=== PATIENT | male | born 1990 | race Caucasian/White ===

== ENCOUNTER 2017-11-29 18:35 | Inpatient (IN) | payer OTHER ==
[~2017-11-29] VITALS: Ht 172.7 cm; Wt 103.9 kg
--- NOTE | 2017-11-29 18:36 | NUR ---
PT BIBA BLS FOR 9992
[2017-11-29 18:41] VITALS: BP 165/102
--- NOTE | 2017-11-29 18:43 | NUR ---
PT TAKEN BY [facility] CREW TO BED 5
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
[2017-11-29 19:09] LABS: BASOPHILS % (AUTO) 0.4 % (0.0-2.0); EOSINOPHILS % (AUTO) 0.1 % (0.0-4.0); HEMATOCRIT 42.6 % (36-52); LYMPHOCYTES # (AUTO) 2.1 K/uL (2.0-11.5); LYMPHOCYTES % (AUTO) 18.6 % (20.5-51.1); MEAN CORPUSCULAR HEMOGLOBIN 29 pg (27-31); MEAN CORPUSCULAR HGB CONC 33 g/dL (33-37); MONOCYTES # (AUTO) 0.7 K/uL (0.8-1.0); MONOCYTES % (AUTO) 6.7 % (1.7-9.3); NEUTROPHILS # (AUTO) 8.2 K/uL (1.8-7.7); NEUTROPHILS % (AUTO) 74.2 % (42.2-75.2); PLATELET COUNT (AUTO) 164 K/uL (140-450); RED BLOOD CELL COUNT(AUTO) 4.89 MIL/uL (4.20-6.10); RED CELL DISTRIBUTION WIDTH 14.2 % (11.6-13.7); WHITE BLOOD COUNT (AUTO) 11.1 K/uL (4.8-10.8)
--- NOTE | 2017-11-29 19:16 | NUR ---
CALLED POISON CONTROL AND SPOKE TO KAI SHE SUGGESTED ROUTINE TOXIC WORKUP LABS.CBC, LFTS, CMP.
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
--- NOTE | 2017-11-29 19:25 | NUR ---
PT REMOVED ALL BELONGINGS, BAGGED AND HANDED OVER TO SECURITY
[2017-11-29 19:26] LABS: ALBUMIN 3.7 g/dL (3.4-5.0); ANION GAP 12.9 (8-16); ASPARTATE AMINOTRANSFERASE 36 U/L (15-37); CARBON DIOXIDE 25.7 mmol/L (21-32); CHLORIDE 105 mmol/L (98-107); GFR ARICAN-AMERICAN 114 mL/min (>90); GLUCOSE 118 mg/dL (74-106); POTASSIUM 3.6 mmol/L (3.5-5.1); SODIUM SERUM 140 mmol/L (136-145); TOTAL BILIRUBIN 0.2 mg/dL (0.0-1.0); UREA NITROGEN, BLOOD 14 mg/dL (7-18)
[2017-11-29 19:30] LABS: SALICYLATE < 2.8 mg/dL (2.8-20.0)
[2017-11-29 19:31] LABS: ACETAMINOPHEN < 0.5 ug/ml (10-30)
[2017-11-29 19:40] LABS: BARBITURATE, URINE NEG. ng/ml (NEG <=200); BENZODIAZEPINE, URINE POS. ng/mL (NEG <=200); CANNABINOID, URINE POS. ng/mL (NEG <=50); COCAINE, URINE NEG. ng/mL (NEG <=300); OPIATE, URINE NEG. ng/mL (NEG <=2000); PHENCYCLIDINE SCREEN,URINE NEG. ng/mL (NEG <=25)
[2017-11-29] MEDS ORDERED: NACL 0.9% 3,000 ML IV ONE (20:15)
--- NOTE | 2017-11-29 21:56 | NUR ---
Patient appears to be resting comfortably in bed. Vital Signs within normal limits. Respirations even and unlabored.
--- NOTE | 2017-11-29 22:06 | NUR ---
SPOKE WITH CHANDRAKANT FROM POSIPM CONTROL TO CLOSE OUT CASE. POISION CONTROL UPDATED ON PATIENT CONDITION AT THIS TIME.
[2017-11-29] MEDS ORDERED: KETOROLAC 30 MG/ML VIAL IVP ONE (22:15)
[2017-11-29] MEDS ORDERED: DICYCLOMINE HCL LIQUID 20 MG, ALUMINUM HYD/MAG/SIMETHICONE 30 ML, LIDOCAINE VISCOUS 2% ... PO ONE ×3 (22:15)
--- NOTE | 2017-11-29 23:55 | NUR ---
LAB AT BEDSIDE FOR 2ND BA.
--- NOTE | 2017-11-30 01:58 | NUR ---
Patient appears to be resting comfortably in bed. Vital Signs within normal limits. Respirations even and unlabored.
--- NOTE | 2017-11-30 02:21 | NUR ---
Patient appears to be resting comfortably in bed. Vital Signs within normal limits. Respirations even and unlabored.
--- NOTE | 2017-11-30 03:18 | NUR ---
INITIATED TELE PSYCH PER DR. BOTELLO
--- NOTE | 2017-11-30 03:29 | NUR ---
FOLLOWED UP ON TELE PSYCH. SPOKE WITH KYLE. TOLD STILL IN LINE TO BE SEEN BY TELE PSYCH DOCTOR
--- NOTE | 2017-11-30 03:33 | NUR ---
PT AMBULATED TO BATHROOM
--- NOTE | 2017-11-30 04:00 | NUR ---
CALLED TO FOLLOW UP WITH TELE PSYCH. SPOKE WITH RASHAD. TOLD STILL IN QUEUE BUT THAT A NEW DOCTOR JUST CAME ON SHIFT AND SHOULD BE AVAILABLE TO SPEAK WITH PATIENT WITHIN 30 MIN
[2017-11-30] MEDS ORDERED: LORazepam 2 MG/ML VIAL IVP ONE ×3 (04:30→06:20)
--- NOTE | 2017-11-30 04:30 | NUR ---
FOLLOW UP CALL TO TELE PSYCH. SPOKE WITH ANTONIA. TOLD STILL WAITING FOR AVAILABLE DOCTOR AND GIVEN AN ETA ON 30-40 MIN FOR DOCTOR TO CALL BACK
--- NOTE | 2017-11-30 04:35 | NUR ---
PATIENT TACHYCARDIC AT THIS TIME. PATIENT STATES HE DOES NOT FEEL WELL. PATIENT DIAPHORETIC AND SHAKING. ER MD MADE AWARE MEDICATED ORDERED
--- NOTE | 2017-11-30 05:03 | NUR ---
FOLLOW UP CALL TO TELE PSYCH. SPOKE WITH JENNIFER. TOLD DOCTOR WILL BE AVAILABLE SOON AND WILL BE TESTING THE CAMERA MOMENTARILY
--- NOTE | 2017-11-30 05:17 | NUR ---
TELE PSYCH CAMERA TESTED AND WORKING, AWAITING TELE PSYCH DOCTOR AT THIS TIME
--- NOTE | 2017-11-30 05:35 | NUR ---
FOLLOW UP CALL TO TELE PSYCH. SPOKE WITH JENNIFER. TOLD A DR. RESENDEZ WILL BE CALLING US SHORTLY
--- NOTE | 2017-11-30 05:43 | NUR ---
TELE PSYCH DOCTOR, DR. RESENDEZ, CALLED BACK AND SPOKE WITH MINGO BOWERS
--- NOTE | 2017-11-30 05:49 | NUR ---
Guillermo nassar in [facility] - 11/30/17 at 0559 by AUDREY TELE PSYCH IN USE AT BEDSIDE WITH MINGO BOWERS AND TELE PSYCH DOCTOR DR. RESENDEZ
--- NOTE | 2017-11-30 05:55 | NUR ---
REPORT GIVEN TO DR. RESENDEZ REGARDING PATIENTS CONDITION. WILL CALL ON TELEPSYCH TO SPEAK WITH PATIENT
--- NOTE | 2017-11-30 05:55 | NUR ---
PATIENT DIAPHORETIC AND SHAKING AT THIS TIME. PATIENT IS RESTLESS AT THIS TIME. ER MD MADE AWARE OF PATIENT STATUS. WILL MEDICATE ORDERED
--- NOTE | 2017-11-30 06:02 | NUR ---
TELE PSYCH IN USE AT BEDSIDE. DR. RESENDEZ SPEAKING WITH PATIENT
[2017-11-30] MEDS ORDERED: NACL 0.9% 1,000 ML IV ONE (06:20)
[2017-11-30] MEDS ORDERED: LORazepam 2 MG/ML VIAL ONE (06:22)
--- NOTE | 2017-11-30 06:30 | NUR ---
PATIENT TACHYCARDIC, DIAPHORETIC, AND RESTLESS AT THIS TIME. ER MD MADE AWARE OF PATIENT STATUS. WILL MEDICATE ORDERED.
--- NOTE | 2017-11-30 06:53 | NUR ---
TELE PSYCH CONSULTATION REPORT RECEIVED THROUGH FAX AND GIVEN TO DR. BOTELLO
[2017-11-30] MEDS ORDERED: ZOLPIDEM 5 MG TAB PO PRN (07:05)
[2017-11-30] MEDS ORDERED: HYDROcodone/APAP 5/325 MG 1 TAB TAB PO PRN (07:05)
[2017-11-30] MEDS ORDERED: ACETAMINOPHEN 325 MG TAB PO PRN (07:05)
[2017-11-30] MEDS ORDERED: LORazepam 2 MG/ML VIAL IM/IVP PRN (07:05)
[2017-11-30] MEDS ORDERED: DOCUSATE SODIUM 100 MG GELCAP PO PRN (07:05)
--- NOTE | 2017-11-30 07:15 | NUR ---
Dr. Leiva evaluating patient at bedside.
--- NOTE | 2017-11-30 07:26 | NUR ---
REVEIVED REPORT FROM SANDEEP AGUILA.
[2017-11-30] MEDS ORDERED: LORazepam 2 MG/ML VIAL IVP PRN (07:30)
[2017-11-30 07:43] LABS: CHOL/HDL RATIO 3.7 (1-4.5); MAGNESIUM 1.7 mg/dL (1.8-2.4); PHOSPHORUS 3.6 mg/dL (2.5-4.9); THYROID STIMULATING HORMONE 0.56 uIU/mL (0.34-3.74)
--- NOTE | 2017-11-30 07:59 | NUR ---
Patient will be admitted to care of DR SMITH. Admited to TELE. Will go to room 119. Belongings list completed. Report to VELIA AGUILA.
[2017-11-30 08:00] VITALS: BP 184/101
--- NOTE | 2017-11-30 08:00 | NUR ---
PT ARRIVED FROM ER IN [facility], REPORT RECEIVED FROM PAID INTERN, PT AMBULATES FROM HALLWAY TO BED WITH STEADY GAIT, PT AAOX4, RESP EVEN UNLABORED, SKIN WARM DRY COLOR WNL, VISIBLE TREMORS NOTED, PT C/O GENERALIZED BODY PAIN AND ABD PAIN, PLAN OF CARE REVIEWED, PT ORIENTED TO ROOM AND FLOOR, SZ PRECAUTION INITIATED, IVF INFUSING WELL, SITE WNL, WILL CONTINUE TO MONITOR.
[2017-11-30] MEDS: FOLIC ACID 1 MG TAB PO SCH (08:19)
[2017-11-30] MEDS: MULTIVITAMIN 1 TAB PO SCH (08:19)
[2017-11-30] MEDS: THIAMINE 100 MG TAB PO SCH (08:19)
[2017-11-30] MEDS: chlordiazePOXIDE 25 MG CAP PO SCH ×3 (08:20→17:22)
[2017-11-30] MEDS: NACL 0.9% 1,000 ML IV SCH ×3 (08:21→21:41)
[2017-11-30] MEDS: MORPHINE SULFATE 2 MG/ML SYR IVP PRN ×3 (08:36→20:19)
[2017-11-30] MEDS: ONDANSETRON 4 MG/2 ML VIAL IM/IVP PRN ×3 (08:36→21:29)
[2017-11-30] MEDS ORDERED: NACL 0.9% 500 ML IV SCH (08:50)
[2017-11-30] MEDS ORDERED: CALCIUM GLUCONATE 10% 1,000 MG in NACL 0.9% 50 ML IV ONE ×2 (08:50→21:50)
[2017-11-30 08:53] LABS: APPEARANCE,URINE CLEAR (CLEAR); BILIRUBIN,URINE NEGATIVE (NEGATIVE); BLOOD, URINE NEGATIVE (NEGATIVE); COLOR,URINE YELLOW (YELLOW); LEUKOCYTE ESTERASE ,URINE NEGATIVE (NEGATIVE); NITRITE, URINE NEGATIVE (NEGATIVE); PH,URINE 6.5 (5.0-9.0); UGLUCOSE NEGATIVE (NEGATIVE)
--- NOTE | 2017-11-30 08:55 | NUR ---
PT TO CT HEAD IN WHEELCHAIR
[2017-11-30] MEDS ORDERED: LORazepam 2 MG/ML VIAL IVP SCH (09:00)
--- NOTE | 2017-11-30 09:00 | NUR ---
PATIENT HAS BEEN SCREENED AND CATEGORIZED LOW NUTRITION RISK. PATIENT WILL BE SEEN WITHIN 7 DAYS OF ADMISSION. 12/06/[address]
[2017-11-30] MEDS: SERTRALINE 50 MG TAB PO SCH (09:28)
[2017-11-30] MEDS ORDERED: CALCIUM CARB 600 MG TAB PO SCH (09:30)
--- NOTE | 2017-11-30 09:33 | NUR ---
PT WITH VISIBLE TREMORS, ATIVAL GIVEN, ZOLOFT, TABITHA WELL, SZ PRECAUTIONS IN PLACE, IVF INFUSING WELL, SITE WNL, WILL CONTINUE TO MONITOR
--- NOTE | 2017-11-30 10:00 | NUR ---
PT SLEEPING QUIETLY, RESP EVEN UNLABORED, SKIN WARMD RYC OLOR WNL, WILL CONTINUE TO MONITOR
[2017-11-30 10:02] VITALS: BP 133/83
[2017-11-30 12:00] VITALS: BP 143/83
[2017-11-30] MEDS: LORazepam 1 MG TAB PO PRN (15:06)
--- NOTE | 2017-11-30 15:07 | NUR ---
PT C/O FEEDING JITTERY AND ANXIOUS WITH PAIN THROUGH OUT BODY, ARM TREMORES NOTED, ATIVAN PO GIVEN, WILL CONTINUE TO MONITOR.
[2017-11-30 16:00] VITALS: BP 150/90
--- NOTE | 2017-11-30 16:48 | NUR ---
DR STUART (PSYCH) AT BEDSIDE
--- NOTE | 2017-11-30 17:08 | NUR ---
ADOPTION COUNSELOR AT BEDSIDE FOR ABD US
--- NOTE | 2017-11-30 17:22 | NUR ---
PT C/O SEVER ABD PAIN, 01/14, ABD SOFT, ROUND, NON DISTENDED, NO VOMITING BUT NAUSEA, MORPHINE GIVEN PER PRN ORDER, WILL ALSO GIVE ZOFRAN FOR C/O NAUSEA
--- NOTE | 2017-11-30 18:20 | NUR ---
PT SLEEPING QUIELTY NOW, RESP EVEN UNLABORED, WILL CONTINUE TO MONITOR
--- NOTE | 2017-11-30 19:15 | NUR ---
REPORT GIVEN TO MACHINE PECAN GATHERER NURSE ZOHREH SIMON IN STABLE CONDITION.
--- NOTE | 2017-11-30 19:16 | NUR ---
RECEIVED REPORT FROM DAY SHIFT NURSE SANJAY-RN. PT RESTING IN BED. AOX4, ON ROOM AIR, IV RIGHT WRIST #22G-INFUSING NS @120ML/HR. PT IS AMBULATORY PER DAY SHIFT NURSE AND SKIN INTACT. DISCUSSED PLAN OF CARE AND PT VERBALIZED UNDERSTANDING. NO S/S OF RESPIRATORY DISTRESS OR DISCOMFORT NOTED AT THIS TIME. WHITE BOARD UPDATED. BED IN LOWEST POSITION, BED BREAKS ON, SIDE RAILS UP AND ON SEIZURE PRECAUTIONS. BED SIDE TABLE AND CALL LIGHT ARE WITHIN REACH. WILL CONTINUE TO MONITOR.
[2017-11-30 20:00] VITALS: BP 137/77
--- NOTE | 2017-11-30 20:00 | NUR ---
VITAL SIGNS TAKEN AND TOLERATED WELL. NO S/S OF RESPIRATORY DISTRESS NOTED AT THIS TIME. PT C/O PAIN 12/14- WILL MEDICATE. WILL CONTINUE TO MONITOR.
--- NOTE | 2017-11-30 20:20 | NUR ---
MEDICATED PT WITH MORPHINE FOR PAIN. PT TOLERATED WELL. NO S/S OF RESPIRATORY DISTRESS. WILL CONTINUE TO MONITOR.
--- NOTE | 2017-11-30 21:30 | NUR ---
PT C/O N/V- MEDICATED WITH ZOFRAN. PT CONTINUES TO C/O PAIN STATING "MORPHINE ONLY TOOK THE EDGE OFF." PT PAIN LEVEL CURRENTLY 6/10-WILL MEDICATE WITH NORCO.
--- NOTE | 2017-11-30 21:40 | NUR ---
MEDICATED PT WITH NORCO. PT TOLERATED WELL. NO S/S OF RESPIRATORY DISTRESS. WILL CONTINUE TO MONITOR.
--- NOTE | 2017-11-30 21:43 | NUR ---
NEW BAG OF IVF HUNG. PT TOLERATED WELL. NO S/S OF RESPIRATORY DISTRESS. WILL CONTINUE TO MONITOR.
[2017-12-01] VITALS (8 sets, daily range): BP systolic 120–163; BP diastolic 63–103
--- NOTE | 2017-12-01 | NUR ---
VITAL SIGNS TAKEN AND TOLERATED WELL. NO S/S OF RESPIRATORY DISTRESS. PT C/O PAIN 12/14-WILL MEDICATE.
[2017-12-01] MEDS: MORPHINE SULFATE 2 MG/ML SYR IVP PRN ×6 (00:27→20:48)
--- NOTE | 2017-12-01 00:30 | NUR ---
MEDICATED PT WITH MORPHINE. PT TOLERATED WELL. NO S/S OF RESPIRATORY DISTRESS. WILL CONTINUE TO MONITOR.
--- NOTE | 2017-12-01 02:00 | NUR ---
PT SLEEPING IN BED. NO S/S OF RESPIRATORY DISTRESS OR DISCOMFORT NOTED AT THIS TIME. WILL CONTINUE TO MONITOR.
--- NOTE | 2017-12-01 04:00 | NUR ---
VITAL SIGNS TAKEN AND TOLERATED WELL. NO S/S OF RESPIRATORY DISTRESS. PT C/O PAIN 12/14-WILL ADMINISTER MORPHINE. PT ALSO C/O NAUSEA-WILL ADMINISTER ZOFRAN.
[2017-12-01] MEDS: ONDANSETRON 4 MG/2 ML VIAL IM/IVP PRN ×4 (04:34→20:48)
--- NOTE | 2017-12-01 04:35 | NUR ---
MEDICATED PT WITH MORPHINE FOR PAIN AND ZOFRAN FOR NAUSEA. PT TOLERATED WELL. NO S/S OF RESPIRATORY DISTRESS. WILL CONTINUE TO MONITOR.
--- NOTE | 2017-12-01 06:00 | NUR ---
PT RESTING IN BED. NO S/S OF RESPIRATORY DISTRESS OR DISCOMFORT NOTED AT THIS TIME. WILL CONTINUE TO MONITOR.
--- NOTE | 2017-12-01 07:30 | NUR ---
RECEIVED PT ON BED, AAOX4. NO SOB NOTED. NO C/O PAIN AT THIS TIME. IV TO RT WRIST PATENT AND INTACT. CHEST CLEAR. ABDOMEN SOFT, BOWEL SOUNDS PRESENT. NO EDEMA NOTED. INSTRUCTED PT TO CALL FOR ASSISTANCE, CALL LIGHT WITHIN REACH, PT VERBALIZED UNDERSTANDING.
--- NOTE | 2017-12-01 07:35 | NUR ---
PT HAVE SOME SHAKING MOVEMENTS FROM ALCOHOL WITHDRAWAL. ON SCHEDULED LIBRIUM PO.
--- NOTE | 2017-12-01 07:40 | NUR ---
ENDORSED PT CARE TO DAY SHIFT NURSE ROMEL FOR CONTINUITY OF CARE.
[2017-12-01] MEDS ORDERED: MAG SULF 2000 MG/WATER PREMIX 50 ML IV SCH (08:20)
[2017-12-01 08:42] LABS: ANION GAP 10.2 (8-16); CARBON DIOXIDE 28.3 mmol/L (21-32); CREATININE 0.9 mg/dL (0.7-1.3); POTASSIUM 3.5 mmol/L (3.5-5.1)
[2017-12-01 08:45] LABS: EOSINOPHILS # (AUTO) 0.1 K/uL (0-0.4); EOSINOPHILS % (AUTO) 1.3 % (0.0-4.0); HEMATOCRIT 43.6 % (36-52); HEMOGLOBIN 14.8 g/dL (12.0-18.0); LYMPHOCYTES # (AUTO) 1.8 K/uL (2.0-11.5); LYMPHOCYTES % (AUTO) 29.5 % (20.5-51.1); MEAN CORPUSCULAR HEMOGLOBIN 30 pg (27-31); MEAN CORPUSCULAR HGB CONC 34 g/dL (33-37); MEAN CORPUSCULAR VOLUME 87.9 fL (80-94); MONOCYTES # (AUTO) 0.5 K/uL (0.8-1.0); MONOCYTES % (AUTO) 8.1 % (1.7-9.3); NEUTROPHILS # (AUTO) 3.8 K/uL (1.8-7.7); NEUTROPHILS % (AUTO) 61.1 % (42.2-75.2); PLATELET COUNT (AUTO) 153 K/uL (140-450); RED BLOOD CELL COUNT(AUTO) 4.95 MIL/uL (4.20-6.10); RED CELL DISTRIBUTION WIDTH 14.5 % (11.6-13.7); WHITE BLOOD COUNT (AUTO) 6.2 K/uL (4.8-10.8)
[2017-12-01] MEDS: NACL 0.9% 1,000 ML IV SCH ×2 (09:14→20:47)
[2017-12-01] MEDS: chlordiazePOXIDE 25 MG CAP PO SCH ×3 (09:22→16:58)
[2017-12-01] MEDS: CALCIUM CARB 600 MG TAB PO SCH (09:23)
[2017-12-01] MEDS: MULTIVITAMIN 1 TAB PO SCH (09:23)
[2017-12-01] MEDS: FAMOTIDINE 20 MG TAB PO SCH (09:23)
[2017-12-01] MEDS: THIAMINE 100 MG TAB PO SCH (09:23)
[2017-12-01] MEDS: SERTRALINE 50 MG TAB PO SCH (09:23)
[2017-12-01] MEDS: FOLIC ACID 1 MG TAB PO SCH (09:24)
--- NOTE | 2017-12-01 09:45 | NUR ---
FULL LIQUIDS FAIRLY TOLERATED. WILL CONTINUE TO MONITOR.
--- NOTE | 2017-12-01 12:03 | NUR ---
PT CONTINUES TO HAVE SOME SHAKING MOVEMENTS FROM ALCOHOL WITHDRAWAL. WILL CONTINUE TO MONITOR.
--- NOTE | 2017-12-01 15:55 | NUR ---
PT RESTING. NO SOB NOTED. NO COMPLAINTS MADE.
--- NOTE | 2017-12-01 16:55 | NUR ---
PT C/O NAUSEA, MEDICATED WITH ZOFRAN IVP PRN. WILL CONTINUE TO MONITOR.
--- NOTE | 2017-12-01 19:08 | NUR ---
PT RESTING. NO SOB NOTED. NO COMPLAINTS MADE. WILL ENDORSE TO NEXT SHIFT NURSE FOR CONTINUITY OF CARE.
--- NOTE | 2017-12-01 19:35 | NUR ---
RECEIVED PT. IN BED SLEEPING. WOKE UP EASILY WHEN CALLED BY NAME. DENIES PAIN AT THIS TIME. NO COMPLAINTS DONE. WENT BACK TO SLEEP AFTER REPORT DONE. DX. OF ETOH WITHDRAWAL. TELEMETRY MONITORING. NO SOB. ROOM AIR. AFEBRILE. CARE PLANS FOR THE NIGHT DISCUSSED WITH HIM. CALL LIGHT WITH IN REACH. ENCOURAGED TO USE CALL LIGHT IF IN PAIN OR NEEDS HELP. "OK"
--- NOTE | 2017-12-01 20:48 | NUR ---
PT. MEDICATED WITH MORPHINE 1 MG. IVP FOR COMPLAINT OF ABDOMINAL PAIN AND ZOFRAN REQUESTED FOR NAUSEA. MEDICATED WITH AMBIEN 5 MG. P.O. RT PER PT.S REQUEST. STATED THAT HE CAN NOT SLEEP EASILY. STATED HE HAS INSOMNIA. AWAKE AND ALERT. ORIENTED X 4. ROM X 4.
[2017-12-01] MEDS: LORazepam 1 MG TAB PO PRN (22:36)
--- NOTE | 2017-12-01 22:39 | NUR ---
PT. WOKE UP . USED URINAL. REQUESTED TO HAVE SOMETHING BECAUSE "I CAN NOT SLEEP BACK ANYMORE" NOTED PT. GRIMACING AND MUSCLES WITH TREMORS. MEDICATED WITH ATIVAN 2 MG. P.O. FOR ANXIETY ORDERED. WILL MONITOR .
[2017-12-02 00:05] VITALS: BP 129/77
--- NOTE | 2017-12-02 00:11 | NUR ---
SLEEPING WELL AT THIS TIME. WOKE UP EASILY WHEN NAME CALLED. VITAL SIGNS TAKEN. NO COMPLAINTS AT THIS TIME. WENT BACK TO SLEEP. TELEMETRY MONITORING. VS WITH IN NORMAL LIMITS. IVF SITE INTACT AND NO INFILTRATION. CALL LIGHT WITH IN REACH.
--- NOTE | 2017-12-02 03:30 | NUR ---
PT. SLEEPING AT THIS TIME. NO SOB. NO RESTLESSNESS.
[2017-12-02 04:00] VITALS: BP_SYST 109; BP_SYST 129; BP_DIAS 60; BP_DIAS 76
[2017-12-02] MEDS: MORPHINE SULFATE 2 MG/ML SYR IVP PRN ×2 (04:21→08:44)
[2017-12-02] MEDS: ONDANSETRON 4 MG/2 ML VIAL IM/IVP PRN ×2 (05:57→10:35)
[2017-12-02] MEDS: NACL 0.9% 1,000 ML IV SCH (06:01)
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
[2017-12-02 07:33] LABS: ANION GAP 11.7 (8-16); CARBON DIOXIDE 27.8 mmol/L (21-32); CREATININE 0.9 mg/dL (0.7-1.3); POTASSIUM 3.5 mmol/L (3.5-5.1)
[2017-12-02 07:34] LABS: BASOPHILS % (AUTO) 0.4 % (0.0-2.0); EOSINOPHILS # (AUTO) 0.1 K/uL (0-0.4); EOSINOPHILS % (AUTO) 0.9 % (0.0-4.0); HEMATOCRIT 43.6 % (36-52); HEMOGLOBIN 14.6 g/dL (12.0-18.0); LYMPHOCYTES # (AUTO) 1.6 K/uL (2.0-11.5); LYMPHOCYTES % (AUTO) 23.5 % (20.5-51.1); MEAN CORPUSCULAR HEMOGLOBIN 30 pg (27-31); MEAN CORPUSCULAR HGB CONC 34 g/dL (33-37); MEAN CORPUSCULAR VOLUME 88.2 fL (80-94); MONOCYTES # (AUTO) 0.6 K/uL (0.8-1.0); MONOCYTES % (AUTO) 8.7 % (1.7-9.3); NEUTROPHILS # (AUTO) 4.4 K/uL (1.8-7.7); NEUTROPHILS % (AUTO) 66.5 % (42.2-75.2); PLATELET COUNT (AUTO) 160 K/uL (140-450); RED BLOOD CELL COUNT(AUTO) 4.94 MIL/uL (4.20-6.10); RED CELL DISTRIBUTION WIDTH 14.3 % (11.6-13.7); WHITE BLOOD COUNT (AUTO) 6.7 K/uL (4.8-10.8)
[2017-12-02 07:51] LABS: PHOSPHORUS 4.4 mg/dL (2.5-4.9)
[2017-12-02 08:00] VITALS: BP 135/80
--- NOTE | 2017-12-02 08:40 | NUR ---
PT TOLERATED FULL LIQUIDS FOR LUNCH. NO N&V NOTED.
[2017-12-02] MEDS: FOLIC ACID 1 MG TAB PO SCH (08:48)
[2017-12-02] MEDS: MULTIVITAMIN 1 TAB PO SCH (08:49)
[2017-12-02] MEDS: chlordiazePOXIDE 25 MG CAP PO SCH ×3 (08:49→13:58)
[2017-12-02] MEDS: FAMOTIDINE 20 MG TAB PO SCH (08:49)
[2017-12-02] MEDS: SERTRALINE 50 MG TAB PO SCH (08:49)
[2017-12-02] MEDS: THIAMINE 100 MG TAB PO SCH (08:49)
[2017-12-02] MEDS: CALCIUM CARB 600 MG TAB PO SCH (08:49)
--- NOTE | 2017-12-02 10:35 | NUR ---
PT C/O NAUSEA, NO VOMITING NOTED. MEDICATED WITH ZOFRAN IVP ORDERED PRN.
[2017-12-02 12:00] VITALS: BP 127/75
[2017-12-02] MEDS ORDERED: LIB25 PO ×2 (12:14→12:46)
[2017-12-02] MEDS ORDERED: ONDA4TAB PO (12:15)
[2017-12-02] MEDS ORDERED: ACET-9525 PO (12:16)
[2017-12-02] MEDS ORDERED: MULT-405 PO (12:31)
[2017-12-02] MEDS ORDERED: THIA-34 PO (12:31)
--- NOTE | 2017-12-02 13:00 | NUR ---
PT TOLERATED REGULAR DIET FOR LUNCH. NO N&V NOTED.
[2017-12-02] MEDS ORDERED: chlordiazePOXIDE 25 MG CAP PO SCH (14:10)
--- NOTE | 2017-12-02 14:30 | NUR ---
DISCHARGE INSTRUCTIONS AND PRESCRIPTIONS GIVEN TO PT WHICH VERBALIZED FULL UNDERSTANDING OF THE INSTRUCTIONS GIVEN AND THE NEED TO FOLLOW UP WITH PCP WITHIN 7 DAYS. ARM BANDS AND IV REMOVED, CANNULA TIP INTACT.
--- NOTE | 2017-12-02 14:35 | NUR ---
ESCORTED PT OUT , AMBULATORY. NO SOB NOTED. NO COMPLAINTS MADE. PT IS D/C HOME IN STABLE CONDITION.
--- NOTE | 2017-12-04 08:03 | NUR ---
RETRO FAXED ER REPORT, H&P, CONSULT AND DISCHARGE SUMMARY TO [facility] [phone] PHONE [phone]
== END 2017-12-02 14:35 | disposition home or self-care (01) | DRG 816 ==
LOC: MED 18:35 → MTU 11-30 07:03
PROVIDERS: ADMIT General Practice; ATTEND General Practice
DX: T65.892A Toxic effect of other specified substances, intentional self-harm, initial encounter (principal); G92 Toxic encephalopathy; E66.01 Morbid (severe) obesity due to excess calories; E83.42 Hypomagnesemia; R45.851 Suicidal ideations; F10.129 Alcohol abuse with intoxication, unspecified; F13.20 Sedative, hypnotic or anxiolytic dependence, uncomplicated; E83.51 Hypocalcemia; F19.10 Other psychoactive substance abuse, uncomplicated; E78.5 Hyperlipidemia, unspecified; F12.90 Cannabis use, unspecified, uncomplicated; F41.1 Generalized anxiety disorder; D72.829 Elevated white blood cell count, unspecified; Z68.35 Body mass index [BMI] 35.0-35.9, adult; K27.9 Peptic ulcer, site unspecified, unspecified as acute or chronic, without hemorrhage or perforation
CPT/HCPCS: 36415; 70450; 71045; 76700; 80048; 80053; 80305; 81003; 83036; 83690; 83735; 84100; 84134; 84443; 85025; 85610; 87081; 93005; 96361; 96374; 96375; 99285; G0480; G0482; J1885; J2060; J2270; J2405; J3475; J7030; Q0092

== ENCOUNTER 2017-12-16 10:10 | Emergency (ER) | payer OTHER ==
[~2017-12-16] VITALS: Ht 172.7 cm; Wt 99.8 kg
[~2017-12-16 10:10] MED LIST: ACET-9525 PO; LIB25 PO; MULT-405 PO; ONDA4TAB PO; THIA-34 PO
--- NOTE | 2017-12-16 10:11 | NUR ---
PT BIBA BLS TO ER BED 04
[2017-12-16 10:13] VITALS: BP 151/105
--- NOTE | 2017-12-16 10:15 | NUR ---
PT . BIBA FROM HOME FOR ETOH AND "NOT FEELING GOOD," ASSOCIATED WITH CHEST PAIN WITH DEEP INSPIRATION. 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 PT IS AXO X4 , RESPONDING IN FULL SENTENCES WITH CLEAR SPEACH, CLENCHING JAW. DENIES SI/HI. PT HAS 4/10 SHARP NON RADIATING PAIN IN STERNAL CHEST UPON DEEP INSPIRATION. RR EVEN AND UNLABORED. ER MD NOTIFIED. WILL CONTINUE TO MONITOR. SAFETY PRECAUTIONS INITIATED.
[2017-12-16] MEDS ORDERED: MULTIVITAMIN-12 10 ML, THIAMINE 100 MG, MAGNESIUM SULFATE 50% 2,000 MG, FOLIC ACID 5 MG... IV ONE ×5 (10:20)
--- NOTE | 2017-12-16 10:20 | NUR ---
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 ER MD INFANTE NOTIFIED.
--- NOTE | 2017-12-16 10:31 | NUR ---
PT GIVEN SUBSTANCE ABUSE RESOURCE PACKET, REFUSED TO TAKE IT, STATES HE HAS ALL THE RESOURCES HE NEEDS.
[2017-12-16] MEDS ORDERED: MULTIVITAMIN-12 10 ML, THIAMINE 100 MG, FOLIC ACID 5 MG in NACL 0.9% 1,000 ML IV ONE (10:40)
[2017-12-16 10:45] LABS: BASOPHILS % (AUTO) 0.5 % (0.0-2.0); HEMATOCRIT 47.3 % (36-52); HEMOGLOBIN 15.9 g/dL (12.0-18.0); LYMPHOCYTES # (AUTO) 1.7 K/uL (2.0-11.5); LYMPHOCYTES % (AUTO) 22.2 % (20.5-51.1); MEAN CORPUSCULAR HEMOGLOBIN 29 pg (27-31); MEAN CORPUSCULAR HGB CONC 34 g/dL (33-37); MEAN CORPUSCULAR VOLUME 87.3 fL (80-94); MONOCYTES # (AUTO) 0.7 K/uL (0.8-1.0); MONOCYTES % (AUTO) 8.8 % (1.7-9.3); NEUTROPHILS # (AUTO) 5.3 K/uL (1.8-7.7); NEUTROPHILS % (AUTO) 68.5 % (42.2-75.2); PLATELET COUNT (AUTO) 276 K/uL (140-450); RED BLOOD CELL COUNT(AUTO) 5.42 MIL/uL (4.20-6.10); RED CELL DISTRIBUTION WIDTH 14.6 % (11.6-13.7); WHITE BLOOD COUNT (AUTO) 7.7 K/uL (4.8-10.8)
[2017-12-16] MEDS ORDERED: LORazepam 2 MG/ML VIAL IVP ONE ×2 (10:45→13:50)
[2017-12-16] MEDS ORDERED: NACL 0.9% 1,000 ML IV ONE (10:45)
--- NOTE | 2017-12-16 10:45 | NUR ---
PT. UNABLE TO PROVIDE URINE AT THIS TIME. ER MD INFANTE NOTIFIED. WILL CONTINUE TO MONITOR.
[2017-12-16 10:58] LABS: ANION GAP 15.7 (8-16); CHLORIDE 100 mmol/L (98-107); CREATININE 0.9 mg/dL (0.7-1.3); GFR ARICAN-AMERICAN 128 mL/min (>90); GLUCOSE 140 mg/dL (74-106); POTASSIUM 3.7 mmol/L (3.5-5.1); SODIUM SERUM 138 mmol/L (136-145); UREA NITROGEN, BLOOD 11 mg/dL (7-18)
[2017-12-16 11:05] LABS: ACETAMINOPHEN < 0.5 ug/ml (10-30); ALBUMIN 4.1 g/dL (3.4-5.0); ASPARTATE AMINOTRANSFERASE 29 U/L (15-37); SALICYLATE < 2.8 mg/dL (2.8-20.0); TOTAL BILIRUBIN 0.4 mg/dL (0.0-1.0)
--- NOTE | 2017-12-16 11:16 | NUR ---
PT. HAS 86% 02 AT ROOM AIR. ER NOTIFIED. 2L VIA NC STARTED, 02 SAT OF 98% NOW.
--- NOTE | 2017-12-16 11:33 | NUR ---
PT. STATES " I AM IN A LOT O PAIN". 10/14 PAIN "ALL OVER". TRE INFANTE NOTIFIED. Addendum: 12/16/17 at 1137 by MEDNC PT HAS B/P OF 155/101 . TRE INFANTE NOTIFIED.
[2017-12-16] MEDS ORDERED: KETOROLAC 15 MG/ML VIAL IVP ONE (11:40)
[2017-12-16] MEDS ORDERED: ONDANSETRON 4 MG/2 ML VIAL IVP ONE (11:40)
[2017-12-16 12:25] LABS: BARBITURATE, URINE NEG. ng/ml (NEG <=200); BENZODIAZEPINE, URINE POS. ng/mL (NEG <=200); CANNABINOID, URINE POS. ng/mL (NEG <=50); COCAINE, URINE NEG. ng/mL (NEG <=300); OPIATE, URINE NEG. ng/mL (NEG <=2000); PHENCYCLIDINE SCREEN,URINE NEG. ng/mL (NEG <=25)
--- NOTE | 2017-12-16 12:30 | NUR ---
PT. RSTING COMFORTABLY IN BED, SLEEPING . VSS. BED IN LOWEST POSITION. WILL CONTINUE TO MONITOR.
--- NOTE | 2017-12-16 13:18 | NUR ---
VIRGINIE [phone] (GIRLFRIEND).
--- NOTE | 2017-12-16 14:05 | NUR ---
PT. RESTING COMFORTABLY IN BED, RR EVEN AND UNLABORED. WILL CONTINUE TO MONITOR.
--- NOTE | 2017-12-16 14:42 | NUR ---
PT STATES " IM FEELING A OT BETTER, THANKS A LOT FOR THE RESOURCES ON SUBSTANCE ABUSE." PT IS ON HIS CELL PHONE SPEAKING WITH HIS DAD, STATES HE IS DOWN THE STREET.
[2017-12-16 14:48] VITALS: BP 149/78
== END 2017-12-16 14:48 | disposition home or self-care (01) ==
LOC: MED 10:10
DX: F10.129 Alcohol abuse with intoxication, unspecified (principal); F41.9 Anxiety disorder, unspecified; F12.90 Cannabis use, unspecified, uncomplicated; F19.90 Other psychoactive substance use, unspecified, uncomplicated; R07.89 Other chest pain; R06.02 Shortness of breath; R10.9 Unspecified abdominal pain; R19.7 Diarrhea, unspecified; R11.10 Vomiting, unspecified; I10 Essential (primary) hypertension; Z79.899 Other long term (current) drug therapy
CPT/HCPCS: 36415; 80053; 80305; 85025; 93005; 96361; 96365; 96366; 96375; 96376; 99285; A9153; G0480; G0482; J1885; J2060; J2405; J3411; J3490; J7030

== ENCOUNTER 2018-05-18 12:15 | Emergency (ER) | payer SELFPAY ==
[~2018-05-18] VITALS: Ht 172.7 cm; Wt 127.0 kg
[2018-05-18] MEDS ORDERED: NACL 0.9% 1,000 ML IV ONE ×2 (12:20→13:00)
[2018-05-18 12:25] VITALS: BP 143/73
--- NOTE | 2018-05-18 12:30 | NUR ---
I SPOKE TO FIDE AT POISON CONTROL AT 1220 PM REGARDING THIS PATIENT IGESTION OF RUBBING ALCOHOL AND NYQUIL COLD AND FLU. LABS WERE ORDERED AND TREATMENT OPTIONS GIVEN RE TYLENOL LEVEL AND GASTRITIS.
--- NOTE | 2018-05-18 12:35 | NUR ---
28 YO MALE BIB EMS FROM HOME FOR POSSIBLE OVERDOSE ON TYLENOL AND OR RUBBING ALCOHOL. DENIES N/V/D; SKIN IS PINK/WARM/DRY; AAOX4 WITH EVEN AND STEADY GAIT; LUNGS CLEAR BL; HR EVEN AND REGULAR; PT DENIES ANY FEVER, CP, SOB, OR COUGH AT THIS TIME; PATIENT STATES PAIN OF 10/10 AT THIS TIME; VSS; PATIENT POSITIONED FOR COMFORT; HOB ELEVATED; BEDRAILS UP X2; BED DOWN. ER MD MADE AWARE OF PT STATUS.
[2018-05-18 12:47] LABS: BASOPHILS # (AUTO) 0.1 K/uL (0.00-0.22); BASOPHILS % (AUTO) 0.4 % (0.0-2.0); HEMATOCRIT 47.5 % (36-52); HEMOGLOBIN 15.2 g/dL (12.0-18.0); LYMPHOCYTES # (AUTO) 1.3 K/uL (2.0-11.5); LYMPHOCYTES % (AUTO) 9.8 % (20.5-51.1); MEAN CORPUSCULAR HEMOGLOBIN 27 pg (27-31); MEAN CORPUSCULAR HGB CONC 32 g/dL (33-37); MEAN CORPUSCULAR VOLUME 84.6 fL (80-94); MONOCYTES # (AUTO) 0.5 K/uL (0.8-1.0); MONOCYTES % (AUTO) 3.5 % (1.7-9.3); NEUTROPHILS # (AUTO) 11.6 K/uL (1.8-7.7); NEUTROPHILS % (AUTO) 86.3 % (42.2-75.2); PLATELET COUNT (AUTO) 312 K/uL (140-450); RED BLOOD CELL COUNT(AUTO) 5.61 MIL/uL (4.20-6.10); RED CELL DISTRIBUTION WIDTH 15.5 % (11.6-13.7); WHITE BLOOD COUNT (AUTO) 13.4 K/uL (4.8-10.8)
[2018-05-18 12:50] LABS: ANION GAP 15.1 (8-16); CARBON DIOXIDE 28.8 mmol/L (21-32); CHLORIDE 101 mmol/L (98-107); CREATININE 2.9 mg/dL (0.7-1.3); GFR ARICAN-AMERICAN 33 mL/min (>90); GLUCOSE 168 mg/dL (74-106); POTASSIUM 3.9 mmol/L (3.5-5.1); SODIUM SERUM 141 mmol/L (136-145); UREA NITROGEN, BLOOD 7 mg/dL (7-18)
[2018-05-18 12:55] LABS: ACETAMINOPHEN < 0.5 ug/ml (10-30); ALBUMIN 3.8 g/dL (3.4-5.0); ASPARTATE AMINOTRANSFERASE 14 U/L (15-37); TOTAL BILIRUBIN 0.2 mg/dL (0.0-1.0)
[2018-05-18 12:56] LABS: SALICYLATE < 2.8 mg/dL (2.8-20.0)
[2018-05-18] MEDS ORDERED: PANTOPRAZOLE 40 MG INJ VIAL IVP ONE (13:00)
--- NOTE | 2018-05-18 14:40 | NUR ---
DR CROSS INFORMED THAT PATIENT IN COMPLAINING OF NAUSEA
[2018-05-18] MEDS ORDERED: ONDANSETRON 4 MG/2 ML VIAL IVP ONE (14:55)
[2018-05-18 15:11] LABS: APPEARANCE,URINE CLEAR (CLEAR); BILIRUBIN,URINE NEGATIVE (NEGATIVE); BLOOD, URINE NEGATIVE (NEGATIVE); COLOR,URINE YELLOW (YELLOW); LEUKOCYTE ESTERASE ,URINE NEGATIVE (NEGATIVE); NITRITE, URINE NEGATIVE (NEGATIVE); PH,URINE 7.5 (5.0-9.0); UGLUCOSE NEGATIVE (NEGATIVE)
[2018-05-18 15:14] LABS: BARBITURATE, URINE NEGATIVE ng/ml (NEG <=200); BENZODIAZEPINE, URINE POSITIVE ng/mL (NEG <=200); CANNABINOID, URINE POSITIVE ng/mL (NEG <=50); COCAINE, URINE NEGATIVE ng/mL (NEG <=300); OPIATE, URINE NEGATIVE ng/mL (NEG <=2000); PHENCYCLIDINE SCREEN,URINE NEGATIVE ng/mL (NEG <=25)
--- NOTE | 2018-05-18 15:39 | NUR ---
Note daryann in EDM - 05/18/18 at 1541 by JANETH SPOKE WITH POISON CONTROL REGARDING PATIENT STATUS. UPDATED THEM ABOUT PATEINT CONDITION. HE STATED THAT HE RECOMMENDED WE DRAW BMP 4 HOURS AFTER INITIAL DRAW TO INSURE KIDNEY FUNCTION IS NOT WORSENING. DR CROSS INFORMED.
--- NOTE | 2018-05-18 15:45 | NUR ---
DR CROSS INFORMED PATIENT IN 02/13 ABD PAIN.
[2018-05-18] MEDS ORDERED: LIDOCAINE VISCOUS 2% 20 ML UDC PO ONE (16:10)
[2018-05-18 17:36] LABS: ANION GAP 13.5 (8-16); CARBON DIOXIDE 28.1 mmol/L (21-32); POTASSIUM 3.6 mmol/L (3.5-5.1)
[2018-05-18 17:37] LABS: CREATININE 2.5 mg/dL (0.7-1.3)
--- NOTE | 2018-05-18 17:53 | NUR ---
patient complaining of 10/[address] Naranjo made aware.
--- NOTE | 2018-05-18 17:58 | NUR ---
SPOKE WITH POISON CONTROL, UPDATED THEM ON CURRENT PATIENT VITALS AND LABS. STATE THEY HAV TONA FURTHER RECOMMENDATIONS FOR CARE. DR CROSS INFORMED.
[2018-05-18 18:34] VITALS: BP 130/75
--- NOTE | 2018-05-18 18:35 | NUR ---
Patient discharged with v/s stable. Written and verbal after care instructions given and explained. Patient alert, oriented and verbalized understanding of instructions. Ambulatory with steady gait. All questions addressed prior to discharge. ID band removed. Patient advised to follow up with PMD. Rx of PEPCID given. Patient educated on indication of medication including possible reaction and side effects. Opportunity to ask questions provided and answered.
== END 2018-05-18 18:35 | disposition home or self-care (01) ==
LOC: MED 12:15
DX: T51.2X1A Toxic effect of 2-Propanol, accidental (unintentional), initial encounter (principal); F55.8 Abuse of other non-psychoactive substances; F41.9 Anxiety disorder, unspecified; R44.1 Visual hallucinations; I10 Essential (primary) hypertension; Z79.899 Other long term (current) drug therapy; Y92.89 Other specified places as the place of occurrence of the external cause
CPT/HCPCS: 36415; 80048; 80053; 80305; 81003; 85025; 93005; 96374; 96375; 99284; C9113; G0480; G0482; J2405; J7030

== ENCOUNTER 2018-06-07 12:08 | Emergency (ER) | payer SELFPAY ==
[~2018-06-07] VITALS: Ht 172.7 cm; Wt 104.3 kg
--- NOTE | 2018-06-07 12:26 | NUR ---
PT CALLED THE FIRST TIME, NO SHOW
--- NOTE | 2018-06-07 12:35 | NUR ---
PT CALLED, NO RESPONSE
[2018-06-07 12:45] VITALS: BP 149/104
--- NOTE | 2018-06-07 12:50 | NUR ---
PT AMBULUATED TO ER BED 09
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
--- NOTE | 2018-06-07 13:11 | NUR ---
POISON CONTROLLED CALLED, TALKED TO KATIE BUCHANAN TO MONITOR PATIENT AND HAVE LABS DONE ON PT AND CALL HER BACK
[2018-06-07] MEDS ORDERED: ONDANSETRON 4 MG/2 ML VIAL IVP ONE (13:25)
[2018-06-07] MEDS ORDERED: NACL 0.9% 1,000 ML IV ONE (13:25)
[2018-06-07] MEDS ORDERED: PANTOPRAZOLE 40 MG INJ VIAL IVP ONE (13:25)
--- NOTE | 2018-06-07 14:07 | NUR ---
PT. RESTING COMFORTABLY IN BED, RR EVEN AND UNLABORED. HOB ELEVATED. VSS. WILL CONTINUE TO MONITOR.
[2018-06-07 14:08] LABS: BASOPHILS # (AUTO) 0.1 K/uL (0.00-0.22); BASOPHILS % (AUTO) 0.8 % (0.0-2.0); EOSINOPHILS % (AUTO) 0.1 % (0.0-4.0); HEMATOCRIT 45.9 % (36-52); LYMPHOCYTES # (AUTO) 2.1 K/uL (2.0-11.5); LYMPHOCYTES % (AUTO) 23.8 % (20.5-51.1); MEAN CORPUSCULAR HEMOGLOBIN 28 pg (27-31); MEAN CORPUSCULAR HGB CONC 33 g/dL (33-37); MEAN CORPUSCULAR VOLUME 85.9 fL (80-94); MONOCYTES # (AUTO) 0.3 K/uL (0.8-1.0); MONOCYTES % (AUTO) 3.9 % (1.7-9.3); NEUTROPHILS # (AUTO) 6.2 K/uL (1.8-7.7); NEUTROPHILS % (AUTO) 71.4 % (42.2-75.2); PLATELET COUNT (AUTO) 319 K/uL (140-450); RED BLOOD CELL COUNT(AUTO) 5.35 MIL/uL (4.20-6.10); RED CELL DISTRIBUTION WIDTH 15.6 % (11.6-13.7); WHITE BLOOD COUNT (AUTO) 8.7 K/uL (4.8-10.8)
[2018-06-07 14:20] LABS: BARBITURATE, URINE NEG. ng/ml (NEG <=200); BENZODIAZEPINE, URINE POS. ng/mL (NEG <=200); CANNABINOID, URINE POS. ng/mL (NEG <=50); COCAINE, URINE NEG. ng/mL (NEG <=300); OPIATE, URINE NEG. ng/mL (NEG <=2000); PHENCYCLIDINE SCREEN,URINE NEG. ng/mL (NEG <=25)
[2018-06-07 14:49] LABS: ALBUMIN 3.8 g/dL (3.4-5.0); ANION GAP 6.4 (8-16); ASPARTATE AMINOTRANSFERASE 59 U/L (15-37); CARBON DIOXIDE 31.5 mmol/L (21-32); CHLORIDE 105 mmol/L (98-107); GFR ARICAN-AMERICAN 113 mL/min (>90); GLUCOSE 128 mg/dL (74-106); LIPASE 107 U/L (73-393); POTASSIUM 3.9 mmol/L (3.5-5.1); SODIUM SERUM 139 mmol/L (136-145); TOTAL BILIRUBIN 0.2 mg/dL (0.0-1.0); UREA NITROGEN, BLOOD 9 mg/dL (7-18)
[2018-06-07 15:03] LABS: SALICYLATE < 2.8 mg/dL (2.8-20.0)
[2018-06-07 15:04] LABS: ACETAMINOPHEN < 0.5 ug/ml (10-30)
--- NOTE | 2018-06-07 15:46 | NUR ---
PT. AMBULATED WITH STEADY GAIT TO RESTROOM, DENIES ANY DIZZYNESS. PT. STATES " I FEEL WAY BETTER NOW". ER MD FAIR MADE AWARE.
--- NOTE | 2018-06-07 16:00 | NUR ---
JOHN JOHNSON FROM POISON CONTROL STATED " OKAY I WILL CLOSE OUT THIS CASE NOW". ER MD FAIR MADE AWARE
[2018-06-07 16:12] VITALS: BP 122/86
--- NOTE | 2018-06-07 16:12 | NUR ---
Patient discharged with v/s stable. Written and verbal after care instructions given and explained. Patient verbalized understanding. Ambulatory with steady gait. All questions addressed prior to discharge. Advised to follow up with PMD. PACKET WITH RESOURCES PROVIDED FOR ALCOHOLISM
== END 2018-06-07 16:12 | disposition home or self-care (01) ==
LOC: MED 12:08
DX: T65.891A Toxic effect of other specified substances, accidental (unintentional), initial encounter (principal); F10.129 Alcohol abuse with intoxication, unspecified; I10 Essential (primary) hypertension; Z79.899 Other long term (current) drug therapy; Y92.89 Other specified places as the place of occurrence of the external cause
CPT/HCPCS: 36415; 80053; 80305; 81002; 83690; 85025; 93005; 96361; 96374; 96375; 99284; C9113; G0480; G0482; J2405; J7030

== ENCOUNTER 2018-06-09 13:40 | Emergency (ER) | payer SELFPAY ==
[~2018-06-09] VITALS: Ht 172.7 cm; Wt 104.3 kg
--- NOTE | 2018-06-09 13:59 | NUR ---
PATIENT AMBULATED TO ER BED 11
[2018-06-09] MEDS ORDERED: NACL 0.9% 2,000 ML IV SCH (14:13)
[2018-06-09] MEDS ORDERED: FAMOTIDINE 20 MG/2 ML VIAL IVP ONE (14:15)
[2018-06-09] MEDS ORDERED: diphenhydrAMINE 50 MG/ML VIAL IVP ONE (14:15)
[2018-06-09] MEDS ORDERED: METOCLOPRAMIDE 10 MG/2 ML INJ VIAL IVP ONE (14:20)
[2018-06-09 14:30] VITALS: BP 142/100
--- NOTE | 2018-06-09 14:38 | NUR ---
XRAY AT BEDSIDE
[2018-06-09 14:52] LABS: BASOPHILS % (AUTO) 0.7 % (0.0-2.0); EOSINOPHILS % (AUTO) 0.1 % (0.0-4.0); HEMATOCRIT 44.8 % (36-52); HEMOGLOBIN 14.7 g/dL (12.0-18.0); LYMPHOCYTES # (AUTO) 1.4 K/uL (2.0-11.5); LYMPHOCYTES % (AUTO) 22.4 % (20.5-51.1); MEAN CORPUSCULAR HEMOGLOBIN 28 pg (27-31); MEAN CORPUSCULAR HGB CONC 33 g/dL (33-37); MEAN CORPUSCULAR VOLUME 85.3 fL (80-94); MONOCYTES # (AUTO) 0.3 K/uL (0.8-1.0); MONOCYTES % (AUTO) 4.7 % (1.7-9.3); NEUTROPHILS # (AUTO) 4.6 K/uL (1.8-7.7); NEUTROPHILS % (AUTO) 72.1 % (42.2-75.2); PLATELET COUNT (AUTO) 292 K/uL (140-450); RED BLOOD CELL COUNT(AUTO) 5.26 MIL/uL (4.20-6.10); RED CELL DISTRIBUTION WIDTH 14.8 % (11.6-13.7); WHITE BLOOD COUNT (AUTO) 6.4 K/uL (4.8-10.8)
[2018-06-09 15:11] LABS: ANION GAP 10.5 (8-16); CARBON DIOXIDE 33.5 mmol/L (21-32)
[2018-06-09 15:16] LABS: ALBUMIN 3.7 g/dL (3.4-5.0); TOTAL BILIRUBIN 0.2 mg/dL (0.0-1.0)
--- NOTE | 2018-06-09 15:29 | NUR ---
PT NOTIFIED PER DR PATRICK HE CAN NOT GO HOME WITHOUT FAMILY OR FRIEND TO PICK HIM UP D/T ELEVATED ALCOHOL LEVEL. PER PT WILL CALL HIS GIRLFRIEND TO PICK HIM UP.
[2018-06-09 15:35] VITALS: BP 142/100
--- NOTE | 2018-06-09 15:35 | NUR ---
PT ELOPED WITHOUT DISCHARGE PAPERS DR PATRICK NOTIFIED
== END 2018-06-09 15:35 | disposition left against medical advice (07) ==
LOC: MED 13:40
DX: F10.129 Alcohol abuse with intoxication, unspecified (principal); I10 Essential (primary) hypertension; Z79.899 Other long term (current) drug therapy
CPT/HCPCS: 36415; 71045; 80053; 85025; 96374; 96375; 99284; G0482; J1200; J2765; J3490; J7030; Q0092

== ENCOUNTER 2018-06-16 05:06 | Emergency (ER) | payer MEDICAID ==
[~2018-06-16] VITALS: Ht 182.9 cm; Wt 108.9 kg
--- NOTE | 2018-06-16 05:06 | NUR ---
PT DEBBIE BLS. TAKEN TO BED 2
[2018-06-16 05:10] VITALS: BP 131/76
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
--- NOTE | 2018-06-16 05:24 | NUR ---
Pt requesting Ativan.
--- NOTE | 2018-06-16 06:12 | NUR ---
Pt provided with urinal
--- NOTE | 2018-06-16 06:20 | NUR ---
Pt voided 1000 clear yellow urine into urinal.
--- NOTE | 2018-06-16 07:02 | NUR ---
Dr. Coronado evaluating patient at bedside.
--- NOTE | 2018-06-16 07:04 | NUR ---
PT LAYING ON RIGHT SIDE---NO S/S RESP DISTRESS NOTED AT THIS TIME. NO TREMORS NOTED X2 SR UP
--- NOTE | 2018-06-16 07:04 | NUR ---
Pt report given to Amandeep AGUILA. Transfer of care at this time.
[2018-06-16] MEDS ORDERED: NACL 0.9% 1,000 ML IV ONE (07:19)
[2018-06-16] MEDS ORDERED: METOCLOPRAMIDE 10 MG/2 ML INJ VIAL IVP ONE (07:20)
[2018-06-16] MEDS ORDERED: hydrOXYzine HCL 25 MG TAB PO ONE (07:20)
[2018-06-16] MEDS ORDERED: diphenhydrAMINE 50 MG/ML VIAL IVP ONE (07:20)
[2018-06-16] MEDS ORDERED: FAMOTIDINE 20 MG TAB PO ONE (07:20)
[2018-06-16 08:07] LABS: BASOPHILS % (AUTO) 0.2 % (0.0-2.0); HEMATOCRIT 48.7 % (36-52); HEMOGLOBIN 15.8 g/dL (12.0-18.0); LYMPHOCYTES # (AUTO) 1.6 K/uL (2.0-11.5); LYMPHOCYTES % (AUTO) 12.5 % (20.5-51.1); MEAN CORPUSCULAR HEMOGLOBIN 28 pg (27-31); MEAN CORPUSCULAR HGB CONC 32 g/dL (33-37); MEAN CORPUSCULAR VOLUME 85.9 fL (80-94); MONOCYTES # (AUTO) 0.6 K/uL (0.8-1.0); MONOCYTES % (AUTO) 4.6 % (1.7-9.3); NEUTROPHILS # (AUTO) 10.8 K/uL (1.8-7.7); NEUTROPHILS % (AUTO) 82.7 % (42.2-75.2); PLATELET COUNT (AUTO) 220 K/uL (140-450); RED BLOOD CELL COUNT(AUTO) 5.67 MIL/uL (4.20-6.10); RED CELL DISTRIBUTION WIDTH 14.8 % (11.6-13.7); WHITE BLOOD COUNT (AUTO) 13.1 K/uL (4.8-10.8)
[2018-06-16 08:14] VITALS: BP 148/66
--- NOTE | 2018-06-16 08:15 | NUR ---
MILD TREMORS NOTED--SEMI-MADERA'S; IVF INFUSING AWAKE ALERT ORIENTED TO NAME PLACE TIME AND EVENT; STATES HE WANTS TO STOP ABUSING ALCOHOL---ADMITS LAST ETOH USE WAS LAST NIGHT; UNSURE OF SPECIFIC TIME. LABS COLLECTED AT IV START---WILL ENCOURAGE FOR URINE SAMPLE
[2018-06-16 08:23] LABS: ANION GAP 13.7 (8-16); CARBON DIOXIDE 26.7 mmol/L (21-32); CREATININE 0.9 mg/dL (0.7-1.3); POTASSIUM 3.4 mmol/L (3.5-5.1)
[2018-06-16 08:30] LABS: ALBUMIN 3.5 g/dL (3.4-5.0); TOTAL BILIRUBIN 0.4 mg/dL (0.0-1.0)
--- NOTE | 2018-06-16 08:54 | NUR ---
PT DEMANDED MORPHINE IV ; STATED IF HE DOES NOT GET IT NOW HE WILL LEAVE. ASKED PT WHERE IS HE HAVING PAIN? PT STATED, "ALL OVER".--- ADVICED PT TO ALLOW IVF AND IV MEDICATIONS GIVEN TO REACH PEAK EFFECT. NOTIFIED PT GOT UP FROM [facility] , ALLOWED ME TO DC IV PRIOR TO WALKING OUT HAS HAD STEADY GAIT TO AND FROM RESTROOM AND AGAIN AMBULATING OUT OF THE ER REMAINED ALERT ORIENTED---ENCOURAGED TO SEEK REHAB FACILITY HELP WOULD NOT TAKE REFERRENCE SHEET FROM ME
--- NOTE | 2018-06-16 09:00 | NUR ---
PATIENT ELOPED FROM FACILITY. DISCHARGE INSTRUCTIONS NOT GIVEN TO PATIENT. DR. PATRICK NOTIFIED.
== END 2018-06-16 09:00 | disposition left against medical advice (07) ==
LOC: MED 05:06
DX: F10.229 Alcohol dependence with intoxication, unspecified (principal); I10 Essential (primary) hypertension; Z79.891 Long term (current) use of opiate analgesic; Z79.899 Other long term (current) drug therapy; Y90.8 Blood alcohol level of 240 mg/100 ml or more
CPT/HCPCS: 36415; 80053; 85025; 96374; 96375; 99283; G0482; J1200; J2765; J7030

== ENCOUNTER 2018-07-22 13:47 | Emergency (ER) | payer MEDICAID ==
[~2018-07-22] VITALS: Ht 172.7 cm; Wt 99.8 kg
[2018-07-22 13:47] VITALS: BP 114/68
--- NOTE | 2018-07-22 13:47 | NUR ---
PATIENT BIB ALS TO ER BED 8.
--- NOTE | 2018-07-22 13:47 | NUR ---
ZOHREH LEWIS ALS TO ER BED 08
[2018-07-22] MEDS ORDERED: NACL 0.9% 1,000 ML IV ONE ×3 (14:05→18:40)
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
[2018-07-22 15:06] LABS: BASOPHILS % (AUTO) 0.7 % (0.0-2.0); EOSINOPHILS % (AUTO) 0.3 % (0.0-4.0); HEMATOCRIT 39.7 % (36-52); LYMPHOCYTES # (AUTO) 1.7 K/uL (2.0-11.5); LYMPHOCYTES % (AUTO) 43.2 % (20.5-51.1); MEAN CORPUSCULAR HEMOGLOBIN 29 pg (27-31); MEAN CORPUSCULAR HGB CONC 33 g/dL (33-37); MEAN CORPUSCULAR VOLUME 87.5 fL (80-94); MONOCYTES # (AUTO) 0.3 K/uL (0.8-1.0); MONOCYTES % (AUTO) 8.3 % (1.7-9.3); NEUTROPHILS # (AUTO) 1.9 K/uL (1.8-7.7); NEUTROPHILS % (AUTO) 47.5 % (42.2-75.2); PLATELET COUNT (AUTO) 355 K/uL (140-450); RED BLOOD CELL COUNT(AUTO) 4.53 MIL/uL (4.20-6.10); RED CELL DISTRIBUTION WIDTH 15.5 % (11.6-13.7)
[2018-07-22 15:16] LABS: ANION GAP 16.8 (8-16); CARBON DIOXIDE 24.6 mmol/L (21-32); CREATININE 1.2 mg/dL (0.7-1.3); POTASSIUM 3.4 mmol/L (3.5-5.1)
[2018-07-22 15:22] LABS: ALBUMIN 3.4 g/dL (3.4-5.0); TOTAL BILIRUBIN 0.1 mg/dL (0.0-1.0)
[2018-07-22 15:42] LABS: BARBITURATE, URINE NEG. ng/ml (NEG <=200); BENZODIAZEPINE, URINE POS. ng/mL (NEG <=200); CANNABINOID, URINE POS. ng/mL (NEG <=50); COCAINE, URINE NEG. ng/mL (NEG <=300); OPIATE, URINE NEG. ng/mL (NEG <=2000); PHENCYCLIDINE SCREEN,URINE NEG. ng/mL (NEG <=25)
[2018-07-22 15:44] LABS: APPEARANCE,URINE CLEAR (CLEAR); BILIRUBIN,URINE NEGATIVE (NEGATIVE); BLOOD, URINE NEGATIVE (NEGATIVE); COLOR,URINE YELLOW (YELLOW); LEUKOCYTE ESTERASE ,URINE NEGATIVE (NEGATIVE); NITRITE, URINE NEGATIVE (NEGATIVE); PH,URINE 5.5 (5.0-9.0); UGLUCOSE NEGATIVE (NEGATIVE)
--- NOTE | 2018-07-22 16:00 | NUR ---
NO SOB OR ACUTE RESPIRATORY DISTRESS NOTED. NO ALCOHOL WITHDRAWL NOTED.
--- NOTE | 2018-07-22 17:30 | NUR ---
NO SYMPTOMS OF WITHDRAWAL NOTED.
[2018-07-22 18:32] VITALS: BP 110/57
[2018-07-22] MEDS ORDERED: KETOROLAC 60 MG/2 ML VIAL IM ONE (18:55)
--- NOTE | 2018-07-22 19:18 | NUR ---
REPROT GIVEN TO [employer] LIEUTENANT RN FOR CONTINUITY OF CARE.
--- NOTE | 2018-07-22 19:19 | NUR ---
RECEIVED REPORT FROM AM SHIFT. WILL CONTINUE CONTINUITY OF CARE.
--- NOTE | 2018-07-22 19:57 | NUR ---
Patient discharged with v/s stable. No discharge instructions given. Ambulatory with steady gait. All questions addressed prior to discharge. Advised to follow up with PMD.
--- NOTE | 2018-07-25 09:32 | NUR ---
Late entry . Confirmed with RN that 0.9 NS at 100cc/hr infused until discharge at 1950.
== END 2018-07-22 19:57 | disposition home or self-care (01) ==
LOC: MED 13:47
DX: F10.129 Alcohol abuse with intoxication, unspecified (principal)
CPT/HCPCS: 36415; 80053; 80305; 81003; 85025; 96374; 99283; G0482; J1885; J7030

== ENCOUNTER 2018-08-23 14:08 | Emergency (ER) | payer SELFPAY ==
[~2018-08-23] VITALS: Ht 172.7 cm; Wt 99.8 kg
[2018-08-23 14:08] VITALS: BP 148/97
--- NOTE | 2018-08-23 14:08 | NUR ---
PATIENT BIB EMS TO ER BED 10.
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
--- NOTE | 2018-08-23 14:08 | NUR ---
Patient BIBA ACLS, transferred to bed 10. Dr. Naranjo and RN evaluating patient at bedside.
[2018-08-23] MEDS ORDERED: NACL 0.9% 1,000 ML IV ONE (14:15)
--- NOTE | 2018-08-23 14:26 | NUR ---
LAB AT BEDSIDE
[2018-08-23 14:46] LABS: BASOPHILS # (AUTO) 0.1 K/uL (0.00-0.22); BASOPHILS % (AUTO) 1.2 % (0.0-2.0); EOSINOPHILS % (AUTO) 0.1 % (0.0-4.0); HEMATOCRIT 40.5 % (36-52); HEMOGLOBIN 13.3 g/dL (12.0-18.0); LYMPHOCYTES # (AUTO) 2.4 K/uL (2.0-11.5); LYMPHOCYTES % (AUTO) 40.8 % (20.5-51.1); MEAN CORPUSCULAR HEMOGLOBIN 28 pg (27-31); MEAN CORPUSCULAR HGB CONC 33 g/dL (33-37); MEAN CORPUSCULAR VOLUME 85.8 fL (80-94); MONOCYTES # (AUTO) 0.5 K/uL (0.8-1.0); MONOCYTES % (AUTO) 7.7 % (1.7-9.3); NEUTROPHILS % (AUTO) 50.2 % (42.2-75.2); PLATELET COUNT (AUTO) 331 K/uL (140-450); RED BLOOD CELL COUNT(AUTO) 4.72 MIL/uL (4.20-6.10); RED CELL DISTRIBUTION WIDTH 14.2 % (11.6-13.7)
--- NOTE | 2018-08-23 14:56 | NUR ---
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 PER NAEL, MONITOR PT FILL MANAGER STATUS, RESPIRATORY, IF NEEDED, INTUBATE PT, KEEP PT HYDRATION, CHECK KETONE IN BOTH URINE AND BLOOD. ALSO CHECK URINE TOXIC. WILL CARRY OUT . MD AND CHARGE NURSE MADE AWARE.
[2018-08-23 15:13] LABS: ALBUMIN 3.7 g/dL (3.4-5.0); ANION GAP 14.7 (8-16); ASPARTATE AMINOTRANSFERASE 37 U/L (15-37); CARBON DIOXIDE 27.8 mmol/L (21-32); CHLORIDE 103 mmol/L (98-107); CREATININE 0.9 mg/dL (0.7-1.3); GFR ARICAN-AMERICAN 127 mL/min (>90); GLUCOSE 135 mg/dL (74-106); POTASSIUM 3.5 mmol/L (3.5-5.1); SODIUM SERUM 142 mmol/L (136-145); TOTAL BILIRUBIN 0.2 mg/dL (0.0-1.0); UREA NITROGEN, BLOOD 9 mg/dL (7-18)
[2018-08-23 15:21] LABS: ACETAMINOPHEN < 0.5 ug/ml (10-30); SALICYLATE < 2.8 mg/dL (2.8-20.0)
--- NOTE | 2018-08-23 16:30 | NUR ---
PT STILL UNRESPONSIVE TO NAME STIMULI OR PAIN STIMULI. NO S/S OF RESPIRATORY DISTRESS NOTED. SUCTIONED PT , WILL CONTINUE TO MONITOR PT.
[2018-08-23 16:35] LABS: APPEARANCE,URINE CLEAR (CLEAR); BILIRUBIN,URINE NEGATIVE (NEGATIVE); BLOOD, URINE NEGATIVE (NEGATIVE); COLOR,URINE YELLOW (YELLOW); LEUKOCYTE ESTERASE ,URINE NEGATIVE (NEGATIVE); NITRITE, URINE NEGATIVE (NEGATIVE); UGLUCOSE NEGATIVE (NEGATIVE)
[2018-08-23 16:39] LABS: BARBITURATE, URINE NEG. ng/ml (NEG <=200); BENZODIAZEPINE, URINE POS. ng/mL (NEG <=200); CANNABINOID, URINE POS. ng/mL (NEG <=50); COCAINE, URINE NEG. ng/mL (NEG <=300); OPIATE, URINE NEG. ng/mL (NEG <=2000); PHENCYCLIDINE SCREEN,URINE NEG. ng/mL (NEG <=25)
--- NOTE | 2018-08-23 18:14 | NUR ---
PT HAS RANDOM MOVEMENT OF HIS RIGHT ARM AT THIS MOMENT. DR. GARRETT AT BEDSIDE TO CHECK PT.
--- NOTE | 2018-08-23 19:10 | NUR ---
Note daryone in EDM - 08/23/18 at 1919 by GIFTY TRANSFFERED PT TO [facility], PT AWAKE, ALERT. NO SOB, PT STATED HEADACHE RELIEVED. PARENT WITH PT, REPORT GIVEN TO JACQUIE AGUILA. PT VITALS STABLE AT THIS MOMENT.
--- NOTE | 2018-08-23 19:36 | NUR ---
ASSUMED CARE OF PT AT THIS TIME, PT IS LAYING IN BED, SLIGHT MOVEMENT OF HEAD AND EYES WITH PAINFUL STIMULI. RR EVEN AND UNLABORED, VSS AT THIS TIME, WILL CONTINUE TO MONITOR.
--- NOTE | 2018-08-23 20:43 | NUR ---
PT FOUND TO BE MOANING IN ROOM, DOES NOT ANSWER QUESTIONS , VSS, DOES OPEN EYES AND TRACKS.
--- NOTE | 2018-08-23 20:55 | NUR ---
SPOKE WITH POISON CONTROL UPDATED THEM ON PATIENT LAB RESULTS AND CURRENTL STATUS. STATED NO NEW RECOMMENDATIONS.
--- NOTE | 2018-08-23 21:19 | NUR ---
SPOKE W/ PT JADON, UPDATED ON PT STATUS, SHE WILL BE GIVNG PT RIDE HOME WHEN CLEARED.
--- NOTE | 2018-08-23 21:45 | NUR ---
PT AWAKE, ASKED FOR WATER AND URINAL, ABLE TO STATE NAME AND ORIENTED TO SITUATION. PT ALSO STOOD AT SIDE OF BED TO USE URINAL AND UNDRESSED, PLACED BACK IN BED.
--- NOTE | 2018-08-23 22:39 | NUR ---
PT LAYING IN BED ASLEEP, WILL CONTINUE TO MONITOR.
--- NOTE | 2018-08-23 23:10 | NUR ---
PT AWAKENED, PT DRESSED HIMSELF AND ASKED TO "SLEEP FOR 1 MORE HOUR", PT WILL BE DISCHARGED, PT IS AWAKE ALERT AND ORIENTED, ABLE TO STAND ON HIS OWN.
--- NOTE | 2018-08-23 23:25 | NUR ---
CALLED PT GIRLFRIEND TO GIVE PT RIDE HOME.
[2018-08-24] VITALS: BP 114/66
--- NOTE | 2018-08-24 | NUR ---
Patient discharged with v/s stable. Written and verbal after care instructions given and explained. Patient verbalized understanding. Ambulatory with steady gait. All questions addressed prior to discharge. Advised to follow up with PMD.
== END 2018-08-24 | disposition home or self-care (01) ==
LOC: MED 14:08
DX: F10.129 Alcohol abuse with intoxication, unspecified (principal); F12.10 Cannabis abuse, uncomplicated; Z79.899 Other long term (current) drug therapy
CPT/HCPCS: 36415; 71045; 80053; 80305; 81003; 82550; 84484; 85025; 93005; 99284; C1758; G0480; G0482; Q0092; J7030

== ENCOUNTER 2018-09-08 09:07 | Inpatient (IN) | payer MEDICAID ==
[~2018-09-08] VITALS: Ht 170.2 cm; Wt 102.1 kg
--- NOTE | 2018-09-08 09:07 | NUR ---
PATIENT TO BED 9 BY EMS.
--- NOTE | 2018-09-08 09:07 | NUR ---
DR. BOTELLO EVALUATING PATIENT AT THIS TIME.
[2018-09-08 09:13] VITALS: BP 104/61
--- NOTE | 2018-09-08 09:14 | NUR ---
PT BIBA FOR ETOH. PT NOT RESPONDING TO QUESTIONS, SLURRED SPEACH, SMELL OF ALCOHOL ON BREATH. VSS. ER TO SEE PT. MEDHX:UNKOWN RX:UNKOWN
[2018-09-08] MEDS ORDERED: NACL 0.9% 2,000 ML IV ONE (09:20)
[2018-09-08 09:41] LABS: BASOPHILS # (AUTO) 0.1 K/uL (0.00-0.22); BASOPHILS % (AUTO) 0.8 % (0.0-2.0); EOSINOPHILS % (AUTO) 0.1 % (0.0-4.0); HEMATOCRIT 38.6 % (36-52); HEMOGLOBIN 12.5 g/dL (12.0-18.0); LYMPHOCYTES # (AUTO) 1.7 K/uL (2.0-11.5); LYMPHOCYTES % (AUTO) 25.6 % (20.5-51.1); MEAN CORPUSCULAR HEMOGLOBIN 27 pg (27-31); MEAN CORPUSCULAR HGB CONC 32 g/dL (33-37); MEAN CORPUSCULAR VOLUME 84.7 fL (80-94); MONOCYTES # (AUTO) 0.7 K/uL (0.8-1.0); MONOCYTES % (AUTO) 10.1 % (1.7-9.3); NEUTROPHILS # (AUTO) 4.2 K/uL (1.8-7.7); NEUTROPHILS % (AUTO) 63.4 % (42.2-75.2); PLATELET COUNT (AUTO) 264 K/uL (140-450); RED BLOOD CELL COUNT(AUTO) 4.56 MIL/uL (4.20-6.10); WHITE BLOOD COUNT (AUTO) 6.6 K/uL (4.8-10.8)
[2018-09-08 10:00] LABS: ALBUMIN 3.8 g/dL (3.4-5.0); ANION GAP 16.9 (8-16); ASPARTATE AMINOTRANSFERASE 18 U/L (15-37); CARBON DIOXIDE 26.1 mmol/L (21-32); CHLORIDE 105 mmol/L (98-107); CREATININE 1.9 mg/dL (0.7-1.3); GFR ARICAN-AMERICAN 54 mL/min (>90); GLUCOSE 89 mg/dL (74-106); SODIUM SERUM 145 mmol/L (136-145); TOTAL BILIRUBIN 0.2 mg/dL (0.0-1.0); UREA NITROGEN, BLOOD 3 mg/dL (7-18)
[2018-09-08 10:02] LABS: ACETAMINOPHEN < 0.5 ug/ml (10-30); SALICYLATE < 2.8 mg/dL (2.8-20.0)
[2018-09-08] MEDS ORDERED: NACL 0.9% 1,000 ML IV SCH (10:39)
[2018-09-08] MEDS ORDERED: HYDROcodone/APAP 5/325 MG 1 TAB TAB PO PRN (10:40)
[2018-09-08] MEDS ORDERED: ZOLPIDEM 5 MG TAB PO PRN (10:40)
[2018-09-08] MEDS ORDERED: LORazepam 2 MG/ML VIAL IVP PRN (10:40)
[2018-09-08] MEDS ORDERED: DOCUSATE SODIUM 100 MG GELCAP PO PRN (10:40)
[2018-09-08] MEDS ORDERED: LORazepam 2 MG/ML VIAL IM/IVP PRN (10:40)
[2018-09-08] MEDS ORDERED: ACETAMINOPHEN 325 MG TAB PO PRN (10:40)
[2018-09-08] MEDS ORDERED: ONDANSETRON 4 MG/2 ML VIAL IM/IVP PRN (10:40)
[2018-09-08] MEDS ORDERED: MORPHINE SULFATE 2 MG/ML SYR IVP PRN (10:40)
--- NOTE | 2018-09-08 10:58 | NUR ---
PT PULLED OUT IV, FLUIDS STOPPED
[2018-09-08 10:59] LABS: BARBITURATE, URINE NEG. ng/ml (NEG <=200); BENZODIAZEPINE, URINE NEG. ng/mL (NEG <=200); CANNABINOID, URINE NEG. ng/mL (NEG <=50); COCAINE, URINE NEG. ng/mL (NEG <=300); OPIATE, URINE NEG. ng/mL (NEG <=2000); PHENCYCLIDINE SCREEN,URINE NEG. ng/mL (NEG <=25)
--- NOTE | 2018-09-08 11:20 | NUR ---
Patient will be admitted to care of [facility]. Admited to TELE VIA GURNEY W/ VSS. Will go to room 107A. Belongings list completed. Report to IESHA RN. PT PULLED OUT IV BEFORE TRANSFER, RESIDENT INFORMED AND AIM RN INFORMED.
--- NOTE | 2018-09-08 11:20 | NUR ---
RECEIVED BEDSIDE REPORT FROM ER NURSE. PATIENT IS SLEEPING. EASILY AROUSABLE. PATIENT REFUSES TO COMMUNICATE AT THIS TIME, ONLY STATED HIS NAME. A&OX1. NO SIGNS OF DISTRESS ON RA. SKIN IS INTACT. PATIENT FALL RISK D/T ALCOHOL INTOXICATION. FALL RISK PROTOCOL IN PLACE. NO IV, PATIENT IS A HARD STICK AND REMOVED IV LINE. I ATTEMPTED TO PLACE 2 IVS AND UNSUCCESSFUL. DR VALLEJO IS AWARE. TELE MONITOR IN PLACE. MRSA DONE. UNABLE TO ASSESS HISTORY D/T PATIENT BEING INTOXICATED AND UNABLE TO ANSWER QUESTIONS AT THIS TIME. BED IN LOW POSITION. WILL CONTINUE TO MONITOR THE PATIENT.
[2018-09-08 11:27] LABS: PROTHROMBIN TIME 10.4 secs (10.8-13.4)
[2018-09-08 11:30] VITALS: BP 125/76
[2018-09-08] MEDS ORDERED: MULTIVITAMIN-12 10 ML, THIAMINE 100 MG, MAGNESIUM SULFATE 50% 2,000 MG, FOLIC ACID 1 MG... IV SCH ×10 (11:30→15:00)
[2018-09-08] MEDS ORDERED: DEXT 5% / NACL 0.45% 1,000 ML IV SCH (11:30)
--- NOTE | 2018-09-08 12:09 | NUR ---
CONTACTED PICC LINE SERVICE TEL# [phone], NO ANSWER. VOICEMAIL MESSAGE LEFT, AWAITING FOR CALL BACK. JAMES-RN NURSE ASSIGNED MADE AWARE. DR. ALVARADO NOTIFIED.
[2018-09-08 12:27] LABS: APPEARANCE,URINE CLEAR (CLEAR); BILIRUBIN,URINE NEGATIVE (NEGATIVE); BLOOD, URINE NEGATIVE (NEGATIVE); COLOR,URINE YELLOW (YELLOW); LEUKOCYTE ESTERASE ,URINE NEGATIVE (NEGATIVE); NITRITE, URINE NEGATIVE (NEGATIVE); PH,URINE 6.5 (5.0-9.0); UGLUCOSE NEGATIVE (NEGATIVE)
[2018-09-08] MEDS: chlordiazePOXIDE 25 MG CAP PO SCH ×2 (13:00→16:52)
--- NOTE | 2018-09-08 13:00 | NUR ---
PATIENT TO DROWSY TO TAKE LIBRIUM AT THIS TIME. ASPIRATION RISK. PATIENT IS SLEEPING, NO SIGNS OF DISTRESS AND NO SIGNS OF WITHDRAWAL. DR ALVARADO IS AWARE. WILL TRY AGAIN AT 1500.
[2018-09-08 13:05] LABS: CHOL/HDL RATIO 2.4 (1-4.5); MAGNESIUM 2.7 mg/dL (1.8-2.4); PHOSPHORUS 4.3 mg/dL (2.5-4.9); THYROID STIMULATING HORMONE 0.98 uIU/mL (0.34-3.74)
--- NOTE | 2018-09-08 13:05 | NUR ---
PATIENT UNABLE TO SIGN CONSENT. TWO DOCTOR SIGNATURE REQUIRED, SIGNED BY DR ALVARADO AND REZA. PATIENT IS ALTERED D/T ALCOHOL INTOXICATION. NEEDS A LINE FOR BANANA BAG AND POTASSIUM. NO FAMILY RECORDED, ASKED PATIENT IF HE HAS FAMILY AND PATIENT NOT ANSWERING AT THIS TIME. CALLED PICC LINE NURSE AT [phone], THEY SAID DELMIS IS THE PICC LINE NURSE RIGHT NOW AND HE WILL CALL ME RIGHT BACK TO GET SOME INFORMATION.
[2018-09-08] MEDS ORDERED: KCL 20 MEQ/WATER INJ PREMIX 200 ML IV SCH (14:00)
--- NOTE | 2018-09-08 14:06 | NUR ---
DELMIS PICC LINE NURSE CALLED, STATED HIS ETA WILL BE IN AN HOUR. JAMES-RN MADE AWARE.
--- NOTE | 2018-09-08 14:53 | NUR ---
PATIENT IS SLEEPING. NO SIGNS OF DISTRESS. WILL CONTINUE TO MONITOR THE PATIENT.
--- NOTE | 2018-09-08 15:30 | NUR ---
DELMIS PICC LINE NURSE CALLED BACK, STATED HE WILL BE HERE IN ANOTHER HOUR, BECAUSE HE HAS AN EMERGENCY CALL AT [facility]. JAMES-MINGO MADE AWARE.
--- NOTE | 2018-09-08 15:40 | NUR ---
PATIENT IS SLEEPING. NO SIGNS OF DISTRESS. WILL CONTINUE TO MONITOR
[2018-09-08 16:00] VITALS: BP 114/78
--- NOTE | 2018-09-08 16:22 | NUR ---
FAXED CONSENT TO USE OF [facility] INFORMATION FROM [facility] TO [phone]. TRANSACTION REPORT THAT IT WAS RECEIVED IS IN THE CHART
--- NOTE | 2018-09-08 16:53 | NUR ---
ADMINISTERED MEDS. PATIENT TOLERATED WELL. EDUCATED ON SIDE EFFECTS. PATIENTS MOM CALLED LOOKING IF PATIENT IS ADMITTED HERE. SHE SAID THAT HES BEEN IN AND OUT OF DIFFERENT HOSPITALS SINCE HES HOMELESS. HES USUALLY IN FOR ALCOHOL INTOXICATION. SHE STATES HE HAS NO HISTORY BESIDES DRINKING ALCOHOL, HAND FRAME BENDER AND RUBBING ALCOHOL. GOT TELEPHONE CONSENT FROM HER FOR PICC LINE PLACEMENT. HER NUMBER IS [phone]. SHE SAID HER GIRLFRIENDS NAME IS VIRGINIE AND WE CAN CONTACT HER AT [phone]
--- NOTE | 2018-09-08 17:54 | NUR ---
DELMIS, PICC LINE NURSE IS HERE WAITING FOR BOOTMAKER HAND. BOOTMAKER HAND DOING STAT US IN ER, THEY SAID THEY WILL CONTACT ME AFTER. DELMIS IS AWARE
--- NOTE | 2018-09-08 19:20 | NUR ---
ADMINISTERED BANANA BAG AND POTASSIUM. GOT CO SIGNERS. ENDORSED MINERAL MIXER TO GIVE SECOND BAG. GAVE BEDSIDE REPORT TO MINERAL MIXER NURSE. PATIENT ENDORSED IN STABLE CONDITION
--- NOTE | 2018-09-08 19:25 | NUR ---
RECEIVED PT AT BED SIDE FROM DEACON RN, PT IS AAOX3 FOLLOW COMMANDS ,ON BED REST , PICC LINE ON RT UPPER ARM INFUSING WELL POTASSIUM, AND ALSO BANANA BAG, ON TELEMETRY ST PT GETTING SLEEP INITIAL ASSESSMENT DONE.
[2018-09-08 20:10] VITALS: BP 134/87
--- NOTE | 2018-09-08 22:00 | NUR ---
PT SLEEPING NOT DISTRESS NOTED REPOSITIONED ON TELE SR
[2018-09-09] VITALS: BP 143/84
--- NOTE | 2018-09-09 | NUR ---
PT SLEEPING ON TELE SR REPOSITIONED BANANA BAG INFUSIG ON RT UA PICC LINE PT USING URINAL
--- NOTE | 2018-09-09 03:00 | NUR ---
DARLENE CHANGED PT COOPERTIVE NOT DISTRESS NOTED ON TELE SR
[2018-09-09 04:00] VITALS: BP 143/74
--- NOTE | 2018-09-09 04:00 | NUR ---
PT SCREAMING THAT HE WANTS TO EAT FOOD AND DR ORDER CLEAR LIQUID DIET WATER WELL TOLERATED BUT PT STARTED TO BE ANGRY BECAUSE NOT FOOD GIVEN AT THIS TIME.
--- NOTE | 2018-09-09 05:20 | NUR ---
PT ANGRY GET OUT OF BED AND WENT TO THE RESTROOM VOIDING WELL AND HE SAID HE WANT TO GO HOME CHARGE NURSE AWARE AND DR GORMAN WAS NOTIFY AND TALK TO THE PT AND PT INSIST TO GO; HOME AND HE WANT TO SIGN AMA,
--- NOTE | 2018-09-09 05:21 | NUR ---
PT ANGRY WANT TO LEAVE THE HOSPITAL WITHOOT DR PÉREZ AND WE EXPLAILN THE IMPORTANT TO BE IN; THE HOSPITAL AND HE REFUSED TO STAY HERE CHARGE NURSE, DR BOYLE AWARE AND METAL DOOR ASSEMBLER
--- NOTE | 2018-09-09 05:21 | NUR ---
PT WAS EXPLAIN THE IMPORTANT TO BE I THE HOSPITAL AND HE INSISIT TO LEAVE THE HOSPITAL WITHOUT DR ELISA
--- NOTE | 2018-09-09 05:25 | NUR ---
SQL SERVER DBA IS HERE AND SEE PT TO WANT TO REMOVE PICC LINE HE SAID WANT TO GO HOME NOW AND SQL SERVER DBA UNDER DR BOYLE AWARE REMOVE PICC LINE AND WRIST BAND REMOVED
--- NOTE | 2018-09-09 05:30 | NUR ---
PT SIGNED AMA AND HE IS LEAVING THE HOSPITAL
--- NOTE | 2018-09-09 08:44 | NUR ---
PATIENT HAS BEEN SCREENED AND CATEGORIZED MODERATE NUTRITION RISK. PATIENT WILL BE SEEN WITHIN 3-5 DAYS OF ADMISSION. 09/10/18OPAL [address]
[2018-09-09] MEDS ORDERED: MULTIVITAMIN 1 TAB PO SCH (09:00)
[2018-09-09] MEDS ORDERED: FOLIC ACID 1 MG TAB PO SCH (09:00)
[2018-09-09] MEDS ORDERED: THIAMINE 100 MG TAB PO SCH (09:00)
== END 2018-09-09 05:30 | disposition left against medical advice (07) | DRG 91 ==
LOC: MED 09:07 → MTU 10:39
PROVIDERS: ADMIT General Practice; ATTEND General Practice
PROC: 05HY33Z Insertion of Infusion Device into Upper Vein, Percutaneous Approach (ICD-10-PCS; principal; 2018-09-08)
PROC: B54MZZA Ultrasonography of Right Upper Extremity Veins, Guidance (ICD-10-PCS; 2018-09-08)
DX: G92 Toxic encephalopathy (principal); N17.0 Acute kidney failure with tubular necrosis; F10.229 Alcohol dependence with intoxication, unspecified; Y90.8 Blood alcohol level of 240 mg/100 ml or more; E66.9 Obesity, unspecified; I10 Essential (primary) hypertension; E87.6 Hypokalemia; Z53.21 Procedure and treatment not carried out due to patient leaving prior to being seen by health care provider; E83.41 Hypermagnesemia; E78.2 Mixed hyperlipidemia; Z68.35 Body mass index [BMI] 35.0-35.9, adult; Z71.3 Dietary counseling and surveillance; Z79.899 Other long term (current) drug therapy; Z91.14 Patient's other noncompliance with medication regimen
CPT/HCPCS: 36415; 36556; 70450; 71045; 80053; 80305; 81003; 82140; 83036; 83690; 83735; 84100; 84134; 84443; 85025; 85610; 85730; 87081; 96372; 96374; 96375; 99285; A9153; C1751; C1758; G0480; G0482; J3411; J3475; J3480; J3490; J7030; Q0092

== ENCOUNTER 2018-09-09 09:38 | Inpatient (IN) | payer MEDICAID, OTHER ==
[~2018-09-09] VITALS: Ht 172.7 cm; Wt 100.7 kg
[2018-09-09 09:40] VITALS: BP 99/53
--- NOTE | 2018-09-09 09:45 | NUR ---
[place] [employer]. PT IS A PREBOOK. PER [place] [employer], PT WAS BEING TAKEN TO [facility], BUT UPON TAKING OUT OF THE PD CAR. PT WAS LETHARGIC FROM ETOH AND HAD THROWN UP. PT IS AROUSABLE TO NAME. NO SIGNS AND SYMPTOMS OF DISTRES NOTED. CLEAR SHARLENE LUNG SOUNDS UPON AUSCULTATION. PT PLACED ON FULL DIRECTOR DIGITAL SALES. PD AT BEDSIDE. HOB UP. BED SIDE RAILS UP X2. ON LOW BED POSITION, LOCKED. ER MADE AWARE OF PT STATUS.
[2018-09-09] MEDS ORDERED: NACL 0.9% 1,000 ML IV ONE (10:08)
[2018-09-09] MEDS ORDERED: diphenhydrAMINE 50 MG/ML VIAL IVP ONE (10:10)
[2018-09-09] MEDS ORDERED: THIAMINE 200 MG/2 ML VIAL IM ONE (10:10)
--- NOTE | 2018-09-09 10:15 | NUR ---
UNABLE TO OBTAIN IV ACCESS. NOTIFIED CHARGE NURSE. CHARGE NURSE TO TRY TO INITIATE IV ACCESS.
[2018-09-09 11:00] LABS: ANION GAP 18.1 (8-16); CARBON DIOXIDE 24.2 mmol/L (21-32); CREATININE 1.6 mg/dL (0.7-1.3); POTASSIUM 3.3 mmol/L (3.5-5.1)
[2018-09-09 11:09] LABS: TOTAL BILIRUBIN 0.2 mg/dL (0.0-1.0)
[2018-09-09 11:10] LABS: MAGNESIUM 2.4 mg/dL (1.8-2.4)
--- NOTE | 2018-09-09 11:13 | NUR ---
CRITICAL LAB REPORT: LACTIC ACID 3.[address] in[address]vo[address] PATRICK NOTIFIED AND AWARE.
--- NOTE | 2018-09-09 11:15 | NUR ---
Guillermo nassar in [facility] - 09/09/18 at 1157 by [facility] UNABLE TO OBTAIN IV ACCESS. NOTIFIED CHARGE NURSE. CHARGE NURSE TO TRY TO INITIATE IV ACCESS.
[2018-09-09 11:21] LABS: BASOPHILS % (AUTO) 0.5 % (0.0-2.0); HEMATOCRIT 39.7 % (36-52); LYMPHOCYTES # (AUTO) 1.7 K/uL (2.0-11.5); LYMPHOCYTES % (AUTO) 24.9 % (20.5-51.1); MEAN CORPUSCULAR HEMOGLOBIN 28 pg (27-31); MEAN CORPUSCULAR HGB CONC 33 g/dL (33-37); MEAN CORPUSCULAR VOLUME 84.2 fL (80-94); MONOCYTES # (AUTO) 0.4 K/uL (0.8-1.0); NEUTROPHILS # (AUTO) 4.7 K/uL (1.8-7.7); NEUTROPHILS % (AUTO) 68.6 % (42.2-75.2); PLATELET COUNT (AUTO) 294 K/uL (140-450); RED BLOOD CELL COUNT(AUTO) 4.72 MIL/uL (4.20-6.10); WHITE BLOOD COUNT (AUTO) 6.9 K/uL (4.8-10.8)
[2018-09-09 11:45] LABS: ACETONE, SERUM NEGATIVE (NEGATIVE)
[2018-09-09] MEDS ORDERED: LORazepam 2 MG/ML VIAL IM/IVP PRN (12:20)
[2018-09-09] MEDS ORDERED: LORazepam 2 MG/ML VIAL ONE (12:22)
[2018-09-09] MEDS ORDERED: LORazepam 2 MG/ML VIAL IM/IVP SCH (12:30)
--- NOTE | 2018-09-09 12:30 | NUR ---
RESIDENT DOCTOR AT BEDSIDE FOR CENTRAL LINE INSERTION TO R INTERNAL JUGULAR PLACEMENT PROCEDURE. VSS.
--- NOTE | 2018-09-09 13:14 | NUR ---
PT TAKEN TO CT VIA BED WITH SUPERINTENDENT STORAGE AREA. ON TELE MONITOR WITH RN TO GO WITH PT.
--- NOTE | 2018-09-09 13:31 | NUR ---
PT BACK TO ROOM FROM CT BY AGRICULTURAL COMMODITIES INSPECTOR AND RN
--- NOTE | 2018-09-09 13:45 | NUR ---
RESIDENT DOCTOR VERBALIZED CENTRAL LINE OK TO USE.
--- NOTE | 2018-09-09 14:00 | NUR ---
PT ASLEEP. PT AROUSABLE BY PAIN. NO SIGNS AND SYMPTOMS OF DISTRESS NOTED. WILL CONTINUE TO MONITOR.
[2018-09-09] MEDS ORDERED: DOCUSATE SODIUM 100 MG GELCAP PO PRN (14:25)
[2018-09-09] MEDS ORDERED: AMMONIA AROMATIC 1 INHL INH ONE (14:47)
[2018-09-09 14:50] LABS: APPEARANCE,URINE CLEAR (CLEAR); BILIRUBIN,URINE NEGATIVE (NEGATIVE); BLOOD, URINE 1+ (NEGATIVE); COLOR,URINE YELLOW (YELLOW); LEUKOCYTE ESTERASE ,URINE NEGATIVE (NEGATIVE); NITRITE, URINE NEGATIVE (NEGATIVE); UGLUCOSE NEGATIVE (NEGATIVE)
[2018-09-09 14:57] LABS: BARBITURATE, URINE NEG. ng/ml (NEG <=200); BENZODIAZEPINE, URINE POS. ng/mL (NEG <=200); CANNABINOID, URINE NEG. ng/mL (NEG <=50); COCAINE, URINE NEG. ng/mL (NEG <=300); OPIATE, URINE NEG. ng/mL (NEG <=2000); PHENCYCLIDINE SCREEN,URINE NEG. ng/mL (NEG <=25)
[2018-09-09 15:10] LABS: WBC,URINE 0-5 /HPF (0-5)
[2018-09-09 15:11] LABS: HYALINE CASTS, URINE 0-10 /LPF (None Seen)
--- NOTE | 2018-09-09 15:25 | NUR ---
Patient will be admitted to care of Dr Borajs. Admited to Med Surg. Will go to room 117 A. Belongings list completed. Report to MINGO Solis.
[2018-09-09 15:30] VITALS: BP 117/59
--- NOTE | 2018-09-09 15:30 | NUR ---
RECEIVED REPORT FROM NURSE PAYNE. PT IS AAOX2, INTOXICATED MALE PT CAME IN FOR ETOH PREBOOKING. PT IS BEING ESCORTED BY INSTRUCTOR PILOT. PT HAS TRIPLE LUMEN CENTRAL LINE IN RIGHT IJ. PT SKIN IS INTACT. PT IS HEAVILY SLEEPING AND DIFFICULT TO AROUSE AT THIS TIME. ATIVAN WAS GIVEN IN ED. PT VITAL SIGNS ARE STABLE AT THIS TIME. NO SIGNS OF PAIN. EXPLAINED PLAN OF CARE TO PT. CALL LIGHT WITHIN REACH. PT HANDCUFFED TO BED WITH INSTRUCTOR PILOT SITTING AT BEDSIDE. WILL MONITOR PT CLOSELY.
[2018-09-09 15:44] LABS: MAGNESIUM 2.3 mg/dL (1.8-2.4); PHOSPHORUS 3.7 mg/dL (2.5-4.9)
[2018-09-09] MEDS ORDERED: MULTIVITAMIN-12 10 ML, THIAMINE 100 MG, MAGNESIUM SULFATE 50% 2,000 MG, FOLIC ACID 1 MG... IV SCH ×5 (16:00)
[2018-09-09] MEDS: NACL 0.9% 1,000 ML IV SCH ×2 (16:31→22:28)
[2018-09-09 16:58] LABS: PROTHROMBIN TIME 10.7 secs (10.8-13.4)
[2018-09-09] MEDS ORDERED: KCL 20 MEQ/WATER INJ PREMIX 100 ML IV SCH (17:00)
--- NOTE | 2018-09-09 17:02 | NUR ---
PER MD REQUEST. K-GERMÁN IS TO BE INFUSED BEFORE BANANA BAG. WILL ENDORSE ORDERS TO DENTAL TECHNOLOGY ADVISOR.
--- NOTE | 2018-09-09 17:42 | NUR ---
PT ASLEEP IN BED. CONTROL EQUIPMENT ELECTRICIAN SITTING AT BEDSIDE. PT HANDCUFFED TO BED. PT VITAL SIGNS IN STABLE CONDITION. NO NEEDS AT THIS TIME. WILL CONTINUE TO MONITOR PT CLOSELY. PT ON TELE AT THIS TIME.
[2018-09-09] MEDS: chlordiazePOXIDE 25 MG CAP PO SCH ×2 (18:15→23:37)
--- NOTE | 2018-09-09 19:29 | NUR ---
ENDORSED PT TO LABORER CHEESEMAKING RN. PT IN STABLE CONDITION AT THIS TIME.
--- NOTE | 2018-09-09 19:35 | NUR ---
Received endorsement from AM shift RN; patient is A/Ox1, patient is sleeping, intoxicated. special technical operations officer present, introduced self, updated board. No SOB or distress noted, on O2 2LPM via N/C. IV site on right IJ, triple lumen, with IVF running at 130mL/hr. Skin intact. Bed in the lowest position, call light within reach. Initial assessment done. Will continue to monitor.
[2018-09-09 20:00] VITALS: BP 110/57
--- NOTE | 2018-09-09 21:30 | NUR ---
Checks made, no SOB noted.
[2018-09-10] VITALS: BP 128/69
--- NOTE | 2018-09-10 00:05 | NUR ---
Vitals taken, due meds given. No distress noted.
--- NOTE | 2018-09-10 01:30 | NUR ---
Rounds done; patient asleep, eyes closed, visible chest rise and fall noted. Sleeping on right lateral side.
[2018-09-10] MEDS: LORazepam 2 MG/ML VIAL IVP PRN (02:07)
[2018-09-10 04:00] VITALS: BP 121/64
--- NOTE | 2018-09-10 04:00 | NUR ---
Vitals taken; patient asleep, visible chest rise and fall noted, sleeping on left lateral side.
[2018-09-10] MEDS: NACL 0.9% 1,000 ML IV SCH ×3 (04:19→22:39)
[2018-09-10 05:01] LABS: BASOPHILS % (AUTO) 0.3 % (0.0-2.0); EOSINOPHILS % (AUTO) 0.1 % (0.0-4.0); HEMATOCRIT 32.5 % (36-52); HEMOGLOBIN 10.7 g/dL (12.0-18.0); LYMPHOCYTES % (AUTO) 29.5 % (20.5-51.1); MEAN CORPUSCULAR HEMOGLOBIN 28 pg (27-31); MEAN CORPUSCULAR HGB CONC 33 g/dL (33-37); MEAN CORPUSCULAR VOLUME 83.8 fL (80-94); MONOCYTES # (AUTO) 0.5 K/uL (0.8-1.0); MONOCYTES % (AUTO) 6.9 % (1.7-9.3); NEUTROPHILS # (AUTO) 4.4 K/uL (1.8-7.7); NEUTROPHILS % (AUTO) 63.2 % (42.2-75.2); PLATELET COUNT (AUTO) 226 K/uL (140-450); RED BLOOD CELL COUNT(AUTO) 3.88 MIL/uL (4.20-6.10); RED CELL DISTRIBUTION WIDTH 14.7 % (11.6-13.7); WHITE BLOOD COUNT (AUTO) 6.9 K/uL (4.8-10.8)
[2018-09-10] MEDS: chlordiazePOXIDE 25 MG CAP PO SCH ×4 (05:11→23:37)
[2018-09-10 06:34] LABS: ANION GAP 12.4 (8-16); POTASSIUM 3.4 mmol/L (3.5-5.1)
[2018-09-10 06:35] LABS: CREATININE 2.2 mg/dL (0.7-1.3)
[2018-09-10 06:41] LABS: MAGNESIUM 2.3 mg/dL (1.8-2.4)
--- NOTE | 2018-09-10 07:20 | NUR ---
Endorsed patient to AM shift RN for continuity of care; patient in stable condition.
--- NOTE | 2018-09-10 07:21 | NUR ---
RECEIVED REPORT FROM TRAVEL TICKETING REVIEWER NURSE. PATIENT LYING DOWN IN BED SLEEPING, AROUSABLE BY VOICE. NO DISTRESS NOTED. PAIN WITHIN TOLERABLE AT THIS TIME. AAOX3, CALM, COOPERATIVE, SKIN COLOR APPROPRIATE TO ETHNICITY, WARM TO TOUCH. RESPIRATIONS EVEN, UNLABORED, ON ROOM AIR. RIGHT IJ NOTED. REVIEWED PLAN OF CARE WITH PATIENT. PATIENT VERBALIZED UNDERSTANDING. SAFETY MEASURES IN PLACE, CALL LIGHT WITHIN REACH. WILL CONTINUE TO MONITOR.
[2018-09-10 08:00] VITALS: BP 144/79
--- NOTE | 2018-09-10 08:32 | NUR ---
PATIENT HAS BEEN SCREENED AND CATEGORIZED MODERATE NUTRITION RISK. PATIENT WILL BE SEEN WITHIN 3-5 DAYS OF ADMISSION. 09/12/18OPAL [address]
[2018-09-10] MEDS: THIAMINE 100 MG TAB PO SCH (08:53)
[2018-09-10] MEDS: MULTIVITAMIN 1 TAB PO SCH (08:53)
[2018-09-10] MEDS: FOLIC ACID 1 MG TAB PO SCH (08:53)
[2018-09-10] MEDS: ACETAMINOPHEN 325 MG TAB PO PRN ×2 (08:56→22:43)
[2018-09-10] MEDS: ONDANSETRON 4 MG/2 ML VIAL IM/IVP PRN ×2 (09:01→14:14)
--- NOTE | 2018-09-10 09:04 | NUR ---
PATIENT LYING DOWN IN BED. NO DISTRESS NOTED. COMPLAINS OF MILD PAIN AND NAUSEA. TYLENOL AND ZOFRAN GIVEN. OTHER SCHEDULED MEDICATIONS DUE GIVEN. WILL CONTINUE TO MONITOR.
[2018-09-10 11:46] LABS: CHOL/HDL RATIO 2.4 (1-4.5)
[2018-09-10 12:00] VITALS: BP 154/93
--- NOTE | 2018-09-10 12:45 | NUR ---
PATIENT SITTING DOWN IN BED WITH LUNCH TRAY IN FRONT. NO DISTRESS NOTED. DENIES ANY PAIN. SCHEDULED MEDICATIONS DUE GIVEN. WILL CONTINUE TO MONITOR.
[2018-09-10] MEDS ORDERED: POTASSIUM CHLORIDE 10 MEQ TABER PO SCH (13:45)
--- NOTE | 2018-09-10 14:24 | NUR ---
PATIENT LYING DOWN IN BED SLEEPING, AROUSABLE BY VOICE. COMPLAINS OF NAUSEA, ZOFRAN GIVEN PER MD ORDERS. OTHER SCHEDULED MEDICATIONS DUE GIVEN. WILL CONTINUE TO MONITOR.
[2018-09-10 16:00] VITALS: BP 130/73
--- NOTE | 2018-09-10 16:14 | NUR ---
Zoo Director Note: Per Land Measurer Tony Burdick ext [phone] from [place] [employer], they will slate picker patient upon discharge.
--- NOTE | 2018-09-10 17:19 | NUR ---
PATIENT LYING DOWN IN BED SLEEPING, AROUSABLE BY VOICE. NO DISTRESS NOTED. DENIES ANY PAIN. SCHEDULED MEDICATIONS DUE GIVEN. WILL CONTINUE TO MONITOR.
[2018-09-10 17:30] LABS: ANION GAP 9.8 (8-16); CARBON DIOXIDE 30.2 mmol/L (21-32); CREATININE 2.1 mg/dL (0.7-1.3)
--- NOTE | 2018-09-10 19:16 | NUR ---
GAVE REPORT TO SENIOR SVP NURSE FOR CONTINUITY OF CARE. PATIENT IN STABLE CONDITION.
--- NOTE | 2018-09-10 19:20 | NUR ---
Received endorsement from AM shift RN; patient is A/Ox3, patient is sleeping. juvenile correctional officer present, introduced self, updated board. No SOB or distress noted, on room air. IV site on right IJ, triple lumen, with IVF running at 130mL/hr. Skin intact. Bed in the lowest position, call light within reach. Initial assessment done. Will continue to monitor.
--- NOTE | 2018-09-10 21:15 | NUR ---
Checks made; no distress noted.
--- NOTE | 2018-09-10 23:35 | NUR ---
Vitals taken; patient asleep, visible chest rise and fall noted. Patient on right lateral side.
[2018-09-11] VITALS: BP 124/61
[2018-09-11] MEDS: ONDANSETRON 4 MG/2 ML VIAL IM/IVP PRN (01:36)
--- NOTE | 2018-09-11 02:00 | NUR ---
Patient repositioned to left lateral side. Will continue to monitor.
[2018-09-11] MEDS: LORazepam 2 MG/ML VIAL IVP PRN (02:51)
--- NOTE | 2018-09-11 04:20 | NUR ---
Due meds given; tolerated well.
[2018-09-11] MEDS: NACL 0.9% 1,000 ML IV SCH (05:18)
[2018-09-11] MEDS: chlordiazePOXIDE 25 MG CAP PO SCH ×2 (05:18→11:27)
--- NOTE | 2018-09-11 07:15 | NUR ---
Endorsed patient to AM shift RN for continuity of care; patient in stable condition.
--- NOTE | 2018-09-11 07:16 | NUR ---
RECEIVED RE[PORT FROM PM NURSE AT BEDSIDE. PT HAS HANDCUFF , IN POLICE CUSTODY. HAS RT IJ TRIPLE LUMEN CENTRAL LINE, NS INFUSING AT 130ML/HR. SKIN INTACT. PT AOX4, ABLE TO AMBULATE. POLICE OBSERVING PT. NO DISTRESS NOTED. WILL CONTINUE TO MONITOR PT.
[2018-09-11 07:54] LABS: BASOPHILS % (AUTO) 0.7 % (0.0-2.0); EOSINOPHILS % (AUTO) 0.2 % (0.0-4.0); HEMATOCRIT 33.4 % (36-52); HEMOGLOBIN 10.9 g/dL (12.0-18.0); LYMPHOCYTES # (AUTO) 1.1 K/uL (2.0-11.5); LYMPHOCYTES % (AUTO) 34.1 % (20.5-51.1); MEAN CORPUSCULAR HEMOGLOBIN 27 pg (27-31); MEAN CORPUSCULAR HGB CONC 33 g/dL (33-37); MEAN CORPUSCULAR VOLUME 83.7 fL (80-94); MONOCYTES # (AUTO) 0.3 K/uL (0.8-1.0); MONOCYTES % (AUTO) 10.8 % (1.7-9.3); NEUTROPHILS # (AUTO) 1.7 K/uL (1.8-7.7); NEUTROPHILS % (AUTO) 54.2 % (42.2-75.2); PLATELET COUNT (AUTO) 204 K/uL (140-450); RED BLOOD CELL COUNT(AUTO) 3.98 MIL/uL (4.20-6.10); RED CELL DISTRIBUTION WIDTH 14.3 % (11.6-13.7); WHITE BLOOD COUNT (AUTO) 3.2 K/uL (4.8-10.8)
[2018-09-11 08:00] VITALS: BP 117/79
[2018-09-11] MEDS ORDERED: KCL 20 MEQ/WATER INJ PREMIX 200 ML IV SCH (08:00)
[2018-09-11 08:34] LABS: ANION GAP 12.7 (8-16); CARBON DIOXIDE 27.5 mmol/L (21-32); CREATININE 1.7 mg/dL (0.7-1.3); POTASSIUM 3.2 mmol/L (3.5-5.1)
[2018-09-11 08:44] LABS: PHOSPHORUS 2.6 mg/dL (2.5-4.9)
[2018-09-11] MEDS: ACETAMINOPHEN 325 MG TAB PO PRN (08:52)
[2018-09-11] MEDS: THIAMINE 100 MG TAB PO SCH (08:53)
[2018-09-11] MEDS: FOLIC ACID 1 MG TAB PO SCH (08:53)
[2018-09-11] MEDS: MULTIVITAMIN 1 TAB PO SCH (08:53)
--- NOTE | 2018-09-11 09:04 | NUR ---
ADMINISTERED MEDS TO PT ORDERED. PT TOLERATED WELL. GAVE TYLENOL FOR PAIN. NO SIGN OF DISTRESS NOTED. WILL CONTINUE TO MONITOR PT.
[2018-09-11] MEDS ORDERED: POTASSIUM CHLORIDE 10 MEQ TABER PO SCH (10:15)
--- NOTE | 2018-09-11 12:20 | NUR ---
PT DISCHARGED. PD AT THE BEDSIDE, PT WENT WITH PD. PT WAS GIVEN ALL HIS DISCHARGE INSTRUCTION AND THE DISCHARGE PACKET. CENTRAL LINE WAS REMOVED AND TEGADERM PLACED. WILL CONTINUE TO MONITOR PT.
[2018-09-13 06:11] LABS: LD1 FRACTION 17 % (17-32); LD2 FRACTION 31 % (25-40); LD3 FRACTION 23 % (17-27); LD4 FRACTION 12 % (5-13); LD5 FRACTION 17 % (4-20)
[2018-09-13 08:22] LABS: LACTATE DEHYDROGENASE 271 IU/L (0-214)
== END 2018-09-11 12:20 | DRG 682 ==
LOC: MED 09:38 → MTU 14:24
PROVIDERS: ADMIT General Practice; ATTEND General Practice
PROC: 02HV33Z Insertion of Infusion Device into Superior Vena Cava, Percutaneous Approach (ICD-10-PCS; principal; 2018-09-09)
PROC: B548ZZA Ultrasonography of Superior Vena Cava, Guidance (ICD-10-PCS; 2018-09-09)
DX: N17.0 Acute kidney failure with tubular necrosis (principal); G93.41 Metabolic encephalopathy; E87.2 Acidosis; F10.129 Alcohol abuse with intoxication, unspecified; E87.6 Hypokalemia; E66.9 Obesity, unspecified; N18.9 Chronic kidney disease, unspecified; I12.9 Hypertensive chronic kidney disease with stage 1 through stage 4 chronic kidney disease, or unspecified chronic kidney disease; R31.9 Hematuria, unspecified; E86.0 Dehydration; E86.1 Hypovolemia; Y90.4 Blood alcohol level of 80-99 mg/100 ml; Z59.0 Homelessness; Z68.33 Body mass index [BMI] 33.0-33.9, adult
CPT/HCPCS: 36415; 36556; 70450; 71045; 80048; 80053; 80305; 81001; 82009; 82140; 82150; 82550; 82553; 82948; 83605; 83625; 83690; 83735; 84100; 84134; 84484; 85025; 85610; 85730; 87081; 93005; 96372; 99285; A9153; G0482; J1200; J2060; J2405; J3411; J3475; J3480; J3490; J7030; Q0092

== ENCOUNTER 2018-10-20 16:32 | Emergency (ER) | payer MEDICAID ==
[~2018-10-20] VITALS: Ht 177.8 cm; Wt 104.3 kg
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
--- NOTE | 2018-10-20 16:36 | NUR ---
ACCU CHECK 154
--- NOTE | 2018-10-20 16:37 | NUR ---
PT STARTED ON NC 5 L
[2018-10-20 16:39] VITALS: BP 144/81
--- NOTE | 2018-10-20 16:44 | NUR ---
CALLED POISON CONTROL, SPOKE WITH TANIA. RECOMMENDS STARTING LARGE BORE IV AND HANGING BANANA BAG. TESTING FOR SERUM OSMOLARITY AND BLOOD ALCOHOL LEVEL. CONTINUE TO MONITOR PT BACK TO BASELINE AND MONITOR PTS AIRWAY- AT RISK FOR ASPIRATION.
[2018-10-20] MEDS ORDERED: MULTIVITAMIN-12 10 ML, THIAMINE 100 MG, MAGNESIUM SULFATE 50% 2,000 MG, FOLIC ACID 5 MG... IV ONE ×5 (17:02)
[2018-10-20] MEDS ORDERED: NACL 0.9% 1,000 ML IV ONE (17:02)
[2018-10-20] MEDS ORDERED: THIAMINE 200 MG/2 ML VIAL ONE ×2 (17:22→19:44)
[2018-10-20] MEDS ORDERED: FOLIC ACID 5 MG/ML SYR ONE ×2 (17:22→19:44)
[2018-10-20] MEDS ORDERED: MULTIVITAMIN-12 10 ML VIAL IV ONE ×2 (17:22→19:44)
--- NOTE | 2018-10-20 17:25 | NUR ---
PER DR PATRICK, MULTIVITAMINS CAN BE ADDED TO NORMAL SALINE BAG AND RAN AT 250 MLS/HR. MAGNESIUM RAN SEPERATELY AT 25MLS/HR. FOLIC ACID ADMINISTERED L DELTOID AND THIAMINE ADMINISTERED R DELTOID.
[2018-10-20] MEDS ORDERED: MAG SULF 2000 MG/WATER PREMIX 50 ML IV ONE (17:27)
--- NOTE | 2018-10-20 17:30 | NUR ---
PT TAKEN TO CT VIA [facility]
[2018-10-20 17:39] LABS: BASOPHILS % (AUTO) 0.4 % (0.0-2.0); EOSINOPHILS % (AUTO) 0.3 % (0.0-4.0); HEMATOCRIT 36.8 % (36-52); HEMOGLOBIN 11.9 g/dL (12.0-18.0); LYMPHOCYTES # (AUTO) 2.1 K/uL (2.0-11.5); LYMPHOCYTES % (AUTO) 23.8 % (20.5-51.1); MEAN CORPUSCULAR HEMOGLOBIN 26 pg (27-31); MEAN CORPUSCULAR HGB CONC 32 g/dL (33-37); MEAN CORPUSCULAR VOLUME 81.3 fL (80-94); MONOCYTES # (AUTO) 0.4 K/uL (0.8-1.0); MONOCYTES % (AUTO) 4.7 % (1.7-9.3); NEUTROPHILS # (AUTO) 6.2 K/uL (1.8-7.7); NEUTROPHILS % (AUTO) 70.8 % (42.2-75.2); PLATELET COUNT (AUTO) 313 K/uL (140-450); RED BLOOD CELL COUNT(AUTO) 4.53 MIL/uL (4.20-6.10); RED CELL DISTRIBUTION WIDTH 14.3 % (11.6-13.7); WHITE BLOOD COUNT (AUTO) 8.8 K/uL (4.8-10.8)
--- NOTE | 2018-10-20 17:49 | NUR ---
PT RETURNED FROM CT
[2018-10-20 17:51] LABS: ANION GAP 15.7 (8-16); CARBON DIOXIDE 27.3 mmol/L (21-32); CHLORIDE 100 mmol/L (98-107); CREATININE 2.2 mg/dL (0.7-1.3); GFR ARICAN-AMERICAN 45 mL/min (>90); GLUCOSE 152 mg/dL (74-106); MAGNESIUM 2.2 mg/dL (1.8-2.4); SODIUM SERUM 140 mmol/L (136-145); UREA NITROGEN, BLOOD 4 mg/dL (7-18)
[2018-10-20 17:56] LABS: ACETAMINOPHEN < 0.5 ug/ml (10-30); ALBUMIN 3.8 g/dL (3.4-5.0); ASPARTATE AMINOTRANSFERASE 26 U/L (15-37); SALICYLATE < 2.8 mg/dL (2.8-20.0); TOTAL BILIRUBIN 0.3 mg/dL (0.0-1.0)
--- NOTE | 2018-10-20 18:06 | NUR ---
PT ON 2 L NC. OXYGEN AT 99%
--- NOTE | 2018-10-20 18:14 | NUR ---
# 14 FR Urinary catheter inserted utilizing sterile technique. Immediate return of 100 ml YELLOW urine noted. Urine sample collected and sent to lab. Pt tolerated procedure WELL.
--- NOTE | 2018-10-20 18:15 | NUR ---
PT RESPONSIVE TO CATH INSERTION. PT AA0X4 AT THIS TIME.
[2018-10-20 18:18] LABS: ACETONE, SERUM NEGATIVE (NEGATIVE)
[2018-10-20] MEDS ORDERED: KCL 20 MEQ/WATER INJ PREMIX 100 ML IV ONE (18:55)
[2018-10-20 18:56] LABS: BARBITURATE, URINE NEG. ng/ml (NEG <=200); BENZODIAZEPINE, URINE POS. ng/mL (NEG <=200); CANNABINOID, URINE POS. ng/mL (NEG <=50); COCAINE, URINE NEG. ng/mL (NEG <=300); OPIATE, URINE NEG. ng/mL (NEG <=2000); PHENCYCLIDINE SCREEN,URINE NEG. ng/mL (NEG <=25)
[2018-10-20] MEDS ORDERED: NACL 0.9% 2,000 ML IV SCH (18:56)
[2018-10-20] MEDS ORDERED: PIPERACILLIN/TAZOBACTAM 3.375 GM in DEXT 5% MINI-BAG PLUS 50 ML IV ONE (19:00)
[2018-10-20 19:12] LABS: APPEARANCE,URINE HAZY (CLEAR); BILIRUBIN,URINE 2+ (NEGATIVE); BLOOD, URINE 1+ (NEGATIVE); COLOR,URINE YELLOW (YELLOW); LEUKOCYTE ESTERASE ,URINE NEGATIVE (NEGATIVE); NITRITE, URINE NEGATIVE (NEGATIVE); PH,URINE 6.5 (5.0-9.0); UGLUCOSE NEGATIVE (NEGATIVE)
--- NOTE | 2018-10-20 19:12 | NUR ---
report given to jerald keller
--- NOTE | 2018-10-20 19:30 | NUR ---
RECEIVED REPORT FROM AM NURSE. PT LAYING IN BED, SPO2 98% ON 2L NC, RR 25 EVEN AND UNLABORED. PT AROUSABLE TO TOUCH, AOX4, PERRLA 3MM, REPORTS ETOH USE, DENIES SUBSTANCE ABUSE. ALL NEEDS MET AT THIS TIME.
[2018-10-20] MEDS ORDERED: PIPERACILLIN/TAZOBACTAM 3.375 GM VIAL IV ONE (19:37)
[2018-10-20 19:46] LABS: RBC,URINE 0-5 /HPF (0-5); WBC,URINE 0 /HPF (0-5)
[2018-10-20] MEDS ORDERED: FLUMAZENIL 0.5 MG/5 ML VIAL IVP ONE (20:10)
--- NOTE | 2018-10-20 20:32 | NUR ---
Dr. Brush examing patient.
--- NOTE | 2018-10-20 20:39 | NUR ---
DR ANDINO AT BEDSIDE. PT LAYING IN BED, PLACED IN R SIDE LYING POSITION, SPO2 94% ON RA, RR 26 EVEN AND UNLABORED. ADMINISTERED ROMAZICON IVP ORDERED WITH EDUCATION. ALL NEEDS MET AT THIS TIME.
[2018-10-20 21:30] VITALS: BP 107/54
--- NOTE | 2018-10-20 21:30 | NUR ---
PT AOX4, AMBULATORY WITH STANDBY ASSIST. VS NOTED, HR 109, RR 22; DR ANDINO MADE AWARE. PER ER , PT OK FOR DISCHARGE.
--- NOTE | 2018-10-20 21:30 | NUR ---
PT REFUSED TO SIGN WRITTEN DISCHARGE PAPERWORK, VERBAL DISCHARGE INSTRUCTIONS GIVEN.
--- NOTE | 2018-10-20 21:35 | NUR ---
PT IS HOMELESS. PT STATED THAT HE WILL GO BACK TO THE STREETS. PT WITH APPROPRIATE CLOTHING FOR WEATHER, ALSO GIVEN SCRUB TOP AND BOTTOM. HOMELESS RESOURCE PACKET AND ETOH/SUBSTANCE ABUSE PACKET GIVEN. PT OFFERED BUS PASS AND SANDWICH, PT AGREED TO WAIT IN ER LOBBY. PT LEFT ER LOBBY BEFORE BUS PASS AND SANDWICH WERE GIVEN.
== END 2018-10-20 21:35 | disposition home or self-care (01) ==
LOC: MED 16:32
DX: F10.129 Alcohol abuse with intoxication, unspecified (principal); F15.10 Other stimulant abuse, uncomplicated; F12.10 Cannabis abuse, uncomplicated; R51 Headache; E87.6 Hypokalemia; N18.3 Chronic kidney disease, stage 3 (moderate); E87.2 Acidosis; Y90.9 Presence of alcohol in blood, level not specified
CPT/HCPCS: 36415; 70450; 71045; 80053; 80305; 81001; 82009; 82550; 82553; 83605; 83735; 83874; 84484; 85025; 87040; 87086; 93005; 96365; 96366; 96367; 96368; 96375; 99284; A9153; G0480; G0482; J2543; J3411; J3475; J3480; J3490; J7030; Q0092; J7060

== ENCOUNTER 2018-10-21 00:15 | Inpatient (IN) | payer MEDICAID ==
[~2018-10-21] VITALS: Ht 177.8 cm; Wt 108.4 kg
--- NOTE | 2018-10-21 00:18 | NUR ---
28/M BIBA ACLS FROM 11/14. PER EMS, PT WENT TO 11/14 AND STATED THAT HE WAS FEELING WEAK AND NAUSEOUS. PT WAS DISCHARGED EARLIER TONIGHT, DX POLYSUBSTANCE ABUSE, WAS +UDS FOR AMPHETAMINE AND CANNABINOID, WAS ALERT AND ORIENTED AND AMBULATORY WITH STEADY GAIT. PT REPORTS "CHEST CRAMPING." PT ARRIVES TO ED, AOX4, GCS 15 ([id number]), PERRLA 3MM, SKIN NORMAL WARM AND DRY, LUNG SOUNDS CLEAR BL. HR EVEN AND REGULAR, ST ON MONITOR. BS ACTIVE X4, ABD SOFT ROUND NONTENDER. HX ETOH/POLYSUBSTANCE ABUSE
--- NOTE | 2018-10-21 00:18 | NUR ---
PT BIBA BLS. TAKEN TO BED 9
[2018-10-21 00:20] VITALS: BP 146/84
[2018-10-21] MEDS ORDERED: NACL 0.9% 1,000 ML IV ONE (00:20)
[2018-10-21] MEDS ORDERED: LORazepam 2 MG/ML VIAL IVP ONE (00:30)
[2018-10-21 00:31] LABS: BASOPHILS % (AUTO) 0.2 % (0.0-2.0); HEMATOCRIT 36.7 % (36-52); HEMOGLOBIN 11.8 g/dL (12.0-18.0); LYMPHOCYTES # (AUTO) 0.9 K/uL (2.0-11.5); MEAN CORPUSCULAR HEMOGLOBIN 26 pg (27-31); MEAN CORPUSCULAR HGB CONC 32 g/dL (33-37); MEAN CORPUSCULAR VOLUME 81.2 fL (80-94); MONOCYTES # (AUTO) 0.4 K/uL (0.8-1.0); MONOCYTES % (AUTO) 3.2 % (1.7-9.3); NEUTROPHILS # (AUTO) 11.7 K/uL (1.8-7.7); NEUTROPHILS % (AUTO) 89.4 % (42.2-75.2); PLATELET COUNT (AUTO) 298 K/uL (140-450); RED BLOOD CELL COUNT(AUTO) 4.52 MIL/uL (4.20-6.10); RED CELL DISTRIBUTION WIDTH 14.6 % (11.6-13.7); WHITE BLOOD COUNT (AUTO) 13.1 K/uL (4.8-10.8)
[2018-10-21 00:40] LABS: LYMPHOCYTES % (AUTO) 7.2 % (20.5-51.1)
[2018-10-21 00:41] LABS: ANION GAP 15.3 (8-16); CARBON DIOXIDE 26.8 mmol/L (21-32); CHLORIDE 101 mmol/L (98-107); CREATININE 2.5 mg/dL (0.7-1.3); GFR ARICAN-AMERICAN 39 mL/min (>90); GLUCOSE 156 mg/dL (74-106); POTASSIUM 3.1 mmol/L (3.5-5.1); SODIUM SERUM 140 mmol/L (136-145); UREA NITROGEN, BLOOD 5 mg/dL (7-18)
[2018-10-21 00:47] LABS: ALBUMIN 3.5 g/dL (3.4-5.0); ASPARTATE AMINOTRANSFERASE 22 U/L (15-37); TOTAL BILIRUBIN 0.2 mg/dL (0.0-1.0)
[2018-10-21 00:49] LABS: ACETAMINOPHEN < 0.5 ug/ml (10-30); SALICYLATE < 2.8 mg/dL (2.8-20.0)
[2018-10-21] MEDS ORDERED: POTASSIUM CHLORIDE 20% 40 MEQ/15 ML UDC PO ONE (00:55)
--- NOTE | 2018-10-21 01:00 | NUR ---
ATTEMPTED TO INSERT IV, UNSUCCESSFUL AFTER 4 ATTEMPTS. BOND WRITER MADE AWARE.
--- NOTE | 2018-10-21 01:30 | NUR ---
UNSUCCESSFUL R EJ INSERTION BY FASHION PHOTOGRAPHER, DR ANDINO AT BEDSIDE. VSS THROUGHOUT PROCEDURE, NO SOB OR S/S OF DISTRESS. SUCCESSFUL PERIPHERAL 20G IV ON RAC BY DIRECTOR OF FEDERAL SALES, PT TOLERATED WELL.
--- NOTE | 2018-10-21 02:00 | NUR ---
#16 FR straight catheter inserted utilizing sterile technique. Immediate return of 50ml clear yellow urine noted. Urine sample collected and sent to lab. Pt tolerated procedure well.
[2018-10-21] MEDS ORDERED: ZOLPIDEM 5 MG TAB PO PRN (02:05)
[2018-10-21] MEDS ORDERED: DOCUSATE SODIUM 100 MG GELCAP PO PRN (02:05)
[2018-10-21] MEDS ORDERED: HYDROcodone/APAP 5/325 MG 1 TAB TAB PO PRN (02:05)
[2018-10-21] MEDS ORDERED: ACETAMINOPHEN 325 MG TAB PO PRN (02:05)
[2018-10-21] MEDS ORDERED: LORazepam 2 MG/ML VIAL IM/IVP PRN ×2 (02:05→11:25)
[2018-10-21] MEDS ORDERED: MORPHINE SULFATE 2 MG/ML SYR IVP PRN (02:05)
[2018-10-21] MEDS ORDERED: ONDANSETRON 4 MG/2 ML VIAL IM/IVP PRN (02:05)
[2018-10-21 02:15] LABS: BARBITURATE, URINE NEG. ng/ml (NEG <=200); BENZODIAZEPINE, URINE POS. ng/mL (NEG <=200); CANNABINOID, URINE NEG. ng/mL (NEG <=50); COCAINE, URINE NEG. ng/mL (NEG <=300); OPIATE, URINE NEG. ng/mL (NEG <=2000); PHENCYCLIDINE SCREEN,URINE NEG. ng/mL (NEG <=25)
[2018-10-21] MEDS ORDERED: LORazepam 2 MG/ML VIAL IVP PRN ×2 (02:15→11:25)
--- NOTE | 2018-10-21 02:20 | NUR ---
DR ALVARADO AT BEDSIDE
[2018-10-21 02:27] LABS: APPEARANCE,URINE CLEAR (CLEAR); BILIRUBIN,URINE NEGATIVE (NEGATIVE); BLOOD, URINE TRACE-L (NEGATIVE); COLOR,URINE YELLOW (YELLOW); LEUKOCYTE ESTERASE ,URINE TRACE (NEGATIVE); NITRITE, URINE NEGATIVE (NEGATIVE); UGLUCOSE NEGATIVE (NEGATIVE)
[2018-10-21 02:31] LABS: PROTHROMBIN TIME 10.4 secs (10.8-13.4)
--- NOTE | 2018-10-21 02:37 | NUR ---
Patient will be admitted to care of DR RING. Admited to TELE. Will go to room 112B. Belongings list completed. Report to AURORA AGUILA AT BEDSIDE.
[2018-10-21 02:40] VITALS: BP 134/45
--- NOTE | 2018-10-21 02:40 | NUR ---
PT ARRIVED TO UNIT VIA GURNEY AND WAS ABLE TO SCOOT FROM ONE BED TO THE NEXT WITH LITTLE ASSISTANCE. RECEIVED REPORT FROM ER NURSE NISH-MINGO AT BEDSIDE. PT AOX4, ON ROOM AIR WITH RIGHT AC #20G. AMBULATORY WITH ASSISTANCE. VITAL SIGNS TAKEN AND TOLERATED WELL. MRSA SWAB COLLECTED AND TOLERATED WELL. DISCUSSED PLAN OF CARE AND PT VERBALIZED UNDERSTANDING. NO S/S OF RESPIRATORY DISTRESS OR DISCOMFORT NOTED AT THIS TIME. BED IN LOWEST POSITION, BED BREAKS ON, BOTH SIDE RAILS UP AND FALL PRECAUTIONS ARE IN PLACE. BEDSIDE TABLE AND CALL LIGHT ARE WITHIN REACH. EDUCATED PT LAMINATE FLOOR INSTALLER LIGHT USE, BED AND URINAL. PT VERBALIZED UNDERSTANDING. WILL CONTINUE TO MONITOR.
[2018-10-21 02:43] LABS: CHOL/HDL RATIO 2.9 (1-4.5); MAGNESIUM 2.2 mg/dL (1.8-2.4); PHOSPHORUS 3.4 mg/dL (2.5-4.9); THYROID STIMULATING HORMONE 0.68 uIU/mL (0.34-3.74)
[2018-10-21] MEDS: NACL 0.9% 1,000 ML IV SCH ×2 (02:50→14:51)
--- NOTE | 2018-10-21 02:50 | NUR ---
NEW BAG OF IVF HUNG AND TOLERATED WELL. NO S/S OF RESPIRATORY DISTRESS OR DISCOMFORT NOTED AT THIS TIME. WILL CONTINUE TO MONITOR.
[2018-10-21] MEDS ORDERED: NITROGLYCERIN 0.4 MG TAB SL PRN (02:55)
--- NOTE | 2018-10-21 02:57 | NUR ---
CRITICAL LAB VALUE LACTIC ACID 5.5 DR. ALVARADO AWARE AND AWAITING ORDERS.
[2018-10-21] MEDS ORDERED: DEXTROSE 50% 50 ML SYR IVP PRN (03:05)
[2018-10-21] MEDS ORDERED: INSULIN LISPRO SLIDING SCALE 100 UNITS/ML VIAL SUBQ PRN (03:05)
[2018-10-21 03:13] LABS: WBC,URINE 0-5 /HPF (0-5)
[2018-10-21] MEDS ORDERED: cefTRIAXone 1,000 MG VIAL ONE (03:13)
--- NOTE | 2018-10-21 03:41 | NUR ---
SCHEDULED MEDICATION ZOSYN GIVEN AND TOLERATED WELL. NO S/S OF RESPIRATORY DISTRESS OR DISCOMFORT NOTED AT THIS TIME. WILL CONTINUE TO MONITOR.
[2018-10-21] MEDS ORDERED: PIPERACILLIN/TAZOBACTAM 3.375 GM VIAL IV ONE (03:45)
[2018-10-21] MEDS ORDERED: PIPERACILLIN/TAZOBACTAM 3.375 GM in DEXTROSE 5% 50 ML IV SCH ×2 (04:00→12:00)
--- NOTE | 2018-10-21 04:00 | NUR ---
VITAL SIGNS TAKEN AND TOLERATED WELL. NO S/S OF RESPIRATORY DISTRESS OR DISCOMFORT NOTED AT THIS TIME. WILL CONTINUE TO MONITOR.
--- NOTE | 2018-10-21 04:07 | NUR ---
CRITICAL LAB VALUE LACTIC ACID 2.1 DR. ALVARADO AWARE- NO NEW ORDERS.
--- NOTE | 2018-10-21 05:40 | NUR ---
SCHEDULED MEDICATION PEPCID GIVEN AND TOLERATED WELL. NO S/S OF RESPIRATORY DISTRESS OR DISCOMFORT NOTED AT THIS TIME. WILL CONTINUE TO MONITOR.
[2018-10-21] MEDS: BLOOD GLUCOSE MONITORING 1 DEV DEV FS SCH ×2 (06:16→11:46)
--- NOTE | 2018-10-21 06:16 | NUR ---
BLOOD GLUCOSE 146- NO INSULIN COVERAGE NEEDED.
[2018-10-21] MEDS ORDERED: FAMOTIDINE 20 MG TAB PO SCH (06:30)
[2018-10-21 06:59] LABS: BASOPHILS % (AUTO) 0.3 % (0.0-2.0); HEMATOCRIT 34.4 % (36-52); HEMOGLOBIN 11.2 g/dL (12.0-18.0); LYMPHOCYTES # (AUTO) 1.9 K/uL (2.0-11.5); LYMPHOCYTES % (AUTO) 15.3 % (20.5-51.1); MEAN CORPUSCULAR HEMOGLOBIN 26 pg (27-31); MEAN CORPUSCULAR HGB CONC 33 g/dL (33-37); MEAN CORPUSCULAR VOLUME 80.3 fL (80-94); MONOCYTES # (AUTO) 0.5 K/uL (0.8-1.0); MONOCYTES % (AUTO) 3.8 % (1.7-9.3); NEUTROPHILS # (AUTO) 9.9 K/uL (1.8-7.7); NEUTROPHILS % (AUTO) 80.6 % (42.2-75.2); PLATELET COUNT (AUTO) 302 K/uL (140-450); RED BLOOD CELL COUNT(AUTO) 4.28 MIL/uL (4.20-6.10); RED CELL DISTRIBUTION WIDTH 14.3 % (11.6-13.7); WHITE BLOOD COUNT (AUTO) 12.3 K/uL (4.8-10.8)
[2018-10-21 07:09] LABS: ANION GAP 13.7 (8-16); CARBON DIOXIDE 27.6 mmol/L (21-32); CREATININE 2.4 mg/dL (0.7-1.3); POTASSIUM 3.3 mmol/L (3.5-5.1)
[2018-10-21 07:18] LABS: MAGNESIUM 2.4 mg/dL (1.8-2.4); PHOSPHORUS 4.1 mg/dL (2.5-4.9)
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
[2018-10-21 08:00] VITALS: BP 132/72
--- NOTE | 2018-10-21 08:04 | NUR ---
PT'S IVF RATE WAS INCREASED TO 100ML/HR PER ORDER FROM DR. ALVARADO.
[2018-10-21] MEDS: chlordiazePOXIDE 25 MG CAP PO SCH ×2 (08:21→12:06)
--- NOTE | 2018-10-21 08:25 | NUR ---
PT IS AWAKE AND LYING ON THE BED,,VITAL SIGNS CHECKED, BP IS 18/77, PULSE IS 123, O2 SATURATION IS 97%, RESPIRATION IS 22/MIN,AND IS EVEN, ORAL MEDICATIONS WERE GIVEN TO PT WITH ASPIRATION PRECAUTION, PT POSITIONED, UPRIGHT, PT TOLERATED THE MEDICATIONS AND NO SIGN OF DISTRESS NOTED. WILL MONITOR PT.
--- NOTE | 2018-10-21 08:46 | NUR ---
PATIENT HAS BEEN SCREENED AND CATEGORIZED HIGH NUTRITION RISK. PATIENT WILL BE SEEN WITHIN 1-2 DAYS OF ADMISSION. 10/21/18-10/22/[address]
[2018-10-21] MEDS ORDERED: MULTIVITAMIN 1 TAB PO SCH (09:00)
[2018-10-21] MEDS ORDERED: FOLIC ACID 1 MG TAB PO SCH (09:00)
[2018-10-21] MEDS ORDERED: METOPROLOL 25 MG TAB PO SCH (09:00)
[2018-10-21] MEDS ORDERED: ASPIRIN 81 MG TAB.CHEW PO SCH (09:00)
[2018-10-21] MEDS ORDERED: THIAMINE 100 MG TAB PO SCH (09:00)
[2018-10-21] MEDS ORDERED: LISINOPRIL 5 MG TAB PO SCH (09:00)
--- NOTE | 2018-10-21 10:18 | NUR ---
REPORTED TO DR. GILL THE POTASSIUM LEVEL OF 3.3, MD ACKNOWLEDGED AND WILL PLACE AN ORDER.
--- NOTE | 2018-10-21 10:26 | NUR ---
PT CALLED AND COMPLAINED OF A NUMBNESS ON THE LEGS, SENSATIONS AND CIRCULATION WERE CHECKED AND IS WITHIN NORMAL. VITAL WAS CHECKED AND BP IS 123/77, PULSE IS 96, O2 SATURATION IS 96%, TEMPERATURE IS 97.9, RESPIRATION IS 20/MIN, WILL MONITOR PT.
[2018-10-21] MEDS ORDERED: FUROSEMIDE 20 MG TAB PO SCH (10:30)
--- NOTE | 2018-10-21 10:39 | NUR ---
PT WAS GIVEN K-DUR FOR THE K LEVEL OF 3.3 AND LASIX TABLETS, PARAMETER CHECKED AND IS WITHIN NORMAL LIMIT. WILL MONITOR PT.
[2018-10-21] MEDS ORDERED: POTASSIUM CHLORIDE 10 MEQ TABER PO SCH (10:45)
--- NOTE | 2018-10-21 10:45 | NUR ---
PT WAS ASSISTED TO THE RESTROOM AND GAIT IS STEADY.
--- NOTE | 2018-10-21 11:10 | NUR ---
ZOSYN WAS GIVEN VIA IVPB TO PT NOW.
[2018-10-21 11:50] VITALS: BP 123/74
--- NOTE | 2018-10-21 11:59 | NUR ---
SEIZURE PRECAUTION WAS INITIATED TO PT NOW, SIDE RAILS WERE PADDED AND SIGN POSTED. WILL MONITOR PT.
[2018-10-21] MEDS ORDERED: PIPER/TAZO 3.375GM/D5W PREMIX 50 ML IV SCH (12:00)
--- NOTE | 2018-10-21 12:07 | NUR ---
PT IS AWAKE AND LYING ON THE BED, BP IS 128/72, PULSE IS 98, O2 SATURATION IS 95%, TEMP. IS 98.5, ORAL MEDICATION WAS GIVEN AND PT TOLERATED IT. NO SIGN OF DISTRESS NOTED AND WILL MONITOR PT.
--- NOTE | 2018-10-21 13:34 | NUR ---
ATIVAN 1 MG WAS GIVEN TO PT NOW VIA IV PUSH, BP IS 126/70, PULSE IS 108, O2 SATURATION IS 96% AND RESPIRATION IS 18/MIN, 850ML OF URINE DRAINED FROM URINAL. NO SIGN OF DISTRESS NOTED AND WILL MONITOR PT.
--- NOTE | 2018-10-21 15:50 | NUR ---
PT LEFT AMA, PT VERBALIZED THAT HE FEELS BETTER AND HAS SOME BUSINESS TO TAKE CARE OF. DR. GILL WAS INFORMED AND SPOKE TO PT AND INFORMED PT OF THE CONSEQUENCES OF PT LEAVING AMA AND PT VERBALIZED UNDERSTANDING. IV LINE, HEART MONITOR AND ARM BAND WERE REMOVED. PT IS STABLE AT THIS TIME.
[2018-10-21] MEDS ORDERED: ATORVASTATIN 20 MG TAB PO SCH (21:00)
== END 2018-10-21 15:50 | disposition left against medical advice (07) | DRG 812 ==
LOC: MED 00:15 → MTU 02:04
PROVIDERS: ADMIT General Practice; ATTEND General Practice
DX: T43.621A Poisoning by amphetamines, accidental (unintentional), initial encounter (principal); N17.0 Acute kidney failure with tubular necrosis; R65.11 Systemic inflammatory response syndrome (SIRS) of non-infectious origin with acute organ dysfunction; G92 Toxic encephalopathy; J18.9 Pneumonia, unspecified organism; E86.0 Dehydration; F10.129 Alcohol abuse with intoxication, unspecified; Y90.0 Blood alcohol level of less than 20 mg/100 ml; K21.9 Gastro-esophageal reflux disease without esophagitis; E11.65 Type 2 diabetes mellitus with hyperglycemia; E66.9 Obesity, unspecified; E87.6 Hypokalemia; E83.51 Hypocalcemia; F15.10 Other stimulant abuse, uncomplicated; D64.9 Anemia, unspecified; J98.11 Atelectasis; E78.5 Hyperlipidemia, unspecified; Z53.21 Procedure and treatment not carried out due to patient leaving prior to being seen by health care provider; M94.0 Chondrocostal junction syndrome [Tietze]; Z68.34 Body mass index [BMI] 34.0-34.9, adult; Z71.3 Dietary counseling and surveillance; Z91.19 Patient's noncompliance with other medical treatment and regimen; Y92.89 Other specified places as the place of occurrence of the external cause
CPT/HCPCS: 36415; 71045; 80048; 80053; 80305; 81001; 82948; 83036; 83605; 83690; 83735; 84100; 84134; 84443; 84484; 85025; 85610; 85730; 87040; 87081; 87086; 93005; 93970; 96361; 96374; 99285; C1758; G0480; G0482; J0696; J1644; J1815; J2060; J2543; J7030; J7060; Q0092

== ENCOUNTER 2018-10-23 17:50 | Emergency (ER) | payer MEDICAID ==
[~2018-10-23] VITALS: Ht 172.7 cm; Wt 108.9 kg
--- NOTE | 2018-10-23 17:50 | NUR ---
PT BIBA BLS TO ER BED 02
[2018-10-23 17:53] VITALS: BP 152/96
--- NOTE | 2018-10-23 17:58 | NUR ---
PT BIB AMBULANCE C/O OF FOUND IN THE FRONT OF THE STORE AND HAVING BEEN DRINKING FOR 3 DAYS. BLOOD GLUCOSE WAS 184 MG/DL AT 17:35. VSS. PT HAS NAUSEA AND VOMITING. DENIES DIARRHEA. SKIN IS PINK/WARM/DRY; AAOX1. PT IS NOT ABLE TO COMMUNICATE AT THIS TIME; PATIENT POSITIONED FOR COMFORT; HOB ELEVATED; BEDRAILS UP X2; BED DOWN. ER MD MADE AWARE OF PT STATUS.
--- NOTE | 2018-10-23 17:59 | NUR ---
PT IS ON THE MONITOR AND HAVING 4 L OXYGEN THROUGH NASAL CANNULA.
[2018-10-23] MEDS ORDERED: NACL 0.9% 1,000 ML IV ONE (18:10)
--- NOTE | 2018-10-23 18:31 | NUR ---
PT IS SLEEPING WITH EYES CLOSED. VSS.
[2018-10-23 18:56] LABS: BASOPHILS % (AUTO) 0.6 % (0.0-2.0); EOSINOPHILS % (AUTO) 0.5 % (0.0-4.0); HEMOGLOBIN 11.7 g/dL (12.0-18.0); LYMPHOCYTES # (AUTO) 1.3 K/uL (2.0-11.5); LYMPHOCYTES % (AUTO) 37.1 % (20.5-51.1); MEAN CORPUSCULAR HEMOGLOBIN 26 pg (27-31); MEAN CORPUSCULAR HGB CONC 32 g/dL (33-37); MEAN CORPUSCULAR VOLUME 81.6 fL (80-94); MONOCYTES # (AUTO) 0.4 K/uL (0.8-1.0); NEUTROPHILS # (AUTO) 1.7 K/uL (1.8-7.7); NEUTROPHILS % (AUTO) 50.8 % (42.2-75.2); PLATELET COUNT (AUTO) 284 K/uL (140-450); RED BLOOD CELL COUNT(AUTO) 4.41 MIL/uL (4.20-6.10); RED CELL DISTRIBUTION WIDTH 14.5 % (11.6-13.7); WHITE BLOOD COUNT (AUTO) 3.4 K/uL (4.8-10.8)
[2018-10-23 19:17] LABS: ALBUMIN 3.4 g/dL (3.4-5.0); ANION GAP 11.9 (8-16); CARBON DIOXIDE 27.9 mmol/L (21-32); POTASSIUM 3.8 mmol/L (3.5-5.1); TOTAL BILIRUBIN 0.1 mg/dL (0.0-1.0)
--- NOTE | 2018-10-23 19:24 | NUR ---
PT'S OXYGEN ADJUSTED TO 2L. OXYGEN SATS 99%. PT IS SLEEPING WITH EYES CLOSED. VSS.
--- NOTE | 2018-10-23 21:14 | NUR ---
ATTEMPTED TO ASSIT PT WITH AMBULATION. PER PT "I CANT WALK BECUASE I HAVEN'T EATEN" PT GIVEN SANDWICH.
--- NOTE | 2018-10-23 21:50 | NUR ---
PT AMBULATED SELF TO RESTROOM. VSS. IV REMOVED UPON RETURN TO BED.
[2018-10-23 22:05] VITALS: BP 128/79
== END 2018-10-23 22:05 | disposition home or self-care (01) ==
LOC: MED 17:50
DX: F10.129 Alcohol abuse with intoxication, unspecified (principal); E11.9 Type 2 diabetes mellitus without complications
CPT/HCPCS: 36415; 80053; 85025; 99283

== ENCOUNTER 2018-10-23 23:00 | Emergency (ER) | payer MEDICAID ==
[~2018-10-23] VITALS: Ht 170.2 cm; Wt 99.8 kg
--- NOTE | 2018-10-23 23:01 | NUR ---
PT DEBBIE CARRILLO. TAKEN TO CHAIR E
--- NOTE | 2018-10-23 23:02 | NUR ---
Dr. Mak examining patient.
[2018-10-23 23:05] VITALS: BP 136/87
--- NOTE | 2018-10-23 23:05 | NUR ---
PT BIBA FOUND IN FRONT OF 11/14. PT WAS JUST RECENTLY DISCHARGED FROM HERE [facility]. PT DENIES INGESTING ANY ADDITONAL ALCOHOL SINCE BEING DISCHARGED. PT C/O DIZZINESS AND STATES HE CANNOT WALK. PT UPON DISCHARGED AMBULATED OUT OF FACILITY WITH STEADY GAIT. PT DENIES PAIN AT THIS TIME.
--- NOTE | 2018-10-23 23:08 | NUR ---
MADE ATTEMPT TO CALL PT'S GIRLFRIEND WITH NUMBER PT PROVIDED WITH, NO ANSWER. I ALSO MADE ATTEMPT TO CALL PATIENT'S NEXT OF KIN MOTHER GALE WITH NO ANSWER AT THIS TIME.
--- NOTE | 2018-10-23 23:24 | NUR ---
Patient is up, ambulating with steady gait, asking for a jacket or sweater. Security called to request a jacket or long sleeve clothing apparel. Pt offered bus pass and sandwich at this time and patient willing to take both. Pt ambulated to use restroom at this time.
[2018-10-23 23:33] VITALS: BP 136/87
--- NOTE | 2018-10-23 23:33 | NUR ---
Pt offered homeless resources, pt refused list. Pt refused discharge instruction and states "I'm going to go to my girlfriend's house and see what happens." Pt provided with a sweater, bus pass and sandwich bag. Pt ambulated with steady gait. Patient refused written and verbal discharge instructions. Patient is awake, alert and oriented. Ambulatory with steady gait. Refuses offer of alf placement. Patient refused list of available shelters in surrounding areas.
== END 2018-10-23 23:33 | disposition home or self-care (01) ==
LOC: MED 23:00
DX: F10.10 Alcohol abuse, uncomplicated (principal)
CPT/HCPCS: 99281

== ENCOUNTER 2018-10-25 12:57 | Inpatient (IN) | payer MEDICAID ==
[~2018-10-25] VITALS: Ht 172.7 cm; Wt 90.3 kg
--- NOTE | 2018-10-25 12:57 | NUR ---
Patient BIBA BLS, transferred to bed 2. RN evaluating patient at bedside.
[2018-10-25 13:06] VITALS: BP 165/88
--- NOTE | 2018-10-25 13:06 | NUR ---
PT CAME TO ED WITH EMS BY AMBULANCE, PER EMS, PT WAS SLEEPING OUT SIDE OF HIS MOM'S HOUSE.PT'S MOM CALLED 911, PT DRANK ALCOHOL AND PERMIT TECHNICIAN.PT LETHARGIC, OPENS EYES WITH VERBAL STIMULI THEN FALL ASLEEP AGAIN.SKIN IS PINK/WARM/DRY; LUNGS CLEAR BL; HR EVEN AND REGULAR; BEDSIDE MONITOR SHOWS ST 110S, NO SOB. PATIENT POSITIONED FOR COMFORT; HOB ELEVATED; BEDRAILS UP X2; BED DOWN. ER MADE AWARE OF PT STATUS. Addendum: 10/25/18 at 1831 by GIFTY rubbing alcohol
--- NOTE | 2018-10-25 14:00 | NUR ---
PT SLEEPING, RESPONSE TO VERBAL STIMULI THEN FALL ASLEEP AGAIN.
--- NOTE | 2018-10-25 14:40 | NUR ---
PT DRESSED HIMSELF AND AMBULATED TO BATHROOM NO ASSISTANCE.
[2018-10-25] MEDS ORDERED: NACL 0.9% 1,000 ML IV ONE ×2 (14:50→16:10)
--- NOTE | 2018-10-25 16:10 | NUR ---
PT C/O NUMBNESS TO HIS WHOLEBODY, BEDSIDE MONITOR SHOWS ST [address] . NOTIFIED DR. MORENO. ORDERED ANOTHER 1 L OF IVF. CARRIED OUT.
--- NOTE | 2018-10-25 16:29 | NUR ---
CALLED [facility] [phone], SPOKE TO [facility], NOTIFIED [facility] PT DRANK ALCOHOL AND BAGGAGE PORTER, VITAL SIGNS. [facility] RECOMMENDED ALCOHOL LEVEL AND CHEMISTRY. NOTIFIED DR. MORENO AND CHARGE NURSE.
[2018-10-25 16:50] LABS: BASOPHILS % (AUTO) 0.5 % (0.0-2.0); HEMATOCRIT 33.6 % (36-52); HEMOGLOBIN 10.8 g/dL (12.0-18.0); LYMPHOCYTES # (AUTO) 1.2 K/uL (2.0-11.5); LYMPHOCYTES % (AUTO) 21.6 % (20.5-51.1); MEAN CORPUSCULAR HEMOGLOBIN 26 pg (27-31); MEAN CORPUSCULAR HGB CONC 32 g/dL (33-37); MEAN CORPUSCULAR VOLUME 80.4 fL (80-94); MONOCYTES # (AUTO) 0.4 K/uL (0.8-1.0); MONOCYTES % (AUTO) 7.8 % (1.7-9.3); NEUTROPHILS # (AUTO) 3.8 K/uL (1.8-7.7); NEUTROPHILS % (AUTO) 70.1 % (42.2-75.2); PLATELET COUNT (AUTO) 279 K/uL (140-450); RED BLOOD CELL COUNT(AUTO) 4.18 MIL/uL (4.20-6.10); RED CELL DISTRIBUTION WIDTH 14.4 % (11.6-13.7); WHITE BLOOD COUNT (AUTO) 5.4 K/uL (4.8-10.8)
--- NOTE | 2018-10-25 16:59 | NUR ---
pt sleeping at this moment. hr 100, bp 144/81, o2 sats 98%. no sob.
[2018-10-25 17:01] LABS: ANION GAP 15.8 (8-16); CARBON DIOXIDE 26.7 mmol/L (21-32); CHLORIDE 102 mmol/L (98-107); CREATININE 2.5 mg/dL (0.7-1.3); GFR ARICAN-AMERICAN 39 mL/min (>90); GLUCOSE 133 mg/dL (74-106); POTASSIUM 3.5 mmol/L (3.5-5.1); SODIUM SERUM 141 mmol/L (136-145); UREA NITROGEN, BLOOD 7 mg/dL (7-18)
[2018-10-25 17:07] LABS: ALBUMIN 3.3 g/dL (3.4-5.0); ASPARTATE AMINOTRANSFERASE 14 U/L (15-37); TOTAL BILIRUBIN 0.2 mg/dL (0.0-1.0)
--- NOTE | 2018-10-25 17:30 | NUR ---
bedside monitor shows 130 again, bp in normal range. notified .
[2018-10-25] MEDS ORDERED: ONDANSETRON 4 MG/2 ML VIAL IVP ONE (18:00)
--- NOTE | 2018-10-25 18:00 | NUR ---
DR. MORENO MADE AWARE THAT PT VOMITTED ONE TIME.
[2018-10-25] MEDS ORDERED: ONDANSETRON 4 MG/2 ML VIAL IVP PRN (18:25)
[2018-10-25] MEDS ORDERED: FOLIC ACID 5 MG/ML SYR IM SCH (18:35)
[2018-10-25 18:44] LABS: APPEARANCE,URINE CLEAR (CLEAR); BILIRUBIN,URINE NEGATIVE (NEGATIVE); BLOOD, URINE NEGATIVE (NEGATIVE); COLOR,URINE YELLOW (YELLOW); LEUKOCYTE ESTERASE ,URINE NEGATIVE (NEGATIVE); NITRITE, URINE NEGATIVE (NEGATIVE); PH,URINE 7.5 (5.0-9.0); UGLUCOSE NEGATIVE (NEGATIVE)
[2018-10-25] MEDS ORDERED: THIAMINE 200 MG/2 ML VIAL IM SCH (18:45)
[2018-10-25 18:49] LABS: BARBITURATE, URINE NEG. ng/ml (NEG <=200); BENZODIAZEPINE, URINE POS. ng/mL (NEG <=200); CANNABINOID, URINE NEG. ng/mL (NEG <=50); COCAINE, URINE NEG. ng/mL (NEG <=300); OPIATE, URINE NEG. ng/mL (NEG <=2000); PHENCYCLIDINE SCREEN,URINE NEG. ng/mL (NEG <=25)
[2018-10-25 18:50] LABS: PROTHROMBIN TIME 10.6 secs (10.8-13.4)
[2018-10-25 18:55] LABS: FREE T4 (FREE THYROXINE) 1.04 ng/dL (0.76-1.46); MAGNESIUM 2.1 mg/dL (1.8-2.4); PHOSPHORUS 3.3 mg/dL (2.5-4.9); THYROID STIMULATING HORMONE 0.72 uIU/mL (0.34-3.74)
[2018-10-25] MEDS ORDERED: MULTIVITAMIN-12 10 ML in NACL 0.9% 1,000 ML IV SCH (19:00)
[2018-10-25] MEDS ORDERED: MAG SULF 2000 MG/WATER PREMIX 50 ML IV SCH (19:00)
--- NOTE | 2018-10-25 19:04 | NUR ---
endorsed pt to pm nurse.
[2018-10-25] MEDS: NACL 0.9% 1,000 ML IV SCH (19:20)
[2018-10-25] MEDS ORDERED: LORazepam 2 MG/ML VIAL IVP SCH (19:30)
--- NOTE | 2018-10-25 19:35 | NUR ---
Patient will be admitted to care of Dr. Borjas. Admited to Tele. Patient went to room 121-B via rney by MINGO Kennedy and MINGO Contreras; pt acting appropriatly, speaking in clear and complete sentences. Belongings list completed. Report to MINGO Mobley.
--- NOTE | 2018-10-25 19:35 | NUR ---
PT BOROUGH UP TO FLOOR VIA GURNEY AND AMBULATED TO ROOM 121 BED A. RECEIVED REPORT AT BEDSIDE FORM ЕЛЕНА TOLEDO NURSE, AT BEDSIDE. HE IS AOX2 AND AMBULATED STEADILY TO THE TOILET. V/S FOLLOWS T 97.9 P 114 R 18 B/P 146/79 02 97% ON ROOM AIR.
[2018-10-25 19:40] VITALS: BP 146/79
[2018-10-25 19:40] LABS: ACETAMINOPHEN < 0.5 ug/ml (10-30); SALICYLATE < 2.8 mg/dL (2.8-20.0)
--- NOTE | 2018-10-25 20:00 | NUR ---
HOUSEKEEPING NOTIFIED TO TAKE THE HAND PROJECT ASSISTANT OUT OF DISPENSER DUE TO PT HAVING HX OF DRINKING HAND PROJECT ASSISTANT, PROJECT ASSISTANT WIPES ALSO REMOVED.
--- NOTE | 2018-10-25 20:15 | NUR ---
ABG COMPLETED RESULTS READ READ BACK TO DR. VALERO. PATIENT STABLE AT THIS TIME SPO2 100 HR 117 ON ROOM AIR. RESULTS WERE MIXED VENOUS AND NO ADDITIONAL ABG REQ AT THIS TIME. PATIENT STABLE AND ALERT NO CHANGE.
[2018-10-25] MEDS: DOCUSATE SODIUM 100 MG GELCAP PO SCH (21:12)
[2018-10-25] MEDS: HYDROcodone/APAP 7.5/325 MG 1 TAB PO PRN (21:13)
[2018-10-25] MEDS ORDERED: MULTIVITAMIN-12 10 ML VIAL IV ONE (21:18)
--- NOTE | 2018-10-25 21:30 | NUR ---
PT GIVEN ORDERED MEDS AND IV FLUIDS. PT ALSO GIVEN NORCO PO/PRN FOR MODERATE GENERALIZED PAIN.
--- NOTE | 2018-10-25 22:00 | NUR ---
PT IN BED SLEEPING BUT AROUSABLE TO NAME. KERRY FROM [facility] CALLED AND ASKED IF MD WOULD REORDER BMP TEST 6 HRS FORM [address]ST TEST[address] DR. OROURKE AT BEDSIDE AND WAS NOTIFIED. MD SAID THAT SHE WILL ORDER REQUESTED REPEAT TEST.
--- NOTE | 2018-10-26 00:40 | NUR ---
PT IN BED ALERT TO NAME AND LIGHT TOUCH. NO S/S OF PAIN OR DISTRESS NOTED. PT IS AOX2-3. V/S FOLLOWS T 97.4 P 93 R 18 B/P 139/77 02 96% ON ROOM AIR.
[2018-10-26 00:43] LABS: ANION GAP 14.3 (8-16); CARBON DIOXIDE 27.6 mmol/L (21-32); CREATININE 2.3 mg/dL (0.7-1.3); POTASSIUM 3.9 mmol/L (3.5-5.1)
[2018-10-26] MEDS: NACL 0.9% 1,000 ML IV SCH ×4 (02:00→17:30)
[2018-10-26 04:00] VITALS: BP 126/77
--- NOTE | 2018-10-26 04:00 | NUR ---
R P T IN BED AOX2-3, PT IS RESTING WITH EYES CLOSED, BUT AROUSABLE TO NAME AND LIGHT TOUCH. PT ON SEIZURE PRECAUTIONS , AND HE HAS NO S/S OF PAIN OR DISTRESS NOTED. V/S FOLLOWS T 97.9 P 74 R 18 B/P 126/77 02 96% ON ROOM AIR.
[2018-10-26 07:06] LABS: BASOPHILS % (AUTO) 0.5 % (0.0-2.0); EOSINOPHILS % (AUTO) 0.1 % (0.0-4.0); HEMATOCRIT 32.1 % (36-52); HEMOGLOBIN 10.4 g/dL (12.0-18.0); LYMPHOCYTES # (AUTO) 1.7 K/uL (2.0-11.5); LYMPHOCYTES % (AUTO) 39.2 % (20.5-51.1); MEAN CORPUSCULAR HEMOGLOBIN 26 pg (27-31); MEAN CORPUSCULAR HGB CONC 33 g/dL (33-37); MEAN CORPUSCULAR VOLUME 81.1 fL (80-94); MONOCYTES # (AUTO) 0.4 K/uL (0.8-1.0); MONOCYTES % (AUTO) 9.5 % (1.7-9.3); NEUTROPHILS # (AUTO) 2.2 K/uL (1.8-7.7); NEUTROPHILS % (AUTO) 50.7 % (42.2-75.2); PLATELET COUNT (AUTO) 245 K/uL (140-450); RED BLOOD CELL COUNT(AUTO) 3.96 MIL/uL (4.20-6.10); RED CELL DISTRIBUTION WIDTH 14.5 % (11.6-13.7); WHITE BLOOD COUNT (AUTO) 4.4 K/uL (4.8-10.8)
--- NOTE | 2018-10-26 07:37 | NUR ---
PLAN OF CARE ENDORSED TO DAYSHIFT RN AT BEDSIDE FOR CONTINUITY OF CARE, PT IN STABLE CONDITION.
--- NOTE | 2018-10-26 07:38 | NUR ---
RECEIVED ENDORSEMENT FROM 3D TECHNOLOGIST NURSE. PATIENT IS SLEEPING, EASILY AROUSABLE, JAPANESE SPEAKING. RESPIRATIONS ARE EVEN AND UNLABORED ON ROOM AIR. PATIENT DENIES ANY PAIN AT THIS TIME. LEFT AC 20G IV INTACT, PATENT, AND INFUSING IVF. PLAN OF CARE WAS REVIEWED WITH PATIENT. PATIENT VERBALIZED UNDERSTANDING. SAFETY MEASURES IN PLACE, CALL LIGHT WITHIN REACH. SEIZURE PRECAUTIONS IN PLACE.
[2018-10-26 07:45] LABS: ANION GAP 14.6 (8-16); CARBON DIOXIDE 26.2 mmol/L (21-32); CREATININE 2.2 mg/dL (0.7-1.3); POTASSIUM 3.8 mmol/L (3.5-5.1)
[2018-10-26 07:52] LABS: CHOL/HDL RATIO 2.7 (1-4.5); MAGNESIUM 2.3 mg/dL (1.8-2.4)
[2018-10-26 08:00] VITALS: BP 136/81
[2018-10-26] MEDS ORDERED: SODIUM FERRIC GLUCONATE 125 MG in NACL 0.9% 100 ML IV SCH (09:00)
--- NOTE | 2018-10-26 09:28 | NUR ---
PATIENT HAS BEEN SCREENED AND CATEGORIZED MODERATE NUTRITION RISK. PATIENT WILL BE SEEN WITHIN 3-5 DAYS OF ADMISSION. 10/28/18-10/30/[address]
[2018-10-26] MEDS: chlordiazePOXIDE 25 MG CAP PO SCH ×3 (09:34→17:05)
[2018-10-26] MEDS: DOCUSATE SODIUM 100 MG GELCAP PO SCH ×2 (09:34→20:38)
[2018-10-26] MEDS: THIAMINE 100 MG TAB PO SCH (09:34)
[2018-10-26] MEDS: MULTIVITAMIN 1 TAB PO SCH (09:34)
[2018-10-26] MEDS: FOLIC ACID 1 MG TAB PO SCH (09:35)
--- NOTE | 2018-10-26 09:40 | NUR ---
PATIENT SLEEPING, BUT EASILY AROUSABLE. ADMINISTERED SCHEDULED MEDICATIONS. NO OTHER NEEDS AT THIS TIME
[2018-10-26] MEDS: MORPHINE SULFATE 2 MG/ML SYR IVP PRN ×3 (10:07→22:06)
--- NOTE | 2018-10-26 10:10 | NUR ---
PER MD, PATIENT C/O OF SEVERE PAIN. NEW ORDERS RECEIVED AND CARRIED OUT. NO OTHER NEEDS AT THIS TIME.
[2018-10-26] MEDS ORDERED: PANTOPRAZOLE 40 MG TABEC PO SCH (10:30)
[2018-10-26 12:00] VITALS: BP 127/67
[2018-10-26] MEDS ORDERED: DICYCLOMINE HCL LIQUID 20 MG, ALUMINUM HYD/MAG/SIMETHICONE 30 ML, LIDOCAINE VISCOUS 2% ... PO SCH ×3 (12:00)
--- NOTE | 2018-10-26 12:46 | NUR ---
PATIENT SLEEPING, EASILY AROUSABLE. NO OTHER NEEDS AT THIS TIME. WILL CONTINUE TO MONITOR.
--- NOTE | 2018-10-26 14:59 | NUR ---
PATIENT SLEEPING, EASILY AROUSABLE. PATIENT STATES THAT HE IS IN PAIN. WILL ADMINISTER PAIN MEDICATION. NO OTHER NEEDS AT THIS TIME. WILL CONTINUE TO MONITOR.
[2018-10-26] MEDS: HYDROcodone/APAP 7.5/325 MG 1 TAB PO PRN (15:16)
[2018-10-26 16:00] VITALS: BP 138/81
[2018-10-26 16:02] LABS: ANION GAP 13.4 (8-16); CARBON DIOXIDE 26.4 mmol/L (21-32); CREATININE 1.9 mg/dL (0.7-1.3); POTASSIUM 3.8 mmol/L (3.5-5.1)
--- NOTE | 2018-10-26 16:45 | NUR ---
ADMINISTERED SCHEDULED MEDICATIONS. PATIENT RESTING IN BED. NO OTHER NEEDS AT THIS TIME.
--- NOTE | 2018-10-26 18:14 | NUR ---
REINFORCED EDUCATION ON CURRENT LIQUID DIET. PATIENT STATES HE IS "STARVING". EDUCATED ON BENEFITS OF CLEAR LIQUID DIET. DENIES ANY PAIN. NO OTHER NEEDS AT THIS TIME.
--- NOTE | 2018-10-26 19:17 | NUR ---
ENDORSED TO DIRECTOR MEDICAL SURGICAL FOR CONTINUITY OF CARE. PATIENT IS STABLE AT THIS TIME.
--- NOTE | 2018-10-26 19:18 | NUR ---
REPORT RECEIVED FROM AM NURSE AT BEDSIDE. PT IN STABLE CONDITION. AAOX4. INTRODUCED SELF TO PT. BOARD UPDATED. NO COMPLAINTS OF PAIN. NO SOB. AFEBRILE. IV SITE L AC 20G RUNNING NS@150ML/HR PATENT AND INTACT. SKIN WARM, DRY, AND INTACT WITH NO OPEN WOUNDS. BED LOCKED IN LOW POSITION. CALL PINEDA WITHIN REACH. SAFETY PRECAUTION IN PLACE. ALL NEEDS MET AT THIS TIME.
[2018-10-26 20:00] VITALS: BP 138/93
--- NOTE | 2018-10-26 20:20 | NUR ---
PT HAS COMPLAINTS OF CHEST PAIN. MD NOTIFIED. MD TO SEE PT.
[2018-10-26] MEDS ORDERED: LIDOCAINE VISCOUS 2% 20 ML UDC PO ONE (20:25)
[2018-10-26] MEDS ORDERED: ALUMINUM HYD/MAG/SIMETHICONE 30 ML UDC PO ONE (20:25)
[2018-10-26] MEDS ORDERED: DICYCLOMINE HCL LIQUID 10 MG/5 ML UDC PO ONE (20:25)
--- NOTE | 2018-10-26 20:25 | NUR ---
MD IN TO SEE PATIENT. NEW ORDERS IN.
[2018-10-26] MEDS: PANTOPRAZOLE 40 MG TABEC PO SCH (20:38)
[2018-10-26] MEDS: busPIRone 5 MG TAB PO SCH (20:38)
--- NOTE | 2018-10-26 20:38 | NUR ---
BUSPAR, COLACE, AND PROTONIX GIVEN PO. PT TOLERATED WELL.
--- NOTE | 2018-10-26 20:46 | NUR ---
GI COCKTAIL GIVEN PO. PT TOLERATED WELL.
--- NOTE | 2018-10-26 21:05 | NUR ---
GAVE OK FOR PT TO SHOWER. PT WILL BE OFF TELE WHILE SHOWERING.
--- NOTE | 2018-10-26 22:06 | NUR ---
MORPHINE GIVEN FOR 7/10 CHEST PAIN. PT TOLERATED WELL.
[2018-10-26] MEDS: LORazepam 2 MG/ML VIAL IVP PRN (23:50)
--- NOTE | 2018-10-26 23:50 | NUR ---
ATIVAN GIVEN FOR ANXIETY. PT TOLERATED WELL.
[2018-10-27] VITALS: BP 124/65
--- NOTE | 2018-10-27 01:25 | NUR ---
PT SLEEPING COMFORTABLY IN BED. NO S/S OF DISTRESS NOTED. NO COMPLAINTS OF PAIN. NO SOB. AFEBRILE. WILL CONTINUE TO MONITOR.
[2018-10-27] MEDS: NACL 0.9% 1,000 ML IV SCH ×3 (01:30→16:50)
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
[2018-10-27] MEDS: LORazepam 2 MG/ML VIAL IVP PRN ×2 (03:51→13:51)
--- NOTE | 2018-10-27 03:51 | NUR ---
ATIVAN GIVEN FOR ANXIETY. PT TOLERATED WELL.
[2018-10-27 04:00] VITALS: BP 143/81
--- NOTE | 2018-10-27 05:10 | NUR ---
PT SLEEPING BUT AROUSABLE. NO S/S OF DISTRESS NOTED. RESPIRATIONS EVEN, UNLABORED, AND WNL. WILL CONTINUE TO MONITOR.
--- NOTE | 2018-10-27 07:07 | NUR ---
REPORT GIVEN TO AM NURSE AT BEDSIDE. PT IN STABLE CONDITION.
[2018-10-27 07:09] LABS: ANION GAP 13.3 (8-16); CARBON DIOXIDE 26.2 mmol/L (21-32); CREATININE 1.4 mg/dL (0.7-1.3); POTASSIUM 3.5 mmol/L (3.5-5.1)
[2018-10-27 07:13] LABS: BASOPHILS % (AUTO) 0.2 % (0.0-2.0); EOSINOPHILS % (AUTO) 0.2 % (0.0-4.0); HEMATOCRIT 31.7 % (36-52); HEMOGLOBIN 10.2 g/dL (12.0-18.0); LYMPHOCYTES # (AUTO) 1.2 K/uL (2.0-11.5); LYMPHOCYTES % (AUTO) 35.8 % (20.5-51.1); MEAN CORPUSCULAR HEMOGLOBIN 26 pg (27-31); MEAN CORPUSCULAR HGB CONC 32 g/dL (33-37); MONOCYTES # (AUTO) 0.4 K/uL (0.8-1.0); MONOCYTES % (AUTO) 11.2 % (1.7-9.3); NEUTROPHILS # (AUTO) 1.7 K/uL (1.8-7.7); NEUTROPHILS % (AUTO) 52.6 % (42.2-75.2); PLATELET COUNT (AUTO) 214 K/uL (140-450); RED BLOOD CELL COUNT(AUTO) 3.91 MIL/uL (4.20-6.10); RED CELL DISTRIBUTION WIDTH 14.2 % (11.6-13.7); WHITE BLOOD COUNT (AUTO) 3.2 K/uL (4.8-10.8)
--- NOTE | 2018-10-27 07:16 | NUR ---
RECEIVED ENDORSEMENT FROM INSOLE DEPARTMENT WORKER NURSE. PATIENT IS SLEEPING,EASILY AROUSABLE. RESPIRATIONS ARE EVEN AND UNLABORED ON ROOM AIR. LEFT FA 20G INTACT, PATENT, AND INFUSING IVF. PLAN OF CARE WAS REVIEWED WITH PATIENT. PATIENT VERBALIZED UNDERSTANDING. SAFETY MEASURES IN PLACE, CALL LIGHT WITHIN REACH.
[2018-10-27 08:00] VITALS: BP 129/86
[2018-10-27] MEDS: PANTOPRAZOLE 40 MG TABEC PO SCH ×2 (09:07→20:46)
[2018-10-27] MEDS: THIAMINE 100 MG TAB PO SCH (09:08)
[2018-10-27] MEDS: busPIRone 5 MG TAB PO SCH ×2 (09:08→20:47)
[2018-10-27] MEDS: chlordiazePOXIDE 25 MG CAP PO SCH ×3 (09:08→16:50)
[2018-10-27] MEDS: DOCUSATE SODIUM 100 MG GELCAP PO SCH ×2 (09:08→20:47)
[2018-10-27] MEDS: MULTIVITAMIN 1 TAB PO SCH (09:09)
[2018-10-27] MEDS: FOLIC ACID 1 MG TAB PO SCH (09:09)
--- NOTE | 2018-10-27 09:15 | NUR ---
ADMINISTERED SCHEDULED MEDICATIONS. PATIENT DENIES ANY PAIN. TOLERATED FOOD WELL. NO OTHER NEEDS AT THIS TIME. WILL CONTINUE TO MONITOR.
--- NOTE | 2018-10-27 11:42 | NUR ---
PATIENT IS SLEEPING EASILY AROUSABLE. PATIENT DENIES ANY PAIN AT THIS TIME. NO OTHER NEEDS AT THIS TIME. WILL CONTINUE TO MONITOR.
[2018-10-27 12:00] VITALS: BP 133/73
[2018-10-27] MEDS ORDERED: FAMOTIDINE 20 MG TAB PO SCH (12:00)
--- NOTE | 2018-10-27 13:25 | NUR ---
ADMINISTERED SCHEDULED MEDICATIONS. PATIENT DENIES ANY PAIN. NO OTHER NEEDS AT THIS TIME. WILL CONTINUE TO MONITOR. Addendum: 10/27/18 at 1712 by Earlene Jhaveri RN REMINDED PATIENT THAT STOOL CULTURE IS NEEDED. HE STATED HE FORGOT AND ALREADY HAD A BM.
--- NOTE | 2018-10-27 15:50 | NUR ---
PATIENT RESTING IN BED, DENIES ANY PAIN AT THIS TIME. NO OTHER NEEDS AT THIS TIME, WILL CONTINUE TO MONITOR.
[2018-10-27 16:00] VITALS: BP 130/78
--- NOTE | 2018-10-27 17:05 | NUR ---
PATIENT SLEEPING, EASILY AROUSABLE. DENIES ANY PAIN AT THIS TIME. NO OTHER NEEDS AT THIS TIME, WILL CONTINUE TO MONITOR.
--- NOTE | 2018-10-27 19:24 | NUR ---
ENDORSED TO REVERSE LOGISTICS ANALYST NURSE FOR CONTINUITY OF CARE. PATIENT IS STABLE AT THIS TIME.
--- NOTE | 2018-10-27 19:25 | NUR ---
RECEIVED BEDSIDE REPORT FROM DAY SHIFT RN TAMIKA. PT A/OX 4. DISCUSSED PLAN OF CARE. VERBALIZED UNDERSTANDING. ABLE TO MAKE NEEDS KNOWN. STD PRECAUTIONS. CONTINENT. AMBULATORY. STEADY GAIT. REGULAR DIET. ROOM AIR. NO SIGNS OF DISTRESS. SKIN IS INTACT. L AC 20G INFUSING NS @100. PATENT AND INTACT. BED IN LOW POSITION. CALL LIGHT WITHIN REACH. WILL CONTINUE TO MONITOR.
--- NOTE | 2018-10-27 20:51 | NUR ---
PT REQUESTED ATIVAN PRN. EDUCATED ON SIDE EFFECTS. VERBALIZED UNDERSTANDING. TOLERATED WELL. WILL CONTINUE TO MONITOR.
--- NOTE | 2018-10-27 22:51 | NUR ---
PT REQUESTED TUNA SANDWICH AND APPLE JUICE. GAVE SANDWICH AND JUICE. REMINDED PT THAT STOOL WAS NOT COLLECTED LAST SHIFT AND IS STILL PENDING. REMINDED PT TO COLLECT NEXT STOOL. PT VERBALIZED UNDERSTANDING. WILL CONTINUE TO MONITOR.
--- NOTE | 2018-10-28 00:03 | NUR ---
PT REQUESTED TO WALK AROUND UNIT, STATES HE IS FEELING ANXIOUS. REQUESTS ATIVAN WHEN BACK IN BED. AMBULATORY, STEADY GAIT. NO SIGNS OF DISTRESS. WILL CONTINUE TO MONITOR.
[2018-10-28] MEDS: LORazepam 2 MG/ML VIAL IVP PRN ×3 (00:39→08:55)
--- NOTE | 2018-10-28 00:45 | NUR ---
PT BACK IN BED. ADMINISTERED ATIVAN. EDUCATED ON SIDE EFFECTS. VERBALIZED UNDERSTANDING. TOLERATED WELL. WILL CONTINUE TO MONITOR.
--- NOTE | 2018-10-28 01:52 | NUR ---
PT REQUESTED ATIVAN PRN TO HELP HIM SLEEP. ADMINISTERED MEDICATION. EDUCATED ON SIDE EFFECTS. VERBALIZED UNDERSTANDING. WILL CONTINUE TO MONITOR.
[2018-10-28] MEDS: MORPHINE SULFATE 2 MG/ML SYR IVP PRN (03:10)
--- NOTE | 2018-10-28 03:13 | NUR ---
PT SATES PAIN 7/10 ON ADULT PAIN SCALE. MEDICATED WITH MORPHINE PRN. EDUCATED ON SIDE EFFECTS. VERBALIZED UNDERSTANDING. TOLERATED WELL. WILL CONTINUE TO MONITOR.
[2018-10-28] MEDS: NACL 0.9% 1,000 ML IV SCH (03:15)
--- NOTE | 2018-10-28 05:03 | NUR ---
PT IS SLEEPING IN BED EASILY AROUSABLE. EVEN CHEST RISE. NO SOB. NO SIGNS OF DISTRESS. NO PAIN AT THIS TIME. WILL CONTINUE TO MONITOR.
[2018-10-28 05:42] LABS: ANION GAP 12.2 (8-16); CARBON DIOXIDE 26.6 mmol/L (21-32); CREATININE 1.2 mg/dL (0.7-1.3); POTASSIUM 3.8 mmol/L (3.5-5.1)
[2018-10-28 05:43] LABS: MAGNESIUM 2.1 mg/dL (1.8-2.4); PHOSPHORUS 4.1 mg/dL (2.5-4.9)
--- NOTE | 2018-10-28 06:37 | NUR ---
WILL ENDORSE PT TO DAY SHIFT RN FOR CONTINUITY OF CARE. PT IN STABLE CONDITION. WILL CONTINUE TO MONITOR.
[2018-10-28 06:52] LABS: BASOPHILS % (AUTO) 0.4 % (0.0-2.0); EOSINOPHILS % (AUTO) 0.6 % (0.0-4.0); HEMOGLOBIN 10.4 g/dL (12.0-18.0); LYMPHOCYTES # (AUTO) 1.3 K/uL (2.0-11.5); LYMPHOCYTES % (AUTO) 31.1 % (20.5-51.1); MEAN CORPUSCULAR HEMOGLOBIN 26 pg (27-31); MEAN CORPUSCULAR HGB CONC 32 g/dL (33-37); MEAN CORPUSCULAR VOLUME 81.1 fL (80-94); MONOCYTES # (AUTO) 0.4 K/uL (0.8-1.0); MONOCYTES % (AUTO) 9.4 % (1.7-9.3); NEUTROPHILS # (AUTO) 2.4 K/uL (1.8-7.7); NEUTROPHILS % (AUTO) 58.5 % (42.2-75.2); PLATELET COUNT (AUTO) 195 K/uL (140-450); RED BLOOD CELL COUNT(AUTO) 3.95 MIL/uL (4.20-6.10); RED CELL DISTRIBUTION WIDTH 14.1 % (11.6-13.7); WHITE BLOOD COUNT (AUTO) 4.1 K/uL (4.8-10.8)
--- NOTE | 2018-10-28 07:38 | NUR ---
RECEIVED ENDORSEMENT FROM ANIMAL ATTENDANTS AND TRAINERS NURSE. PATIENT IS AAOX4, MACEDONIAN SPEAKING. RESPIRATIONS ARE EVEN AND UNLABORED ON ROOM AIR. PATIENT DENIES ANY PAIN AT THIS TIME. LEFT AC 20G IV INTACT, PATENT, AND INFUSING IVF. PLAN OF CARE WAS REVIEWED WITH PATIENT, PATIENT VERBALIZED UNDERSTANDING. SAFETY MEASURES IN PLACE, CALL LIGHT WITHIN REACH.
[2018-10-28 08:00] VITALS: BP 103/66
[2018-10-28] MEDS: chlordiazePOXIDE 25 MG CAP PO SCH ×2 (08:53→12:25)
[2018-10-28] MEDS: DOCUSATE SODIUM 100 MG GELCAP PO SCH (08:54)
[2018-10-28] MEDS: THIAMINE 100 MG TAB PO SCH (08:55)
[2018-10-28] MEDS: PANTOPRAZOLE 40 MG TABEC PO SCH (08:55)
[2018-10-28] MEDS: MULTIVITAMIN 1 TAB PO SCH (08:55)
[2018-10-28] MEDS: FOLIC ACID 1 MG TAB PO SCH (08:55)
[2018-10-28] MEDS: busPIRone 5 MG TAB PO SCH (08:55)
[2018-10-28] MEDS ORDERED: FAMOTIDINE 20 MG TAB PO SCH (09:00)
--- NOTE | 2018-10-28 09:00 | NUR ---
PATIENT STATED THAT HIS ANXIETY CAUSES HIM CHEST PAIN. ADMINISTERED ATIVAN PRN IVP. ALSO ADMINISTERED SCHEDULED MEDICATIONS. PATIENT TOLERATED WELL.
--- NOTE | 2018-10-28 10:05 | NUR ---
PATIENTS MOTHER WISHED TO SPEAK WITH HIM. GAVE PATIENT THE CORDLESS PHONE. NO OTHER NEEDS AT THIS TIME.
[2018-10-28] MEDS ORDERED: RANI-745 PO (11:44)
[2018-10-28] MEDS ORDERED: PANT40EC PO (11:44)
[2018-10-28] MEDS ORDERED: BUS5 PO (11:52)
[2018-10-28] MEDS ORDERED: FERR325E14 PO (12:08)
--- NOTE | 2018-10-28 12:40 | NUR ---
SCHEDULED MEDICATIONS ADMINISTERED. PATIENT TOLERATED WELL. NO OTHER NEEDS AT THIS TIME. WILL CONTINUE TO MONITOR.
--- NOTE | 2018-10-28 13:20 | NUR ---
CLOSED CIRCUIT SCREEN WATCHER SAW PATIENT. DISCHARGE INSTRUCTIONS GIVEN TO PATIENT. EDUCATION ON MEDICATIONS WAS GIVEN. EDUCATION ON ALCOHOL ABUSE WAS GIVEN. PATIENT WAS GIVEN INSTRUCTIONS ON FOLLOW UP APPT. RESOURCES FOR ALCOHOL ABUSE, HOUSING, HEALTH CARE WERE GIVEN. BUS PASS WAS ALSO GIVEN WELL MEAL. PATIENT SIGNED ALL DISCHARGE FORMS AND HOMELESS WAIVER. ALL QUESTIONS AND CONCERNS WERE ANSWERED. IV WAS REMOVED, CANNULA INTACT WITH MINIMAL BLEEDING. ID BAND WAS REMOVED. ACCOMPANIED PATIENT TO [facility]. PATIENT AMBULATED WITH STEADY GAIT. STATED THAT HE WOULD GO TO MOMS HOUSE OR GIRLFRIENDS HOUSE. PATIENT IS STABLE AT THIS TIME.
== END 2018-10-28 13:20 | disposition home or self-care (01) | DRG 816 ==
LOC: MED 12:57 → MTU 18:29
PROVIDERS: ADMIT General Practice; ATTEND General Practice
DX: T51.2X1A Toxic effect of 2-Propanol, accidental (unintentional), initial encounter (principal); N17.0 Acute kidney failure with tubular necrosis; G92 Toxic encephalopathy; E44.0 Moderate protein-calorie malnutrition; F10.229 Alcohol dependence with intoxication, unspecified; R45.850 Homicidal ideations; I10 Essential (primary) hypertension; E66.9 Obesity, unspecified; F41.9 Anxiety disorder, unspecified; D64.9 Anemia, unspecified; Z68.30 Body mass index [BMI] 30.0-30.9, adult; Z59.0 Homelessness; Y92.89 Other specified places as the place of occurrence of the external cause
CPT/HCPCS: 36415; 36600; 71045; 80048; 80053; 80305; 81003; 82009; 82150; 82272; 82607; 82728; 82746; 82803; 83036; 83540; 83690; 83735; 83880; 83930; 84100; 84439; 84443; 85025; 85045; 85610; 85730; 87081; 96361; 96374; 99285; A9153; G0480; G0482; J2060; J2270; J2405; J2916; J3411; J3475; J3490; J7030; Q0092

== ENCOUNTER 2018-10-29 12:31 | Inpatient (IN) | payer MEDICAID ==
[~2018-10-29] VITALS: Ht 172.7 cm; Wt 101.2 kg
[~2018-10-29 12:31] MED LIST changes: -ACET-9525 PO; +BUS5 PO; +FERR325E14 PO; -LIB25 PO; -MULT-405 PO; -ONDA4TAB PO; +PANT40EC PO; +RANI-745 PO; -THIA-34 PO
[2018-10-29 12:40] VITALS: BP 123/70
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
--- NOTE | 2018-10-29 12:48 | NUR ---
DR PATRICK AT BEDSIDE
[2018-10-29] MEDS ORDERED: NACL 0.9% 1,000 ML IV ONE (12:54)
[2018-10-29] MEDS ORDERED: THIAMINE 200 MG/2 ML VIAL IM ONE (12:55)
[2018-10-29] MEDS ORDERED: diphenhydrAMINE 50 MG/ML VIAL IM ONE (12:55)
--- NOTE | 2018-10-29 13:00 | NUR ---
XRAY AT BEDSIDE
--- NOTE | 2018-10-29 13:12 | NUR ---
20 G IV INSERTED INTO PTS R HAND. LABS DRAWN BEDSIDE AND HANDED TO DESIGN TECHNOLOGY TEACHER
--- NOTE | 2018-10-29 13:17 | NUR ---
PT BEING TAKEN TO CT VIA AMY
[2018-10-29 13:26] LABS: BASOPHILS % (AUTO) 0.4 % (0.0-2.0); EOSINOPHILS % (AUTO) 0.9 % (0.0-4.0); HEMATOCRIT 32.6 % (36-52); HEMOGLOBIN 10.5 g/dL (12.0-18.0); LYMPHOCYTES % (AUTO) 40.3 % (20.5-51.1); MEAN CORPUSCULAR HEMOGLOBIN 26 pg (27-31); MEAN CORPUSCULAR HGB CONC 32 g/dL (33-37); MEAN CORPUSCULAR VOLUME 81.4 fL (80-94); MONOCYTES # (AUTO) 0.5 K/uL (0.8-1.0); NEUTROPHILS # (AUTO) 2.3 K/uL (1.8-7.7); NEUTROPHILS % (AUTO) 48.4 % (42.2-75.2); PLATELET COUNT (AUTO) 193 K/uL (140-450); RED CELL DISTRIBUTION WIDTH 14.5 % (11.6-13.7); WHITE BLOOD COUNT (AUTO) 4.9 K/uL (4.8-10.8)
--- NOTE | 2018-10-29 13:28 | NUR ---
PT RETURNED FROM CT
[2018-10-29 13:29] LABS: ANION GAP 12.6 (8-16); CARBON DIOXIDE 24.5 mmol/L (21-32); CHLORIDE 110 mmol/L (98-107); GFR ARICAN-AMERICAN 113 mL/min (>90); GLUCOSE 114 mg/dL (74-106); MAGNESIUM 2.5 mg/dL (1.8-2.4); POTASSIUM 4.1 mmol/L (3.5-5.1); SODIUM SERUM 143 mmol/L (136-145); UREA NITROGEN, BLOOD 14 mg/dL (7-18)
[2018-10-29 13:36] LABS: ALBUMIN 3.5 g/dL (3.4-5.0); ASPARTATE AMINOTRANSFERASE 33 U/L (15-37); TOTAL BILIRUBIN 0.2 mg/dL (0.0-1.0)
[2018-10-29 13:40] VITALS: BP 112/71
[2018-10-29 13:42] LABS: ACETAMINOPHEN < 0.5 ug/ml (10-30)
--- NOTE | 2018-10-29 14:00 | NUR ---
# 14 FR Urinary catheter inserted utilizing sterile technique. Immediate return of urine noted. Urine sample collected and sent to lab. Pt tolerated procedure. procedure completed by montez keller.
[2018-10-29 14:10] LABS: ACETONE, SERUM NEGATIVE (NEGATIVE)
--- NOTE | 2018-10-29 15:00 | NUR ---
PT PUPILS SLUGGISH TO RESPONSE. SLURRED SPEECH. NOT COMMUNICATING AT THIS TIME. PT SLEEPING
[2018-10-29] MEDS ORDERED: ONDANSETRON 4 MG/2 ML VIAL IM/IVP PRN (15:05)
[2018-10-29] MEDS ORDERED: ACETAMINOPHEN 325 MG TAB PO PRN (15:05)
[2018-10-29] MEDS ORDERED: LORazepam 2 MG/ML VIAL IM/IVP PRN (15:05)
[2018-10-29 15:30] LABS: PROTHROMBIN TIME 9.7 secs (10.8-13.4)
--- NOTE | 2018-10-29 15:35 | NUR ---
Pt transferred to Med/Surg via BED WITH MINGO MUNIZ .
[2018-10-29 15:39] LABS: MAGNESIUM 2.4 mg/dL (1.8-2.4); PHOSPHORUS 4.2 mg/dL (2.5-4.9); THYROID STIMULATING HORMONE 1.12 uIU/mL (0.34-3.74)
--- NOTE | 2018-10-29 15:40 | NUR ---
PATIENT ARRIVED ON UNIT VIA [facility] ACCOMPANIED BY ER NURSE CRISTY. PATIENT IS SLEEPING AND SNORING LOUDLY. ABLE TO AROUSABLE BY NAME. PATIENT IS AAOX1 TO NAME. FLACC 0. RESPIRATION EVEN AND UNLABORED ON 2LPM VIA NC. NO SIGNS OF DISTRESS NOTED. IV ON R HAND 20G, CLEAN AND DRY, NOT INFUSING AT THIS TIME. PATIENT IS VERY TIPSY DUE TO ALCOHOL LEVEL 409 AND UNABLE TO FOLLOW COMMAND AND ANSWER QUESTION. TRANSFERRED PATIENT FROM [facility] TO BED SAFELY. APPLIED YELLOW WRIST BAND, SOCKS AND CHANGED INTO YELLOW GOWN. BED ALARM ACTIVATED. FALL RISK PROTOCOL INITIALED. VITAL SIGNS TAKEN AND MRSA NARES COLLECTED. PADDED BOTH SIDE RAILS WITH BLANKETS. BED IN LOW POSITION AND CALL LIGHT WITHIN REACH.
--- NOTE | 2018-10-29 15:43 | NUR ---
Patient will be admitted to care of DR RING. Admited to MED SURG. Will go to [id number]. Belongings list completed. Report to MINGO OWENS.
[2018-10-29] MEDS ORDERED: MULTIVITAMIN-12 10 ML, THIAMINE 100 MG, MAGNESIUM SULFATE 50% 2,000 MG, FOLIC ACID 1 MG... IV SCH ×5 (16:00)
[2018-10-29 16:04] LABS: APPEARANCE,URINE CLEAR (CLEAR); BILIRUBIN,URINE NEGATIVE (NEGATIVE); BLOOD, URINE NEGATIVE (NEGATIVE); COLOR,URINE YELLOW (YELLOW); LEUKOCYTE ESTERASE ,URINE NEGATIVE (NEGATIVE); NITRITE, URINE NEGATIVE (NEGATIVE); PH,URINE 5.5 (5.0-9.0); UGLUCOSE NEGATIVE (NEGATIVE)
--- NOTE | 2018-10-29 16:20 | NUR ---
ADMINISTERED IVF PER MD ORDER, PATIENT IS SLEEPING AND SNORING ON BED. RESPIRATION EVEN AND UNLABORED ON 2LPM VIA NC. SAFETY MEASURES IN PLACE. BED IN LOW POSITION AND CALL LIGHT WITHIN REACH. BED ALARM ACTIVATED. APPLIED SEQUENTIAL COMPRESSION SOCKS.
[2018-10-29 16:22] LABS: BARBITURATE, URINE NEG. ng/ml (NEG <=200); BENZODIAZEPINE, URINE POS. ng/mL (NEG <=200); CANNABINOID, URINE NEG. ng/mL (NEG <=50); COCAINE, URINE NEG. ng/mL (NEG <=300); OPIATE, URINE NEG. ng/mL (NEG <=2000); PHENCYCLIDINE SCREEN,URINE NEG. ng/mL (NEG <=25)
[2018-10-29] MEDS: chlordiazePOXIDE 25 MG CAP PO SCH (17:00)
--- NOTE | 2018-10-29 17:43 | NUR ---
UNABLE TO ADMINISTER 1700 MED LIBRIUM DUE TO PATIENT IS VERY LETHARGIC AND HE DOES NOT WANT TO WAKE UP FOR MED. EVEN AND UNLABORED CHEST RISES NOTED. NO SIGNS OF DISTRESS NOTED. SAFETY MEASURES IN PLACE. BED IN LOW POSITION AND CALL LIGHT WITHIN REACH. BED ALARM ACTIVATED. SEQUENTIAL COMPRESSION SOCKS IN PLACE.
--- NOTE | 2018-10-29 19:16 | NUR ---
ENDORSED PATIENT AT BEDSIDE TO MEDICAL CLERK NURSE FOR CONTINUITY OF CARE. PATIENT IS SLEEPING ON BED. EVEN CHEST RISES NOTED. NO SIGNS OF DISTRESS NOTED. PATIENT IS IN STABLE CONDITION. UNABLE TO COLLECT OCCULT STOOL DUE TO PATIENT'S CONDITION AND NO BM DURING SHIFT. SAFETY MEASURES IN PLACE. BED IN LOW POSITION AND CALL LIGHT WITHIN REACH.
--- NOTE | 2018-10-29 19:17 | NUR ---
REPORT RECEIVED FROM AM NURSE AT BEDSIDE. PT IN STABLE CONDITION. AAOX4. INTRODUCED SELF TO PT. BOARD UPDATED. NO COMPLAINTS OF PAIN. NO SOB ON 2L O2 VIA NC. AFEBRILE. IV SITE R HAND 20G RUNNING BANANA BAG@125ML/HR PATENT AND INTACT. SKIN WARM, DRY, AND INTACT WITH NO OPEN WOUNDS. BED LOCKED IN LOW POSITION. CALL PINEDA WITHIN REACH. SAFETY PRECAUTION IN PLACE. ALL NEEDS MET AT THIS TIME. WILL CONTINUE TO MONITOR.
[2018-10-29] MEDS: MORPHINE SULFATE 2 MG/ML SYR IVP PRN (20:39)
--- NOTE | 2018-10-29 20:39 | NUR ---
MORPHINE GIVEN FOR 9/10 GENERAL PAIN. PT TOLERATED WELL.
--- NOTE | 2018-10-29 22:10 | NUR ---
PT SLEEPING COMFORTABLY IN BED. NO S/S OF DISTRESS NOTED. NO COMPLAINTS OF PAIN. NO SOB. AFEBRILE. WILL CONTINUE TO MONITOR.
[2018-10-30] VITALS: BP 114/69
--- NOTE | 2018-10-30 | NUR ---
PT COMPLAINS OF BEING HUNGRY. SAID IF HE DOES NOT GET A TUNA SANDWICH HE WILL LEAVE AMA. NOTIFIED. DIET CHANGED TO REGULAR DIET.
[2018-10-30] MEDS: MORPHINE SULFATE 2 MG/ML SYR IVP PRN ×2 (00:36→20:12)
--- NOTE | 2018-10-30 00:36 | NUR ---
MORPHINE GIVEN FOR 8/10 CHEST PAIN. PT TOLERATED WELL.
[2018-10-30] MEDS: NACL 0.9% 1,000 ML IV SCH (01:00)
--- NOTE | 2018-10-30 02:00 | NUR ---
PT SLEEPING COMFORTABLY IN BED. NO S/S OF DISTRESS NOTED. WILL CONTINUE TO MONITOR.
[2018-10-30] MEDS: HYDROcodone/APAP 5/325 MG 1 TAB TAB PO PRN ×2 (03:30→11:44)
--- NOTE | 2018-10-30 03:30 | NUR ---
NORCO GIVEN FOR 6/10 GENERALIZED PAIN. PT TOLERATED WELL.
--- NOTE | 2018-10-30 05:30 | NUR ---
PT SLEEPING COMFORTABLY IN BED. NO S/S OF DISTRESS NOTED. RESPIRATIONS EVEN, UNLABORED, AND WNL. WILL CONTINUE TO MONITOR.
[2018-10-30 05:54] LABS: ANION GAP 14.4 (8-16); CREATININE 0.8 mg/dL (0.7-1.3); POTASSIUM 3.4 mmol/L (3.5-5.1)
[2018-10-30 06:04] LABS: BASOPHILS % (AUTO) 0.4 % (0.0-2.0); EOSINOPHILS # (AUTO) 0.1 K/uL (0-0.4); EOSINOPHILS % (AUTO) 1.5 % (0.0-4.0); HEMATOCRIT 32.4 % (36-52); HEMOGLOBIN 10.4 g/dL (12.0-18.0); LYMPHOCYTES # (AUTO) 1.5 K/uL (2.0-11.5); LYMPHOCYTES % (AUTO) 35.8 % (20.5-51.1); MEAN CORPUSCULAR HEMOGLOBIN 26 pg (27-31); MEAN CORPUSCULAR HGB CONC 32 g/dL (33-37); MEAN CORPUSCULAR VOLUME 81.7 fL (80-94); MONOCYTES # (AUTO) 0.5 K/uL (0.8-1.0); MONOCYTES % (AUTO) 11.1 % (1.7-9.3); NEUTROPHILS # (AUTO) 2.1 K/uL (1.8-7.7); NEUTROPHILS % (AUTO) 51.2 % (42.2-75.2); PLATELET COUNT (AUTO) 176 K/uL (140-450); RED BLOOD CELL COUNT(AUTO) 3.97 MIL/uL (4.20-6.10); RED CELL DISTRIBUTION WIDTH 14.4 % (11.6-13.7); WHITE BLOOD COUNT (AUTO) 4.1 K/uL (4.8-10.8)
[2018-10-30 06:05] LABS: CHOL/HDL RATIO 2.9 (1-4.5); MAGNESIUM 2.2 mg/dL (1.8-2.4); PHOSPHORUS 4.2 mg/dL (2.5-4.9)
[2018-10-30 06:14] LABS: T4 (THYROXINE) 7.6 ug/dL (4.5-12.0)
--- NOTE | 2018-10-30 06:29 | NUR ---
KDUR GIVEN PO. PT TOLERATED WELL.
[2018-10-30] MEDS ORDERED: POTASSIUM CHLORIDE 10 MEQ TABER PO SCH (06:30)
[2018-10-30] MEDS: LORazepam 2 MG/ML VIAL IM/IVP PRN ×2 (06:54→18:44)
--- NOTE | 2018-10-30 06:54 | NUR ---
ATIVAN GIVEN FOR ANXIETY. PT TOLERATED WELL.
--- NOTE | 2018-10-30 07:10 | NUR ---
REPORT GIVEN TO AM NURSE AT BEDSIDE. PT IN STABLE CONDITION.
--- NOTE | 2018-10-30 07:12 | NUR ---
RECEIVED BEDSIDE REPORT FROM PAPER CAP MACHINE OPERATOR NURSE FOR CONTINUITY OF CARE. PATIENT IS RESTING ON BED AT THIS TIME. ABLE TO AROUSABLE BY NAME. PATIENT IS AAOX4. DENIES PAIN AND SOB. RESPIRATION EVEN AND UNLABORED ON 2LPM VIA NC. NO SIGNS OF DISTRESS NOTED. IV ON R HAND 20G, CLEAN AND DRY, INFUSING PER MD ORDER AT THIS TIME. SKIN CLEAN AND DRY. PATIENT IS ABLE TO AMBULATE WITH STANDBY ASSIST. SAFETY MEASURES IN PLACE. BED ALARM ACTIVATED. FALL RISK PROTOCOL INITIALED. BED IN LOW POSITION AND CALL LIGHT WITHIN REACH. INSTRUCTED PATIENT TO USE THE CALL LIGHT FOR ANY ASSISTANCE AND PATIENT WAS AWARE.
[2018-10-30] MEDS ORDERED: PANTOPRAZOLE 40 MG TABEC PO SCH ×2 (07:34→09:00)
[2018-10-30 08:00] VITALS: BP 132/80
[2018-10-30] MEDS: FERROUS SULFATE 325 MG TABEC PO SCH (08:17)
[2018-10-30] MEDS: FOLIC ACID 1 MG TAB PO SCH (08:17)
[2018-10-30] MEDS: chlordiazePOXIDE 25 MG CAP PO SCH ×3 (08:17→17:32)
[2018-10-30] MEDS: MULTIVITAMIN 1 TAB PO SCH (08:18)
--- NOTE | 2018-10-30 08:20 | NUR ---
ADMINISTERED MEDS PER MD ORDER, PATIENT TOLERATED WELL. PATIENT DENIES OF PAIN, NAUSEA, AND DIZZINESS AT THIS TIME. PATIENT SAID, " CAN YOU PUT MY BED DOWN A LITTLE MORE? I JUST WANT TO REST NOW." LOWER HOB. SEQUENTIAL COMPRESSION SOCKS IN PLACE. SAFETY MEASURES IN PLACE. BED ALARM ACTIVATED. BED IN LOW POSITION AND CALL LIGHT WITHIN REACH. INSTRUCTED PATIENT TO USE THE CALL LIGHT FOR ANY ASSISTANCE AND PATIENT SAID "OK."
--- NOTE | 2018-10-30 08:26 | NUR ---
TRANSFERRED PATIENT TO TELEMETRY PER MD ORDER, APPLIED TELE MONITOR. PATIENT IS RESTING ON BED. NO SIGNS OF DISTRESS NOTED. SAFETY MEASURES IN PLACE. BED ALARM ACTIVATED. BED IN LOW POSITION AND CALL LIGHT WITHIN REACH.
[2018-10-30] MEDS: busPIRone 5 MG TAB PO SCH ×2 (08:31→20:12)
--- NOTE | 2018-10-30 09:14 | NUR ---
PATIENT HAS BEEN SCREENED AND CATEGORIZED LOW NUTRITION RISK. PATIENT WILL BE SEEN WITHIN 7 DAYS OF ADMISSION. 11/05/[address]
[2018-10-30] MEDS ORDERED: LACTULOSE 20 GM/30 ML UDC PO SCH (09:15)
--- NOTE | 2018-10-30 09:40 | NUR ---
PATIENT IS RESTING ON BED AT THIS TIME. INSTRUCTED PATIENT TO USE THE HAT ON THE TOILET FOR SPECIMEN COLLECTION WHEN HE HAS A BM. PATIENT VERBALIZED OK. SAFETY MEASURES IN PLACE. BED IN LOW POSITION AND CALL LIGHT WITHIN REACH. INSTRUCTED PATIENT TO USE THE CALL LIGHT FOR ANY ASSISTANCE AND PATIENT WAS AWARE.
--- NOTE | 2018-10-30 10:50 | NUR ---
RECEIVED A CALL FROM PATIENT'S MOTHER GALE, PER GALE, SHE WILL NOT COME TO VISIT PATIENT IN THE HOSPITAL AND PATIENT IS NO LONGER LIVING WITH HER. HE IS HOMELESS NOW. GALE REQUESTED FOR REHAB AND HELP PATIENT TO QUIT HIS ALCOHOL ADDICTION. INFORMED GALE THAT CM WILL PROVIDE THE RESOURCES TO PATIENT AND GALE WAS AWARE. NOTIFIED DR PATEL ON REGARD OF PATIENT'S MOTHER GALE'S REQUEST. PER DR PATEL, SHE WILL INPUT THE SERVICE FOR CM TO PROVIDE PATIENT WITH ALCOHOL CESSATION RESOURCES.
--- NOTE | 2018-10-30 11:44 | NUR ---
PATIENT COMPLAINED 6/10 PAIN AROUND HIS BODY, HE FEELS RESTLESS AND IRRITATED. ADMINISTERED PRN PAIN MED [place], PATIENT TOLERATED WELL. SAFETY MEASURES IN PLACE. BED IN LOW POSITION AND CALL LIGHT WITH REACH. BED ALARM ACTIVATED. INSTRUCTED PATIENT TO USE THE CALL LIGHT FOR ANY ASSISTANCE AND PATIENT WAS AWARE.
[2018-10-30 12:00] VITALS: BP 129/75
--- NOTE | 2018-10-30 13:08 | NUR ---
ADMINISTERED MED PER MD ORDER, PATIENT TOLERATED WELL. PATIENT DENIED PAIN AND SOB AT THIS TIME. PATIENT IS RESTING ON BED. NO SIGNS OF DISTRESS NOTED. SAFETY MEASURES IN PLACE. BED IN LOW POSITION AND CALL LIGHT WITHIN REACH. BED ALARM ACTIVATED. INSTRUCTED PATIENT TO USE THE CALL LIGHT FOR ANY ASSISTANCE AND PATIENT WAS AWARE. STOOL OCCULT SPECIMEN COLLECTED AND DELIVERED TO LAB.
--- NOTE | 2018-10-30 13:37 | NUR ---
DR FITZGERALD IS ASSESSING AND TALKING TO PATIENT AT BEDSIDE. NO SIGNS OF DISTRESS NOTED. SAFETY MEASURES IN PLACE. BED IN LOW POSITION AND CALL LIGHT WITHIN REACH.
[2018-10-30] MEDS ORDERED: KETOROLAC 15 MG/ML VIAL IM SCH (15:30)
--- NOTE | 2018-10-30 15:40 | NUR ---
ADMINISTERED TORADOL VIA IM PER MD ORDER, PATIENT TOLERATED WELL. ASSISTED PATIENT TO USE THE BATHROOM AND GET BACK ON BED. NO SIGNS OF DISTRESS NOTED. SAFETY MEASURES IN PLACE. BED IN LOW POSITION AND CALL LIGHT WITHIN REACH. INSTRUCTED PATIENT TO USE THE CALL LIGHT FOR ANY ASSISTANCE AND PATIENT WAS AWARE.
[2018-10-30 16:00] VITALS: BP 140/69
--- NOTE | 2018-10-30 17:33 | NUR ---
PATIENT IS RESTING AND WATCHING TV ON BED AT THIS TIME. DENIED PAIN AND SOB. RESPIRATION EVEN AND UNLABORED ON 2LPM VIA NC. NO SIGNS OF DISTRESS NOTED. SAFETY MEASURES IN PLACE. TELE MONITOR ATTACHED. BED IN LOW POSITION AND CALL LIGHT WITHIN REACH. INSTRUCTED PATIENT TO USE THE CALL LIGHT FOR ANY ASSISTANCE AND PATIENT WAS AWARE.
--- NOTE | 2018-10-30 18:45 | NUR ---
PATIENT IS FEELING ANXIOUS AND RESTLESS. ADMINISTERED PRN ATIVAN PER MD ORDER, PATIENT TOLERATED WELL. PATIENT SAID, " I WILL TRY TO GET SOME REST." SAFETY MEASURES IN PLACE. TELE MONITOR ATTACHED. BED IN LOW POSITION AND CALL LIGHT WITHIN REACH.
--- NOTE | 2018-10-30 19:17 | NUR ---
ENDORSED PATIENT AT BEDSIDE TO RELAY TESTER HELPER NURSE FOR CONTINUITY OF CARE. PATIENT IS IN STABLE CONDITION. SAFETY MEASURES IN PLACE.
--- NOTE | 2018-10-30 19:18 | NUR ---
REPORT RECEIVED FROM AM NURSE AT BEDSIDE. PT IN STABLE CONDITION. AAOX4. INTRODUCED SELF TO PT. BOARD UPDATED. NO COMPLAINTS OF PAIN. NO SOB. AFEBRILE. IV SITE R HAND 20G RUNNING NS@10ML/HR PATENT AND INTACT. SKIN WARM, DRY, AND INTACT WITH NO OPEN WOUNDS. BED LOCKED IN LOW POSITION. CALL PINEDA WITHIN REACH. SAFETY PRECAUTION IN PLACE. ALL NEEDS MET AT THIS TIME.
[2018-10-30 20:00] VITALS: BP 114/87
--- NOTE | 2018-10-30 20:12 | NUR ---
BUSPAR GIVEN PO. MORPHINE GIVEN FOR 9/10 CHEST PAIN. PT TOLERATED WELL.
--- NOTE | 2018-10-30 21:45 | NUR ---
PT SLEEPING COMFORTABLY IN BED BUT AROUSABLE. NO S/S OF DISTRESS NOTED. NO COMPLAINTS OF PAIN. NO SOB. AFEBRILE. WILL CONTINUE TO MONITOR.
--- NOTE | 2018-10-30 23:15 | NUR ---
PT LAYING IN BED TRYING TO SLEEP. NO S/S OF DISTRESS NOTED. RESPIRATIONS EVEN, UNLABORED, AND WNL. WILL CONTINUE TO MONITOR.
[2018-10-31] VITALS: BP 129/88
[2018-10-31] MEDS: MORPHINE SULFATE 2 MG/ML SYR IVP PRN ×3 (00:27→23:10)
--- NOTE | 2018-10-31 00:27 | NUR ---
MORPHINE GIVEN FOR 9/10 CHEST PAIN. PT TOLERATED WELL.
[2018-10-31] MEDS: NACL 0.9% 1,000 ML IV SCH (01:00)
--- NOTE | 2018-10-31 01:00 | NUR ---
IV STARTED R WRIST 22G. PT TOLERATED WELL. 3 ATTEMPTS TAKEN. R HAND 20G D/C. CANNULA INTACT.
--- NOTE | 2018-10-31 02:20 | NUR ---
PT SLEEPING COMFORTABLY BUT AROUSABLE. NO S/S OF DISTRESS NOTED. WILL CONTINUE TO MONITOR.
[2018-10-31 04:00] VITALS: BP 122/71
--- NOTE | 2018-10-31 04:10 | NUR ---
PT SLEEPING COMFORTABLY IN BED BUT AROUSABLE. NO S/S OF DISTRESS NOTED. RESPIRATIONS EVEN, UNLABORED, AND WNL. WILL CONTINUE TO MONITOR.
[2018-10-31] MEDS: PANTOPRAZOLE 40 MG TABEC PO SCH (05:32)
--- NOTE | 2018-10-31 05:32 | NUR ---
PROTONIX GIVEN PO. PT TOLERATED WELL.
--- NOTE | 2018-10-31 06:36 | NUR ---
MORPHINE GIVEN FOR 8/10 GENERALIZED PAIN. PT TOLERATED WELL.
[2018-10-31 06:44] LABS: ANION GAP 11.4 (8-16); CARBON DIOXIDE 28.4 mmol/L (21-32); CREATININE 0.8 mg/dL (0.7-1.3); POTASSIUM 3.8 mmol/L (3.5-5.1)
[2018-10-31] MEDS ORDERED: DICYCLOMINE HCL LIQUID 10 MG/5 ML UDC PO ONE (06:50)
[2018-10-31] MEDS ORDERED: LIDOCAINE VISCOUS 2% 20 ML UDC PO ONE (06:50)
[2018-10-31] MEDS ORDERED: ALUMINUM HYD/MAG/SIMETHICONE 30 ML UDC PO ONE (06:50)
--- NOTE | 2018-10-31 06:57 | NUR ---
GI COCKTAIL GIVEN PO. PT TOLERATED WELL.
[2018-10-31 06:58] LABS: PHOSPHORUS 3.9 mg/dL (2.5-4.9)
--- NOTE | 2018-10-31 07:25 | NUR ---
REPORT GIVEN TO AM NURSE AT BEDSIDE. PT IN STABLE CONDITION.
--- NOTE | 2018-10-31 07:30 | NUR ---
RECEIVED PT FROM PRECISION LENS POLISHER NURSE, PT IS AWAKE AND LYING ON THE BED WITH SIDE RAILS UP AND CALL LIGHT WITHIN REACH, SAFETY AND FALL PRECAUTION ENFORCED. PT HAS AN IV LINE ON THE RT WRIST G.22 WITH NS INFUSING AT A RATE OF 10ML/HR. NO SIGN OF DISTRESS NOTED AND WILL MONITOR PT.
[2018-10-31 08:00] VITALS: BP 131/74
[2018-10-31 08:09] LABS: BASOPHILS % (AUTO) 0.4 % (0.0-2.0); HEMATOCRIT 34.4 % (36-52); HEMOGLOBIN 10.9 g/dL (12.0-18.0); LYMPHOCYTES # (AUTO) 1.4 K/uL (2.0-11.5); LYMPHOCYTES % (AUTO) 33.9 % (20.5-51.1); MEAN CORPUSCULAR HEMOGLOBIN 26 pg (27-31); MEAN CORPUSCULAR HGB CONC 32 g/dL (33-37); MEAN CORPUSCULAR VOLUME 81.8 fL (80-94); MONOCYTES # (AUTO) 0.4 K/uL (0.8-1.0); MONOCYTES % (AUTO) 8.7 % (1.7-9.3); NEUTROPHILS # (AUTO) 2.3 K/uL (1.8-7.7); PLATELET COUNT (AUTO) 181 K/uL (140-450); RED CELL DISTRIBUTION WIDTH 14.6 % (11.6-13.7); WHITE BLOOD COUNT (AUTO) 4.1 K/uL (4.8-10.8)
[2018-10-31] MEDS: MULTIVITAMIN 1 TAB PO SCH (10:12)
[2018-10-31] MEDS: chlordiazePOXIDE 25 MG CAP PO SCH ×3 (10:13→17:53)
[2018-10-31] MEDS: FOLIC ACID 1 MG TAB PO SCH (10:13)
[2018-10-31] MEDS: HYDROcodone/APAP 5/325 MG 1 TAB TAB PO PRN (10:13)
[2018-10-31] MEDS: busPIRone 5 MG TAB PO SCH ×2 (10:13→20:31)
[2018-10-31] MEDS: FERROUS SULFATE 325 MG TABEC PO SCH (10:14)
--- NOTE | 2018-10-31 10:14 | NUR ---
PT IS AWAKE AND LYING ON THE BED, ORAL MEDICATIONS WERE GIVEN AND PT TOLERATED IT, BP IS 136/70, PULSE IS 72, O2 SATURATION IS 97%, NO SIGN OF DISTRESS NOTED AND WILL MONITOR PT.
[2018-10-31 12:00] VITALS: BP 107/63
--- NOTE | 2018-10-31 15:24 | NUR ---
PT WAS GIVEN ORAL MEDICATION AND VITAL SIGNS TAKEN AND IS WITHIN LIMIT. WILL MONITOR PT.
[2018-10-31 16:00] VITALS: BP 131/87
--- NOTE | 2018-10-31 17:00 | NUR ---
PT WAS ASSISTED TO AMBULATE IN THE HALLWAY, GAIT IS STEADY AND NO SOB AND DIZZINESS NOTED, DR. GILL WAS INFORMED.
--- NOTE | 2018-10-31 17:45 | NUR ---
PT TOOK A SHOWER NOW.
--- NOTE | 2018-10-31 17:54 | NUR ---
PT WAS GIVEN THE ORAL MEDICATION NOW. WILL MONITOR PT.
--- NOTE | 2018-10-31 19:15 | NUR ---
ENDORSED PT TO CLEARING HOUSE CLERK NURSE FOR CONTINUITY OF CARE.
--- NOTE | 2018-10-31 19:16 | NUR ---
RECEIVE REPORT FROM AM NURSE. PT IN BED, AWAKE, ALERT AND ORIENTED. ABLE TO VERBALIZE NEEDS. PT RIGHT WRIST 22G INTACT AND INFUSING WELL. PT ON ROOM AIR. URINAL AT BEDSIDE. SAFETY MEASURES IN PLACE. CALL LIGHT IN PLACE. WILL CONTINUE TO MONITOR.
[2018-10-31 20:05] VITALS: BP 145/86
--- NOTE | 2018-10-31 21:05 | NUR ---
PT WAS BROUGHT SANDWICH PER REQUEST. URINAL EMPTIED. ALL NEEDS MET. CALL LIGHT WITHIN REACH.
--- NOTE | 2018-10-31 21:20 | NUR ---
PT BROUGHT ELECTRIC RAZOR TO SHAVE FACE.
--- NOTE | 2018-10-31 23:10 | NUR ---
PT GIVEN MORPHINE FOR 8/10 CHEST PAIN. PT STATES HE ONLY GET THE PAIN WHEN HE CROSSES HIS LEFT ARM OVER HIS BODY. RESIDENT MD MADE AWARE.
[2018-11-01] VITALS: BP 145/86
--- NOTE | 2018-11-01 00:49 | NUR ---
PT GIVEN TYLENOL FOR 2/10 HEADACHE. PT ALSO BROUGHT SANDWICH PER REQUEST. URINAL EMPTIED. CALL LIGHT WITHIN REACH.
[2018-11-01] MEDS: NACL 0.9% 1,000 ML IV SCH (01:00)
--- NOTE | 2018-11-01 01:49 | NUR ---
ROUNDED ON PT. PT SLEEPING IN LEFT LATERAL POSITION. NO VISIBLE SIGNS OF DISTRESS. URINAL AT BEDSIDE. CALL LIGHT WITHIN REACH.
--- NOTE | 2018-11-01 03:24 | NUR ---
ROUNDED ON PT. PT SLEEPING. NO VISIBLE SIGNS OF DISTRESS. CALL LIGHT WITHIN REACH.
[2018-11-01 04:18] VITALS: BP 105/56
[2018-11-01] MEDS: PANTOPRAZOLE 40 MG TABEC PO SCH (05:30)
[2018-11-01 06:02] LABS: ANION GAP 10.4 (8-16); CARBON DIOXIDE 28.4 mmol/L (21-32); CREATININE 0.8 mg/dL (0.7-1.3); POTASSIUM 3.8 mmol/L (3.5-5.1)
[2018-11-01 06:09] LABS: PHOSPHORUS 4.3 mg/dL (2.5-4.9)
--- NOTE | 2018-11-01 06:15 | NUR ---
PT DECIDED TO ELOPE AT THIS TIME. PT DID NOT WAIT TO SPEAK WITH DOCTORS. NAME BAND REMOVED. IV D/C CANNULA INTACT. DR. LUQUE MADE AWARE.
--- NOTE | 2018-11-01 06:20 | NUR ---
ESTHER AGUILA CALLED ELECTRIC SHIPYARD OPERATOR TO INFORM OF PT ELOPEMENT.
[2018-11-01 07:46] LABS: BASOPHILS % (AUTO) 0.5 % (0.0-2.0); EOSINOPHILS % (AUTO) 1.2 % (0.0-4.0); HEMATOCRIT 34.3 % (36-52); LYMPHOCYTES # (AUTO) 1.4 K/uL (2.0-11.5); LYMPHOCYTES % (AUTO) 38.1 % (20.5-51.1); MEAN CORPUSCULAR HEMOGLOBIN 26 pg (27-31); MEAN CORPUSCULAR HGB CONC 32 g/dL (33-37); MEAN CORPUSCULAR VOLUME 81.9 fL (80-94); MONOCYTES # (AUTO) 0.4 K/uL (0.8-1.0); MONOCYTES % (AUTO) 11.4 % (1.7-9.3); NEUTROPHILS # (AUTO) 1.9 K/uL (1.8-7.7); NEUTROPHILS % (AUTO) 48.8 % (42.2-75.2); PLATELET COUNT (AUTO) 190 K/uL (140-450); RED BLOOD CELL COUNT(AUTO) 4.18 MIL/uL (4.20-6.10); RED CELL DISTRIBUTION WIDTH 14.9 % (11.6-13.7); WHITE BLOOD COUNT (AUTO) 3.8 K/uL (4.8-10.8)
== END 2018-11-01 06:15 | disposition left against medical advice (07) | DRG 52 ==
LOC: MED 12:31 → MMU 15:03
PROVIDERS: ADMIT General Practice; ATTEND General Practice
DX: G92 Toxic encephalopathy (principal); F10.29 Alcohol dependence with unspecified alcohol-induced disorder; D64.9 Anemia, unspecified; Y90.8 Blood alcohol level of 240 mg/100 ml or more; F41.9 Anxiety disorder, unspecified; E66.9 Obesity, unspecified; Z68.34 Body mass index [BMI] 34.0-34.9, adult; Z71.3 Dietary counseling and surveillance; Z59.0 Homelessness; F15.10 Other stimulant abuse, uncomplicated; Z91.19 Patient's noncompliance with other medical treatment and regimen; K21.9 Gastro-esophageal reflux disease without esophagitis
CPT/HCPCS: 36415; 36600; 70450; 71045; 80048; 80053; 80305; 81003; 82009; 82140; 82150; 82272; 82803; 83036; 83540; 83690; 83735; 83880; 84100; 84436; 84443; 84484; 85025; 85610; 85730; 87081; 96360; 96361; 96372; 99285; A9153; C1758; G0480; G0482; J1200; J1885; J2060; J2270; J3411; J3475; J3490; J7030; J7060; Q0092

== ENCOUNTER 2018-11-05 20:11 | Inpatient (IN) | payer MEDICAID ==
[~2018-11-05] VITALS: Ht 172.7 cm; Wt 106.6 kg
[2018-11-05 20:19] VITALS: BP 161/90
--- NOTE | 2018-11-05 20:19 | NUR ---
28/M BIBA FROM IN FRONT OF PT'S FAMILY'S FRONT LAWN. PT WAS FOUND UNCONSCIOUS. 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 MILD WEAKNESS NOTED. PT ARRIVES TO ED, AOX4, PERRLA 3MM, SPEECH CLEAR, SKIN NORMAL WARM AND DRY, RR EVEN AND UNLABORED. LUNG SOUNDS CLEAR BL. BS ACTIVE X4, ABD SOFT ROUND TENDER DIFFUSELY. HX ALCOHOLISM; DENIES RX.
[2018-11-05] MEDS ORDERED: NACL 0.9% 2,000 ML IV ONE (20:20)
[2018-11-05] MEDS ORDERED: ONDANSETRON 4 MG/2 ML VIAL IVP ONE (20:20)
--- NOTE | 2018-11-05 20:34 | NUR ---
SPOKE WITH POISON CONTROL , TI, ADVISED TO DRAW LABS AND MONITOR FOR MEMBER SERVICES REPRESENTATIVE DEPRESSION.
[2018-11-05 20:37] LABS: BASOPHILS % (AUTO) 0.4 % (0.0-2.0); HEMATOCRIT 37.1 % (36-52); HEMOGLOBIN 11.9 g/dL (12.0-18.0); LYMPHOCYTES # (AUTO) 2.7 K/uL (2.0-11.5); LYMPHOCYTES % (AUTO) 30.4 % (20.5-51.1); MEAN CORPUSCULAR HEMOGLOBIN 26 pg (27-31); MEAN CORPUSCULAR HGB CONC 32 g/dL (33-37); MEAN CORPUSCULAR VOLUME 81.4 fL (80-94); MONOCYTES # (AUTO) 0.6 K/uL (0.8-1.0); MONOCYTES % (AUTO) 6.7 % (1.7-9.3); NEUTROPHILS # (AUTO) 5.5 K/uL (1.8-7.7); NEUTROPHILS % (AUTO) 62.5 % (42.2-75.2); PLATELET COUNT (AUTO) 309 K/uL (140-450); RED BLOOD CELL COUNT(AUTO) 4.55 MIL/uL (4.20-6.10); RED CELL DISTRIBUTION WIDTH 15.3 % (11.6-13.7); WHITE BLOOD COUNT (AUTO) 8.8 K/uL (4.8-10.8)
[2018-11-05 20:46] LABS: ANION GAP 18.2 (8-16); CARBON DIOXIDE 27.9 mmol/L (21-32); CHLORIDE 102 mmol/L (98-107); CREATININE 2.4 mg/dL (0.7-1.3); GFR ARICAN-AMERICAN 41 mL/min (>90); GLUCOSE 118 mg/dL (74-106); POTASSIUM 4.1 mmol/L (3.5-5.1); SODIUM SERUM 144 mmol/L (136-145); UREA NITROGEN, BLOOD 12 mg/dL (7-18)
[2018-11-05 20:52] LABS: ALBUMIN 3.9 g/dL (3.4-5.0); ASPARTATE AMINOTRANSFERASE 25 U/L (15-37); LIPASE 153 U/L (73-393); TOTAL BILIRUBIN 0.3 mg/dL (0.0-1.0)
[2018-11-05] MEDS ORDERED: PANTOPRAZOLE 40 MG INJ VIAL IVP ONE (21:25)
--- NOTE | 2018-11-05 21:28 | NUR ---
PT LAYING R SIDE LYING POSITION IN BED SLEEPING, AROUSABLE TO NAME, SPO2 88-90% ON RA, PLACED ON O2 2L NC, SPO2 98%, RR 25 EVEN AND UNLABORED. REPORTS TOLERABLE DIFFUSE ABD. ALL NEEDS MET AT THIS TIME.
[2018-11-05 21:43] LABS: SALICYLATE < 2.8 mg/dL (2.8-20.0)
[2018-11-05 21:44] LABS: APPEARANCE,URINE CLEAR (CLEAR); BILIRUBIN,URINE NEGATIVE (NEGATIVE); BLOOD, URINE NEGATIVE (NEGATIVE); COLOR,URINE YELLOW (YELLOW); LEUKOCYTE ESTERASE ,URINE NEGATIVE (NEGATIVE); NITRITE, URINE NEGATIVE (NEGATIVE); PH,URINE 6.5 (5.0-9.0); UGLUCOSE NEGATIVE (NEGATIVE)
[2018-11-05 21:44] LABS: ACETAMINOPHEN < 0.5 ug/ml (10-30)
[2018-11-05 21:46] LABS: BARBITURATE, URINE NEG. ng/ml (NEG <=200); BENZODIAZEPINE, URINE POS. ng/mL (NEG <=200); CANNABINOID, URINE NEG. ng/mL (NEG <=50); COCAINE, URINE NEG. ng/mL (NEG <=300); OPIATE, URINE NEG. ng/mL (NEG <=2000); PHENCYCLIDINE SCREEN,URINE NEG. ng/mL (NEG <=25)
[2018-11-05 21:49] LABS: ACETONE, SERUM NEGATIVE (NEGATIVE)
--- NOTE | 2018-11-05 23:00 | NUR ---
PT LAYING R SIDE LYING POSITION IN BED, SPO2 98% ON O2 2L NC, RR 24 EVEN AND UNLABORED. HR 125. REPORTS DIFFUSE ABD. DR CHAVEZ MADE AWARE.
[2018-11-05] MEDS ORDERED: LORazepam 2 MG/ML VIAL IVP ONE (23:10)
[2018-11-05] MEDS ORDERED: MORPHINE SULFATE 2 MG/ML SYR IVP ONE (23:10)
--- NOTE | 2018-11-05 23:20 | NUR ---
PT VOMITED APPROX 300ML CLEAR/WHITE EMESIS
[2018-11-06] MEDS ORDERED: ONDANSETRON 4 MG/2 ML VIAL IVP ONE (00:15)
[2018-11-06] MEDS ORDERED: ONDANSETRON 4 MG/2 ML VIAL IM/IVP PRN (00:25)
[2018-11-06] MEDS ORDERED: LORazepam 2 MG/ML VIAL IM/IVP PRN (00:25)
[2018-11-06] MEDS ORDERED: DOCUSATE SODIUM 100 MG GELCAP PO PRN (00:25)
--- NOTE | 2018-11-06 00:30 | NUR ---
PT LAYING IN BED, RR EVEN AND UNLABORED. VSS. ALL NEEDS MET AT THIS TIME.
[2018-11-06] MEDS ORDERED: LORazepam 1 MG TAB PO PRN (00:35)
[2018-11-06] MEDS ORDERED: MULTIVITAMIN-12 10 ML, THIAMINE 100 MG, MAGNESIUM SULFATE 50% 2,000 MG, FOLIC ACID 1 MG... IV ONE ×5 (00:40)
--- NOTE | 2018-11-06 00:41 | NUR ---
RECEIVED CALL ARNOLDO FROM POISON CONTROL. UPDATED ABOUT PT STATUS. WAS GIVEN RECOMMENDATION TO REPEAT CHEM PANEL AT THIS TIME TO SEE IF CREATININE IS TRENDING UP. CALLED RESIDENT DR OLSON WHO WILL ORDER CHEM PANEL AT THIS TIME.
--- NOTE | 2018-11-06 00:50 | NUR ---
Patient will be admitted to care of DR RING. Admited to TELE. Will go to room 112A. Belongings list completed. Report to LENY AGUILA.
[2018-11-06] MEDS ORDERED: chlordiazePOXIDE 25 MG CAP PO SCH (01:00)
[2018-11-06] MEDS ORDERED: NACL 0.9% 1,000 ML IV SCH (01:00)
[2018-11-06 01:01] LABS: FREE T4 (FREE THYROXINE) 1.03 ng/dL (0.76-1.46); MAGNESIUM 2.1 mg/dL (1.8-2.4); PHOSPHORUS 4.9 mg/dL (2.5-4.9); THYROID STIMULATING HORMONE 0.68 uIU/mL (0.34-3.74)
[2018-11-06 01:23] LABS: ALBUMIN 3.5 g/dL (3.4-5.0); CARBON DIOXIDE 29.2 mmol/L (21-32); CREATININE 2.5 mg/dL (0.7-1.3); POTASSIUM 4.2 mmol/L (3.5-5.1); TOTAL BILIRUBIN 0.3 mg/dL (0.0-1.0)
[2018-11-06] MEDS: ACETAMINOPHEN 325 MG TAB PO PRN ×2 (01:54→08:37)
--- NOTE | 2018-11-06 01:55 | NUR ---
Patient arrived in unit via gurney, accompanied by two CYLINDER FILLER's. Patient is able to ambulate from gurney to bed with minimal assistance. Patient A/Ox4, able to make needs known, Beninese speaking. Introduced self, updated board, oriented patient to room and hospital environment. DX is alcohol intoxication. No SOB or distress noted, on room air. IV site on right forearm, 20 gauge, saline locked. Bed in the lowest position, call light within reach. Initial assessment done. Vitals upon admission are as follows: BP 138/78, RR 18, HR 120, Temp 98.2, O2Sat 95% on room air. Will continue to monitor.
[2018-11-06] MEDS ORDERED: MAG SULF 2000 MG/WATER PREMIX 50 ML IV SCH (02:00)
[2018-11-06] MEDS ORDERED: THIAMINE 200 MG/2 ML VIAL IM SCH (02:00)
[2018-11-06] MEDS ORDERED: MORPHINE SULFATE 2 MG/ML SYR IVP SCH (02:00)
[2018-11-06] MEDS ORDERED: FOLIC ACID 5 MG/ML SYR SUBQ SCH (02:00)
--- NOTE | 2018-11-06 03:20 | NUR ---
Checks made; no distress noted.
[2018-11-06] MEDS ORDERED: BUS5 PO ×2 (03:39→04:21)
[2018-11-06] MEDS ORDERED: FERR-13 PO (03:43)
[2018-11-06] MEDS ORDERED: PANT40EC PO (03:44)
[2018-11-06 04:00] VITALS: BP 118/59
[2018-11-06] MEDS ORDERED: MULTIVITAMIN 1 TAB PO SCH ×2 (04:00→09:00)
[2018-11-06] MEDS ORDERED: FOLIC ACID 1 MG TAB PO SCH ×2 (04:00→09:00)
[2018-11-06] MEDS ORDERED: THIAMINE 100 MG TAB PO SCH ×2 (04:00→09:00)
--- NOTE | 2018-11-06 04:36 | NUR ---
Vitals taken; patient asleep, visible chest rise and fall noted.
[2018-11-06] MEDS ORDERED: SODIUM FERRIC GLUCONATE 12.5 MG/ML AMP IV ONE (04:53)
[2018-11-06] MEDS ORDERED: SODIUM FERRIC GLUCONATE 125 MG in NACL 0.9% 100 ML IV SCH (05:00)
--- NOTE | 2018-11-06 05:50 | NUR ---
Rounds done; patient sleeping on right lateral side. No distress noted.
[2018-11-06] MEDS: HYDROcodone/APAP 5/325 MG 1 TAB TAB PO PRN ×4 (06:52→19:45)
[2018-11-06 06:56] LABS: BASOPHILS % (AUTO) 0.4 % (0.0-2.0); EOSINOPHILS % (AUTO) 0.1 % (0.0-4.0); HEMATOCRIT 30.3 % (36-52); HEMOGLOBIN 9.7 g/dL (12.0-18.0); LYMPHOCYTES # (AUTO) 2.1 K/uL (2.0-11.5); LYMPHOCYTES % (AUTO) 38.2 % (20.5-51.1); MEAN CORPUSCULAR HEMOGLOBIN 26 pg (27-31); MEAN CORPUSCULAR HGB CONC 32 g/dL (33-37); MEAN CORPUSCULAR VOLUME 81.2 fL (80-94); MONOCYTES # (AUTO) 0.6 K/uL (0.8-1.0); MONOCYTES % (AUTO) 9.9 % (1.7-9.3); NEUTROPHILS # (AUTO) 2.9 K/uL (1.8-7.7); NEUTROPHILS % (AUTO) 51.4 % (42.2-75.2); PLATELET COUNT (AUTO) 226 K/uL (140-450); RED BLOOD CELL COUNT(AUTO) 3.73 MIL/uL (4.20-6.10); WHITE BLOOD COUNT (AUTO) 5.6 K/uL (4.8-10.8)
[2018-11-06] MEDS ORDERED: DICYCLOMINE HCL LIQUID 10 MG/5 ML UDC PO SCH (07:00)
[2018-11-06] MEDS ORDERED: LIDOCAINE VISCOUS 2% 20 ML UDC PO SCH (07:00)
[2018-11-06] MEDS ORDERED: ALUMINUM HYD/MAG/SIMETHICONE 30 ML UDC PO SCH (07:00)
--- NOTE | 2018-11-06 07:33 | NUR ---
Endorsed patient to AM shift RN for continuity of care; patient in stable condition.
--- NOTE | 2018-11-06 07:35 | NUR ---
RECEIVED REPORT FROM OPERATIONS SPECIALIST RN. PT IN STABLE CONDITION. NO C/O PAIN OR DISCOMFORT AT THIS TIME. STATES THAT HE WANTS FOOD. INFORMED HIM THAT ORDER IS FOR NPO X MEDS DUE TO GI ISSUES. WILL ALSO BE IN ROOM SOON TO TALK TO PATIENT. LUNGS CTAB, REGULAR RATE AND EFFORT. S1 AND S2 PRESENT, NO MURMURS. IV SITE PATENT AND ASYMPTOMATIC, INFUSING IVF PER MD ORDERS. HAND BUSINESS ANALYTICS ANALYST REMOVED FROM ROOM. ALL SAFETY PRECAUTIONS IN PLACE, WILL CONTINUE TO MONITOR.
[2018-11-06 08:00] VITALS: BP 130/79
[2018-11-06] MEDS ORDERED: DEXT 5% /NACL 0.9% 1,000 ML IV SCH (08:15)
[2018-11-06] MEDS: busPIRone 5 MG TAB PO SCH ×3 (08:29→16:43)
[2018-11-06] MEDS: chlordiazePOXIDE 25 MG CAP PO SCH ×3 (08:29→16:42)
[2018-11-06] MEDS: FERROUS SULFATE 325 MG TABEC PO SCH ×2 (08:29→20:16)
[2018-11-06] MEDS: ASCORBIC ACID 500 MG TAB PO SCH (08:29)
[2018-11-06] MEDS: PANTOPRAZOLE 40 MG INJ VIAL IVP SCH ×2 (08:30→20:16)
--- NOTE | 2018-11-06 08:31 | NUR ---
SCHEDULED MEDS ADMINISTERED. NOTIFIED THAT PT STATES 9/10 PAIN. PER , ADMINISTER TYLENOL. PATIENT ALSO STATES HE IS SHAKEY- INFORMED HIM THAT LIBRIUM WILL HELP.
[2018-11-06] MEDS: DEXT 5% /NACL 0.9% 1,000 ML IV SCH ×2 (08:37→18:42)
[2018-11-06] MEDS ORDERED: MULTIVITAMIN-12 10 ML, THIAMINE 100 MG, MAGNESIUM SULFATE 50% 2,000 MG, FOLIC ACID 1 MG... IV SCH ×10 (09:00→10:00)
--- NOTE | 2018-11-06 09:00 | NUR ---
PATIENT SLEEPING IN BED, NO S/S DISTRESS.
--- NOTE | 2018-11-06 09:40 | NUR ---
PT REMAINS SLEEPING IN BED, WITHOUT S/S DISTRESS. WILL CONTINUE TO MONITOR.
--- NOTE | 2018-11-06 09:51 | NUR ---
PATIENT HAS BEEN SCREENED AND CATEGORIZED MODERATE NUTRITION RISK. PATIENT WILL BE SEEN WITHIN 3-5 DAYS OF ADMISSION. 11/05/18GABI [address]
--- NOTE | 2018-11-06 10:40 | NUR ---
STARTED BANANA BAG AND STOPPED ALL OTHER IVF WHILE BANANA BAG INFUSING- PER DR. HAWKINS
--- NOTE | 2018-11-06 10:41 | NUR ---
PATIENT REFUSED EGD. EXPLAINED INDICATIONS. PT CONTINUES TO REFUSE AND DOES NOT WANT A DOCTOR TO DISCUSS WITH HIM.
--- NOTE | 2018-11-06 11:12 | NUR ---
SW attempted to complete screening. Patient refused and requested to complete screening at a later time. GUS will follow up as needed.
--- NOTE | 2018-11-06 11:17 | NUR ---
MOTHER CALLED. INFORMED MOTHER THAT PATIENT REFUSED EGD. MOTHER WANTS THE PATIENT'S AUNT TO BE CALLED WHEN PATIENT IS AWAKE AND HAVE PATIENT SPEAK WITH AUNT REGARDING EGD.
--- NOTE | 2018-11-06 11:36 | NUR ---
CALLED PATIENT'S AUNT AND GAVE PHONE TO PATIENT- PER MOTHER'S REQUEST.
[2018-11-06 12:00] VITALS: BP 135/87
--- NOTE | 2018-11-06 12:10 | NUR ---
OR NURSES HERE TO TAKE PATIENT TO EGD. UNABLE TO DO PREOP CHECKLIST-PT IS NOT ON BIG BOARD. OR NURSES ARE AWARE.
[2018-11-06] MEDS ORDERED: fentaNYL 0.05 MG/ML VIAL ONE (12:32)
[2018-11-06] MEDS ORDERED: diphenhydrAMINE 50 MG/ML VIAL ONE (12:32)
[2018-11-06] MEDS ORDERED: MIDAZOLAM 2 MG/2 ML VIAL ONE (12:32)
[2018-11-06 13:00] VITALS: BP 131/92
--- NOTE | 2018-11-06 13:00 | NUR ---
PATIENT BACK FROM EGD IN STABLE CONDITION. VSS. CONNECTED PATIENT BACK TO B[employer]Job[employer] BAG.
[2018-11-06 13:02] LABS: ANION GAP 9.8 (8-16); CREATININE 2.4 mg/dL (0.7-1.3); POTASSIUM 3.8 mmol/L (3.5-5.1)
[2018-11-06] MEDS ORDERED: diphenhydrAMINE 50 MG/ML VIAL IVP ONE (13:20)
[2018-11-06] MEDS ORDERED: MIDAZOLAM 2 MG/2 ML VIAL IVP ONE (13:20)
[2018-11-06] MEDS ORDERED: fentaNYL 0.05 MG/ML VIAL IVP ONE (13:20)
[2018-11-06] MEDS ORDERED: diphenhydrAMINE 50 MG/ML VIAL IVP SCH (13:30)
[2018-11-06] MEDS ORDERED: fentaNYL 0.05 MG/ML VIAL IVP SCH (13:30)
[2018-11-06] MEDS ORDERED: MIDAZOLAM 2 MG/2 ML VIAL IVP SCH (13:30)
--- NOTE | 2018-11-06 13:41 | NUR ---
ASKED IF PATIENT CAN HAVE DIET ORDER NOW. PT REQUESTING. NOTIFIED OF EGD FINDINGS.
--- NOTE | 2018-11-06 13:50 | NUR ---
CLARIFIED WITH PHARMACIST DYLAN REGARDING 1330 ORDERS THAT DUPLICATE MEDS ORDERED DURING EGD. PHARMACIST TO D/C
[2018-11-06 14:59] LABS: ANION GAP 12.4 (8-16); CARBON DIOXIDE 31.2 mmol/L (21-32); CREATININE 2.2 mg/dL (0.7-1.3); POTASSIUM 3.6 mmol/L (3.5-5.1)
[2018-11-06 16:00] VITALS: BP 123/65
--- NOTE | 2018-11-06 16:46 | NUR ---
SCHEDULED MEDICATIONS ADMINISTERED. NO C/O PAIN OR DISCOMFORT. ASKING WHEN DINNER IS. INFORMED PT DINNER SHOULD BE HERE WITHIN THE HOUR.
--- NOTE | 2018-11-06 19:18 | NUR ---
ENDORSED POC TO UTILITY DRIVER MINGO NIXON. PT IN STABLE CONDITION.
--- NOTE | 2018-11-06 19:20 | NUR ---
RECEIVED PT ON BED, AAOX4, COMPLAINING OF ABDOMINAL PAIN AND CHEST PAIN, VITAL SIGNS STABLE, NO SOB NOTED, WILL MEDICATE PRN WITH NORCO, BANANA BAG INFUSING WELL, PLAN OF CARE DISCUSSED, SAFETY MEASURES IN PLACE, CALL LIGHT WITHIN REACH.
[2018-11-06 20:00] VITALS: BP 126/83
[2018-11-06] MEDS: CLARITHROMYCIN 500 MG TAB PO SCH (20:15)
[2018-11-06] MEDS: AMOXICILLIN 500 MG CAP PO SCH (20:16)
[2018-11-06] MEDS: SENNA 8.6 MG TAB PO SCH (20:16)
[2018-11-06] MEDS: LACTULOSE 20 GM/30 ML UDC PO SCH (20:21)
[2018-11-06] MEDS: LORazepam 2 MG/ML VIAL IM/IVP PRN (20:54)
[2018-11-06] MEDS: NACL 0.9% 1,000 ML IV SCH (20:59)
--- NOTE | 2018-11-06 21:00 | NUR ---
PT COMPLAINING OF ANXIETY, MEDICATED PRN WITH ATIVAN IVP ORDERED, ALL NEEDS ATTENDED.
--- NOTE | 2018-11-06 22:00 | NUR ---
PT AMBULATED TO BR WITH STEADY GAIT AND VOIDED FREELY, SANDWICH AND JUICES PROVIDED, TOLERATED WELL, MONITORED CLOSELY.
[2018-11-06] MEDS: MORPHINE SULFATE 2 MG/ML SYR IVP PRN (22:57)
--- NOTE | 2018-11-06 23:40 | NUR ---
PT SEEN WITH EYES CLOSED, AROUSABLE TO VERBAL STIMULI, VITAL SIGNS STABLE, IVF INFUSING WELL, PT STATED THAT HE IS DEPRESSED, REQUESTING FOR ANTIDEPRESSANT, DR OLSON MADE AWARE, CONTINUE TO MONITOR CLOSELY.
[2018-11-07] VITALS: BP 112/58
[2018-11-07] MEDS: traZODone 50 MG TAB PO SCH ×2 (00:32→21:00)
[2018-11-07] MEDS: MORPHINE SULFATE 2 MG/ML SYR IVP PRN ×2 (02:23→06:27)
--- NOTE | 2018-11-07 03:30 | NUR ---
PT SLEEPING, EASILY AROUSABLE, VITAL SIGNS STABLE, DENIES ANY PAIN AT THIS TIME, PT WENT BACK TO SLEEP, MONITORED CLOSELY.
[2018-11-07 04:00] VITALS: BP 125/65
--- NOTE | 2018-11-07 05:40 | NUR ---
ROUNDS MADE, SEEN PT SLEEPING, NO DISTRESS NOTED, MONITORED CLOSELY.
[2018-11-07] MEDS: NACL 0.9% 1,000 ML IV SCH ×2 (06:00→09:44)
[2018-11-07] MEDS ORDERED: MORPHINE SULFATE 2 MG/ML SYR IVP PRN (06:30)
--- NOTE | 2018-11-07 07:24 | NUR ---
RECEIVED BEDSIDE REPORT FROM MINGO NIXON. PT STABLE, SLEEPING, BUT EASILY AROUSABLE. NO SIGNS OF DISTRESS NOTED. NO REDNESS, SWELLING, OR INFLAMMATION NOTED ON IV SITE. CALL PINEDA WITHIN REACH. BED IN LOWEST POSITION. SAFETY MEASURES IN PLACE. PLAN OF CARE REVIEWED.
--- NOTE | 2018-11-07 07:25 | NUR ---
PT SLEEPING, NO SIGNS OF DISTRESS, REPORT GIVEN TO MINGO OLEARY FOR CONTINUITY OF CARE.
[2018-11-07 07:30] LABS: ANION GAP 13.6 (8-16); CARBON DIOXIDE 29.3 mmol/L (21-32); CREATININE 1.7 mg/dL (0.7-1.3); POTASSIUM 3.9 mmol/L (3.5-5.1)
[2018-11-07 07:33] LABS: BASOPHILS % (AUTO) 0.6 % (0.0-2.0); EOSINOPHILS % (AUTO) 0.2 % (0.0-4.0); HEMATOCRIT 31.3 % (36-52); LYMPHOCYTES # (AUTO) 1.5 K/uL (2.0-11.5); LYMPHOCYTES % (AUTO) 42.8 % (20.5-51.1); MEAN CORPUSCULAR HEMOGLOBIN 26 pg (27-31); MEAN CORPUSCULAR HGB CONC 32 g/dL (33-37); MEAN CORPUSCULAR VOLUME 81.7 fL (80-94); MONOCYTES # (AUTO) 0.4 K/uL (0.8-1.0); MONOCYTES % (AUTO) 10.3 % (1.7-9.3); NEUTROPHILS # (AUTO) 1.6 K/uL (1.8-7.7); NEUTROPHILS % (AUTO) 46.1 % (42.2-75.2); PLATELET COUNT (AUTO) 206 K/uL (140-450); RED BLOOD CELL COUNT(AUTO) 3.83 MIL/uL (4.20-6.10); RED CELL DISTRIBUTION WIDTH 15.2 % (11.6-13.7); WHITE BLOOD COUNT (AUTO) 3.5 K/uL (4.8-10.8)
[2018-11-07 07:34] LABS: MAGNESIUM 2.2 mg/dL (1.8-2.4); PHOSPHORUS 3.8 mg/dL (2.5-4.9)
[2018-11-07 08:00] VITALS: BP 136/88
[2018-11-07] MEDS: LACTULOSE 20 GM/30 ML UDC PO SCH ×2 (09:00→21:00)
[2018-11-07] MEDS: SENNA 8.6 MG TAB PO SCH ×2 (09:00→21:42)
[2018-11-07] MEDS: ASCORBIC ACID 500 MG TAB PO SCH (09:18)
[2018-11-07] MEDS: THIAMINE 100 MG TAB PO SCH (09:18)
[2018-11-07] MEDS: FERROUS SULFATE 325 MG TABEC PO SCH ×2 (09:18→21:41)
[2018-11-07] MEDS: chlordiazePOXIDE 25 MG CAP PO SCH ×4 (09:19→17:37)
[2018-11-07] MEDS: PANTOPRAZOLE 40 MG TABEC PO SCH (09:19)
[2018-11-07] MEDS: busPIRone 5 MG TAB PO SCH ×4 (09:19→17:37)
[2018-11-07] MEDS: metroNIDAZOLE 500 MG TAB PO SCH ×4 (09:20→17:36)
[2018-11-07] MEDS: FOLIC ACID 1 MG TAB PO SCH (09:21)
[2018-11-07] MEDS: MULTIVITAMIN 1 TAB PO SCH (09:21)
[2018-11-07] MEDS: ALBUTEROL SULFATE/IPRATROPIU 3 ML SOL IH PRN (09:31)
[2018-11-07] MEDS: AMOXICILLIN 500 MG CAP PO SCH ×2 (09:43→21:41)
[2018-11-07] MEDS: CLARITHROMYCIN 500 MG TAB PO SCH ×2 (09:43→21:41)
--- NOTE | 2018-11-07 09:47 | NUR ---
ADMINISTERED ALL SCHEDULED MEDICATIONS AND PRN MORPHINE FOR 8/10 GENERALIZED PAIN AND PRN ZOFRAN FOR C/O OF NAUSEA. PT TOLERATED WELL. WILL CONTINUE TO MONITOR.
--- NOTE | 2018-11-07 11:30 | NUR ---
PT AMBULATING IN THE HALLWAY WITH STEADY GAIT.
[2018-11-07 12:00] VITALS: BP 148/95
--- NOTE | 2018-11-07 12:10 | NUR ---
RECEIVED CONSENT FROM PT TO GIVE UPDATES TO PT'S AUNT ESTHER.
--- NOTE | 2018-11-07 13:22 | NUR ---
ADMINISTERED SCHEDULED MEDICATIONS, PT TOLERATED WELL. NO OTHER NEEDS AT THIS TIME.
[2018-11-07 13:34] LABS: ANION GAP 16.2 (8-16); CARBON DIOXIDE 26.4 mmol/L (21-32); CREATININE 1.5 mg/dL (0.7-1.3); POTASSIUM 3.6 mmol/L (3.5-5.1)
--- NOTE | 2018-11-07 15:20 | NUR ---
PT STABLE, SLEEPING, NO SIGNS OF DISTRESS NOTED. CHEST RISE AND FALL VISIBLY NOTED.
[2018-11-07 16:00] VITALS: BP 125/75
--- NOTE | 2018-11-07 17:00 | NUR ---
VITAL SIGNS TAKEN, PT'S O2 SAT AT 87% ON ROOM AIR. PT PUT ON 2L O2 VIA NC, O2 SAT NOW AT 95%. MADE DR GAMBLE AWARE. INFORMED DR GAMBLE THAT PT IS LETHARGIC. DR GAMBLE ASSESSED PT AT THE BEDSIDE. PER DR GAMBLE, HOLD ALL SCHEDULED PO MEDICATIONS AT THIS TIME AND MONITOR PT.
--- NOTE | 2018-11-07 17:38 | NUR ---
PT IS MORE AWAKE NOW, SITTING ON THE SIDE OF THE BED EATING DINNER. INFORMED DR GAMBLE. PER DR GAMBLE, OKAY TO GIVE MEDICATIONS. ADMINISTERED SCHEDULED MEDICATIONS, PT TOLERATED WELL. NO OTHER NEEDS AT THIS TIME.
--- NOTE | 2018-11-07 19:20 | NUR ---
ENDORSED PT TO MINGO KNAPP FOR CONTINUITY OF CARE. PT STABLE.
--- NOTE | 2018-11-07 19:21 | NUR ---
RECEIVED BEDSIDE REPORT FROM DAY SHIFT NURSE MAMTA RN, PT STABLE, NO DISTRESS NOTED, IV TO R FA 20G PATENT INTACT, INFUSING NS @100ML/HR, INFUSING WELL, PT ON 2LPM O2 VIA NC, NO SOB NOTED, PT SLEEPING, INITIAL ASSESSMENT DONE, ALL SAFETY PRECAUTION MET, CALL LIGHT WITHIN REACH, WILL CONTINUE TO MONITOR.
[2018-11-07 20:00] VITALS: BP 92/47
--- NOTE | 2018-11-07 20:36 | NUR ---
RECEIVED PATIENT ON 2L NASAL CANNULA, PULSE OX SAT 96%. NO SOB NOTED. HHN NOT INDICATED AT THIS TIME. NO RESPIRATORY DISTRESS NOTED. WILL CONTINUE TO MONITOR.
--- NOTE | 2018-11-07 21:42 | NUR ---
DUE MEDICATION ADMINISTERED, TRAZODONE NOT ADMINISTERED, PT DROWSY, CALL LIGHT WITHIN REACH, WILL CONTINUE TO MONITOR. Addendum: 11/07/18 at 2203 by Debbie Ann RN NOTIFIED DR YAMILETH EPPRESON UNDERSTANDING.
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
--- NOTE | 2018-11-07 23:10 | NUR ---
PT AMBULATED AROUND UNIT, TOLERATED WELL, NO DISTRESS NOTED, CALL LIGHT WITHIN REACH, WILL CONTINUE TO MONITOR.
[2018-11-08] VITALS: BP 122/65
--- NOTE | 2018-11-08 00:10 | NUR ---
CHECKED ON PT, PT SLEEPING, V/S TAKEN, WNL, CALL LIGHT WITHIN REACH, WILL CONTINUE TO MONITOR.
[2018-11-08] MEDS: NACL 0.9% 1,000 ML IV SCH ×3 (02:10→22:00)
--- NOTE | 2018-11-08 03:55 | NUR ---
CHECKED ON PT, PT SLEEPING, V/S TAKEN WNL, CALL LIGHT WITHIN REACH, WILL CONTINUE TO MONITOR.
[2018-11-08 04:00] VITALS: BP 119/69
[2018-11-08] MEDS ORDERED: DEXT 5% /NACL 0.9% 1,000 ML IV SCH (06:35)
--- NOTE | 2018-11-08 07:20 | NUR ---
RECEIVED BEDSIDE REPORT FROM HISTORY TEACHER NURSE. PT IS AWAKE BUT APPEARS DROWSY. HE IS ASKING FOR SOMETHING TO EAT, ALTHOUGH HE IS NPO PER MD ORDER. ACCORDING TO HISTORY TEACHER NURSE, PT DRANK HAND PESTICIDE CHEMIST FROM THE WALL DISPENSER. PT IS ON 2L O2 NC, SKIN INTACT. IV SITE ON THE R FA 20 G, INFUSING D5NS 50 ML/HR. CALL LIGHT IS WITHIN REACH. WILL CONTINUE TO MONITOR.
--- NOTE | 2018-11-08 07:27 | NUR ---
ENDORSED PT TO DAY SHIFT NURSE KRZYSZTOF RN, PT STABLE, NO DISTRESS NOTED. CALL LIGHT WITHIN REACH.
[2018-11-08 08:00] VITALS: BP 118/77
[2018-11-08] MEDS: MULTIVITAMIN-12 10 ML, THIAMINE 100 MG, FOLIC ACID 1 MG, MAGNESIUM SULFATE 50% 2,000 MG... IV SCH ×5 (08:00)
--- NOTE | 2018-11-08 08:25 | NUR ---
ABG ORDER PLACED. PATIENT REFUSED ABG DUE TO NPO. NON COOPERATIVE FOR RT ASSESMENT.
--- NOTE | 2018-11-08 08:30 | NUR ---
PT REFUSED TO HAVE ABG DRAWN DUE TO BEING NPO.
[2018-11-08] MEDS: LACTULOSE 20 GM/30 ML UDC PO SCH ×3 (09:00→21:00)
--- NOTE | 2018-11-08 09:30 | NUR ---
PT IS ASLEEP AT THIS TIME. NO S/S OF ANY ACUTE DISTRESS. CONTINUING TO MONITOR.
[2018-11-08 10:33] LABS: ANION GAP 13.1 (8-16); BASOPHILS % (AUTO) 0.4 % (0.0-2.0); CARBON DIOXIDE 30.6 mmol/L (21-32); CREATININE 0.9 mg/dL (0.7-1.3); HEMATOCRIT 33.1 % (36-52); HEMOGLOBIN 10.5 g/dL (12.0-18.0); LYMPHOCYTES # (AUTO) 1.3 K/uL (2.0-11.5); LYMPHOCYTES % (AUTO) 28.4 % (20.5-51.1); MEAN CORPUSCULAR HEMOGLOBIN 26 pg (27-31); MEAN CORPUSCULAR HGB CONC 32 g/dL (33-37); MEAN CORPUSCULAR VOLUME 82.1 fL (80-94); MONOCYTES # (AUTO) 0.3 K/uL (0.8-1.0); MONOCYTES % (AUTO) 5.5 % (1.7-9.3); NEUTROPHILS # (AUTO) 3.1 K/uL (1.8-7.7); NEUTROPHILS % (AUTO) 65.7 % (42.2-75.2); PLATELET COUNT (AUTO) 246 K/uL (140-450); POTASSIUM 3.7 mmol/L (3.5-5.1); RED BLOOD CELL COUNT(AUTO) 4.03 MIL/uL (4.20-6.10); RED CELL DISTRIBUTION WIDTH 15.4 % (11.6-13.7); WHITE BLOOD COUNT (AUTO) 4.7 K/uL (4.8-10.8)
[2018-11-08 10:37] LABS: MAGNESIUM 2.2 mg/dL (1.8-2.4); PHOSPHORUS 4.3 mg/dL (2.5-4.9)
--- NOTE | 2018-11-08 10:40 | NUR ---
PT IS SLEEPING AND IS NOT WAKING UP TO TAKE ORAL MEDS AT THIS TIME. WILL TRY AGAIN LATER WHEN HE IS AWAKE.
[2018-11-08 11:25] LABS: ALBUMIN 3.6 g/dL (3.4-5.0); BILIRUBIN,DIRECT 0.1 mg/dL (0.0-0.3); TOTAL BILIRUBIN 0.1 mg/dL (0.0-1.0)
[2018-11-08 12:00] VITALS: BP 120/77
[2018-11-08] MEDS: metroNIDAZOLE 500 MG TAB PO SCH ×3 (13:00→18:49)
[2018-11-08] MEDS: busPIRone 5 MG TAB PO SCH ×3 (13:00→18:49)
[2018-11-08] MEDS: chlordiazePOXIDE 25 MG CAP PO SCH ×3 (13:00→18:49)
--- NOTE | 2018-11-08 13:05 | NUR ---
PT STILL SLEEPING, STILL UNABLE TO ADMINISTER SCHEDULED AM MEDS. WILL WAIT UNTIL PT IS FULLY AWAKE TO GIVE HIM MEDICATIONS.
[2018-11-08] MEDS: FOLIC ACID 1 MG TAB PO SCH (14:02)
[2018-11-08] MEDS: THIAMINE 100 MG TAB PO SCH (14:02)
[2018-11-08] MEDS: ASCORBIC ACID 500 MG TAB PO SCH (14:02)
[2018-11-08] MEDS: PANTOPRAZOLE 40 MG TABEC PO SCH (14:03)
[2018-11-08] MEDS: MULTIVITAMIN 1 TAB PO SCH (14:03)
[2018-11-08] MEDS: FERROUS SULFATE 325 MG TABEC PO SCH ×2 (14:03→21:00)
[2018-11-08] MEDS: CLARITHROMYCIN 500 MG TAB PO SCH ×2 (14:04→21:00)
[2018-11-08] MEDS: SENNA 8.6 MG TAB PO SCH ×2 (14:04→21:00)
[2018-11-08] MEDS: AMOXICILLIN 500 MG CAP PO SCH ×2 (14:04→21:00)
--- NOTE | 2018-11-08 14:21 | NUR ---
PT AWAKE, SCHEDULED AM MEDS ADMINISTERED. PT C/O BACK PAIN, WILL MEDICATE FOR PAIN.
[2018-11-08] MEDS: HYDROcodone/APAP 5/325 MG 1 TAB TAB PO PRN (14:23)
[2018-11-08] MEDS: LORazepam 2 MG/ML VIAL IM/IVP PRN (15:58)
[2018-11-08 16:00] VITALS: BP 126/82
--- NOTE | 2018-11-08 18:52 | NUR ---
PT KEEPS ASKING FOR EXTRA MEALS AND SNACKS, EVEN THOUGH HE ATE 100% OF HIS LUNCH AND DINNER, AND HAD SEVERAL SNACKS IN BETWEEN. HE IS SAYING THAT HE "SKIPPED DINNER", EVEN THOUGH HE ATE 100% OF IT. NIGHT NURSE IS AWARE OF PT'S FREQUENT REQUESTS FOR FOOD.
--- NOTE | 2018-11-08 19:15 | NUR ---
PT ENDORSED TO FIG WASHER NURSE IN STABLE CONDITION.
--- NOTE | 2018-11-08 19:20 | NUR ---
RECEIVED REPORT FROM AM SHIFT NURSE FOR CONTINUITY OF CARE. PATIENT IS LYING DOWN, ASLEEP IN BED, WITH NO SIGNS OF DISTRESS. PATIENT IS ON ROOM AIR, HAS IV ON RIGHT FOREARM 20 GA, WITH MULTIVITAMIN IVF RUNNING AT 80 ML/HR. BED IS IN LOW POSITION, SIDE RAILS ARE UP, AND CALL LIGHT WITHIN REACH. WILL MONITOR PATIENT THROUGHOUT SHIFT.
[2018-11-08 20:00] VITALS: BP 109/58
--- NOTE | 2018-11-08 20:00 | NUR ---
PATIENT IS LYING DOWN ON THE FLOOR, DID NOT FALL, WITNESSED BY JUNIOR UNDERWRITER. PATIENT IS RESPONSIVE. IV WAS PULLED OUT WE WERE TRYING TO PUT HIM BACK TO BED. PATIENT IS DIAPHORETIC, AND LINENS WERE SOILED. CHANGED GOWN AND LINENS BY JUNIOR UNDERWRITER. PATIENT WENT BACK TO SLEEP.
--- NOTE | 2018-11-08 21:45 | NUR ---
PATIENT WAS LYING DOWN IN BED, APPEARS TO BE ASLEEP, OPENS EYES ONLY ON STERNAL RUB FOR MEDICATION ADMINISTRATION. ATTEMPTED TO WAKE UP PATIENT X 3 BEFORE 2144, TO NO AVAIL. PATIENT HAS A LOT OF SALIVA/DROOL AT THIS TIME. INFORMED MD NGA CAME IN TO ASSESS PATIENT. MD PUT FOR ASPIRATION RISK PRECAUTION, ORDERED BLOOD GLUCOSE CHECK AND VS CHECK. PATIENT O2 SATURATION AT 90%, STILL DIFFICULT TO AROUSE. BLOOD SUGAR WAS 64. WILL WAIT FOR FURTHER ORDERS FROM MD.
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
--- NOTE | 2018-11-08 22:30 | NUR ---
PATIENT WAS LYING DOWN ON THE FLOOR, DID NOT FALL, WITNESSED BY GENERAL CLERK. IV WAS PULLED OUT. STARTED NEW IV WITH 24G ON THE RIGHT THUMB AREA.
[2018-11-08] MEDS ORDERED: PANTOPRAZOLE 40 MG INJ VIAL IVP SCH (23:00)
[2018-11-08] MEDS: ALBUTEROL SULFATE/IPRATROPIU 3 ML SOL IH PRN (23:06)
--- NOTE | 2018-11-08 23:39 | NUR ---
2300 PLACED PATIENT ON BIPAP IPAP 14 EPAP6 RR 14 FIO2 100%. PT NONRESPONSIVE. HHN TX GIVEN. ABG PENDING
--- NOTE | 2018-11-08 23:41 | NUR ---
POST ABG LOWERED FIO2 TO 30%
[2018-11-08 23:49] LABS: ALBUMIN 3.6 g/dL (3.4-5.0); CARBON DIOXIDE 29.8 mmol/L (21-32); POTASSIUM 3.8 mmol/L (3.5-5.1); TOTAL BILIRUBIN 0.1 mg/dL (0.0-1.0)
--- NOTE | 2018-11-08 23:53 | NUR ---
LABORATORY CALLED, PATIENT'S GLUCOSE IS 45. NOTIFIED DR. SPEARS. WILL INITIATE PROTOCOL.
[2018-11-09] VITALS: BP 126/69
[2018-11-09] MEDS ORDERED: THIAMINE 200 MG/2 ML VIAL IM SCH
[2018-11-09] MEDS ORDERED: MULTIVITAMIN-12 10 ML in NACL 0.9% 1,000 ML IV ONE ×2
[2018-11-09] MEDS ORDERED: FOLIC ACID 5 MG/ML SYR IM SCH
[2018-11-09] MEDS ORDERED: MAG SULF 2000 MG/WATER PREMIX 50 ML IV SCH
--- NOTE | 2018-11-09 | NUR ---
ADMINISTERED THIAMINE IM ON RIGHT DELTOID, AND ADMINISTERED DEXTROSE IV PUSH FOR BLOOD SUGAR LEVEL, ORDERED BY MD. PATIENT TOLERATED THEM WELL. IV PUSH PROTONIX WAS NOT ADMINISTERED, MD AWARE.
[2018-11-09] MEDS ORDERED: DEXTROSE 50% 50 ML SYR IVP ONE (00:07)
--- NOTE | 2018-11-09 00:07 | NUR ---
DEXTROSE 50% 50ML IV PUSH ADMINISTERED ORDERED. WILL CONTINUE TO MONITOR PATIENT.
--- NOTE | 2018-11-09 00:25 | NUR ---
BLOOD SUGAR CHECKED USING ACCUCHECK RESULT IS 155. MADE AWARE. NO NEW ORDERS AT THIS TIME. WILL CONTINUE TO MONITOR PATIENT.
[2018-11-09] MEDS ORDERED: DEXTROSE 50% 50 ML SYR IVP PRN ×2 (00:30)
--- NOTE | 2018-11-09 00:32 | NUR ---
ADMINISTERED HEPARIN SUBQ ON THE ABD, ORDERED. MD STILL WANTS TO ADMINISTER MEDS FROM 2100. PATIENT TOLERATED IT WELL.
--- NOTE | 2018-11-09 01:15 | NUR ---
STARTED TO INSERT NG TUBE ORDERED, PATIENT BECAME ALERT, AND RESPONSIVE. DISCONTINUED NGT INSERTION. MD AWARE, AND ADVISED TO GIVE MEDS BY PO.
[2018-11-09] MEDS: BLOOD GLUCOSE MONITORING 1 DEV DEV FS SCH ×4 (01:16→11:40)
[2018-11-09 01:36] LABS: ANION GAP 12.1 (8-16); CARBON DIOXIDE 30.2 mmol/L (21-32); POTASSIUM 4.3 mmol/L (3.5-5.1)
[2018-11-09] MEDS: SENNA 8.6 MG TAB PO SCH ×2 (01:41→08:14)
[2018-11-09] MEDS: FERROUS SULFATE 325 MG TABEC PO SCH ×2 (01:41→08:08)
[2018-11-09] MEDS: LACTULOSE 20 GM/30 ML UDC PO SCH ×2 (01:42→08:15)
--- NOTE | 2018-11-09 01:42 | NUR ---
ADMINISTERED YESTERDAY'S PO PM MEDICATIONS, ADVISED BY MD. PATIENT TOLERATED THEM WELL. PATIENT HAD 2 CHOCOLATE PUDDING AND 2 APPLE JUICE FOR SNACKS. WILL CONTINUE TO MONITOR PATIENT.
--- NOTE | 2018-11-09 02:21 | NUR ---
PATIENT OFF BIPAP AT THIS TIME TO EAT
[2018-11-09] MEDS ORDERED: MULTIVITAMIN-12 10 ML VIAL IV ONE (02:51)
--- NOTE | 2018-11-09 03:30 | NUR ---
IV PUSH ATIVAN ADMINISTERED. AWARE.
[2018-11-09] MEDS: LORazepam 2 MG/ML VIAL IM/IVP PRN (03:32)
--- NOTE | 2018-11-09 03:32 | NUR ---
PATIENT APPEARS TO BE MORE AGITATED AND STATING WILL LEAVE HOSPITAL IF NOT GIVEN MEDS FOR ANXIETY, OR FOOD. ADMINISTERED ATIVAN IV PUSH ORDERED. PATIENT TOLERATED IT WELL. WILL CONTINUE TO MONITOR PATIENT.
[2018-11-09 04:00] VITALS: BP 132/88
[2018-11-09] MEDS: ACETAMINOPHEN 325 MG TAB PO PRN (04:47)
--- NOTE | 2018-11-09 04:47 | NUR ---
PATIENT COMPLAINS OF HEADACHE. ADMINISTERED TYLENOL PO ORDERED.
[2018-11-09] MEDS: DEXT 5% / NACL 0.45% 1,000 ML IV SCH ×2 (05:00→10:25)
--- NOTE | 2018-11-09 05:00 | NUR ---
HUNG IV DEXTROSE 5% 1/2 NORMAL SALINE AT 100 ML/HR. REQUESTED FOR SNACKS, GAVE PUDDINGS AND 2 APPLE JUICE. RECHECKED BLOOD SUGAR, 118, NO COVERAGE NEEDED. PATIENT CONSTANTLY COMPLAINS OF CHEST PAIN, MD ADVISED HIM THAT IT MIGHT BE HIS GASTRIC REFLUX, NO NEW ORDERS. WILL CONTINUE TO MONITOR PT.
--- NOTE | 2018-11-09 06:51 | NUR ---
ADMINISTERED PO MEDICATION ORDERED. PATIENT TOLERATED IT WELL.
[2018-11-09] MEDS ORDERED: THIAMINE 200 MG/2 ML VIAL IV SCH (07:00)
[2018-11-09] MEDS ORDERED: PANTOPRAZOLE 40 MG TABEC PO SCH (07:30)
--- NOTE | 2018-11-09 07:30 | NUR ---
ENDORSED PATIENT TO AM SHIFT NURSE FOR CONTINUITY OF CARE. PATIENT AMBULATING AROUND THE HALLWAY, WITH STEADY GAIT, WITH NO OXYGEN, AND TOLERATING THE ACTIVITY WELL. PATIENT IS IN STABLE CONDITION AT THIS TIME.
--- NOTE | 2018-11-09 07:45 | NUR ---
RECEIVED BEDSIDE REPORT BY NIGHT NURSE. PT AMBULATING HALLS WITH STEADY GAIT AND SITTER WITH PT. PT BREATHING UNLABORED AND AOX4. PT HAS A RIGHT HAND IV THAT IS ASYMPTOMATIC AND PATENT. PT ROOM HAS SAFETY MEASURES IN PLACE WITH SITTER MONITORING AND CALL LIGHT WITHIN REACH.
[2018-11-09 08:00] VITALS: BP 147/89
[2018-11-09] MEDS: ASCORBIC ACID 500 MG TAB PO SCH (08:07)
[2018-11-09] MEDS: MULTIVITAMIN 1 TAB PO SCH (08:08)
[2018-11-09] MEDS: CLARITHROMYCIN 500 MG TAB PO SCH (08:08)
[2018-11-09] MEDS: AMOXICILLIN 500 MG CAP PO SCH (08:09)
[2018-11-09] MEDS: busPIRone 5 MG TAB PO SCH ×2 (08:09→12:29)
[2018-11-09] MEDS: chlordiazePOXIDE 25 MG CAP PO SCH ×2 (08:09→12:28)
[2018-11-09] MEDS: metroNIDAZOLE 500 MG TAB PO SCH ×2 (08:09→12:28)
[2018-11-09] MEDS: FOLIC ACID 1 MG TAB PO SCH (08:10)
--- NOTE | 2018-11-09 08:20 | NUR ---
ADMINISTERED MEDICATIONS REVIEWED INDICATIONS WITH PT INFORMING HIM THAT HE IS GETTING BUSPAR HE WAS ASKING IF HE WAS. PT HAS NO DISTRESS OR OTHER REQUESTS AT THIS TIME.
[2018-11-09 08:32] LABS: BASOPHILS # (AUTO) 0.1 K/uL (0.00-0.22); EOSINOPHILS % (AUTO) 0.3 % (0.0-4.0); HEMATOCRIT 33.5 % (36-52); HEMOGLOBIN 10.6 g/dL (12.0-18.0); LYMPHOCYTES % (AUTO) 36.4 % (20.5-51.1); MEAN CORPUSCULAR HEMOGLOBIN 26 pg (27-31); MEAN CORPUSCULAR HGB CONC 32 g/dL (33-37); MONOCYTES # (AUTO) 0.4 K/uL (0.8-1.0); MONOCYTES % (AUTO) 7.4 % (1.7-9.3); NEUTROPHILS % (AUTO) 54.9 % (42.2-75.2); PLATELET COUNT (AUTO) 262 K/uL (140-450); RED BLOOD CELL COUNT(AUTO) 4.14 MIL/uL (4.20-6.10); RED CELL DISTRIBUTION WIDTH 15.4 % (11.6-13.7); WHITE BLOOD COUNT (AUTO) 5.4 K/uL (4.8-10.8)
[2018-11-09 08:44] LABS: ANION GAP 12.2 (8-16); CARBON DIOXIDE 29.4 mmol/L (21-32); POTASSIUM 3.6 mmol/L (3.5-5.1)
[2018-11-09 08:49] LABS: MAGNESIUM 2.2 mg/dL (1.8-2.4); PHOSPHORUS 3.5 mg/dL (2.5-4.9)
[2018-11-09] MEDS: MULTIVITAMIN-12 10 ML, THIAMINE 100 MG, FOLIC ACID 1 MG, MAGNESIUM SULFATE 50% 2,000 MG... IV SCH ×5 (09:09)
--- NOTE | 2018-11-09 10:09 | NUR ---
PT SITTING UP ON SIDE OF BED SITTER AT BEDSIDE.
--- NOTE | 2018-11-09 10:24 | NUR ---
WAS INFORMED PT HAS HAD 3 EPISODES OF DIARRHEA FROM SITTER. INFORMED PT TO NOT FLUSH BUT HE SAID HE HAS ALREADY AND WONT NEXT TIME. PUT COLLECTION HAT IN TOILET AT THIS TIME.
--- NOTE | 2018-11-09 10:48 | NUR ---
PT COMPLAINING OF CHEST PAIN, NOTIFIED DR. UNGER. INFORMED HE WILL SEE PATIENT.
[2018-11-09] MEDS ORDERED: THIAMINE 100 MG TAB PO SCH (10:58)
--- NOTE | 2018-11-09 11:17 | NUR ---
PT MOTHER CALLED ASKED ABOUT PT CONDITION GAVE HER UP TO DATE REPORT AND SHE REQUESTED TO SPEAK TO WELL GAVE PHONE TO AND DR COBB SPOKE TO HER WELL.
[2018-11-09] MEDS ORDERED: KETOROLAC 15 MG/ML VIAL IVP PRN (11:20)
[2018-11-09] MEDS: HYDROcodone/APAP 5/325 MG 1 TAB TAB PO PRN (11:36)
--- NOTE | 2018-11-09 11:37 | NUR ---
ADMINISTERED NORCO PER ADVISEMENT OF DR COBB TO ADMINISTER IT NOW FOR PATIENT PAIN.
[2018-11-09 12:00] VITALS: BP 151/97
--- NOTE | 2018-11-09 12:13 | NUR ---
NOTIFIED DR UNGER OF PT REQUEST TO LEAVE AMA AND ALSO OF BLOOD GLUCOSE OF 195. STATED HELL TALK TO PATIENT. Addendum: 11/09/18 at 1616 by Emilio Durán RN *CLARIFICATION NOT DR UNGER, DR GIRALDO
--- NOTE | 2018-11-09 12:29 | NUR ---
ADMINISTERED MEDICATIONS. PT AMBULATING TO BATHROOM STEADY GAIT. PT STATING HE IS FINE WAITING AND DOES NOT WANT TO LEAVE HOSPITAL AT THIS TIME NOW.
[2018-11-09] MEDS ORDERED: CLAR500T PO (13:43)
[2018-11-09] MEDS ORDERED: AMOX500C25 PO (13:43)
[2018-11-09] MEDS ORDERED: FOLI1TAB90 PO (13:43)
[2018-11-09] MEDS ORDERED: LIB25 PO (13:43)
[2018-11-09] MEDS ORDERED: METR500T1 PO (13:43)
[2018-11-09] MEDS ORDERED: THIA-34 PO (13:43)
--- NOTE | 2018-11-09 14:00 | NUR ---
PATIENT LEFT AMA, PHYSICIAN AND PT SIGNED AMA SHEET AND DR COBB DISCUSSED RISKS WITH PT AND HE STATED HE ACKNOWLEDGES THEM. PT DISCHARGE PRESCRIPTION ALSO GIVEN AND WITH PATIENT AT TIME OF DISCHARGE. PT ALSO HAD BLACK LIQUID BOWEL MOVEMENT WHICH I NOTIFIED MD OF WELL AND WE DISCUSSED WITH PT BUT HE STILL WANTED TO LEAVE AMA. IV REMOVED AND CATHETER TIP INTACT. ID BANDS REMOVED AND TELE MONITOR REMOVED.
[2018-11-10] MEDS ORDERED: FOLIC ACID 1 MG TAB PO SCH (09:00)
[2018-11-10] MEDS ORDERED: THIAMINE 100 MG TAB PO SCH (09:00)
[2018-11-10] MEDS ORDERED: MULTIVITAMIN/MINERALS 1 TAB PO SCH (09:00)
== END 2018-11-09 14:00 | disposition left against medical advice (07) | DRG 816 ==
LOC: MED 20:11 → MTU 11-06 00:24
PROVIDERS: ADMIT General Practice; ATTEND General Practice
PROC: 0DB68ZX Excision of Stomach, Via Natural or Artificial Opening Endoscopic, Diagnostic (ICD-10-PCS; principal; 2018-11-06 12:30)
PROC: 5A09357 Assistance with Respiratory Ventilation, Less than 24 Consecutive Hours, Continuous Positive Airway Pressure (ICD-10-PCS; 2018-11-09)
DX: T51.2X1A Toxic effect of 2-Propanol, accidental (unintentional), initial encounter (principal); N17.0 Acute kidney failure with tubular necrosis; J96.01 Acute respiratory failure with hypoxia; G92 Toxic encephalopathy; K22.10 Ulcer of esophagus without bleeding; F10.239 Alcohol dependence with withdrawal, unspecified; D50.9 Iron deficiency anemia, unspecified; E66.9 Obesity, unspecified; F12.90 Cannabis use, unspecified, uncomplicated; F15.90 Other stimulant use, unspecified, uncomplicated; F17.210 Nicotine dependence, cigarettes, uncomplicated; F32.9 Major depressive disorder, single episode, unspecified; F41.9 Anxiety disorder, unspecified; K29.70 Gastritis, unspecified, without bleeding; K29.20 Alcoholic gastritis without bleeding; F19.10 Other psychoactive substance abuse, uncomplicated; I10 Essential (primary) hypertension; Z53.21 Procedure and treatment not carried out due to patient leaving prior to being seen by health care provider; Z68.35 Body mass index [BMI] 35.0-35.9, adult; Z71.3 Dietary counseling and surveillance; Z59.0 Homelessness; Z91.19 Patient's noncompliance with other medical treatment and regimen; Z56.0 Unemployment, unspecified; Y92.89 Other specified places as the place of occurrence of the external cause
CPT/HCPCS: 36415; 36600; 50432; 71045; 76770; 80048; 80053; 80076; 80305; 81003; 82009; 82150; 82550; 82803; 82948; 83540; 83605; 83690; 83735; 83930; 84100; 84134; 84439; 84443; 85025; 85610; 85730; 86677; 87081; 93005; 94640; 94660; 96361; 96374; 96375; 96376; 99285; A9153; C9113; G0480; G0482; J1200; J1644; J2060; J2250; J2270; J2405; J2916; J3010; J3411; J3475; J3490; J7030; J7620

== ENCOUNTER 2018-11-10 08:35 | Emergency (ER) | payer MEDICAID ==
[~2018-11-10] VITALS: Ht 177.8 cm; Wt 99.8 kg
[~2018-11-10 08:35] MED LIST changes: +AMOX500C25 PO; +CLAR500T PO; +FERR-13 PO; +FOLI1TAB90 PO; +LIB25 PO; +METR500T1 PO; +THIA-34 PO
--- NOTE | 2018-11-10 08:36 | NUR ---
PT BIBA BLS TO ER BED 9
--- NOTE | 2018-11-10 08:37 | NUR ---
DR. WEST BEDSIDE EVALUATING PT
[2018-11-10 08:41] VITALS: BP 126/77
[2018-11-10] MEDS ORDERED: LORazepam 2 MG/ML VIAL IVP ONE (08:45)
[2018-11-10] MEDS ORDERED: NACL 0.9% 1,000 ML IV ONE ×2 (08:45)
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
[2018-11-10 09:30] LABS: EOSINOPHILS % (AUTO) 0.3 % (0.0-4.0); HEMATOCRIT 37.9 % (36-52); LYMPHOCYTES % (AUTO) 41.4 % (20.5-51.1); MEAN CORPUSCULAR HEMOGLOBIN 26 pg (27-31); MEAN CORPUSCULAR HGB CONC 32 g/dL (33-37); MEAN CORPUSCULAR VOLUME 82.1 fL (80-94); MONOCYTES # (AUTO) 0.3 K/uL (0.8-1.0); MONOCYTES % (AUTO) 6.9 % (1.7-9.3); NEUTROPHILS # (AUTO) 2.5 K/uL (1.8-7.7); NEUTROPHILS % (AUTO) 50.4 % (42.2-75.2); PLATELET COUNT (AUTO) 323 K/uL (140-450); RED BLOOD CELL COUNT(AUTO) 4.62 MIL/uL (4.20-6.10); RED CELL DISTRIBUTION WIDTH 15.4 % (11.6-13.7); WHITE BLOOD COUNT (AUTO) 4.9 K/uL (4.8-10.8)
--- NOTE | 2018-11-10 09:35 | NUR ---
PT TAKEN TO CT VIA [facility]
[2018-11-10 09:44] LABS: ANION GAP 16.5 (8-16); CARBON DIOXIDE 28.4 mmol/L (21-32); CHLORIDE 104 mmol/L (98-107); CREATININE 1.9 mg/dL (0.7-1.3); GFR ARICAN-AMERICAN 54 mL/min (>90); GLUCOSE 134 mg/dL (74-106); POTASSIUM 3.9 mmol/L (3.5-5.1); SODIUM SERUM 145 mmol/L (136-145); UREA NITROGEN, BLOOD 9 mg/dL (7-18)
[2018-11-10 09:52] LABS: ALBUMIN 3.9 g/dL (3.4-5.0); ASPARTATE AMINOTRANSFERASE 28 U/L (15-37); LIPASE 184 U/L (73-393); MAGNESIUM 2.1 mg/dL (1.8-2.4); TOTAL BILIRUBIN 0.2 mg/dL (0.0-1.0)
[2018-11-10 09:53] LABS: ACETAMINOPHEN < 0.5 ug/ml (10-30); SALICYLATE < 2.8 mg/dL (2.8-20.0)
--- NOTE | 2018-11-10 10:25 | NUR ---
IN & OUT Hanson catheter PLACED utilizing sterile technique. Immediate return of 100 ml YELLOW urine noted. Bedside drainage bag placed below level of bladder. Urine sample collected and sent to lab. Pt tolerated procedure WELL.
--- NOTE | 2018-11-10 10:30 | NUR ---
PT ASLEEP IN BED AT THIS TIME, PROVIDED A SECOND BLANKET PER PT REQUEST
[2018-11-10 10:48] LABS: APPEARANCE,URINE CLEAR (CLEAR); BILIRUBIN,URINE NEGATIVE (NEGATIVE); BLOOD, URINE NEGATIVE (NEGATIVE); COLOR,URINE YELLOW (YELLOW); LEUKOCYTE ESTERASE ,URINE NEGATIVE (NEGATIVE); NITRITE, URINE NEGATIVE (NEGATIVE); UGLUCOSE NEGATIVE (NEGATIVE)
[2018-11-10 10:54] LABS: BARBITURATE, URINE NEG. ng/ml (NEG <=200); BENZODIAZEPINE, URINE POS. ng/mL (NEG <=200); CANNABINOID, URINE NEG. ng/mL (NEG <=50); COCAINE, URINE NEG. ng/mL (NEG <=300); OPIATE, URINE NEG. ng/mL (NEG <=2000); PHENCYCLIDINE SCREEN,URINE NEG. ng/mL (NEG <=25)
[2018-11-10 10:59] LABS: RBC,URINE NONE SEEN /HPF (0-5)
[2018-11-10 11:00] LABS: HYALINE CASTS, URINE 0-10 /LPF (None Seen); WBC,URINE 0-5 /HPF (0-5)
--- NOTE | 2018-11-10 11:06 | NUR ---
PT REMAINS ASLEEP, VSS
--- NOTE | 2018-11-10 13:20 | NUR ---
AMBULATED TO AND FROM RESTROOM WITH STEADY GAIT
[2018-11-10 13:30] VITALS: BP 108/51
== END 2018-11-10 13:20 | disposition home or self-care (01) ==
LOC: MED 08:35
DX: S00.81XA Abrasion of other part of head, initial encounter (principal); F10.239 Alcohol dependence with withdrawal, unspecified; F10.129 Alcohol abuse with intoxication, unspecified; N17.9 Acute kidney failure, unspecified; E11.9 Type 2 diabetes mellitus without complications; F17.200 Nicotine dependence, unspecified, uncomplicated; Z59.0 Homelessness; Z79.899 Other long term (current) drug therapy; Y04.2XXA Assault by strike against or bumped into by another person, initial encounter; Y90.0 Blood alcohol level of less than 20 mg/100 ml; Y93.89 Activity, other specified; Y92.89 Other specified places as the place of occurrence of the external cause; Y99.8 Other external cause status
CPT/HCPCS: 36415; 70450; 71045; 72125; 80053; 80305; 81001; 82009; 82550; 83690; 83735; 83930; 84484; 85025; 93005; 96361; 96374; 99284; C1758; G0480; G0482; J2060; Q0092

== ENCOUNTER 2018-11-10 16:24 | Emergency (ER) | payer MEDICAID ==
[~2018-11-10] VITALS: Ht 175.3 cm; Wt 108.9 kg
[~2018-11-10 16:24] MED LIST changes: -FERR325E14 PO; -METR500T1 PO; -RANI-745 PO
[2018-11-10 16:27] VITALS: BP 124/51
--- NOTE | 2018-11-10 16:27 | NUR ---
PT TAKEN TO ER BED 7 VIA WHEELCHAIR
--- NOTE | 2018-11-10 16:30 | NUR ---
BIB SELF. WHEEL CHAIRED IN FROM THE LOBBY. PT PRESENTS HERE FOR ETOH, DISCHARGED THIS MORNING. PT WAS ABLE TO TRANSFER HIMSELF FROM WHEEL CHAIR TO BED WITH SOME ASSISTANCE. EVEN AND UNLABORED BREATHING. NO SIGNS AND SYMPTOMS OF DISTRESS NOTED. PT PLACED ON FULL LICENSED FUNERAL DIRECTOR AND EMBALMER. ER TO EVALUATE PT.
--- NOTE | 2018-11-10 17:28 | NUR ---
DR WEST AT BEDSIDE FOR PT EVALUATION
[2018-11-10] MEDS ORDERED: NACL 0.9% 1,000 ML IV ONE (17:35)
--- NOTE | 2018-11-10 18:10 | NUR ---
Pt report given to arianna martin. Transfer of care at this time.
--- NOTE | 2018-11-10 18:16 | NUR ---
lab at bedside for draw, pt eating food, vss.
--- NOTE | 2018-11-10 18:16 | NUR ---
LABS DRAWN BY MANAGER OF FINANCIAL PLANNING AT BEDSIDE
[2018-11-10 18:25] LABS: BASOPHILS % (AUTO) 0.9 % (0.0-2.0); EOSINOPHILS % (AUTO) 0.1 % (0.0-4.0); HEMATOCRIT 35.5 % (36-52); LYMPHOCYTES # (AUTO) 1.6 K/uL (2.0-11.5); LYMPHOCYTES % (AUTO) 31.2 % (20.5-51.1); MEAN CORPUSCULAR HEMOGLOBIN 26 pg (27-31); MEAN CORPUSCULAR HGB CONC 31 g/dL (33-37); MEAN CORPUSCULAR VOLUME 82.6 fL (80-94); MONOCYTES # (AUTO) 0.3 K/uL (0.8-1.0); MONOCYTES % (AUTO) 6.1 % (1.7-9.3); NEUTROPHILS # (AUTO) 3.1 K/uL (1.8-7.7); NEUTROPHILS % (AUTO) 61.7 % (42.2-75.2); PLATELET COUNT (AUTO) 290 K/uL (140-450); RED CELL DISTRIBUTION WIDTH 15.9 % (11.6-13.7)
[2018-11-10 18:34] LABS: ANION GAP 16.2 (8-16); CARBON DIOXIDE 25.4 mmol/L (21-32); POTASSIUM 3.6 mmol/L (3.5-5.1)
[2018-11-10 18:40] LABS: ALBUMIN 3.6 g/dL (3.4-5.0); TOTAL BILIRUBIN 0.2 mg/dL (0.0-1.0)
--- NOTE | 2018-11-10 18:53 | NUR ---
mother at bedside.
--- NOTE | 2018-11-10 19:20 | NUR ---
ASSUMED PT CARE. REPORT RECEIVED FROM MINGO MUNIZ.
--- NOTE | 2018-11-10 20:30 | NUR ---
PT RESTING IN BED, EASILY ARROUSABLE. VSS. WILL CONTINUE TO MONITOR.
--- NOTE | 2018-11-10 22:40 | NUR ---
PT DID NOT COMPLETE ROAD TEST WITHOUT ASSISTANCE. PT C/O OF 10/10 ESOPHAGUS PAIN. PT STATED THIS IS A CHRONIC PROBLEM HE HAS. ERMD MADE AWARE.
--- NOTE | 2018-11-10 23:04 | NUR ---
PT SUCCESSFULLY PASSED ROAD TEST OF APPROXIMATELY 40 FEET
[2018-11-10 23:20] VITALS: BP 121/73
== END 2018-11-10 23:20 | disposition home or self-care (01) ==
LOC: MED 16:24
DX: F10.129 Alcohol abuse with intoxication, unspecified (principal); E11.9 Type 2 diabetes mellitus without complications; Z59.0 Homelessness; Z79.899 Other long term (current) drug therapy; Y90.6 Blood alcohol level of 120-199 mg/100 ml
CPT/HCPCS: 36415; 80053; 82948; 85025; 99283; G0482; J7030

== ENCOUNTER 2018-11-22 17:05 | Inpatient (IN) | payer MEDICAID ==
[~2018-11-22] VITALS: Ht 182.9 cm; Wt 107.5 kg
--- NOTE | 2018-11-22 17:05 | NUR ---
DEBBIE Thornton C/O ETOH INTOXICATION. PER EMS HE WAS FOUND IN A [place] SLOUCHING OVER A COUNTER AND BEGAN FOAMING AT THE MOUTH. PT WAS RESPONSIVE ONLY TO PAINFUL STIMULI. PT ON 15L NRB. PT AROUSABLE AND ANSWERING QUESTIONS APPROPRIATELY, GCS 13/15 (3-5-5). HX: ALCOHOLISM. PATIENT STATES PAIN OF 0/10 AT THIS TIME; PATIENT POSITIONED FOR COMFORT; HOB ELEVATED; BEDRAILS UP X2; BED DOWN. ER MADE AWARE OF PT STATUS. Addendum: 11/22/18 at 1842 by [email or web address] SEEN AT [facility] & DISCHARGE THIS AM TODAY S/P CHEST PAIN.
--- NOTE | 2018-11-22 17:05 | NUR ---
Patient BIBA ACLS accompanied by Irma RIVERA, transferred to bed 10. RN evaluating patient at bedside.
--- NOTE | 2018-11-22 17:06 | NUR ---
Dr. Abreu evaluating patient at bedside.
[2018-11-22 17:11] VITALS: BP 114/70
--- NOTE | 2018-11-22 17:16 | NUR ---
RT. AT BEDSIDE.
--- NOTE | 2018-11-22 17:17 | NUR ---
X-RAY AT BEDSIDE.
[2018-11-22] MEDS ORDERED: NACL 0.9% 1,000 ML IV ONE (17:20)
[2018-11-22 17:52] LABS: BASOPHILS % (AUTO) 0.5 % (0.0-2.0); EOSINOPHILS % (AUTO) 0.1 % (0.0-4.0); HEMATOCRIT 31.2 % (36-52); HEMOGLOBIN 9.9 g/dL (12.0-18.0); LYMPHOCYTES # (AUTO) 1.7 K/uL (2.0-11.5); LYMPHOCYTES % (AUTO) 28.1 % (20.5-51.1); MEAN CORPUSCULAR HEMOGLOBIN 26 pg (27-31); MEAN CORPUSCULAR HGB CONC 32 g/dL (33-37); MEAN CORPUSCULAR VOLUME 81.4 fL (80-94); MONOCYTES # (AUTO) 0.6 K/uL (0.8-1.0); MONOCYTES % (AUTO) 9.9 % (1.7-9.3); NEUTROPHILS # (AUTO) 3.7 K/uL (1.8-7.7); NEUTROPHILS % (AUTO) 61.4 % (42.2-75.2); PLATELET COUNT (AUTO) 282 K/uL (140-450); RED BLOOD CELL COUNT(AUTO) 3.83 MIL/uL (4.20-6.10); RED CELL DISTRIBUTION WIDTH 16.6 % (11.6-13.7)
--- NOTE | 2018-11-22 17:59 | NUR ---
PT TAKEN TO CT VIA GURENÉ, ACCOMPANIED BY AVIATION SAFETY TECHNICIAN.
[2018-11-22 18:04] LABS: ALBUMIN 3.5 g/dL (3.4-5.0); ANION GAP 14.8 (8-16); ASPARTATE AMINOTRANSFERASE 22 U/L (15-37); CHLORIDE 104 mmol/L (98-107); GFR ARICAN-AMERICAN 51 mL/min (>90); GLUCOSE 139 mg/dL (74-106); LIPASE 190 U/L (73-393); SODIUM SERUM 143 mmol/L (136-145); TOTAL BILIRUBIN 0.1 mg/dL (0.0-1.0); UREA NITROGEN, BLOOD 5 mg/dL (7-18)
[2018-11-22 18:06] LABS: POTASSIUM 2.8 mmol/L (3.5-5.1); SALICYLATE < 2.8 mg/dL (2.8-20.0)
[2018-11-22 18:07] LABS: ACETAMINOPHEN < 0.5 ug/ml (10-30)
--- NOTE | 2018-11-22 18:44 | NUR ---
Patient appears to be resting comfortably in bed. Vital Signs within normal limits. Respirations even and unlabored.WILL CONTINUE TO MONITOR.
[2018-11-22] MEDS ORDERED: POTASSIUM CHL 20 MEQ/NACL 0.9% 1,000 ML IV ONE ×2 (18:55→22:00)
[2018-11-22] MEDS ORDERED: VANCOMYCIN 1,000 MG in DEXTROSE 5% 250 ML IV ONE (19:00)
[2018-11-22] MEDS ORDERED: PIPERACILLIN/TAZOBACTAM 3.375 GM in DEXTROSE 5% 50 ML IV ONE (19:00)
[2018-11-22 19:01] LABS: APPEARANCE,URINE CLEAR (CLEAR); BILIRUBIN,URINE NEGATIVE (NEGATIVE); BLOOD, URINE NEGATIVE (NEGATIVE); COLOR,URINE YELLOW (YELLOW); LEUKOCYTE ESTERASE ,URINE NEGATIVE (NEGATIVE); NITRITE, URINE NEGATIVE (NEGATIVE); UGLUCOSE NEGATIVE (NEGATIVE)
[2018-11-22] MEDS ORDERED: NACL 0.9% 1,000 ML IV SCH (19:08)
--- NOTE | 2018-11-22 19:18 | NUR ---
Pt report given to DELROY AGUILA. Transfer of care at this ti
[2018-11-22 19:35] LABS: BARBITURATE, URINE NEG. ng/ml (NEG <=200); BENZODIAZEPINE, URINE POS. ng/mL (NEG <=200); CANNABINOID, URINE NEG. ng/mL (NEG <=50); COCAINE, URINE NEG. ng/mL (NEG <=300); OPIATE, URINE NEG. ng/mL (NEG <=2000); PHENCYCLIDINE SCREEN,URINE NEG. ng/mL (NEG <=25)
[2018-11-22] MEDS ORDERED: PIPERACILLIN/TAZOBACTAM 3.375 GM VIAL IV ONE (19:37)
[2018-11-22 19:39] LABS: MAGNESIUM 1.8 mg/dL (1.8-2.4); PHOSPHORUS 2.9 mg/dL (2.5-4.9)
[2018-11-22] MEDS: ONDANSETRON 4 MG/2 ML VIAL IM/IVP PRN (19:51)
[2018-11-22] MEDS ORDERED: LORazepam 1 MG TAB PO PRN (19:55)
[2018-11-22] MEDS ORDERED: MULTIVITAMIN-12 10 ML, THIAMINE 100 MG, MAGNESIUM SULFATE 50% 2,000 MG, FOLIC ACID 1 MG... IV SCH ×5 (19:55)
[2018-11-22 20:00] VITALS: BP 106/44
--- NOTE | 2018-11-22 20:20 | NUR ---
PT TRANSFERRED TO 122B. NO SIGNS OF ACUTE DISTRESS AT THIS TIME.
--- NOTE | 2018-11-22 20:30 | NUR ---
RECEIVED REPORT FROM ED RN FOR PATIENT'S CONTINUITY OF CARE. PATIENT CAME IN WITH ALOC, DIAGNOSED WITH ALOC, JOHN, HYPOKALEMIA. PATIENT ARRIVED VIA GURNEY, AROUSABLE WITH NAME, BUT OVERALL DROWSY. VITAL SIGNS ARE FF: BP 106/44; T 97.9; P 100; RR 16; O2 94%. PATIENT IS ON ROOM AIR, SKIN IS INTACT WITH LEFT AC 20G IV RUNNING WITH ZOSYN AT 100ML/HR. PATIENT BELONGINGS WERE INSPECTED AND CHARTED. PATIENT STATES "I'M HERE FOR ALCOHOL DETOX". PATIENT COULD AMBULATE WITH ASSIST TO THE BATHROOM. SOME WEAKNESS IN GAIT. BED IS IN LOW POSITION, SIDE RAILS ARE UP, AND CALL LIGHT WITHIN REACH. WILL MONITOR PATIENT THROUGHOUT SHIFT.
[2018-11-22] MEDS ORDERED: SODIUM FERRIC GLUCONATE 125 MG in NACL 0.9% 100 ML IV SCH (21:15)
[2018-11-22] MEDS ORDERED: DEXT 5% /NACL 0.9% 1,000 ML IV SCH (21:15)
[2018-11-22] MEDS ORDERED: FOLIC ACID 1 MG TAB PO SCH (21:30)
[2018-11-22] MEDS ORDERED: MAG SULF 2000 MG/WATER PREMIX 50 ML IV SCH (21:30)
[2018-11-22] MEDS ORDERED: MULTIVITAMIN 1 TAB PO SCH (21:30)
[2018-11-22] MEDS ORDERED: THIAMINE 100 MG TAB PO SCH (21:30)
[2018-11-22] MEDS: busPIRone 5 MG TAB PO SCH (22:32)
[2018-11-22] MEDS: FERROUS SULFATE 325 MG TABEC PO SCH (22:32)
--- NOTE | 2018-11-22 22:32 | NUR ---
ADMINISTERED PO MEDICATIONS ORDERED. PATIENT TOLERATED THEM WELL. WILL CONTINUE TO MONITOR PATIENT.
[2018-11-22] MEDS ORDERED: POTASSIUM CHLORIDE 40 MEQ, LIDOCAINE MPF 1% - 5 mL VIAL 25 MG in NACL 0.9% 250 ML IV SCH (22:50)
[2018-11-22] MEDS ORDERED: LIDOCAINE MPF 1% - 5 mL VIAL 5 ML ONE (23:06)
[2018-11-22] MEDS ORDERED: KCL 20 MEQ/WATER INJ PREMIX 200 ML IV ONE ×2 (23:14→23:30)
--- NOTE | 2018-11-22 23:20 | NUR ---
MIXED POTASSIUM WITH 250 ML NS AND 25 MG OF XYLOCAINE ORDERED. DID NOT SIGN XYLOCAINE AND POTASSIUM IN EMAR. TOOK OUT CONCENTRATED POTASSIUM INSTEAD.
[2018-11-23] VITALS: BP 113/65
--- NOTE | 2018-11-23 | NUR ---
VITAL SIGNS CHECKED AND CHARTED. PATIENT ASLEEP WITH NO SIGNS OF DISTRESS. WILL CONTINUE TO MONITOR PATIENT.
[2018-11-23] MEDS ORDERED: PIPERACILLIN/TAZOBACTAM 2.25 GM VIAL IV ONE ×2 (01:05→06:35)
--- NOTE | 2018-11-23 01:05 | NUR ---
HUNG IV ANTIBIOTIC ORDERED. PATIENT ASLEEP, WITH NO SIGNS OF DISTRESS. WILL CONTINUE TO MONITOR PATIENT.
[2018-11-23 04:00] VITALS: BP 109/58
--- NOTE | 2018-11-23 04:00 | NUR ---
VITAL SIGNS CHECKED AND CHARTED. PATIENT IV STILL RUNNING WITH POTASSIUM IV BAG. PATIENT IS ASLEEP, WITH NO SIGNS OF DISTRESS. WILL CONTINUE TO MONITOR PATIENT.
[2018-11-23 06:25] LABS: BASOPHILS % (AUTO) 0.5 % (0.0-2.0); EOSINOPHILS % (AUTO) 0.2 % (0.0-4.0); HEMATOCRIT 31.4 % (36-52); LYMPHOCYTES # (AUTO) 1.6 K/uL (2.0-11.5); LYMPHOCYTES % (AUTO) 48.3 % (20.5-51.1); MEAN CORPUSCULAR HEMOGLOBIN 26 pg (27-31); MEAN CORPUSCULAR HGB CONC 32 g/dL (33-37); MEAN CORPUSCULAR VOLUME 81.6 fL (80-94); MONOCYTES # (AUTO) 0.3 K/uL (0.8-1.0); MONOCYTES % (AUTO) 10.4 % (1.7-9.3); NEUTROPHILS # (AUTO) 1.4 K/uL (1.8-7.7); NEUTROPHILS % (AUTO) 40.6 % (42.2-75.2); PLATELET COUNT (AUTO) 307 K/uL (140-450); RED BLOOD CELL COUNT(AUTO) 3.85 MIL/uL (4.20-6.10); RED CELL DISTRIBUTION WIDTH 16.8 % (11.6-13.7); WHITE BLOOD COUNT (AUTO) 3.3 K/uL (4.8-10.8)
[2018-11-23] MEDS: PIPERACILLIN/TAZOBACTAM 2.25 GM in DEXTROSE 5% 50 ML IV SCH ×3 (06:34)
--- NOTE | 2018-11-23 06:35 | NUR ---
ADMINISTERED IV ANTIBIOTICS ORDERED. PATIENT ASLEEP, WITH NO SIGNS OF DISTRESS.
[2018-11-23 06:48] LABS: ANION GAP 13.3 (8-16); CARBON DIOXIDE 27.7 mmol/L (21-32); CREATININE 1.6 mg/dL (0.7-1.3)
[2018-11-23 06:59] LABS: MAGNESIUM 1.9 mg/dL (1.8-2.4); PHOSPHORUS 3.8 mg/dL (2.5-4.9)
--- NOTE | 2018-11-23 07:25 | NUR ---
ENDORSED PATIENT TO AM SHIFT RN, TAMIKA, FOR CONTINUITY OF CARE. PATIENT AWAKE, ALERT, STANDING UP. INSTRUCTED PATIENT TO GO BACK TO BED FOR RISK OF FALL. PATIENT IS IN STABLE CONDITION AT THIS TIME.
--- NOTE | 2018-11-23 07:26 | NUR ---
RECEIVED ENDORSEMENT FROM SUPERVISOR GROWER NURSE. PATIENT IS AAOX1, PORTUGUESE SPEAKING. RESPIRATIONS ARE EVEN AND UNLABORED ON ROOM AIR. FLACC 0. LEFT AC 20G IV INTACT AND SL. PLAN OF CARE WAS REVIEWED WITH PATIENT, PATIENT UNABLE TO VERBALIZE UNDERSTANDING AT THIS TIME. SAFETY MEASURES IN PLACE, CALL LIGHT WITHIN REACH. ALL HAND TRIMMING DEPARTMENT BLOCKER HAS BEEN REMOVED FROM ROOM AND OUTSIDE OF ROOM.
[2018-11-23 08:00] VITALS: BP 117/73
[2018-11-23] MEDS ORDERED: SODIUM FERRIC GLUCONATE 125 MG in NACL 0.9% 100 ML IV SCH (08:00)
--- NOTE | 2018-11-23 08:48 | NUR ---
PATIENT HAS BEEN SCREENED AND CATEGORIZED HIGH NUTRITION RISK. PATIENT WILL BE SEEN WITHIN 3-5 DAYS OF ADMISSION. 11/25/18-11/27/18 Addendum: 11/23/18 at [address] PATIENT HAS BEEN SCREENED AND CATEGORIZED MODERATE NUTRITION RISK. PATIENT WILL BE SEEN WITHIN 3-5 DAYS OF ADMISSION. 11/25/18-11/27/18
[2018-11-23] MEDS ORDERED: FOLIC ACID 1 MG TAB PO SCH (09:00)
[2018-11-23] MEDS ORDERED: THIAMINE 100 MG TAB PO SCH (09:00)
[2018-11-23] MEDS ORDERED: MULTIVITAMIN 1 TAB PO SCH (09:00)
[2018-11-23] MEDS ORDERED: PANTOPRAZOLE 40 MG INJ VIAL IVP SCH (09:00)
[2018-11-23] MEDS: FERROUS SULFATE 325 MG TABEC PO SCH ×2 (09:01→21:15)
[2018-11-23] MEDS: busPIRone 5 MG TAB PO SCH ×2 (09:01→21:15)
[2018-11-23] MEDS: chlordiazePOXIDE 25 MG CAP PO SCH ×3 (09:02→18:26)
--- NOTE | 2018-11-23 09:05 | NUR ---
ADMINISTERED SCHEDULED MEDICATIONS, PATIENT TOLERATED WELL. PATIENT IS STILL AAOX1. FLACC 0. NO OTHER NEEDS AT THIS TIME, WILL CONTINUE TO MONITOR.
--- NOTE | 2018-11-23 09:55 | NUR ---
PATIENT WAS CHANGED AND HAND J2EE DEVELOPER BAG FOUND INSIDE PATIENTS PANTS. IT WAS REMOVED AND THROWN IN THE TRASH CAN. NO OTHER NEEDS AT THIS TIME. SEIZURE PRECAUTIONS IN PLACE, BED ALARM IS ON.
[2018-11-23] MEDS ORDERED: AMOXICILLIN 500 MG CAP PO SCH (10:19)
[2018-11-23] MEDS ORDERED: CLARITHROMYCIN 500 MG TAB PO SCH (10:19)
[2018-11-23] MEDS ORDERED: LANSOPRAZOLE 30 MG CAPDR PO SCH (10:20)
--- NOTE | 2018-11-23 10:52 | NUR ---
ADMINISTERED SCHEDULED MEDICATIONS, PATIENT TOLERATED WELL. FLACC 0. NO OTHER NEEDS AT THIS TIME, WILL CONTINUE TO MONITOR.
--- NOTE | 2018-11-23 11:40 | NUR ---
PATIENT SLEEPING, AROUSABLE TO NAME. PATIENT IS STILL ALTERED. FLACC 0. NO OTHER NEEDS AT THIS TIME, WILL CONTINUE TO MONITOR.
[2018-11-23] MEDS ORDERED: PIPER/TAZO 2.25GM/D5W PREMIX 50 ML IV SCH (12:00)
--- NOTE | 2018-11-23 13:50 | NUR ---
PER MANAGER TREASURY, PATIENT TOOK HAND DIRECTOR HEMATOLOGY FROM OTHER ROOM. IT HAS BEEN REMOVED FROM PATIENTS POSSESSION. PATIENT HAS BEEN INSTRUCTED NOT TO AMBULATE WITHOUT ASSISTANCE. PATIENT UNABLE TO VERBALIZE UNDERSTANDING, SPEECH IS STILL SLURRED. Addendum: 11/23/18 at 1437 by Earlene Jhaveri RN PATIENT AROUSABLE TO NAME. ADMINISTERED SCHEDULED MEDICATIONS. PATIENT TOLERATED WELL. PATIENT WENT BACK TO SLEEP.
--- NOTE | 2018-11-23 14:37 | NUR ---
PATIENT SLEEPING, EASILY AROUSABLE. NO OTHER NEEDS AT THIS TIME, WILL CONTINUE TO MONITOR.
--- NOTE | 2018-11-23 15:50 | NUR ---
PATIENT ATTEMPTING TO GET UP. ALMOST FELL ON FACE. DR. BOYLE WAS NOTIFIED. 1:1 SITTER PROVIDED. PATIENT IS HAS ALOC AND UNSTEADY GAIT.
--- NOTE | 2018-11-23 17:40 | NUR ---
PATIENT RESTING IN BED. FLACC 0. NO OTHER NEEDS AT THIS TIME. 1:1 SITTER AT BEDSIDE.
--- NOTE | 2018-11-23 19:20 | NUR ---
ENDORSED TO CNC CUTTING OPERATOR NURSE FOR CONTINUITY OF CARE. PATIENT IS STABLE AT THIS TIME.
--- NOTE | 2018-11-23 19:21 | NUR ---
REPORT RECEIVED FROM AM NURSE AT BEDSIDE. PT IN STABLE CONDITION. AAOX4. INTRODUCED SELF TO PT. BOARD UPDATED. PT HAS COMPLAINTS OF PAIN. NO PAIN MEDICATION ON BOARD. NO SOB. AFEBRILE. PT IS AMBULATORY. IV SITE L AC 20G SL PATENT AND INTACT. SKIN WARM, DRY, AND INTACT WITH NO OPEN WOUNDS. BED LOCKED IN LOW POSITION. CALL PINEDA WITHIN REACH. SAFETY PRECAUTION IN PLACE. ALL NEEDS MET AT THIS TIME.
--- NOTE | 2018-11-23 19:30 | NUR ---
PT IS COMPLAINING OF PAIN. NO PAIN MEDICATION ON BOARD. PT IS AGITATED. PT LEFT ROOM. OSVALDO DENNIS CALLED AND PATIENT WENT BACK INTO HIS ROOM. NOTIFIED.
--- NOTE | 2018-11-23 19:50 | NUR ---
MD IN TO SEE PATIENT. TALKED TO HIM ABOUT THE PLAN OF CARE THE REASON FOR 1:1 SITTER. PT AGREED. AWAITING NEW ORDERS.
--- NOTE | 2018-11-23 20:30 | NUR ---
SAID OK TO SHOWER.
[2018-11-23] MEDS: AMOXICILLIN 500 MG CAP PO SCH (21:15)
[2018-11-23] MEDS: CLARITHROMYCIN 500 MG TAB PO SCH (21:15)
[2018-11-23] MEDS: HYDROcodone/APAP 5/325 MG 1 TAB TAB PO PRN (21:15)
--- NOTE | 2018-11-23 21:15 | NUR ---
AMOXIL, BIAXIN, BUSPAR, FERROUS SULFATE, AND NORCO GIVEN PO. PT TOLERATED WELL.
--- NOTE | 2018-11-23 22:45 | NUR ---
PT IN BED WATCHING TV. NO S/S OF DISTRESS NOTED. WILL CONTINUE TO MONITOR.
[2018-11-24] VITALS: BP 131/85
--- NOTE | 2018-11-24 00:25 | NUR ---
PT SLEEPING COMFORTABLY IN BED. NO S/S OF DISTRESS NOTED. WILL CONTINUE TO MONITOR.
--- NOTE | 2018-11-24 02:10 | NUR ---
PT SLEEPING COMFORTABLY IN BED. NO S/S OF DISTRESS NOTED. RESPIRATIONS EVEN, UNLABORED, AND WNL. WILL CONTINUE TO MONITOR.
--- NOTE | 2018-11-24 03:45 | NUR ---
PT SLEEPING COMFORTABLY IN BED BUT AROUSABLE. NO S/S OF DISTRESS NOTED. NO COMPLAINTS OF PAIN. NO SOB. AFEBRILE. WILL CONTINUE TO MONITOR.
--- NOTE | 2018-11-24 05:34 | NUR ---
PREVACID GIVEN PO. PT TOLERATED WELL.
[2018-11-24] MEDS ORDERED: LANSOPRAZOLE 30 MG CAPDR PO SCH (06:30)
--- NOTE | 2018-11-24 07:06 | NUR ---
REPORT GIVEN TO AM NURSE AT BEDSIDE. PT IN STABLE CONDITION.
--- NOTE | 2018-11-24 07:08 | NUR ---
RECEIVED BEDSIDE REPORT FROM SPECIAL WEAPONS UNIT OFFICER NURSE FOR CONTINUITY OF CARE. PATIENT IS AWAKE AND RESTING ON BED AT THIS TIME. EVEN AND UNLABORED CHEST RISES ON RA. NO SIGNS OF DISTRESS NOTED. IV ON LAC 20G, CLEAN AND INTACT, SL. SKIN CLEAN AND DRY. PATIENT IS ABLE TO AMBULATE WITH STANDBY ASSIST AND CONTINENT. DISCUSSED PLAN OF CARE WITH PATIENT AND PATIENT NODDED HIS HEAD. SAFETY MEASURES IN PLACE. SEIZURE PRECAUTION IN PLACE. BED IN LOW POSITION AND CALL LIGHT WITHIN REACH. 1:1 SITTER BY BEDSIDE.
--- NOTE | 2018-11-24 07:30 | NUR ---
ASSISTED SALVAGE CUTTER TO CHANGE PATIENT'S SOILED LINENS AND GROW. FOUND A HAND BOX WORKER BAG HALF FULL UNDER PATIENT'S BACK AND COVERED WITH BLANKET. ASKED PATIENT WHERE HE GOT IT FROM, PATIENT STATED " I TOOK IT OUT FROM MY BACKPACK." DID ROOM ASSESSMENT, PATIENT DID NOT HAVE ANY BELONGINGS WITH HIM. HE IS WEARING HIS OWN BOXER. TOOK AWAY THE HAND BOX WORKER BAG FROM PATIENT. NOTIFIED SOFTWARE VALIDATION TECHNICIAN RN AND SOFTWARE VALIDATION TECHNICIAN RN CAME TO PATIENT'S ROOM AND TALK TO PATIENT AND EDUCATED PATIENT TO NOT GET OUT OF HIS ROOM AND NOT TO DRINK ANY HAND BOX WORKER. NOTIFIED THIS INCIDENT TO DR TEAGUE AND DR TEAGUE WAS AWARE.
[2018-11-24 07:44] LABS: BASOPHILS % (AUTO) 0.6 % (0.0-2.0); HEMATOCRIT 33.9 % (36-52); HEMOGLOBIN 10.7 g/dL (12.0-18.0); LYMPHOCYTES # (AUTO) 1.2 K/uL (2.0-11.5); LYMPHOCYTES % (AUTO) 27.5 % (20.5-51.1); MEAN CORPUSCULAR HEMOGLOBIN 26 pg (27-31); MEAN CORPUSCULAR HGB CONC 32 g/dL (33-37); MEAN CORPUSCULAR VOLUME 82.1 fL (80-94); MONOCYTES # (AUTO) 0.3 K/uL (0.8-1.0); MONOCYTES % (AUTO) 6.4 % (1.7-9.3); NEUTROPHILS # (AUTO) 2.9 K/uL (1.8-7.7); NEUTROPHILS % (AUTO) 65.5 % (42.2-75.2); PLATELET COUNT (AUTO) 362 K/uL (140-450); RED BLOOD CELL COUNT(AUTO) 4.13 MIL/uL (4.20-6.10); RED CELL DISTRIBUTION WIDTH 16.7 % (11.6-13.7); WHITE BLOOD COUNT (AUTO) 4.4 K/uL (4.8-10.8)
--- NOTE | 2018-11-24 07:45 | NUR ---
PATIENT IS SITTING UP AND EATING BREAKFAST ON BED. ASSESSED NEURO, PATIENT IS AAOX3 TO NAME, PLACE, AND TIME. SPEECH IS COMPREHENSIBLE AND APPROPRIATED. PATIENT DENIED PAIN AND DIZZY. NO SIGNS OF DISTRESS NOTED. SAFETY MEASURES IN PLACE. BED IN LOW POSITION AND CALL LIGHT WITHIN REACH. 1:1 SITTER BY BEDSIDE.
[2018-11-24] MEDS ORDERED: NACL 0.9% 1,000 ML IV SCH (07:55)
[2018-11-24 08:00] VITALS: BP 116/76
[2018-11-24 08:13] LABS: MAGNESIUM 2.1 mg/dL (1.8-2.4); PHOSPHORUS 3.9 mg/dL (2.5-4.9)
[2018-11-24 08:18] LABS: CREATININE 1.3 mg/dL (0.7-1.3); POTASSIUM 3.7 mmol/L (3.5-5.1)
[2018-11-24 08:22] LABS: ANION GAP 15.1 (8-16); CARBON DIOXIDE 29.6 mmol/L (21-32)
--- NOTE | 2018-11-24 08:37 | NUR ---
ASSISTED PATIENT TO TAKE A SHOWER IN THE SHOWER ROOM. PATIENT THREW UP IN THE SHOWER AND HE HAD A BM WHILE TAKING SHOWER. PATIENT ALMOST SLIP ON THE FLOOR WHEN GOT OUT FROM SHOWER. PATIENT CAME BACK TO HIS ROOM. NOTIFIED DR TEAGUE THAT PATIENT ALMOST SLIP, PER DR TEAGUE, HE WILL CANCEL THE SHOWER ORDER AND PATIENT WILL BE ON NPO.
[2018-11-24] MEDS: chlordiazePOXIDE 25 MG CAP PO SCH ×2 (08:39→13:06)
[2018-11-24] MEDS: FERROUS SULFATE 325 MG TABEC PO SCH (08:40)
[2018-11-24] MEDS: CLARITHROMYCIN 500 MG TAB PO SCH (08:40)
[2018-11-24] MEDS: AMOXICILLIN 500 MG CAP PO SCH (08:40)
[2018-11-24] MEDS: busPIRone 5 MG TAB PO SCH (08:41)
--- NOTE | 2018-11-24 08:42 | NUR ---
ADMINISTERED MEDS PER MD ORDER, PATIENT TOLERATED WELL. PATIENT AWAKE AND SITTING UP ON BED. DENIED PAIN. NO SIGNS OF DISTRESS NOTED. SAFETY MEASURES IN PLACE. BED IN LOW POSITION AND CALL LIGHT WITHIN REACH. BED ALARM ACTIVATED. 1:1 SITTER BY BEDSIDE.
[2018-11-24] MEDS ORDERED: MULTIVITAMIN-12 10 ML, THIAMINE 100 MG, MAGNESIUM SULFATE 50% 2,000 MG, FOLIC ACID 1 MG... IV SCH ×5 (09:00)
--- NOTE | 2018-11-24 09:07 | NUR ---
DR FITZGERALD IS ASSESSING AND TALKING TO PATIENT AT BEDSIDE. NO SIGNS OF DISTRESS NOTED. SAFETY MEASURES IN PLACE. BED IN LOW POSITION AND CALL LIGHT WITHIN REACH. BED ALARM ACTIVATED. 1:1 SITTER AT BEDSIDE.
--- NOTE | 2018-11-24 09:30 | NUR ---
PATIENT GOT OUT FROM BED AND ATTEMPTED TO GET OUT OF ROOM AND SAID " I FORGOT MY SHOWER SUPPLIES IN THE SHOWER ROOM. I WANNA GO GET THEM." INFORMED PATIENT THAT ENGINEERING TECHNICAL WRITER HAS CLEANED UP THE SHOWER ROOM AND NO NEED TO GET THE SUPPLIES. ASSISTED PATIENT TO GET BACK ON BED AND POSITIONED COMFORTABLY. SAFETY MEASURES IN PLACE. BED IN LOW POSITION AND CALL LIGHT WITHIN REACH. BED ALARM ACTIVATED. 1:1 SITTER BY BEDSIDE.
[2018-11-24] MEDS: HYDROcodone/APAP 5/325 MG 1 TAB TAB PO PRN ×2 (09:35→15:41)
--- NOTE | 2018-11-24 09:35 | NUR ---
PATIENT COMPLAINED HE HAS 5/10 PAIN ON HIS BACK. HE FEELS RESTLESS AND IRRITABLE. ADMINISTERED PRN PAIN MED NORCO, PATIENT TOLERATED WELL. PATIENT AWAKE AND WATCHING TV ON BED AT THIS TIME. SAFETY MEASURES IN PLACE. BED IN LOW POSITION AND CALL LIGHT WITHIN REACH. BED ALARM ACTIVATED. 1:1 SITTER BY BEDSIDE.
--- NOTE | 2018-11-24 10:41 | NUR ---
ASSISTED PATIENT TO GO TO THE BATHROOM AND BACK ON BED COMFORTABLY. PATIENT DENIED PAIN. NO SIGNS OF DISTRESS NOTED. SAFETY MEASURES IN PLACE. BED IN LOW POSITION AND CALL LIGHT WITHIN REACH. BED ALARM ACTIVATED. 1:1 SITTER AT BEDSIDE.
--- NOTE | 2018-11-24 11:29 | NUR ---
PATIENT AWAKE ON BED AND TALKING ON THE PHONE AT THIS TIME. NO SIGNS OF DISTRESS NOTED. SAFETY MEASURES IN PLACE. BED IN LOW POSITION AND CALL LIGHT WITHIN REACH. BED ALARM ACTIVATED. 1:1 SITTER AT BEDSIDE.
--- NOTE | 2018-11-24 11:42 | NUR ---
PATIENT COMPLAINED THAT HE IS HUNGRY AND HE WANTS FOOD FOR LUNCH. NOTIFIED DR TEAGUE AND PER DR TEAGUE, PATIENT IS ALLOWED TO GET A SANDWICH FOR LUNCH AND MONITOR HOW HE TOLERATES IT. CALLED [facility] FOR A TUNE SANDWICH.
--- NOTE | 2018-11-24 12:10 | NUR ---
PATIENT IS MRSA SCREEN RESULT STAPHYLOCOCCUS AUREUS-MRSA ISOLATED. NOTIFIED DR TEAGUE AND DR TEAGUE WAS AWARE. CONTACT ISOLATION INITIALED AND SIGNS POSTED.
--- NOTE | 2018-11-24 12:10 | NUR ---
PATIENT IS SITTING ON THE EDGE OF BED AND EATING SANDWICH. PATIENT IS ABLE TO TOLERATE THE SANDWICH WITH ANY DISTRESS. DENIED NAUSEA, VOMITING AND PAIN. NO SIGNS OF DISTRESS NOTED. SAFETY MEASURES IN PLACE. BED IN LOW POSITION AND CALL LIGHT WITHIN REACH. BED ALARM ACTIVATED. 1:1 SITTER.
--- NOTE | 2018-11-24 12:20 | NUR ---
PATIENT REQUESTED TO GET HIS WALLET BACK FROM SECURITY THAT HE NEEDS THE BUSINESS CARD IN HIS WALLET TO CALL HIS WORK. RETURNED WALLET PER PATIENT REQUESTS.
--- NOTE | 2018-11-24 12:33 | NUR ---
RECEIVED A CALL FROM LAB THAT PATIENT WAS MRSA NARES POSITIVE. INFORMED DR TEAGUE AND DR TEAGUE WAS AWARE AND ORDERED CONTACT PRECAUTION AND TREATMENT.
--- NOTE | 2018-11-24 12:45 | NUR ---
PATIENT WANTED TO WALK AROUND THE HALLWAY. NOTIFIED DR TEAGUE THAT PATIENT REQUESTS TO WALK AROUND THE HALLWAY. PER DR TEAGUE, DUE TO PATIENT ON CONTACT ISOLATION, PATIENT MAY WALK AROUND WITH MASK ON. STAVE AND BOLT EQUALIZER NOTIFIED. PATIENT PUT ON MASK AND WALKING AROUND THE HALLWAY. PATIENT IS COOPERATIVE AND ABLE TO AMBULATE WITH STEADY GAIT.
[2018-11-24] MEDS ORDERED: CHLORHEXADINE GLUC 2% CLOTH TP SCH (13:00)
[2018-11-24] MEDS ORDERED: MUPIROCIN CA NASAL 2% 1GM TUBE NS SCH (13:00)
--- NOTE | 2018-11-24 13:08 | NUR ---
ADMINISTERED MEDS PER MD ORDER, PATIENT TOLERATED WELL. WIPED PATIENT WITH CHLORHEXIDINE GLUCONATE. EDUCATION PROVIDED TO PATIENT. AWAITING FOR PHARMACY TO DELIVER BACTROBAN NASAL. PATIENT IS AWAKE AND SITTING UP ON BED. NO SIGNS OF DISTRESS NOTED. SAFETY MEASURES IN PLACE. BED IN LOW POSITION AND CALL LIGHT WITHIN REACH. 1:1 SITTER BY BEDSIDE.
--- NOTE | 2018-11-24 14:15 | NUR ---
PATIENT WANTED TO WALK AROUND THE HALLWAY. INSTRUCTED PATIENT TO PUT ON MASK PRIOR TO EXIT HIS ROOM. PATIENT IS COOPERATIVE AND ABLE TO AMBULATE WITH STEADY GAIT. NO SIGNS OF DISTRESS NOTED.
--- NOTE | 2018-11-24 14:27 | NUR ---
PATIENT WENT BACK TO HIS ROOM FROM WALKING AND REQUESTED FOR A PUDDING. PROVIDED REQUEST. PATIENT IS SITTING UP ON BED AND WATCHING TV. NO SIGNS OF DISTRESS NOTED. SAFETY MEASURES IN PLACE. BED IN LOW POSITION AND CALL LIGHT WITHIN REACH. 1:1 SITTER BY BEDSIDE.
--- NOTE | 2018-11-24 15:18 | NUR ---
PATIENT AWAKE AND TALKING ON PHONE. BANANA BAG IS INFUSING PER MD ORDER. NO SIGNS OF DISTRESS NOTED. SAFETY MEASURES IN PLACE. BED IN LOW POSITION AND CALL LIGHT WITHIN REACH. 1:1 SITTER BY BEDSIDE.
[2018-11-24] MEDS: ONDANSETRON 4 MG/2 ML VIAL IM/IVP PRN (15:40)
--- NOTE | 2018-11-24 15:41 | NUR ---
PATIENT COMPLAINED 6/10 GENERALIZED PAIN AROUND HIS BODY AND NAUSEA, ADMINISTERED PRN PAIN MED NORCO AND ZOFRAN PER MD ORDER, PATIENT TOLERATED WELL. PATIENT AWAKE AND SITTING UP ON BED. SAFETY MEASURES IN PLACE. BED IN LOW POSITION AND CALL LIGHT WITHIN REACH. 1:1 SITTER AT BEDSIDE.
--- NOTE | 2018-11-24 15:52 | NUR ---
PATIENT SAID HE WANTS TO GO AMA. PATIENT STATED " I DON'T WANT TO HAVE A SITTER. 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
[2018-11-24 16:00] VITALS: BP 140/90
--- NOTE | 2018-11-24 16:57 | NUR ---
NOTIFIED DR TEAGUE THAT PATIENT WANTS TO GO AMA AND DR TEAGUE IS TALKING TO PATIENT AT BEDSIDE. DR TEAGUE HAS EXPLAINED THE RISKS OF PATIENT LEAVING AGAINST MEDICAL ADVICE. PATIENT WAS AAOX4 TO NAME, DATE, TIME AND DATE. PATIENT WAS ABLE TO COMMUNICATE APPROPRIATELY AND SPEAK CLEARLY. PATIENT INSISTS THAT HE WANTS TO LEAVE THE HOSPITAL. AMA CONSENT SIGNED BY DR TEAGUE AND PATIENT AT BEDSIDE.
--- NOTE | 2018-11-24 17:00 | NUR ---
CALLED SECURITY AND RETURNED ALL PATIENT'S BELONGING. PATIENT VERIFIED AND CONFIRMED HE RECEIVED ALL HIS BELONGINGS. PATIENT CHANGING INTO HIS OWN CLOTHES AT THIS TIME.
--- NOTE | 2018-11-24 17:09 | NUR ---
DC IV AND CANNULA INTACT, MINIMAL BLEEDING AT IV SITE. REMOVED ALL ARM BAND. PATIENT TOOK ALL HIS BELONGINGS AND WALKED OUT FROM HIS ROOM. PATIENT LEFT AT THIS TIME AGAINST AMA.
[2018-11-25] MEDS ORDERED: THIAMINE 100 MG TAB PO SCH (09:00)
[2018-11-25] MEDS ORDERED: MULTIVITAMIN 1 TAB PO SCH (09:00)
[2018-11-25] MEDS ORDERED: ESCITALOPRAM 20 MG TAB PO SCH (09:00)
[2018-11-25] MEDS ORDERED: FOLIC ACID 1 MG TAB PO SCH (09:00)
== END 2018-11-24 17:14 | disposition left against medical advice (07) | DRG 52 ==
LOC: MED 17:05 → MTU 19:14
PROVIDERS: ADMIT General Practice; ATTEND General Practice
DX: G92 Toxic encephalopathy (principal); N17.0 Acute kidney failure with tubular necrosis; J69.0 Pneumonitis due to inhalation of food and vomit; F10.29 Alcohol dependence with unspecified alcohol-induced disorder; R45.850 Homicidal ideations; E11.9 Type 2 diabetes mellitus without complications; B96.81 Helicobacter pylori [H. pylori] as the cause of diseases classified elsewhere; D50.9 Iron deficiency anemia, unspecified; Y90.9 Presence of alcohol in blood, level not specified; E87.6 Hypokalemia; E66.9 Obesity, unspecified; Z68.32 Body mass index [BMI] 32.0-32.9, adult; F32.9 Major depressive disorder, single episode, unspecified; F41.9 Anxiety disorder, unspecified; Z59.0 Homelessness; F10.229 Alcohol dependence with intoxication, unspecified; Z56.0 Unemployment, unspecified
CPT/HCPCS: 36415; 36600; 70450; 71045; 80048; 80053; 80305; 81003; 82140; 82150; 82550; 82803; 83540; 83690; 83735; 84100; 84484; 85025; 87081; 96365; 96366; 99285; A9153; C1758; C9113; G0480; G0482; J2001; J2405; J2543; J2916; J3411; J3475; J3480; J3490; J7030; J7042; J7060

== ENCOUNTER 2018-11-26 08:59 | Inpatient (IN) | payer MEDICAID ==
[~2018-11-26] VITALS: Ht 172.7 cm; Wt 99.8 kg
--- NOTE | 2018-11-26 08:59 | NUR ---
PATIENT TO [facility] TO BED [facility] AT THIS TIME.
[2018-11-26 09:06] VITALS: BP 138/67
--- NOTE | 2018-11-26 09:10 | NUR ---
DEBBIE FOUND ON THE GROUND IN FRONT OF APARTMENT COMPLEX, ARRIVED IN C-COLLAR, PER EMS PT HAD NO COMPLAINT, UPON TRIAGE PT REPORTS HE FELL YESTERDAY AND C/O HEAD PAIN "ALL OVER". PT AAO X4, FULL CLEAR SPEECH. PT STATES THAT HE DRANK 1 BOTTLE OF HAND DIRECTOR WORKFORCE MANAGEMENT LAST NIGHT AND FELL FACE DOWN AND WAS FOUND ON THE GROUND THIS MORNING. PT STATES HE LOST CONSCIOUSNESS. PERRLA SLUGGISH 2 MM. EQUAL SHARLENE STRENGTH TO UPPER AND LOWER EXTREMITIES WITH MILD WEAKNESS. PT PLACED ON FULL MICROSOFT DYNAMICS CONSULTANT. PT PLACED ON SEIZURE PRECAUTION. ER TO EVALUATE PT.
[2018-11-26] MEDS ORDERED: MULTIVITAMIN-12 10 ML, THIAMINE 100 MG, MAGNESIUM SULFATE 50% 2,000 MG, FOLIC ACID 5 MG... IV ONE ×5 (09:41)
[2018-11-26] MEDS ORDERED: NACL 0.9% 1,000 ML IV ONE ×2 (09:41→11:35)
[2018-11-26] MEDS ORDERED: MULTIVITAMIN-12 10 ML, THIAMINE 100 MG, MAGNESIUM SULFATE 50% 2,000 MG, FOLIC ACID 5 MG... IV SCH ×5 (09:47)
--- NOTE | 2018-11-26 10:02 | NUR ---
PT TAKEN TO CT VIA GURNAE BY SUPERVISOR TELLERS
[2018-11-26 10:06] LABS: BASOPHILS % (AUTO) 0.7 % (0.0-2.0); HEMATOCRIT 32.4 % (36-52); HEMOGLOBIN 10.3 g/dL (12.0-18.0); LYMPHOCYTES # (AUTO) 1.1 K/uL (2.0-11.5); LYMPHOCYTES % (AUTO) 17.6 % (20.5-51.1); MEAN CORPUSCULAR HEMOGLOBIN 26 pg (27-31); MEAN CORPUSCULAR HGB CONC 32 g/dL (33-37); MEAN CORPUSCULAR VOLUME 80.8 fL (80-94); MONOCYTES # (AUTO) 0.5 K/uL (0.8-1.0); MONOCYTES % (AUTO) 8.3 % (1.7-9.3); NEUTROPHILS # (AUTO) 4.8 K/uL (1.8-7.7); NEUTROPHILS % (AUTO) 73.4 % (42.2-75.2); PLATELET COUNT (AUTO) 387 K/uL (140-450); RED BLOOD CELL COUNT(AUTO) 4.01 MIL/uL (4.20-6.10); RED CELL DISTRIBUTION WIDTH 16.8 % (11.6-13.7); WHITE BLOOD COUNT (AUTO) 6.5 K/uL (4.8-10.8)
[2018-11-26 10:14] LABS: CARBON DIOXIDE 29.4 mmol/L (21-32); CREATININE 2.4 mg/dL (0.7-1.3); POTASSIUM 3.4 mmol/L (3.5-5.1); PROTHROMBIN TIME 10.9 secs (10.8-13.4)
--- NOTE | 2018-11-26 10:15 | NUR ---
BANANA BAG ORDERED RECEIVED FROM PHARMACY
--- NOTE | 2018-11-26 10:18 | NUR ---
PT TAKEN BACK TO ROOM VIA GURNEY BY MUSICAL THERAPIST
[2018-11-26 10:28] LABS: ALBUMIN 3.5 g/dL (3.4-5.0); TOTAL BILIRUBIN 0.2 mg/dL (0.0-1.0)
--- NOTE | 2018-11-26 10:40 | NUR ---
UNABLE TO INITIATE IV. MULTIPLE ATTEMPTS. CHARGE NURSE NOTIFIED
--- NOTE | 2018-11-26 10:50 | NUR ---
URINE SPECIMEN OBTAINED VIA CATH. STERILE TECHNIQUE USED. YELLOW URINE OUTPUT OF 100 ML OBTAINED. PT TOLERATED WELL. CALLED LAB FOR CITY SUPERVISOR.
--- NOTE | 2018-11-26 11:05 | NUR ---
NS 0.9% AT 100 ML/HR STARTED ON LFA. IV PATENT AND INTACT. PT TOLERATING WELL
[2018-11-26 11:21] LABS: CKMB RELATIVE INDEX 0.1 (0.0-2.5); CREATINE KINASE MB 2.1 ng/mL (0-3.6)
[2018-11-26] MEDS ORDERED: SODIUM BICARBONATE 8.4% PFS 50 MEQ/50 ML SYR IVP ONE (11:35)
[2018-11-26 11:45] LABS: APPEARANCE,URINE CLEAR (CLEAR); BILIRUBIN,URINE NEGATIVE (NEGATIVE); BLOOD, URINE TRACE-L (NEGATIVE); COLOR,URINE YELLOW (YELLOW); LEUKOCYTE ESTERASE ,URINE NEGATIVE (NEGATIVE); NITRITE, URINE NEGATIVE (NEGATIVE); UGLUCOSE NEGATIVE (NEGATIVE)
[2018-11-26] MEDS ORDERED: NACL 0.9% 1,000 ML IV SCH (12:21)
[2018-11-26 12:22] LABS: RBC,URINE NONE SEEN /HPF (0-5)
[2018-11-26 12:23] LABS: WBC,URINE 0-5 /HPF (0-5)
[2018-11-26] MEDS ORDERED: HYDROcodone/APAP 7.5/325 MG 1 TAB PO PRN (12:25)
[2018-11-26] MEDS ORDERED: DOCUSATE SODIUM 100 MG GELCAP PO PRN (12:25)
[2018-11-26] MEDS ORDERED: ONDANSETRON 4 MG/2 ML VIAL IM/IVP PRN (12:25)
--- NOTE | 2018-11-26 12:35 | NUR ---
RESIDENT DOCTORS AT BEDSIDE
--- NOTE | 2018-11-26 13:03 | NUR ---
PT AMBULATED TO THE BATHROOM WITH STEADY GAIT.
[2018-11-26] MEDS ORDERED: LORazepam 1 MG TAB PO PRN (13:05)
--- NOTE | 2018-11-26 13:09 | NUR ---
PT AMBULATED BACK TO BED WITH STEADY GAIT. PT PLACED BACK ON FULL LOOP TACKER.
--- NOTE | 2018-11-26 13:17 | NUR ---
SPECTROGRAPHIC ANALYST AT BEDSIDE FOR BLOOD DRAW
[2018-11-26 13:30] VITALS: BP 146/76
[2018-11-26 13:30] LABS: BARBITURATE, URINE NEGATIVE ng/ml (NEG <=200); BENZODIAZEPINE, URINE POSITIVE ng/mL (NEG <=200); CANNABINOID, URINE NEGATIVE ng/mL (NEG <=50); COCAINE, URINE NEGATIVE ng/mL (NEG <=300); OPIATE, URINE NEGATIVE ng/mL (NEG <=2000); PHENCYCLIDINE SCREEN,URINE NEGATIVE ng/mL (NEG <=25)
[2018-11-26] MEDS ORDERED: PANTOPRAZOLE 40 MG INJ VIAL IVP SCH (13:30)
--- NOTE | 2018-11-26 13:30 | NUR ---
RECEIVED PT FROM ED NURSE IBETH. PT IS AWAKE AND ALERT/ORIENTED X 4, BUT IS GROGGY AND SHAKY. FACE APPEARS SWOLLEN, BRUISE NOTED ON THE NOSE. APPARENTLY PT FELL FACE FIRST AFTER HIS ALCOHOL BINGE; SKIN IS INTACT. PT IS ON 2L O2 NC. IV SITE IS NOTED ON THE BACK OF THE L FA 20 G, INFUSING BANANA BAG 250 ML/HR. PT IS ABLE TO AMBULATE WITHOUT ASSISTANCE. MRSA OF THE NARES SWAB TAKEN. HEART MONITOR APPLIED. CALL LIGHT PROVIDED WITHIN REACH. WILL CONTINUE TO MONITOR.
--- NOTE | 2018-11-26 13:30 | NUR ---
NS 0.9% AT 1OO ML/HR ORDER, PATIENT GOT 250 ML.
--- NOTE | 2018-11-26 13:30 | NUR ---
Patient will be admitted to care of DR RING. Admited to TELE. Will go to room 122 B. Belongings list completed. Report to MINGO BLANKENSHIP.
[2018-11-26] MEDS ORDERED: NITROGLYCERIN 0.4 MG TAB SL PRN (13:45)
[2018-11-26] MEDS ORDERED: KCL 20 MEQ/WATER INJ PREMIX 100 ML IV SCH (14:00)
[2018-11-26 14:16] LABS: PROTHROMBIN TIME 10.5 secs (10.8-13.4)
--- NOTE | 2018-11-26 14:41 | NUR ---
PT HAD EMESIS EPISODE X 1. DR FRANCIS IS AWARE. ZOFRAN ADMINISTERED.
--- NOTE | 2018-11-26 15:10 | NUR ---
OT GETTING ABD US AND XRAY
[2018-11-26 16:00] VITALS: BP 116/69
--- NOTE | 2018-11-26 16:12 | NUR ---
PT UP AMBULATING TO THE BATHROOM. NO S/S OF ANY ACUTE DISTRESS NOTED.
[2018-11-26] MEDS: chlordiazePOXIDE 25 MG CAP PO SCH (17:00)
--- NOTE | 2018-11-26 17:45 | NUR ---
PT IS ASLEEP, UNABLE TO ADMINISTER ORDERED LIBRIUM. WILL ADMINISTER THE NEXT DOSE, WHEN PT IS AWAKE AND SAFELY ABLE TO SWALLOW MEDICATION. DR COBB IS AWARE.
[2018-11-26] MEDS: DEXT 5% / NACL 0.45% 1,000 ML IV SCH (18:00)
--- NOTE | 2018-11-26 18:30 | NUR ---
PT FOUND LYING ON THE FLOOR NEXT TO THE BED, ASLEEP. CHARGE NURSE CALLED TO BEDSIDE. VITAL SIGNS TAKEN, STABLE TO PT'S BASELINE. NO INJURIES WERE FOUND ON THE PT. PT SLEEPING VERY DEEPLY AND SNORING, AND PT'S IV GOT PULLED OUT. NOTIFIED AND RIR FALL REPORT COMPLETED. UNIQUE ID [id number]
[2018-11-26 18:45] LABS: CHOL/HDL RATIO 2.1 (1-4.5); FREE T4 (FREE THYROXINE) 0.86 ng/dL (0.76-1.46); MAGNESIUM 2.2 mg/dL (1.8-2.4); PHOSPHORUS 3.1 mg/dL (2.5-4.9); THYROID STIMULATING HORMONE 0.9 uIU/mL (0.34-3.74)
--- NOTE | 2018-11-26 19:10 | NUR ---
REPORT RECEIVED FROM AM NURSE AT BEDSIDE. PT IS ON THE FLOOR. AAOX1-2. BOARD UPDATED. NO COMPLAINTS OF PAIN. NO SOB. AFEBRILE. PT HAS NO IV ACCESS DUE TO AFTER LAYING ON THE FLOOR IV WAS PULLED OUT. SKIN WARM, DRY, AND INTACT WITH NO OPEN WOUNDS. BED LOCKED IN LOW POSITION. WILL CONTINUE TO MONITOR.
--- NOTE | 2018-11-26 19:15 | NUR ---
ENDORSED TO TOOL AND DIE MAKER APPRENTICE NURSE FOR CONTINUITY OF CARE
[2018-11-26 20:00] VITALS: BP 122/65
--- NOTE | 2018-11-26 20:45 | NUR ---
PT NEEDED TO USE RESTROOM. WHEN HE WENT INTO THE RESTROOM I NOTICED HIM POURING SOMETHING INTO HIS CUP. FOUND 2 BAGS OF HAND REGISTERED OCCUPATIONAL THERAPIST IN BEHIND THE TOILET. TOOK AWAY HAND REGISTERED OCCUPATIONAL THERAPIST AND NOTIFIED CHARGE NURSE AND MD.
[2018-11-26] MEDS: METOPROLOL 25 MG TAB PO SCH (21:00)
--- NOTE | 2018-11-26 21:00 | NUR ---
LOPRESSOR NOT GIVEN. MD NOTIFIED. AGREES WITH INTERVENTION.
--- NOTE | 2018-11-26 22:30 | NUR ---
NEW IV INSERTED. R FA 22G PATENT AND INTACT. FLUSHES WELL. GOOD BLOOD RETURN. 1 ATTEMPT TAKEN. PT TOLERATED WELL.
--- NOTE | 2018-11-26 23:30 | NUR ---
PT CONTINUOUSLY ATTEMPTS TO LEAVE HIS ROOM. WHEN ASKED WHERE HE IS GOING, HE RESPONDS JUST WALKING AROUND. WILL FOLLOW PATIENT SO HE DOES NOT GET HIS HANDS ON HAND COAT REPAIR INSPECTOR.
[2018-11-27] VITALS: BP 128/87
[2018-11-27] MEDS: ACETAMINOPHEN 325 MG TAB PO PRN ×2 (00:01→18:15)
--- NOTE | 2018-11-27 00:01 | NUR ---
TYL GIVEN FOR MILD PAIN. PT TOLERATED WELL.
--- NOTE | 2018-11-27 00:07 | NUR ---
ATIVAN GIVEN FOR ANXIETY. PT TOLERATED WELL.
--- NOTE | 2018-11-27 02:00 | NUR ---
PT AWAKE AND ALERT IN BED. PT NOW HAS 1:1 SITTER. PT WAS ATTEMPTING TO LEAVE HIS ROOM MULTIPLE TIMES. WILL CONTINUE TO MONITOR.
--- NOTE | 2018-11-27 03:00 | NUR ---
PT SLEEPING COMFORTABLY BUT AROUSABLE. NO S/S OF DISTRESS NOTED. RESPIRATIONS EVEN, UNLABORED, AND WNL. WILL CONTINUE TO MONITOR.
[2018-11-27 04:00] VITALS: BP 90/48
--- NOTE | 2018-11-27 05:15 | NUR ---
PT SLEEPING COMFORTABLY IN BED. NO S/S OF DISTRESS NOTED. NO LONGER HAS A 1:1 SITTER. NO COMPLAINTS OF PAIN. NO SOB. AFEBRILE. WILL CONTINUE TO MONITOR.
[2018-11-27] MEDS: DEXT 5% / NACL 0.45% 1,000 ML IV SCH (05:45)
[2018-11-27 06:12] LABS: T4 (THYROXINE) 6.4 ug/dL (4.5-12.0)
--- NOTE | 2018-11-27 07:00 | NUR ---
REPORT GIVEN TO AM NURSE AT BEDSIDE. PT IN STABLE CONDITION.
--- NOTE | 2018-11-27 07:28 | NUR ---
RECEIVED BED SIDE REPORT FROM LAW ENFORCEMENT DIRECTOR [facility]. PT IN STABLE CONDITION, ON RA IN NO RESP DISTRESS AND APPEARS IN NO PAIN. ON CONTACT PRECAUTIONS FOR POSITIVE MRSA NARES. A/O X4, RIGHT FOREARM 22GG RUNNING D5 1/2 NS AT 100CC/HR. WAITING FOR LAB TO DRAW ANOTHER LACTIC ACID DRAW D/T NOT GETTING BLOOD LAST TIME. PT AMBULATORY BUT ON FALL AND SEIZURE PRECAUTION. RAILS PADDED, WILL CONTINUE TO MONITOR
--- NOTE | 2018-11-27 08:47 | NUR ---
PATIENT HAS BEEN SCREENED AND CATEGORIZED MODERATE NUTRITION RISK. PATIENT WILL BE SEEN WITHIN 3-5 DAYS OF ADMISSION. 11/29/18 12/01/[address]
[2018-11-27] MEDS ORDERED: THIAMINE 200 MG/2 ML VIAL IV SCH (09:00)
[2018-11-27] MEDS ORDERED: ASPIRIN 81 MG TAB.CHEW PO SCH (09:00)
[2018-11-27] MEDS ORDERED: LISINOPRIL 10 MG TAB PO SCH (09:00)
[2018-11-27] MEDS ORDERED: THIAMINE 100 MG TAB PO SCH (09:00)
[2018-11-27] MEDS ORDERED: FOLIC ACID 1 MG TAB PO SCH (09:00)
[2018-11-27] MEDS ORDERED: MULTIVITAMIN 1 TAB PO SCH (09:00)
[2018-11-27] MEDS ORDERED: PANTOPRAZOLE 40 MG TABEC PO SCH (09:00)
[2018-11-27] MEDS: chlordiazePOXIDE 25 MG CAP PO SCH ×3 (09:00→17:21)
[2018-11-27] MEDS ORDERED: PANTOPRAZOLE 40 MG INJ VIAL IVP SCH (09:00)
[2018-11-27] MEDS: METOPROLOL 25 MG TAB PO SCH (09:00)
[2018-11-27] MEDS ORDERED: LORazepam 2 MG/ML VIAL IM/IVP PRN ×2 (09:35→11:25)
[2018-11-27] MEDS ORDERED: LORazepam 2 MG/ML VIAL ONE (09:45)
--- NOTE | 2018-11-27 09:45 | NUR ---
SUGGESTED TO ABOUT GETTING A CT HEAD DONE ON PT. PT DENIED HITTING HEAD BUT HAS ALOC. GAVE ATIVAN 2MG IM. WILL CONTINUE TO MONITOR
--- NOTE | 2018-11-27 09:45 | NUR ---
PT SEEN WITH FACE ON THE BED KNEELED DOWN ON THE FLOOR. CHECKED PULSE, PULSE WAS PRESENT, TRIED WAKING PT UP, EYES OPEN BUT LOOKS LETHARGIC. GRABBED CO WORKER TO HELP PT UP. PT DID NOT TRY TO HELP GET UP. PT KEPT SLIDING DOWN, PUT PILLOW ON THE FLOOR AND HELPED PT TO THE FLOOR AND TURNED HIM TO THE SIDE. IV SEEN OUT, BLEEDING NOTED ON ARM AND FLOOR. APPLIED PRESSURE. CAME TO HELP PATIENT UP. SAT PT ON CHAIR. ASKED PT IF HE HIT HIS HEAD, PT SAID NO. [facility]PONSE CALLED. CAME AND ORDERED ATIVAN 2MG IM. OVERRODE MEDICATION. MED NOW PUT IN AN ORDER. VS STABLE, O2 92%. PUT PT ON O2 2L AND GAVE ATIVAN. 5 PEOPLE HELPED PT BACK TO BED. SIDE RAILS PADDED. PT TOO LETHARGIC TO TAKE PO MEDS. NO AM MEDS GIVEN YET.
[2018-11-27] MEDS ORDERED: NACL 0.9% 1,000 ML IV SCH (09:55)
--- NOTE | 2018-11-27 10:11 | NUR ---
PT SLEEPING, BREATHING UNLABORED, SYMMETRICAL ON 2L NC. NOTIFIED NANOFABRICATION SPECIALIST JOWIE ABOUT SITUATION.
[2018-11-27 10:34] VITALS: BP 126/65
[2018-11-27] MEDS ORDERED: DEXT 5% / NACL 0.45% 1,000 ML IV SCH (11:20)
[2018-11-27 11:49] LABS: BASOPHILS # (AUTO) 0.1 K/uL (0.00-0.22); BASOPHILS % (AUTO) 1.1 % (0.0-2.0); EOSINOPHILS % (AUTO) 0.1 % (0.0-4.0); HEMATOCRIT 33.4 % (36-52); HEMOGLOBIN 10.6 g/dL (12.0-18.0); LYMPHOCYTES # (AUTO) 1.2 K/uL (2.0-11.5); LYMPHOCYTES % (AUTO) 25.4 % (20.5-51.1); MEAN CORPUSCULAR HEMOGLOBIN 26 pg (27-31); MEAN CORPUSCULAR HGB CONC 32 g/dL (33-37); MEAN CORPUSCULAR VOLUME 81.6 fL (80-94); MONOCYTES # (AUTO) 0.3 K/uL (0.8-1.0); MONOCYTES % (AUTO) 5.5 % (1.7-9.3); NEUTROPHILS # (AUTO) 3.2 K/uL (1.8-7.7); NEUTROPHILS % (AUTO) 67.9 % (42.2-75.2); PLATELET COUNT (AUTO) 392 K/uL (140-450); RED BLOOD CELL COUNT(AUTO) 4.09 MIL/uL (4.20-6.10); RED CELL DISTRIBUTION WIDTH 17.1 % (11.6-13.7); WHITE BLOOD COUNT (AUTO) 4.7 K/uL (4.8-10.8)
[2018-11-27 12:11] LABS: ANION GAP 13.1 (8-16); CARBON DIOXIDE 29.7 mmol/L (21-32); CREATININE 1.6 mg/dL (0.7-1.3); POTASSIUM 3.8 mmol/L (3.5-5.1)
--- NOTE | 2018-11-27 12:52 | NUR ---
PT IN STABLE CONDITION. STILL ASLEEP. VS STABLE, IN NO RESP DISTRESS. RR 21. SITTER STARTED LEFT HAND 22G. WILL CONTINUE TO MONITOR
[2018-11-27 13:18] VITALS: BP 121/65
--- NOTE | 2018-11-27 13:30 | NUR ---
SW attempted to conduct screening. Patient was sleeping and did not respond to verbal cues. SW will follow up with patient at a later time.
--- NOTE | 2018-11-27 14:30 | NUR ---
PT WAKING UP AND MORE RESPONSIVE. PT SAID HE NEEDED TO USE BATHROOM. CHECKED BATHROOM FOR ANY HAND DEVULCANIZER CHARGER. FOUND IN THE TOILET ONE LESS THAN HALF A BAG OF HAND DEVULCANIZER CHARGER. NOTIFIED RN RECOVERY JOWIE. THREW AWAY HAND DEVULCANIZER CHARGER BAG AT NURSES STATION.
[2018-11-27 17:45] VITALS: BP 123/84
--- NOTE | 2018-11-27 19:45 | NUR ---
PT HAS COMPLAINTS THAT WE ARE NOT FEEDING HIM AND NOT GIVING HIM PAIN MEDICATION. PT SAID HE WANTS TO GO AMA. NOTIFIED. PAPERWORK SIGNED.
--- NOTE | 2018-11-27 19:50 | NUR ---
IV TAKEN OUT. WRIST BAND REMOVED. SECURITY CALLED FOR PATIENT BELONGINGS.
[2018-11-27] MEDS ORDERED: BLOOD GLUCOSE MONITORING 1 DEV DEV FS SCH (20:00)
--- NOTE | 2018-11-27 20:20 | NUR ---
PT LEFT AMA.
== END 2018-11-27 20:20 | disposition left against medical advice (07) | DRG 469 ==
LOC: MED 08:59 → MTU 12:34
PROVIDERS: ADMIT Family Medicine; ATTEND Family Medicine
DX: N17.0 Acute kidney failure with tubular necrosis (principal); G92 Toxic encephalopathy; M62.82 Rhabdomyolysis; E87.2 Acidosis; F10.239 Alcohol dependence with withdrawal, unspecified; Y90.9 Presence of alcohol in blood, level not specified; E66.9 Obesity, unspecified; E87.6 Hypokalemia; K29.20 Alcoholic gastritis without bleeding; F19.10 Other psychoactive substance abuse, uncomplicated; F32.9 Major depressive disorder, single episode, unspecified; M94.0 Chondrocostal junction syndrome [Tietze]; D64.9 Anemia, unspecified; F41.1 Generalized anxiety disorder; K76.0 Fatty (change of) liver, not elsewhere classified; Z53.21 Procedure and treatment not carried out due to patient leaving prior to being seen by health care provider; Z68.33 Body mass index [BMI] 33.0-33.9, adult; Z91.19 Patient's noncompliance with other medical treatment and regimen
CPT/HCPCS: 36415; 70450; 70486; 71045; 72125; 74018; 76705; 80048; 80053; 80305; 81001; 82140; 82150; 82550; 82553; 82948; 83605; 83690; 83735; 83880; 84100; 84436; 84439; 84443; 84479; 84484; 85025; 85610; 85730; 87040; 87081; 93005; 99285; A9153; C9113; G0482; J2060; J2405; J3411; J3475; J3480; J3490; J7030; J7042; Q0092

== ENCOUNTER 2018-11-27 23:05 | Emergency (ER) | payer MEDICAID ==
[~2018-11-27] VITALS: Ht 177.8 cm; Wt 104.3 kg
[2018-11-27 23:05] VITALS: BP 140/91
--- NOTE | 2018-11-27 23:05 | NUR ---
PT DEBBIE ON GURNEY TO BED #10
--- NOTE | 2018-11-27 23:08 | NUR ---
PT BIBA FOR ALCOHOL INTOXICATION. PT WAS FOUND IN PT MOM HOUSE AND WAS FOUND UNDER THE INFLUENCE. MOM CALLED PD. PT AMA'D EARLIER FROM [facility] AROUND 8PM. PT IS ALERT AND ORIENTED X 4. VSS. PT ADMITS TO DRINKING AND HAVING FAMILY ISSUES. PT DENIES PAIN 0/10. SAFETY MEASURES IN PLACE. WAITING FOR ERMD TO EVALUATE PT.
--- NOTE | 2018-11-27 23:28 | NUR ---
ERMD AT BEDSIDE
[2018-11-27] MEDS ORDERED: NACL 0.9% 1,000 ML IV ONE (23:35)
[2018-11-28 00:06] LABS: BASOPHILS % (AUTO) 0.4 % (0.0-2.0); HEMATOCRIT 32.3 % (36-52); HEMOGLOBIN 10.3 g/dL (12.0-18.0); LYMPHOCYTES # (AUTO) 1.1 K/uL (2.0-11.5); LYMPHOCYTES % (AUTO) 23.4 % (20.5-51.1); MEAN CORPUSCULAR HEMOGLOBIN 26 pg (27-31); MEAN CORPUSCULAR HGB CONC 32 g/dL (33-37); MEAN CORPUSCULAR VOLUME 81.7 fL (80-94); MONOCYTES # (AUTO) 0.3 K/uL (0.8-1.0); NEUTROPHILS # (AUTO) 3.2 K/uL (1.8-7.7); NEUTROPHILS % (AUTO) 70.2 % (42.2-75.2); PLATELET COUNT (AUTO) 302 K/uL (140-450); RED BLOOD CELL COUNT(AUTO) 3.95 MIL/uL (4.20-6.10); RED CELL DISTRIBUTION WIDTH 17.5 % (11.6-13.7); WHITE BLOOD COUNT (AUTO) 4.6 K/uL (4.8-10.8)
[2018-11-28 00:20] LABS: ANION GAP 12.9 (8-16); CARBON DIOXIDE 31.4 mmol/L (21-32); CHLORIDE 100 mmol/L (98-107); CREATININE 1.3 mg/dL (0.7-1.3); GFR ARICAN-AMERICAN 83 mL/min (>90); GLUCOSE 104 mg/dL (74-106); POTASSIUM 4.3 mmol/L (3.5-5.1); SODIUM SERUM 140 mmol/L (136-145); UREA NITROGEN, BLOOD 3 mg/dL (7-18)
[2018-11-28 00:25] LABS: ACETAMINOPHEN < 0.5 ug/ml (10-30); ALBUMIN 3.5 g/dL (3.4-5.0); ASPARTATE AMINOTRANSFERASE 67 U/L (15-37); SALICYLATE < 2.8 mg/dL (2.8-20.0); TOTAL BILIRUBIN 0.3 mg/dL (0.0-1.0)
--- NOTE | 2018-11-28 00:50 | NUR ---
PT AWAKE AND ALERT. VSS. COMFORT NEEDS MET AT THIS TIME. WILL CONTINUE TO MONITOR.
[2018-11-28 01:29] LABS: BARBITURATE, URINE NEG. ng/ml (NEG <=200); BENZODIAZEPINE, URINE POS. ng/mL (NEG <=200); CANNABINOID, URINE NEG. ng/mL (NEG <=50); COCAINE, URINE NEG. ng/mL (NEG <=300); OPIATE, URINE NEG. ng/mL (NEG <=2000); PHENCYCLIDINE SCREEN,URINE NEG. ng/mL (NEG <=25)
[2018-11-28 02:05] VITALS: BP 133/76
--- NOTE | 2018-11-28 02:05 | NUR ---
Patient discharged with v/s stable. PT ENCOURAGED TO ABSTAIN FROM ALCOHOL. Written and verbal after care instructions given and explained. Patient verbalized understanding. Ambulatory with steady gait. All questions addressed prior to discharge.
== END 2018-11-28 02:00 | disposition home or self-care (01) ==
LOC: MED 23:05
DX: F10.129 Alcohol abuse with intoxication, unspecified (principal); R07.89 Other chest pain; I10 Essential (primary) hypertension; W19.XXXA Unspecified fall, initial encounter; Y93.89 Activity, other specified; Y92.89 Other specified places as the place of occurrence of the external cause; Y99.8 Other external cause status
CPT/HCPCS: 36415; 80053; 80305; 85025; 93005; 99284; G0480; G0482; J7030

== ENCOUNTER 2018-11-28 05:30 | Inpatient (IN) | payer MEDICAID ==
[~2018-11-28] VITALS: Ht 177.8 cm; Wt 113.4 kg
--- NOTE | 2018-11-28 05:30 | NUR ---
PT BIBA TAKEN TO BED 8
--- NOTE | 2018-11-28 05:30 | NUR ---
28/M PT BIBA FOR ETOH INTOXICATION. UNABLE TO VERBALIZE NEEDS. DOES NOT RESPOND TO VERBAL OR TACTILE STIMULI. STERNAL RUB PERFORMED. AMMONIA GIVEN. UNRESPONSIVE. NO SIGNS OF ACUTE DISTRESS. BED IN LOWEST POSITION. WILL CONTINUE TO OBSERVE.
[2018-11-28 05:35] VITALS: BP 122/61
[2018-11-28] MEDS ORDERED: NACL 0.9% 1,000 ML IV ONE (05:35)
[2018-11-28] MEDS ORDERED: AMMONIA AROMATIC 1 INHL INH ONE ×2 (05:45→05:53)
[2018-11-28 06:44] LABS: ANION GAP 13.7 (8-16); CARBON DIOXIDE 30.7 mmol/L (21-32); CHLORIDE 103 mmol/L (98-107); CREATININE 1.5 mg/dL (0.7-1.3); GFR ARICAN-AMERICAN 71 mL/min (>90); GLUCOSE 115 mg/dL (74-106); POTASSIUM 3.4 mmol/L (3.5-5.1); SODIUM SERUM 144 mmol/L (136-145); UREA NITROGEN, BLOOD 2 mg/dL (7-18)
[2018-11-28 06:48] LABS: BARBITURATE, URINE NEG. ng/ml (NEG <=200); BENZODIAZEPINE, URINE POS. ng/mL (NEG <=200); CANNABINOID, URINE NEG. ng/mL (NEG <=50); COCAINE, URINE NEG. ng/mL (NEG <=300); OPIATE, URINE NEG. ng/mL (NEG <=2000); PHENCYCLIDINE SCREEN,URINE NEG. ng/mL (NEG <=25)
[2018-11-28 06:51] LABS: ALBUMIN 3.3 g/dL (3.4-5.0); ASPARTATE AMINOTRANSFERASE 42 U/L (15-37); TOTAL BILIRUBIN 0.2 mg/dL (0.0-1.0)
[2018-11-28 06:52] LABS: ACETAMINOPHEN < 0.5 ug/ml (10-30); SALICYLATE < 2.8 mg/dL (2.8-20.0)
[2018-11-28 06:56] LABS: BASOPHILS % (AUTO) 0.8 % (0.0-2.0); EOSINOPHILS % (AUTO) 0.2 % (0.0-4.0); HEMATOCRIT 31.8 % (36-52); HEMOGLOBIN 10.1 g/dL (12.0-18.0); LYMPHOCYTES # (AUTO) 1.7 K/uL (2.0-11.5); LYMPHOCYTES % (AUTO) 33.8 % (20.5-51.1); MEAN CORPUSCULAR HEMOGLOBIN 26 pg (27-31); MEAN CORPUSCULAR HGB CONC 32 g/dL (33-37); MEAN CORPUSCULAR VOLUME 80.4 fL (80-94); MONOCYTES # (AUTO) 0.3 K/uL (0.8-1.0); MONOCYTES % (AUTO) 6.9 % (1.7-9.3); NEUTROPHILS # (AUTO) 2.9 K/uL (1.8-7.7); NEUTROPHILS % (AUTO) 58.3 % (42.2-75.2); PLATELET COUNT (AUTO) 345 K/uL (140-450); RED BLOOD CELL COUNT(AUTO) 3.96 MIL/uL (4.20-6.10); RED CELL DISTRIBUTION WIDTH 16.6 % (11.6-13.7)
--- NOTE | 2018-11-28 07:15 | NUR ---
RECEIVED REPORT FROM PM NURSE. PT IS NOT IN ROOM YET. PER PM NURSE, PT IS IN CT ROOM.
--- NOTE | 2018-11-28 07:45 | NUR ---
pt back from ct. put pt on monitor shows hr: 82, bp 137/74, o2 sats 95%,rr26. pt sleeping, can not make needs known .
--- NOTE | 2018-11-28 08:36 | NUR ---
PT OPENS HIS EYES, MUMBLING THEN FALL ASLEEP AGAIN.
--- NOTE | 2018-11-28 09:00 | NUR ---
PT OPENS EYES, ABLE TO FOLLOW COMMANDS.
[2018-11-28] MEDS ORDERED: DEXT 5% /NACL 0.9% 1,000 ML IV SCH (09:01)
[2018-11-28] MEDS ORDERED: ONDANSETRON 4 MG/2 ML VIAL IM/IVP PRN (09:05)
[2018-11-28] MEDS ORDERED: ACETAMINOPHEN 325 MG TAB PO PRN (09:05)
[2018-11-28] MEDS ORDERED: DOCUSATE SODIUM 100 MG GELCAP PO PRN (09:05)
[2018-11-28] MEDS ORDERED: HYDROcodone/APAP 7.5/325 MG 1 TAB PO PRN (09:05)
--- NOTE | 2018-11-28 09:40 | NUR ---
Pt transferred to Med/Surg via BED WITH MINGO Mena
[2018-11-28 09:50] VITALS: BP 134/72
--- NOTE | 2018-11-28 09:50 | NUR ---
REPORT GIVEN TO HUNTER AGUILA. PT AWAKE,ALERT. NO SOB. ALL PERSOANL BELONGINGS WITH PT. VITALS STABLE
--- NOTE | 2018-11-28 09:50 | NUR ---
RECEIVED REPORT FROM EMERGENCY ROOM NURSE PT IN STABLE CONDITION. IV INTACT AND PATENT. RESPIRATIONS EVEN AND UNLABORED. SAFETY MEASURES IN PLACE. BED IN LOW POSITION. SITTER AT BEDSIDE. BED ALARM ON. WILL CONTINUE TO MONITOR.
[2018-11-28 09:59] LABS: PROTHROMBIN TIME 10.1 secs (10.8-13.4)
[2018-11-28 10:00] LABS: MAGNESIUM 1.8 mg/dL (1.8-2.4); PHOSPHORUS 3.4 mg/dL (2.5-4.9)
--- NOTE | 2018-11-28 11:33 | NUR ---
PT SLEEPING AT THIS TIME. RESPIRATIONS EVEN AND UNLABORED. BED IN LOW POSITION. SITTER AT BEDSIDE. BED ALARM ON. WILL CONTINUE TO MONITOR.
[2018-11-28] MEDS ORDERED: LORazepam 2 MG/ML VIAL IVP PRN (12:10)
--- NOTE | 2018-11-28 12:12 | NUR ---
PT SLEEPING AT THIS TIME. RESPIRATIONS EVEN AND UNLABORED. BED IN LOW POSITION. SITTER AT BEDSIDE. BED ALARM ON. WILL CONTINUE TO MONITOR.
--- NOTE | 2018-11-28 13:45 | NUR ---
PT SITTING UP IN BED IN STABLE CONDITION. RESPIRATIONS EVEN AND UNLABORED. BED IN LOW POSITION. SITTER AT BEDSIDE. BED ALARM ON. WILL CONTINUE TO MONITOR.
--- NOTE | 2018-11-28 15:12 | NUR ---
GUS attempted to conduct an assessment with patient after readmission, however, when SW attempted to obtain information, patient ww. SW Patient was not coherent to questions asked. Patient's speech was slurred and slow. Because of rehospitalization, GUS began gathering information on alcohol dependence services. SW called the following organizations: [facility]; [phone], spoke to Katie. Inpatient Substance Abuse 3-5 days. [facility] is not accepted. [facility]; [phone], spoke to Rehana. Detox program offered for 60/90/120 days. No beds available. [facility] must be [facility] to [facility]. [facility]al [facility]; [phone], spoke to Hilaria. In order to be considered, a phone interview would be completed and private insurance would be used. [facility] is not accepted. GUS will continue to look for rehabilitation services. Addendum: 11/28/18 at 1523 by Chance Oakley Please disregard above note.
--- NOTE | 2018-11-28 15:22 | NUR ---
PT STANDING WITH UNSTEADY GAIT. WANTING TO TAKE SHOWER. PT WAS INFORMED THAT HE IS UNSTABLE FOR SHOWER AT THIS TIME. RESPIRATIONS EVEN AND UNLABORED. BED IN LOW POSITION. SITTER AT BEDSIDE. BED ALARM ON. WILL CONTINUE TO MONITOR.
--- NOTE | 2018-11-28 15:23 | NUR ---
GUS attempted to conduct an assessment and discuss substance abuse treatment options with patient after readmission. However, when SW attempted to obtain information, patient was not coherent to questions asked. Patient was unable to string together sentences and had difficulty speaking. Patient's speech was slurred and slow, but patient did request for help. When SW measured how oriented patient was, patient provided his date instead of the today's date. SW attempted once again to rephrase the question asked, but patient repeated his date. GUS called the following alcohol/substance abuse treatment programs: [facility]; [phone], spoke to Katie. Inpatient for 3-5 days. [facility] is not accepted. [facility]; [phone], spoke to Rehana. Detox program offered for 60/90/120 days. No beds available. [facility] must be assigned to [facility]. Behavioral Medicine [facility]; [phone], spoke to Hilaria. In order to be considered, a phone interview would be completed and private insurance would be used. [facility] is not accepted. GUS will continue to look for rehabilitation services and speak to the patient at a later time. GUS Thurman spoke with Dr. Walker regarding GUS's recommendation for psych consult for possible self endangerment behaviors. Per Dr. Walker, a psych consult would be requested. GUS will follow up as needed.
[2018-11-28] MEDS ORDERED: MECLIZINE 25 MG TAB PO PRN (15:55)
[2018-11-28] MEDS ORDERED: NACL 0.9% 1,000 ML IV SCH (15:55)
[2018-11-28] MEDS ORDERED: POTASSIUM CHLORIDE 10 MEQ TABER PO SCH (16:30)
--- NOTE | 2018-11-28 17:10 | NUR ---
PT SITTING AT SIDE OF BED DEMANDING TO TAKE SHOWER. PT INFORMED THAT SHOWER IS UNSAFE AT THIS TIME. PT WAS INFORMED THAT HE IS UNSTABLE FOR SHOWER AT THIS TIME. RESPIRATIONS EVEN AND UNLABORED. BED IN LOW POSITION. SITTER AT BEDSIDE. BED ALARM ON. WILL CONTINUE TO MONITOR.
--- NOTE | 2018-11-28 18:00 | NUR ---
PT LEFT AMA. PHYSICIAN AWARE AND DISCUSSED HARM OF LEAVING AGAINST MEDICAL ADVICE. PT LEFT IN STABLE CONDITION.
--- NOTE | 2018-11-28 19:56 | NUR ---
PT SLEEPING AT THIS TIME. RESPIRATIONS EVEN AND UNLABORED. BED IN LOW POSITION. SITTER AT BEDSIDE. BED ALARM ON. WILL CONTINUE TO MONITOR. Addendum: 11/28/18 at 2004 by Yojana Foley RN NOTE FOR [id number]
[2018-11-29] MEDS ORDERED: PANTOPRAZOLE 40 MG TABEC PO SCH (09:00)
[2018-11-29] MEDS ORDERED: MULTIVITAMIN/MINERALS 1 TAB PO SCH (09:00)
== END 2018-11-28 17:55 | disposition left against medical advice (07) | DRG 52 ==
LOC: MED 05:30 → MTU 09:01
PROVIDERS: ADMIT Family Medicine; ATTEND Family Medicine
DX: G92 Toxic encephalopathy (principal); N17.0 Acute kidney failure with tubular necrosis; F10.239 Alcohol dependence with withdrawal, unspecified; I10 Essential (primary) hypertension; S09.90XA Unspecified injury of head, initial encounter; W19.XXXA Unspecified fall, initial encounter; F32.9 Major depressive disorder, single episode, unspecified; F19.10 Other psychoactive substance abuse, uncomplicated; D64.9 Anemia, unspecified; K29.70 Gastritis, unspecified, without bleeding; E66.9 Obesity, unspecified; F41.1 Generalized anxiety disorder; E87.6 Hypokalemia; Y90.9 Presence of alcohol in blood, level not specified; Z53.21 Procedure and treatment not carried out due to patient leaving prior to being seen by health care provider; Y93.89 Activity, other specified; Y92.89 Other specified places as the place of occurrence of the external cause; Y99.8 Other external cause status; Z59.0 Homelessness; Z91.19 Patient's noncompliance with other medical treatment and regimen; Z68.35 Body mass index [BMI] 35.0-35.9, adult
CPT/HCPCS: 36415; 70450; 70486; 71045; 72125; 80053; 80305; 82140; 82150; 83690; 83735; 83880; 84100; 84484; 85025; 85610; 85730; 87081; 93005; 99284; G0480; G0482; J7030; J7042; Q0092

== ENCOUNTER 2018-12-07 17:44 | Emergency (ER) | payer MEDICAID ==
[~2018-12-07] VITALS: Ht 172.7 cm; Wt 99.8 kg
[2018-12-07 17:47] VITALS: BP 126/74
[2018-12-07] MEDS ORDERED: NACL 0.9% 1,000 ML IV ONE (18:10)
[2018-12-07 18:42] LABS: BASOPHILS % (AUTO) 0.1 % (0.0-2.0); EOSINOPHILS % (AUTO) 0.1 % (0.0-4.0); HEMATOCRIT 39.5 % (36-52); HEMOGLOBIN 12.4 g/dL (12.0-18.0); LYMPHOCYTES # (AUTO) 1.3 K/uL (2.0-11.5); LYMPHOCYTES % (AUTO) 17.5 % (20.5-51.1); MEAN CORPUSCULAR HEMOGLOBIN 26 pg (27-31); MEAN CORPUSCULAR HGB CONC 31 g/dL (33-37); MEAN CORPUSCULAR VOLUME 81.6 fL (80-94); MONOCYTES # (AUTO) 0.6 K/uL (0.8-1.0); MONOCYTES % (AUTO) 7.7 % (1.7-9.3); NEUTROPHILS # (AUTO) 5.6 K/uL (1.8-7.7); NEUTROPHILS % (AUTO) 74.6 % (42.2-75.2); PLATELET COUNT (AUTO) 252 K/uL (140-450); RED BLOOD CELL COUNT(AUTO) 4.83 MIL/uL (4.20-6.10); RED CELL DISTRIBUTION WIDTH 17.8 % (11.6-13.7); WHITE BLOOD COUNT (AUTO) 7.5 K/uL (4.8-10.8)
[2018-12-07 18:50] LABS: APPEARANCE,URINE CLEAR (CLEAR); BILIRUBIN,URINE NEGATIVE (NEGATIVE); BLOOD, URINE NEGATIVE (NEGATIVE); COLOR,URINE YELLOW (YELLOW); LEUKOCYTE ESTERASE ,URINE NEGATIVE (NEGATIVE); NITRITE, URINE NEGATIVE (NEGATIVE); UGLUCOSE NEGATIVE (NEGATIVE)
[2018-12-07 18:52] LABS: ANION GAP 19.1 (8-16); CARBON DIOXIDE 20.8 mmol/L (21-32); CREATININE 0.9 mg/dL (0.7-1.3); POTASSIUM 3.9 mmol/L (3.5-5.1)
[2018-12-07 18:54] LABS: BARBITURATE, URINE NEG. ng/ml (NEG <=200); BENZODIAZEPINE, URINE POS. ng/mL (NEG <=200); CANNABINOID, URINE NEG. ng/mL (NEG <=50); COCAINE, URINE NEG. ng/mL (NEG <=300); OPIATE, URINE NEG. ng/mL (NEG <=2000); PHENCYCLIDINE SCREEN,URINE NEG. ng/mL (NEG <=25)
[2018-12-07 18:59] LABS: TOTAL BILIRUBIN 0.2 mg/dL (0.0-1.0)
[2018-12-07 19:04] LABS: RBC,URINE 0-5 /HPF (0-5)
[2018-12-07 19:05] LABS: WBC,URINE 0-5 /HPF (0-5)
[2018-12-07 20:53] VITALS: BP 122/77
== END 2018-12-07 20:53 | disposition home or self-care (01) ==
LOC: MED 17:44
DX: F10.129 Alcohol abuse with intoxication, unspecified (principal); I10 Essential (primary) hypertension; Z86.69 Personal history of other diseases of the nervous system and sense organs
CPT/HCPCS: 36415; 80053; 80305; 81001; 85025; 93005; 99284; G0482

== ENCOUNTER 2018-12-09 11:56 | Emergency (ER) | payer MEDICAID ==
[~2018-12-09] VITALS: Ht 177.8 cm; Wt 99.8 kg
--- NOTE | 2018-12-09 11:56 | NUR ---
Patient BIBA ACLS, transferred to bed 4. RN evaluating patient at bedside.
[2018-12-09 12:05] VITALS: BP 155/93
--- NOTE | 2018-12-09 12:14 | NUR ---
DEBBIE NUNN, FOUND BEHIND THE TACO MAN NEAR TRASH CANS WITH BOTTLE OF HAND SANITZER NEXT TO HIM, PER EMS PATIENT DRANK APPROXIMATELY 6 OUNCES. PT NOT ANSWERING QUESTIONS AT THIS TIME, CRYING INTERMITTENLY, FOLLOWS COMMANDS. VSS; PATIENT POSITIONED FOR COMFORT; HOB ELEVATED; BEDRAILS UP X2; BED DOWN. ER MD MADE AWARE OF PT STATUS.
--- NOTE | 2018-12-09 12:55 | NUR ---
LABS DRAWN AND SENT TO LAB.
[2018-12-09 13:08] LABS: HEMOGLOBIN 12.3 g/dL (12.0-18.0); MEAN CORPUSCULAR HEMOGLOBIN 26 pg (27-31); MONOCYTES # (AUTO) 0.5 K/uL (0.8-1.0); WHITE BLOOD COUNT (AUTO) 4.8 K/uL (4.8-10.8)
[2018-12-09 13:13] LABS: BASOPHILS % (AUTO) 0.6 % (0.0-2.0); HEMATOCRIT 38.9 % (36-52); LYMPHOCYTES % (AUTO) 41.5 % (20.5-51.1); MEAN CORPUSCULAR HGB CONC 32 g/dL (33-37); MEAN CORPUSCULAR VOLUME 80.7 fL (80-94); MONOCYTES % (AUTO) 10.2 % (1.7-9.3); NEUTROPHILS # (AUTO) 2.3 K/uL (1.8-7.7); NEUTROPHILS % (AUTO) 47.7 % (42.2-75.2); PLATELET COUNT (AUTO) 244 K/uL (140-450); RED BLOOD CELL COUNT(AUTO) 4.82 MIL/uL (4.20-6.10); RED CELL DISTRIBUTION WIDTH 18.6 % (11.6-13.7)
[2018-12-09 13:32] LABS: ANION GAP 18.3 (8-16); CARBON DIOXIDE 26.4 mmol/L (21-32); CHLORIDE 104 mmol/L (98-107); CREATININE 1.3 mg/dL (0.7-1.3); GFR ARICAN-AMERICAN 83 mL/min (>90); GLUCOSE 128 mg/dL (74-106); POTASSIUM 3.7 mmol/L (3.5-5.1); SODIUM SERUM 145 mmol/L (136-145); UREA NITROGEN, BLOOD 5 mg/dL (7-18)
[2018-12-09 13:37] LABS: ASPARTATE AMINOTRANSFERASE 18 U/L (15-37); TOTAL BILIRUBIN 0.2 mg/dL (0.0-1.0)
[2018-12-09 13:43] LABS: ACETONE, SERUM NEGATIVE (NEGATIVE)
--- NOTE | 2018-12-09 15:00 | NUR ---
Patient discharged with v/s stable. Written and verbal after care instructions given and explained. Patient refused to sign the discharge paperwork. Ambulatory with steady gait. All questions addressed prior to discharge. Advised to follow up with PMD.
[2018-12-09 15:04] VITALS: BP 132/81
== END 2018-12-09 15:00 | disposition home or self-care (01) ==
LOC: MED 11:56
DX: F10.129 Alcohol abuse with intoxication, unspecified (principal); I10 Essential (primary) hypertension; F17.200 Nicotine dependence, unspecified, uncomplicated; Y90.8 Blood alcohol level of 240 mg/100 ml or more
CPT/HCPCS: 36415; 80053; 82009; 85025; 99283; G0482

== ENCOUNTER 2018-12-09 17:19 | Emergency (ER) | payer MEDICAID ==
[~2018-12-09] VITALS: Ht 177.8 cm; Wt 95.3 kg
[2018-12-09 17:27] VITALS: BP 155/82
[2018-12-09] MEDS ORDERED: NACL 0.9% 1,000 ML IV ONE (17:55)
[2018-12-09 20:21] VITALS: BP 153/78
[2018-12-09] MEDS ORDERED: ONDANSETRON 4 MG ODT PO ONE (20:35)
== END 2018-12-09 20:21 | disposition home or self-care (01) ==
LOC: MED 17:19
DX: F10.129 Alcohol abuse with intoxication, unspecified (principal); I10 Essential (primary) hypertension; Y90.6 Blood alcohol level of 120-199 mg/100 ml
CPT/HCPCS: 36415; 99283; G0482; J7030

== ENCOUNTER 2018-12-10 10:58 | Emergency (ER) | payer MEDICAID ==
[~2018-12-10] VITALS: Ht 177.8 cm; Wt 99.8 kg
--- NOTE | 2018-12-10 11:00 | NUR ---
PATIENT BIBA TO BED 7 AT THIS TIME .
[2018-12-10 11:02] VITALS: BP 132/82
--- NOTE | 2018-12-10 11:10 | NUR ---
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 PT GCS 14, PT SOMEWHAT CONFUSED. PT IS SPEAKING CLEARLY AND ANSWERING QUESTIONS APPROPRIATELY. PT DENIES N/V AT THIS TIME, STATES HE IS "TIRED". PT PLACED IN GOWN, BEDSIDE RADIOTELEGRAPH OPERATOR SERVICER APPLIED. BED IN LOW POSITION, SIDE RAIL UP X1.
--- NOTE | 2018-12-10 11:30 | NUR ---
PT AMBULATED TO RESTROOM
[2018-12-10] MEDS ORDERED: FAMOTIDINE 20 MG/2 ML VIAL IVP ONE (11:45)
[2018-12-10] MEDS ORDERED: ONDANSETRON 4 MG/2 ML VIAL IVP ONE (11:45)
[2018-12-10] MEDS ORDERED: NACL 0.9% 1,000 ML IV ONE (11:45)
[2018-12-10 12:14] LABS: BASOPHILS % (AUTO) 0.7 % (0.0-2.0); HEMOGLOBIN 10.8 g/dL (12.0-18.0); LYMPHOCYTES % (AUTO) 21.9 % (20.5-51.1); MEAN CORPUSCULAR HEMOGLOBIN 26 pg (27-31); MEAN CORPUSCULAR HGB CONC 32 g/dL (33-37); MEAN CORPUSCULAR VOLUME 80.2 fL (80-94); MONOCYTES # (AUTO) 0.7 K/uL (0.8-1.0); MONOCYTES % (AUTO) 14.6 % (1.7-9.3); NEUTROPHILS # (AUTO) 2.9 K/uL (1.8-7.7); NEUTROPHILS % (AUTO) 62.8 % (42.2-75.2); PLATELET COUNT (AUTO) 217 K/uL (140-450); RED BLOOD CELL COUNT(AUTO) 4.23 MIL/uL (4.20-6.10); RED CELL DISTRIBUTION WIDTH 17.7 % (11.6-13.7); WHITE BLOOD COUNT (AUTO) 4.7 K/uL (4.8-10.8)
[2018-12-10 12:38] LABS: ALBUMIN 3.8 g/dL (3.4-5.0); ANION GAP 15.8 (8-16); CARBON DIOXIDE 28.5 mmol/L (21-32); CREATININE 1.7 mg/dL (0.7-1.3); POTASSIUM 3.3 mmol/L (3.5-5.1); TOTAL BILIRUBIN 0.2 mg/dL (0.0-1.0)
--- NOTE | 2018-12-10 13:04 | NUR ---
ATTEMPTED IV START, UNABLE TO GET ACCESS, PAPER ROLLER AWARE.
[2018-12-10 13:13] LABS: BARBITURATE, URINE NEG. ng/ml (NEG <=200); BENZODIAZEPINE, URINE POS. ng/mL (NEG <=200); CANNABINOID, URINE NEG. ng/mL (NEG <=50); COCAINE, URINE NEG. ng/mL (NEG <=300); OPIATE, URINE NEG. ng/mL (NEG <=2000); PHENCYCLIDINE SCREEN,URINE NEG. ng/mL (NEG <=25)
--- NOTE | 2018-12-10 13:20 | NUR ---
PT AMBULATED TO RESTROOM
--- NOTE | 2018-12-10 13:50 | NUR ---
PT AMBULATED TO RESTROOM WITH EVEN/STEADY GAIT
--- NOTE | 2018-12-10 14:20 | NUR ---
PT AMBULATED TO RESTROOM
[2018-12-10] MEDS ORDERED: FAMOTIDINE 20 MG/2 ML VIAL ONE (14:38)
[2018-12-10] MEDS ORDERED: ONDANSETRON 4 MG/2 ML VIAL ONE (14:39)
--- NOTE | 2018-12-10 15:56 | NUR ---
PT RESTING IN BED, AROUSABLE TO VERBAL STIMULI.
--- NOTE | 2018-12-10 16:07 | NUR ---
IV removed, catheter intact and site benign. Applied folded 4x4 gauze and tape to stop bleeding.
--- NOTE | 2018-12-10 16:07 | NUR ---
SECURITY CALLED TO BEDSIDE. PATIENT REFUSING TO GET DRESSED. PT ADVISED HE IS DISCHARGED. PT STARTED TO SCREAM AND CRY.
[2018-12-10 16:20] VITALS: BP 136/80
--- NOTE | 2018-12-10 16:20 | NUR ---
Patient discharged with v/s stable. Written and verbal after care instructions given and explained. Patient was accompanied by security.
== END 2018-12-10 16:20 | disposition home or self-care (01) ==
LOC: MED 10:58
DX: F10.10 Alcohol abuse, uncomplicated (principal); E86.0 Dehydration; R10.13 Epigastric pain; I10 Essential (primary) hypertension; Y90.0 Blood alcohol level of less than 20 mg/100 ml
CPT/HCPCS: 36415; 80053; 80305; 83690; 85025; 96361; 96374; 96375; 99283; G0482; J2405; J3490; J7030

== ENCOUNTER 2018-12-10 19:00 | Inpatient (IN) | payer MEDICAID ==
[~2018-12-10] VITALS: Ht 177.8 cm; Wt 98.4 kg
[2018-12-10 19:13] VITALS: BP 156/87
--- NOTE | 2018-12-10 19:25 | NUR ---
28 YO M BIBA HOURS AFTER BEING DISCHARGED FROM ED. FOUND LYING ON GROUND BY BYSTANDERS, PT WAS YELLING AND CRYING, DENIES ETOH AFTER LEAVING HERE. PT AWAKE, ALERT. PT STATES HE FELL ON GROUND AND WAS PICKED UP BY POLICE. NO OBVIOUS TRAUMA/INJURY NOTED OR REPORTED. SKIN PINK, WARM, DRY. BREATHING EVEN, UNLABORED. SPEECH SLURRED. PT RESPONDING TO SOME QUESTIONS AND NOT OTHERS. PT RESTING IN BED. HX ETOH ABUSE
--- NOTE | 2018-12-10 19:39 | NUR ---
Dr. Smalls evaluating patient at bedside.
[2018-12-10] MEDS ORDERED: NACL 0.9% 1,000 ML IV ONE ×2 (19:45→21:10)
--- NOTE | 2018-12-10 20:10 | NUR ---
LABS DRAWN AT BEDSIDE BY RN.
[2018-12-10 20:40] LABS: BASOPHILS % (AUTO) 0.6 % (0.0-2.0); HEMATOCRIT 32.9 % (36-52); HEMOGLOBIN 10.3 g/dL (12.0-18.0); LYMPHOCYTES # (AUTO) 1.3 K/uL (2.0-11.5); LYMPHOCYTES % (AUTO) 20.4 % (20.5-51.1); MEAN CORPUSCULAR HEMOGLOBIN 25 pg (27-31); MEAN CORPUSCULAR HGB CONC 31 g/dL (33-37); MEAN CORPUSCULAR VOLUME 81.1 fL (80-94); MONOCYTES # (AUTO) 0.9 K/uL (0.8-1.0); MONOCYTES % (AUTO) 14.2 % (1.7-9.3); NEUTROPHILS # (AUTO) 4.1 K/uL (1.8-7.7); NEUTROPHILS % (AUTO) 64.8 % (42.2-75.2); PLATELET COUNT (AUTO) 223 K/uL (140-450); RED BLOOD CELL COUNT(AUTO) 4.05 MIL/uL (4.20-6.10); RED CELL DISTRIBUTION WIDTH 18.1 % (11.6-13.7); WHITE BLOOD COUNT (AUTO) 6.4 K/uL (4.8-10.8)
--- NOTE | 2018-12-10 20:40 | NUR ---
PT AMBULATED TO WITH EMT ASSIST.
[2018-12-10 20:55] LABS: ALBUMIN 3.8 g/dL (3.4-5.0); ANION GAP 15.3 (8-16); CARBON DIOXIDE 30.8 mmol/L (21-32); CREATININE 1.9 mg/dL (0.7-1.3); POTASSIUM 3.1 mmol/L (3.5-5.1); TOTAL BILIRUBIN 0.2 mg/dL (0.0-1.0)
[2018-12-10] MEDS ORDERED: POTASSIUM CHLORIDE 10 MEQ TABER PO ONE (21:10)
--- NOTE | 2018-12-10 21:30 | NUR ---
Patient appears to be resting comfortably in bed. Vital Signs within normal limits. Respirations even and unlabored. Commode at bedside for elimination needs.
--- NOTE | 2018-12-10 22:23 | NUR ---
Dr. Smalls evaluating patient at bedside.
--- NOTE | 2018-12-11 00:05 | NUR ---
GAVE REPORT TO TELEPSYCH MD. WILL EVALUATE PT WITHIN THE HOUR.
--- NOTE | 2018-12-11 00:09 | NUR ---
Psychiatrist evaluating patient via Telepsychiatry.
[2018-12-11] MEDS ORDERED: FOLIC ACID 1 MG TAB PO ONE (00:45)
[2018-12-11] MEDS ORDERED: THIAMINE 200 MG/2 ML VIAL IM ONE (00:45)
[2018-12-11] MEDS ORDERED: NACL 0.9% 1,000 ML IV SCH (00:59)
[2018-12-11] MEDS ORDERED: HYDROcodone/APAP 7.5/325 MG 1 TAB PO PRN (01:00)
[2018-12-11] MEDS ORDERED: FAMOTIDINE 20 MG/2 ML VIAL IV PRN (01:00)
[2018-12-11] MEDS ORDERED: ONDANSETRON 4 MG/2 ML VIAL IM/IVP PRN (01:00)
[2018-12-11] MEDS ORDERED: LORazepam 2 MG/ML VIAL IVP PRN ×2 (01:00→15:55)
[2018-12-11] MEDS ORDERED: DOCUSATE SODIUM 100 MG GELCAP PO PRN ×2 (01:00)
[2018-12-11] MEDS ORDERED: ACETAMINOPHEN 325 MG TAB PO PRN (01:00)
[2018-12-11 01:14] LABS: FREE T4 (FREE THYROXINE) 0.81 ng/dL (0.76-1.46); MAGNESIUM 1.9 mg/dL (1.8-2.4); PHOSPHORUS 2.3 mg/dL (2.5-4.9); THYROID STIMULATING HORMONE 0.32 uIU/mL (0.34-3.74)
[2018-12-11] MEDS ORDERED: SODIUM PHOS / POTASSIUM PHOS 1 PKT PDR PO ONE (02:00)
[2018-12-11 02:15] VITALS: BP 163/101
--- NOTE | 2018-12-11 02:15 | NUR ---
REPORT RECEIVED FROM ED NURSE AT BEDSIDE. PT IN STABLE CONDITION. AAOX4. INTRODUCED SELF TO PT. BOARD UPDATED. NO COMPLAINTS OF PAIN. NO SOB. AFEBRILE. PT IS AMBULATORY. PT NPO EXCEPT FOR MEDS. IV SITE RIGHT HAND 22G RUNNING D5 1/2NS@150ML/HR PATENT AND INTACT. SKIN WARM, DRY, AND INTACT WITH NO OPEN WOUNDS. BED LOCKED IN LOW POSITION. CALL PINEDA WITHIN REACH. SAFETY PRECAUTION IN PLACE. ALL NEEDS MET AT THIS TIME.
--- NOTE | 2018-12-11 02:20 | NUR ---
Patient will be admitted to care of Dr. Borjas. Admited to TELE. Will go to room 110B. Belongings list completed. Report to MINGO Caceres.
--- NOTE | 2018-12-11 03:06 | NUR ---
CRITICAL LAB VALUE CALLED IN LACTIC ACID 8.6. NOTIFIED. NO CHANGE IN ORDERS.
[2018-12-11] MEDS ORDERED: KCL 20 MEQ/WATER INJ PREMIX 200 ML IV ONE (03:20)
[2018-12-11] MEDS: DEXT 5% / NACL 0.45% 1,000 ML IV SCH ×2 (03:32→10:00)
[2018-12-11] MEDS: FAMOTIDINE 20 MG/2 ML VIAL IV SCH (03:47)
--- NOTE | 2018-12-11 03:47 | NUR ---
PEPCID GIVEN IVP. NEUTROPHOS GIVEN PO. PT TOLERATED WELL.
[2018-12-11] MEDS ORDERED: SODIUM PHOS / POTASSIUM PHOS 1 PKT PDR ONE (03:49)
[2018-12-11] MEDS ORDERED: FAMOTIDINE 20 MG/2 ML VIAL ONE (03:50)
--- NOTE | 2018-12-11 03:52 | NUR ---
K-RIDER BAG 1 OF 2 HUNG FOR POTASSIUM OF 3.1. PT TOLERATING WELL.
[2018-12-11 04:00] VITALS: BP 156/93
[2018-12-11 04:19] LABS: PROTHROMBIN TIME 11.1 secs (10.8-13.4)
--- NOTE | 2018-12-11 04:54 | NUR ---
CRITICAL LAB VALUE CALLED IN FOR LACTIC ACID 3.8. TRENDING DOWN. NOT NOTIFIED.
--- NOTE | 2018-12-11 05:45 | NUR ---
PT ATTEMPTING TO GET OUT OF BED AND TAKEN TO THE FLOOR. THERE WAS NO FALL. ATTEMPTED TO KEEP PATIENT IN BED BUT HE WOULD NOT LISTEN AND JUST WENT TO THE GROUND. PT SEEMED TO BE ALTERED. AAOX1. AFTER HELPING PATIENT TO THE FLOOR I WENT TO CHECK THE BATHROOM AND FOUND A BAG OF HAND COFFEE GRINDER IN THE BACK OF THE TOILET. NOTIFIED MD PATIENT GOT HIS HANDS ON COFFEE GRINDER AND WHERE I FOUND IT. LEFT PATIENT ON THE FLOOR DUE TO THE RISK OF A FALL IF I PUT PT BACK ON THE BED.
[2018-12-11] MEDS: chlordiazePOXIDE 25 MG CAP PO SCH ×3 (06:00→18:00)
[2018-12-11 06:12] LABS: HEMATOCRIT 34.8 % (36-52); HEMOGLOBIN 11.2 g/dL (12.0-18.0); MEAN CORPUSCULAR HEMOGLOBIN 26 pg (27-31); MEAN CORPUSCULAR HGB CONC 32 g/dL (33-37); MEAN CORPUSCULAR VOLUME 80.6 fL (80-94); PLATELET COUNT (AUTO) 242 K/uL (140-450); RED BLOOD CELL COUNT(AUTO) 4.32 MIL/uL (4.20-6.10); WHITE BLOOD COUNT (AUTO) 5.7 K/uL (4.8-10.8)
[2018-12-11 07:03] LABS: CARBON DIOXIDE 32.3 mmol/L (21-32); CREATININE 1.5 mg/dL (0.7-1.3); POTASSIUM 3.3 mmol/L (3.5-5.1)
--- NOTE | 2018-12-11 07:05 | NUR ---
REPORT GIVEN TO AM NURSE AND HELPED HIM PLACE PT BACK ON THE BED. ASKED MD TO PUT HIM ON 1:1 SITTER.
[2018-12-11 08:00] VITALS: BP 137/79
[2018-12-11] MEDS ORDERED: MULTIVITAMIN-12 10 ML, THIAMINE 100 MG, FOLIC ACID 1 MG, MAGNESIUM SULFATE 50% 2,000 MG... IV SCH ×5 (08:00)
[2018-12-11 08:26] LABS: LYMPHOCYTES % (MANUAL) 30 % (20-46); MONOCYTES % (MANUAL) 15 % (5-12)
[2018-12-11] MEDS: busPIRone 5 MG TAB PO SCH ×2 (09:00→21:16)
--- NOTE | 2018-12-11 09:57 | NUR ---
PATIENT HAS BEEN SCREENED AND CATEGORIZED MODERATE NUTRITION RISK. PATIENT WILL BE SEEN WITHIN 3-5 DAYS OF ADMISSION. 12/13/18OPAL [address]
[2018-12-11] MEDS: MULTIVITAMIN-12 10 ML, THIAMINE 100 MG, MAGNESIUM SULFATE 50% 2,000 MG, FOLIC ACID 1 MG... IV SCH ×5 (11:00)
--- NOTE | 2018-12-11 11:45 | NUR ---
REFUSED IV INSERTION Addendum: 12/12/18 at 0159 by Shelia Mathur RN WRONG TIME DISREGARD
[2018-12-11 12:00] VITALS: BP 120/84
--- NOTE | 2018-12-11 12:30 | NUR ---
Patient moved to room 109B, he is eating lunch, and went to the bathroom earlier, voided, and had BM. Oriented to person, place, and time. No co pain. Bhupinder Black RN
[2018-12-11] MEDS: GABAPENTIN 300 MG CAP PO SCH ×2 (13:00→17:00)
--- NOTE | 2018-12-11 15:20 | NUR ---
Entertainer & Comic Note: Per patient's request, SW sought information on how to assign [facility] to [facility]. SW contacted [facility] and spoke to Bhupinder [phone]. Per Bhupinder, patient's current address reflects [facility]. Bhupinder stated that if patient wishes to be enrolled in [facility], patient would need to update address to [facility]. Bhupinder provided phone number to [facility] [phone] to update address. After address is updated, [facility] can be called to assign [facility] to [facility]. SW informed patient of the process. SW will follow up as needed.
[2018-12-11] MEDS ORDERED: ONDANSETRON 4 MG/2 ML VIAL IVP PRN (15:55)
[2018-12-11 16:00] VITALS: BP 134/48
[2018-12-11] MEDS ORDERED: LORazepam 2 MG/ML VIAL IM/IVP SCH (16:00)
--- NOTE | 2018-12-11 17:00 | NUR ---
Received patient sleeping, speach garbled and patient confused. Unable to protect himself from aspiration, HOB elevated 60 degrees. Patient no longer has an IV due to removal when going to the bathroom earlier. MD aware.
--- NOTE | 2018-12-11 19:00 | NUR ---
RECEIVED BEDSIDE REPORT FROM DAY SHIFT RN FIDE, PATIENT IN BED, AWAKE, REFUSED IV ACCESS AND FLUIDS, PATIENT DID NOT GIVE REASON WHY. V/S STABLE, SR ON TELE. TOLD TO LEAVE HIM ALONE. ACCORDING TO DAY SHIFT NURSE PATIENT REFUSING EARLIER SCHEDULED PO MEDICATIONS AND HAS BEEN REFUSING IV ACCESS.
[2018-12-11 20:00] VITALS: BP 128/80
[2018-12-11] MEDS: QUEtiapine FUMARATE 25 MG TAB PO SCH (21:17)
--- NOTE | 2018-12-11 21:30 | NUR ---
DUE MEDICATIONS GIVEN EDUCATION PROVIDED
--- NOTE | 2018-12-11 23:45 | NUR ---
REFUSED IV INSERTION
[2018-12-12] VITALS: BP 138/75
--- NOTE | 2018-12-12 00:10 | NUR ---
SLEEPING DOES NOT WANT TO WAKE UP ASKED IF WANTED DUE MEDICATION PATIENT OPENED EYES BUT DID NOT RESPOND WILL HOLD
[2018-12-12] MEDS: FAMOTIDINE 20 MG/2 ML VIAL IV SCH (00:20)
--- NOTE | 2018-12-12 02:00 | NUR ---
SLEEPING IN BED WILL CONTINUE TO MONITOR
[2018-12-12 04:00] VITALS: BP 138/98
--- NOTE | 2018-12-12 04:30 | NUR ---
LEFT AC 20 G INSERTED
[2018-12-12] MEDS: DEXT 5% / NACL 0.45% 1,000 ML IV SCH ×4 (05:00→18:46)
--- NOTE | 2018-12-12 05:30 | NUR ---
PATIENT REFUSED DUE MEDICATION EDUCATION PROVIDED
[2018-12-12] MEDS: chlordiazePOXIDE 25 MG CAP PO SCH ×4 (06:00→18:00)
[2018-12-12 06:57] LABS: EOSINOPHILS % (AUTO) 0.1 % (0.0-4.0); HEMATOCRIT 33.7 % (36-52); HEMOGLOBIN 10.6 g/dL (12.0-18.0); LYMPHOCYTES # (AUTO) 1.3 K/uL (2.0-11.5); LYMPHOCYTES % (AUTO) 33.8 % (20.5-51.1); MEAN CORPUSCULAR HEMOGLOBIN 26 pg (27-31); MEAN CORPUSCULAR HGB CONC 32 g/dL (33-37); MEAN CORPUSCULAR VOLUME 81.6 fL (80-94); MONOCYTES # (AUTO) 0.5 K/uL (0.8-1.0); NEUTROPHILS % (AUTO) 53.1 % (42.2-75.2); PLATELET COUNT (AUTO) 191 K/uL (140-450); RED BLOOD CELL COUNT(AUTO) 4.12 MIL/uL (4.20-6.10); RED CELL DISTRIBUTION WIDTH 17.8 % (11.6-13.7); WHITE BLOOD COUNT (AUTO) 3.8 K/uL (4.8-10.8)
--- NOTE | 2018-12-12 07:00 | NUR ---
WILL ENDORSED PATIENT TO DAY SHIFT NURSE, PATIENT STABLE.
[2018-12-12 07:02] LABS: ANION GAP 15.4 (8-16); CARBON DIOXIDE 29.8 mmol/L (21-32); CREATININE 1.3 mg/dL (0.7-1.3); POTASSIUM 3.2 mmol/L (3.5-5.1)
[2018-12-12 07:15] LABS: MAGNESIUM 1.9 mg/dL (1.8-2.4); PHOSPHORUS 2.6 mg/dL (2.5-4.9)
--- NOTE | 2018-12-12 07:15 | NUR ---
RECEIVED BEDSIDE REPORT FROM MINGO LOMAX. PT STABLE, SLEEPING, BUT EASILY AROUSABLE. NO SIGNS OF DISTRESS NOTED. DENIES PAIN OR SOB. NO REDNESS, SWELLING, OR INFLAMMATION NOTED ON IV SITE. CALL PINEDA WITHIN REACH. BED IN LOWEST POSITION, BED ALARM ON. PT NPO AT THIS TIME PER MD ORDER. SAFETY MEASURES IN PLACE. PLAN OF CARE REVIEWED.
[2018-12-12 08:00] VITALS: BP 142/91
--- NOTE | 2018-12-12 08:31 | NUR ---
PER PT, DR HAMMONDS WILL ORDER REGULAR DIET TODAY. CALLED DR HAMMONDS TO VERIFY. PER DR HAMMONDS, KEEP PT NPO AT THIS TIME. MADE DR HAMMONDS AWARE OF LACTIC 3.9 AND K+ 3.2. WILL CONTINUE TO MONITOR.
[2018-12-12] MEDS: MULTIVITAMIN-12 10 ML, THIAMINE 100 MG, MAGNESIUM SULFATE 50% 2,000 MG, FOLIC ACID 1 MG... IV SCH ×5 (09:53)
--- NOTE | 2018-12-12 09:54 | NUR ---
PT IS VERY DROWSY AT THIS TIME, UNABLE TO TAKE PO MEDS. ADMINISTERED SCHEDULED BANANA BAG PER MD ORDER, HELD ALL OTHER SCHEDULED PO MEDS, WILL NOTIFY MD. WILL CONTINUE TO MONITOR.
[2018-12-12] MEDS: busPIRone 5 MG TAB PO SCH ×2 (10:00→21:00)
[2018-12-12] MEDS: GABAPENTIN 300 MG CAP PO SCH ×3 (10:00→18:46)
[2018-12-12] MEDS ORDERED: POTASSIUM CHLORIDE 10 MEQ TABER PO SCH ×2 (10:00→18:17)
[2018-12-12] MEDS: QUEtiapine FUMARATE 25 MG TAB PO SCH ×2 (10:00→21:00)
--- NOTE | 2018-12-12 10:00 | NUR ---
NOTIFIED DR HAMMONDS THAT PT IS VERY DROWSY AT THIS TIME AND UNABLE TO TAKE PO MEDS. PER DR HAMMONDS, OK TO HOLD ALL SCHEDULED PO MEDICATIONS. WILL CONTINUE TO MONITOR.
--- NOTE | 2018-12-12 11:20 | NUR ---
PT IS STILL VERY DROWSY. NO SIGNS OF DISTRESS NOTED. WILL CONTINUE TO MONITOR.
--- NOTE | 2018-12-12 13:05 | NUR ---
INFORMED DR HAMMONDS THAT PT IS STILL VERY DROWSY AND UNABLE TO TAKE PO MEDICATIONS. PER DR HAMMONDS, OK TO HOLD PO MEDICATIONS AT THIS TIME. PT STABLE, CHEST RISE AND FALL VISIBLY NOTED. SAFETY PRECAUTIONS IN PLACE. WILL CONTINUE TO MONITOR.
--- NOTE | 2018-12-12 15:51 | NUR ---
VITAL SIGNS TAKEN, PT STABLE. PT SLEEPING, CHEST RISE AND FALL VISIBLY NOTED.
[2018-12-12 16:00] VITALS: BP 122/71
--- NOTE | 2018-12-12 17:20 | NUR ---
PT STABLE, NO SIGNS OF DISTRESS NOTED. WILL CONTINUE TO MONITOR.
--- NOTE | 2018-12-12 18:50 | NUR ---
DR OLSON AT THE BEDSIDE DUE TO PT IS STILL VERY DROWSY AND UNABLE TO TAKE PO MEDICATIONS. O2 SAT AT 97% ON 3L O2 VIA NC. PER DR OLSON, HOLD ALL PO MEDICATIONS AT THIS TIME. WILL CONTINUE TO MONITOR PT.
--- NOTE | 2018-12-12 19:30 | NUR ---
ENDORSED PT TO RN ESTHER FOR CONTINUITY OF CARE. PT STABLE.
--- NOTE | 2018-12-12 19:35 | NUR ---
RECEIVED PT FROM EDIE RN PT DROWSY, HARD TO AROUSE, OPEN EYES ,'02 SAT 99 IV ON LEFT FA INFUSING WELL, PT WILL BE MONITORING CLOSE FOR INITIAL ASSESSMENT DONE
--- NOTE | 2018-12-12 19:45 | NUR ---
RECIEVED PT UNRESPONSIVE - V/S CHECKED - INFORM TUAN - NSS 1 L BOLUS STAT - GIVEN ORDERED . RT ON BEDSIDE HOOK ON O2 INHALATION / NC , HGT CHECKED 120MG/ML . STERNAL MASSAGE DONE AFTER 45 MINUTES PT OPEN THE EYES , BUT STILL DROWSY - ON S2 PRECAUTION . LATEST BAL 439- GARCIA SPEARS - ON CLOSELY WATCH
--- NOTE | 2018-12-12 19:45 | NUR ---
PT IS ENDORSED TO JUMA AGUILA FOR CONTINUITY OF CARE PT DROWSY , OPEN EYES , 02 SAT 98 PT SAY BAD WORDS, DR OLSON IS HERE AND SEE THE PT AND ORDERS TO FOLLOW
[2018-12-12] MEDS ORDERED: NACL 0.9% 1,000 ML IV ONE (19:55)
--- NOTE | 2018-12-12 19:58 | NUR ---
PATIENT OBTUNDED AND DIFFICULT TO AROUSE. RESIDENT PHYSICIAN CALLED INTO ROOM AND ABLE TO WAKE PATIENT UP. ABG DRAWN ON ROOM AIR PER PHYSICIAN. PATIENT DESATURATED TO 88% ON ROOM AIR. PATIENT PLACED ON 2L NASAL CANNULA TO MAINTAIN ADEQUATE OXYGENATION. PULSE OX SAT 97% ON 2L NC. WILL CONTINUE TO MONITOR.
[2018-12-12 20:00] VITALS: BP 130/82
--- NOTE | 2018-12-12 20:00 | NUR ---
V/S 130/82 , O2 SAT 99% HR 84 RR 18 AWAKEABLE NOW PER CALLING THE NAME AND SHAKING -ON CLOSELY MONITOR.
--- NOTE | 2018-12-12 21:00 | NUR ---
TOO SLEEPY , TOO DROWSY , UNABLE TO SWALLOW TABLETS - INFORM DR. SPEARS ABOUT NOT GIVEN THE DUE OL MEDS - NO FURTHER ORDERS MADE. - ON CLOSELY MONITOR.
[2018-12-13] VITALS: BP 122/80
--- NOTE | 2018-12-13 00:30 | NUR ---
MADE ROUNDS . PT AWAKE , BUT TOO DEMANDING TO TAKE ASHOWER , BEHAVIOR VERY HARD TO CONTROL - PAGED SECURITY AND INFORM TUAN. STAY WITH THE PT.
--- NOTE | 2018-12-13 01:00 | NUR ---
TOOK A SHOWER WITH RICH[PANIED BY GURPREET.
[2018-12-13] MEDS: chlordiazePOXIDE 25 MG CAP PO SCH ×4 (01:54→17:17)
[2018-12-13] MEDS: FAMOTIDINE 20 MG/2 ML VIAL IV SCH (01:55)
[2018-12-13 04:00] VITALS: BP 130/80
--- NOTE | 2018-12-13 04:00 | NUR ---
MADE ROUNDS , RESP. EVEN AND UNLABORED , WILL CONT. TO MONITOR.
[2018-12-13] MEDS: DEXT 5% / NACL 0.45% 1,000 ML IV SCH ×3 (04:30→17:17)
[2018-12-13] MEDS: MUPIROCIN CA NASAL 2% 1GM TUBE NS SCH (04:32)
[2018-12-13] MEDS: CHLORHEXADINE GLUC 2% CLOTH TP SCH (04:34)
[2018-12-13] MEDS: LORazepam 2 MG/ML VIAL IM/IVP PRN (05:47)
[2018-12-13 05:52] VITALS: BP 130/84
--- NOTE | 2018-12-13 06:00 | NUR ---
MADE ROUNDS , PT SITTING ON THE BED. WILL CONT. TO MONITOR.
--- NOTE | 2018-12-13 07:00 | NUR ---
ENDORSED TO AM SHIFT WITH STABLE V/S .
--- NOTE | 2018-12-13 07:21 | NUR ---
RECEIVED BEDSIDE REPORT FROM MINING HELPER RN. PT STABLE, PACING AROUND ROOM. NO SIGNS OF DISTRESS NOTED. DENIES PAIN OR SOB. PT WANTING TO AMBULATE AROUND UNIT. PT NOT ALLOWED DUE TO HABIT OF DRINKING HAND SLITTER HELPER AROUND UNIT. PT NOTIFIED OF THIS AND VERBALIZED UNDERSTANDING BUT NEEDS REINFORCEMENT. IV IN THE LEFT AC 20G PATENT AND INTACT. NO REDNESS, SWELLING, OR INFLAMMATION NOTED ON IV SITE. BED IN LOWEST POSITION. NO CALL LIGHT AVAILABLE SINCE PT IN 5150/SITTER ROOM. AWAITING SITTER TO ARRIVE FOR PT. PT NPO AT THIS TIME PER MD ORDER. SAFETY MEASURES IN PLACE. PLAN OF CARE REVIEWED AND WILL CONTINUE. WILL ROUND FREQUENTLY ON PT.
[2018-12-13 07:52] LABS: BASOPHILS # (AUTO) 0.1 K/uL (0.00-0.22); BASOPHILS % (AUTO) 1.3 % (0.0-2.0); EOSINOPHILS % (AUTO) 0.1 % (0.0-4.0); HEMATOCRIT 38.3 % (36-52); HEMOGLOBIN 12.2 g/dL (12.0-18.0); LYMPHOCYTES # (AUTO) 2.1 K/uL (2.0-11.5); LYMPHOCYTES % (AUTO) 39.9 % (20.5-51.1); MEAN CORPUSCULAR HEMOGLOBIN 26 pg (27-31); MEAN CORPUSCULAR HGB CONC 32 g/dL (33-37); MEAN CORPUSCULAR VOLUME 80.3 fL (80-94); MONOCYTES # (AUTO) 0.4 K/uL (0.8-1.0); MONOCYTES % (AUTO) 8.3 % (1.7-9.3); NEUTROPHILS # (AUTO) 2.7 K/uL (1.8-7.7); NEUTROPHILS % (AUTO) 50.4 % (42.2-75.2); PLATELET COUNT (AUTO) 222 K/uL (140-450); RED BLOOD CELL COUNT(AUTO) 4.77 MIL/uL (4.20-6.10); RED CELL DISTRIBUTION WIDTH 17.7 % (11.6-13.7); WHITE BLOOD COUNT (AUTO) 5.3 K/uL (4.8-10.8)
[2018-12-13 07:56] LABS: ANION GAP 14.6 (8-16); CARBON DIOXIDE 31.5 mmol/L (21-32); CREATININE 1.1 mg/dL (0.7-1.3); POTASSIUM 3.1 mmol/L (3.5-5.1)
[2018-12-13 07:59] LABS: MAGNESIUM 1.8 mg/dL (1.8-2.4); PHOSPHORUS 3.5 mg/dL (2.5-4.9)
--- NOTE | 2018-12-13 07:59 | NUR ---
PT REFUSED ABG. EXPLAINED INDICATIONS/BENEFITS PT STILL REFUSED. NURSE MADE AWARE.
[2018-12-13 08:00] VITALS: BP 140/92
--- NOTE | 2018-12-13 09:17 | NUR ---
ADMINISTERED MORNING MEDS TO PT. PT TOLERATED THEM WELL. PT ASKING FOR FOOD AT THIS TIME. INSTRUCTED PT THAT HE CAN NOT EAT UNTIL MD ALLOWS. PT CONTINUES TO ASK FOR FOOD ANGRILY. SECURITY CONTACTED TO HELP CALM PT. ALL OTHER NEEDS MET. WILL CONTINUE TO ROUND FREQUENTLY ON PT.
[2018-12-13] MEDS: QUEtiapine FUMARATE 25 MG TAB PO SCH ×2 (09:48→20:32)
[2018-12-13] MEDS: GABAPENTIN 300 MG CAP PO SCH ×3 (09:48→17:17)
[2018-12-13] MEDS: busPIRone 5 MG TAB PO SCH ×2 (09:48→20:32)
--- NOTE | 2018-12-13 11:44 | NUR ---
PT RESTING IN BED. ALL NEEDS CURRENTLY MET. WILL CONTINUE TO ROUND FREQUENTLY ON PT. SITTER AT BEDSIDE WITH PT.
[2018-12-13] MEDS ORDERED: POTASSIUM CHLORIDE 10 MEQ TABER PO SCH (11:45)
--- NOTE | 2018-12-13 13:28 | NUR ---
PT RESTING IN BED. NO SIGNS OF DISTRESS OR PAIN. WILL CONTINUE TO ROUND FREQUENTLY ON PT. BED IN LOW POSITION, SITTER AT BEDSIDE.
--- NOTE | 2018-12-13 15:34 | NUR ---
PT SLEEPING IN BED. NO SIGNS OF PAIN OR DISTRESS NOTED. WILL CONTINUE TO ROUND FREQUENTLY ON PT.
[2018-12-13 16:00] VITALS: BP 129/82
--- NOTE | 2018-12-13 17:34 | NUR ---
PT SLEEPING IN BED. NO SIGNS OF PAIN OR DISTRESS NOTED. WILL CONTINUE TO MONITOR PT CLOSELY.
--- NOTE | 2018-12-13 19:36 | NUR ---
ENDORSED PT TO INVESTIGATOR VICE FOR CONTINUITY OF CARE. PT IN STABLE CONDITION AT THIS TIME.
[2018-12-13 20:00] VITALS: BP 144/93
[2018-12-14] MEDS: chlordiazePOXIDE 25 MG CAP PO SCH ×4 (00:05→18:00)
[2018-12-14] MEDS: FAMOTIDINE 20 MG/2 ML VIAL IV SCH (00:06)
[2018-12-14] MEDS: DEXT 5% / NACL 0.45% 1,000 ML IV SCH ×4 (01:36→18:00)
[2018-12-14] MEDS: LORazepam 2 MG/ML VIAL IM/IVP PRN (01:55)
--- NOTE | 2018-12-14 01:55 | NUR ---
PT WAS AGITATED AND WONT STOP SHOUTING. PATIENT WANTS TO HAVE A SANDWICH BUT HE IS ON A FULL LIQUID DIET. EXPLAINED TO THE PATIENT WHY HE IS ON A FULL LIQUID DIET AND A DOCTORS' ORDER IS REQUIRED TO ADVANCE HIS DIET. PT WAS TOLD THAT THE NURSE WILL TALK TO THE DR AND ASK ABOUT HIS REQUEST FOR A MORE ADVANCED DIET. PT BECAME MORE AGITATED AND SHOUTED SOME MORE. PT PRESSED CODE BLUE BUTTON IN THE ROOM WHEN NURSE LEFT THE ROOM. SECURITY WAS CALLED
--- NOTE | 2018-12-14 02:00 | NUR ---
INFORMED DR OLSON ABOUT PATIENT'S BEHAVIOR. PER , PATIENT CAN HAVE A SANDWICH
--- NOTE | 2018-12-14 02:53 | NUR ---
PT ASLEEP IN BED. NO S/S OF DISTRESS NOTED
[2018-12-14] MEDS: CHLORHEXADINE GLUC 2% CLOTH TP SCH (05:01)
[2018-12-14] MEDS: MUPIROCIN CA NASAL 2% 1GM TUBE NS SCH (05:01)
[2018-12-14 05:03] VITALS: BP 114/72
--- NOTE | 2018-12-14 07:21 | NUR ---
RECEIVED REPORT FROM STAFF NUCLEAR WEAPONS OFFICER RN FOR CONTINUATION OF CARE FROM YESTERDAY. PT IN STABLE CONDITION, WILL ROUND FREQUENTLY ON PT.
[2018-12-14] MEDS ORDERED: QUET25TA46 PO (08:00)
[2018-12-14] MEDS ORDERED: LIB25 PO (08:00)
[2018-12-14 08:05] VITALS: BP 141/84
--- NOTE | 2018-12-14 09:38 | NUR ---
ADMINISTERED MORNING MEDS TO PT. PT TOLERATED WELL. WILL CONTINUE TO ROUND FREQUENTLY ON PT. BED IN LOW POSITION, CALL LIGHT WITHIN REACH.
[2018-12-14] MEDS: QUEtiapine FUMARATE 25 MG TAB PO SCH ×2 (10:30→22:18)
[2018-12-14] MEDS: busPIRone 5 MG TAB PO SCH ×2 (10:31→22:17)
[2018-12-14] MEDS: GABAPENTIN 300 MG CAP PO SCH ×3 (10:31→17:00)
--- NOTE | 2018-12-14 11:47 | NUR ---
PT RESTING IN BED. WILL CONTINUE TO ROUND FREQUENTLY ON PT. BED IN LOW POSITION, CALL LIGHT WITHIN REACH.
--- NOTE | 2018-12-14 13:42 | NUR ---
PT RESTING IN BED. NO COMPLAINSTS OF PAIN. WILL CONTINUE TO ROUND FREQUENTLY.
--- NOTE | 2018-12-14 15:48 | NUR ---
PT RESTING IN BED. NO COMPLAINTS OF PAIN OR DISTRESS. WILL CONTINUE TO ROUND FREQUENTLY ON PT.
[2018-12-14 16:00] VITALS: BP 139/92
--- NOTE | 2018-12-14 17:16 | NUR ---
PT FOUND HEAVILY SLEEPY IN BED. TOTAL OF 5 BAGS OF HAND TILE MOLDER WERE FOUND UNDERNEATH PT'S BED. DR. OROURKE AWARE OF THE SITUATION. PT AROUSABLE AND NOT COMPLIANT AT THIS TIME. LABS DRAWN FOR PT. AWAITING RESULTS. VITALS STABLE. WILL CONTINUE TO ROUND FREQUENTLY ON PT.
--- NOTE | 2018-12-14 20:00 | NUR ---
ENDORSED PT TO WHEEL LOADER OPERATOR FOR CONTINUITY OF CARE. PT IN STABLE CONDITION AT THIS TIME.
--- NOTE | 2018-12-14 20:01 | NUR ---
RECEIVED PT, PASSED OUT BUT EASILY AWAKENED BY TACTILE STIMULI. ENDORSED PT EARLIER HAD TOOK 5 BOTTLES OF PROCESS TRAINER. PT IS NOW W/ 1; 1 SITTER. RECEIVED W/TELE BUT NOT WORN BY PATIENT HE REFUSED TO BE PLACED ON IT. WILL INFORM DR. PATEL. WITH IV SITE L AC G 22 BUT PT REFUSED TO BE PLACED ON IVF AT THIS TIME. WILL INFORM DR. PATEL
[2018-12-14 21:00] VITALS: BP 123/84
--- NOTE | 2018-12-14 21:30 | NUR ---
PT AGAIN AGITATED, SHOUTING INSIDE THE ROOM, CLEANED PT C/O CHARGE NURSE W/ BM ON THE FLOOR. HOUSEKEEPING AND SECURITY WERE HERE
--- NOTE | 2018-12-14 22:29 | NUR ---
DIARRHEA NOTED DUE TO TAKING HAND PRACTICING UROLOGIST EARLIER.
--- NOTE | 2018-12-14 23:00 | NUR ---
PLACED BACK THE TELEMONITOR PT. PT IS NOW RESTING, LESS AGITATED, SUP[INE IN BED COMFORTABLY, CLEANED ROOM BY SCOW DERRICK OPERATOR. BM ALL OVER FLOOR. PT ALL WASHED AND CLEANED
--- NOTE | 2018-12-14 23:01 | NUR ---
HOOKED UP THE PATIENT ON THE IV W/ PT AGREEING, MPORE CALM NOW, SUPINE. ON L AC G 22 AT 150ML/HR D51/2 NS INFUSING WELL, WILL CONTINUE TO MONITOR
--- NOTE | 2018-12-14 23:07 | NUR ---
ORDER DEPARTMENT SUPERVISOR TRIED TO DRAW BLOOD PT REFUSED, WILL INFORM DR. PATEL
[2018-12-15] VITALS: BP 130/79
--- NOTE | 2018-12-15 | NUR ---
PT TOOK OUT HIS TELEMONITOR. WILL TRY AGAIN LATER
--- NOTE | 2018-12-15 00:04 | NUR ---
LIBRIUM COUNTED IN THE PYXIS 9. DISCREPANCY IN THE COUNTING
[2018-12-15] MEDS: chlordiazePOXIDE 25 MG CAP PO SCH ×5 (00:06→23:08)
[2018-12-15] MEDS: DEXT 5% / NACL 0.45% 1,000 ML IV SCH ×5 (01:20→23:12)
[2018-12-15] MEDS: FAMOTIDINE 20 MG/2 ML VIAL IV SCH (01:27)
--- NOTE | 2018-12-15 02:00 | NUR ---
PT SINUS TACHYCARDIA (READING TELEMONITORING) - INFORMED DR. PATEL. NO NEW ORDERS. PT'S AGITATED FOR NOT BEING ABLE TO GET FOOD AND THAT HE WANTS MORPHINE NOW. EXPLAINED TO PT BENEFITS AND RISKS
[2018-12-15] MEDS: LORazepam 2 MG/ML VIAL IM/IVP PRN ×3 (02:03→22:35)
--- NOTE | 2018-12-15 02:03 | NUR ---
PT ANXIOUS AND AGITATED. HE WANTS TO HAVE ATIVAN. GIVEN ORDERED
[2018-12-15] MEDS: ACETAMINOPHEN 325 MG TAB PO PRN ×2 (03:25→22:38)
[2018-12-15] MEDS: CHLORHEXADINE GLUC 2% CLOTH TP SCH (03:40)
[2018-12-15 04:00] VITALS: BP 117/65
[2018-12-15] MEDS: MUPIROCIN CA NASAL 2% 1GM TUBE NS SCH (04:19)
--- NOTE | 2018-12-15 04:20 | NUR ---
PATIENT REFUSED CHLORHEXIDINE WASH CLOTH PATIENT EXPLAINED OF THE RISKS AND BENEFITS OF THE INFECTION. PT ACKNOWLEDGED
--- NOTE | 2018-12-15 08:00 | NUR ---
RECEIVED REPORT FROM MINGO CORTES AT BEDSIDE. PATIENT ALERT AWAKE ORIENTED X4, WANTS TO AMBULATE AND GET OUT OF THE ROOM, REMINDED HIM THAT EMA CANNOT GO OUT BY HIMSELF. IVF CONNECTED. ASKING FOR FOOD, EXPLAINED TO HIM THAT HIS NPO X MEDS AT THIS TIME. AWARE.
[2018-12-15] MEDS: busPIRone 5 MG TAB PO SCH ×2 (08:54→20:25)
[2018-12-15] MEDS: QUEtiapine FUMARATE 25 MG TAB PO SCH ×2 (08:54→20:25)
[2018-12-15] MEDS: GABAPENTIN 300 MG CAP PO SCH ×3 (08:55→17:30)
--- NOTE | 2018-12-15 09:00 | NUR ---
DUE MEDICATIONS GIVEN AND TOLERATED WELL.
--- NOTE | 2018-12-15 09:30 | NUR ---
MOTHER CAME TO VISIT PATIENT, ASKING FOR CLASSROOM PARAPROFESSIONAL REGARDING RESOURCES FOR ALCOHOL REHAB. WILL ENDORSE TO NEXT SHIFT THAT MOTHER WANTS TO SPEAK TO CLASSROOM PARAPROFESSIONAL. GAVE INFORMATION REGARDING HOMELESS AND ALCOHOLIC RESOURCES. WILL CONTINUE TO MONITOR.
[2018-12-15 09:35] VITALS: BP 146/98
[2018-12-15 10:10] LABS: BASOPHILS % (AUTO) 0.6 % (0.0-2.0); EOSINOPHILS % (AUTO) 0.2 % (0.0-4.0); HEMATOCRIT 34.7 % (36-52); HEMOGLOBIN 11.1 g/dL (12.0-18.0); LYMPHOCYTES % (AUTO) 21.1 % (20.5-51.1); MEAN CORPUSCULAR HEMOGLOBIN 26 pg (27-31); MEAN CORPUSCULAR HGB CONC 32 g/dL (33-37); MEAN CORPUSCULAR VOLUME 80.1 fL (80-94); MONOCYTES # (AUTO) 0.4 K/uL (0.8-1.0); MONOCYTES % (AUTO) 8.2 % (1.7-9.3); NEUTROPHILS # (AUTO) 3.2 K/uL (1.8-7.7); NEUTROPHILS % (AUTO) 69.9 % (42.2-75.2); PLATELET COUNT (AUTO) 135 K/uL (140-450); RED BLOOD CELL COUNT(AUTO) 4.33 MIL/uL (4.20-6.10); RED CELL DISTRIBUTION WIDTH 17.6 % (11.6-13.7); WHITE BLOOD COUNT (AUTO) 4.6 K/uL (4.8-10.8)
[2018-12-15 10:20] LABS: ANION GAP 10.6 (8-16); CARBON DIOXIDE 31.5 mmol/L (21-32); POTASSIUM 3.1 mmol/L (3.5-5.1)
[2018-12-15 10:38] LABS: MAGNESIUM 1.1 mg/dL (1.8-2.4); PHOSPHORUS 3.6 mg/dL (2.5-4.9)
--- NOTE | 2018-12-15 11:24 | NUR ---
12/15/18 RD INITIAL ASSESSMENT COMPLETED PLEASE REFER TO NUTRITION ASSESSMENT UNDER CARE ACTIVITY FOR ESTIMATED NUTRITIONAL NEEDS. RD RECOMMENDATIONS: 1. CONTINUE NPO EXCEPT MEDS MEDICALLY APPROPRIATE. 2. IF/WHEN MEDICALLY APPROPRIATE, CONSIDER INITIATING REGULAR DIET. 3. CONSULT RDN PRN. 4. RD WILL F/U 2-3 DAYS; HIGH RISK. NAJMA RUFFIN MS, RDN
[2018-12-15] MEDS ORDERED: POTASSIUM CHLORIDE 10 MEQ TABER PO SCH (12:00)
[2018-12-15] MEDS ORDERED: MAG SULF 2000 MG/WATER PREMIX 100 ML IV SCH (12:00)
--- NOTE | 2018-12-15 15:08 | NUR ---
PATIENT ASLEEP, ENDORSE CARE TO GELY,RN FOR CONTINUITY OF CARE. IN STABLE CONDITION.
--- NOTE | 2018-12-15 15:09 | NUR ---
Received report from nurse Klaus. Pt in no apparent distress, respirations even & nonlabored, FLACC 0. Left AC IV intact with ongoing D5 1/2 NS @ 150ml/hr. Sitter at bedside. Will cont to monitor.
[2018-12-15 16:00] VITALS: BP 153/86
--- NOTE | 2018-12-15 17:36 | NUR ---
Lorazepam administered for c/o feeling anxious. Active listening & reassurance provided. Will cont to monitor.
--- NOTE | 2018-12-15 18:35 | NUR ---
Pt asleep in bed, FLACC 0, no tremors, respirations even & nonlabored. Sitter at bedside.
--- NOTE | 2018-12-15 19:10 | NUR ---
Bedside report given to pm nurse Zee.
--- NOTE | 2018-12-15 19:11 | NUR ---
RECEIVED BEDSIDE REPORT FROM AM SHIFT NURSE PT IN BED SUPINE AWAKE, ALERT ORIENTED X 4. NO COMPLAINTS AT THIS TIME. NO SOB, NO RESPIRATORY DISTRESS; NOT IN PAIN. W/ D51/2 NS RUNNING AT 150 ML L AG G 20 PATENT. PLACED IN LOW BED CALL LIGHT W/IN REACH. WILL KEEP AN EYE FOR TAKING HAND SANITIZERS AND GETTING OUT OF THE ROOM
[2018-12-15 20:00] VITALS: BP 139/93
--- NOTE | 2018-12-15 22:34 | NUR ---
PT AGITATED, ASKING FOR MORPHINE. BUT INFORMED HIM THAT TYLENOL WILL BE GIVEN.PT ASKING FOR A ROOM W/ AMENITIES LIKE TV. INFORMED HIM THAT HE WILL BE STAYING AT THIS ROOM AT THIS TIME AND MONITORED FOR HIS MEDICAL CONDITION. WILL GIVE ATIVAN PRN
--- NOTE | 2018-12-16 | NUR ---
PT'S BP 162/91 HIGH AT HR HIGH 109, DESPITE ATIVAN. PT ASKING FOR SLEEPING AID. WILL DR. PATEL
[2018-12-16] MEDS ORDERED: MELATONIN 3 MG TAB PO PRN (00:10)
[2018-12-16] MEDS: FAMOTIDINE 20 MG/2 ML VIAL IV SCH (01:16)
--- NOTE | 2018-12-16 01:30 | NUR ---
PT' ALREADY SLEEPING AT THIS TIME. NO MORE COMPLAINTS, NO SIGNS AND SYMPTOMS OF AGITATION. WILL CONTINUE TO MONITOR
[2018-12-16] MEDS: CHLORHEXADINE GLUC 2% CLOTH TP SCH (04:25)
[2018-12-16] MEDS: MUPIROCIN CA NASAL 2% 1GM TUBE NS SCH (04:27)
[2018-12-16 04:45] VITALS: BP 140/90
[2018-12-16] MEDS: chlordiazePOXIDE 25 MG CAP PO SCH (05:21)
--- NOTE | 2018-12-16 05:22 | NUR ---
TOOK MEDS, AND SLEPT AGAIN. PT IN BED COMFORTABLE. NO COMPLAINTS AT THIS TIME
[2018-12-16] MEDS: DEXT 5% / NACL 0.45% 1,000 ML IV SCH (05:47)
--- NOTE | 2018-12-16 06:40 | NUR ---
PT AWAKE IN BED EASILY AROUSABLE.PT IN STABLE CONDITION MONITOR LABS [place] MG AND K LEVELS. NO COMPLAINTS AT THIS TIME. WILL ENDORSE TO NEXT SHIFT
[2018-12-16 06:54] LABS: ANION GAP 13.3 (8-16); CARBON DIOXIDE 26.4 mmol/L (21-32); CREATININE 0.8 mg/dL (0.7-1.3); POTASSIUM 3.7 mmol/L (3.5-5.1)
[2018-12-16 07:03] LABS: MAGNESIUM 1.9 mg/dL (1.8-2.4); PHOSPHORUS 3.5 mg/dL (2.5-4.9)
[2018-12-16 07:24] LABS: BASOPHILS % (AUTO) 0.8 % (0.0-2.0); EOSINOPHILS % (AUTO) 1.2 % (0.0-4.0); HEMATOCRIT 33.1 % (36-52); HEMOGLOBIN 10.7 g/dL (12.0-18.0); LYMPHOCYTES # (AUTO) 0.7 K/uL (2.0-11.5); LYMPHOCYTES % (AUTO) 30.1 % (20.5-51.1); MEAN CORPUSCULAR HEMOGLOBIN 26 pg (27-31); MEAN CORPUSCULAR HGB CONC 32 g/dL (33-37); MEAN CORPUSCULAR VOLUME 80.7 fL (80-94); MONOCYTES # (AUTO) 0.2 K/uL (0.8-1.0); MONOCYTES % (AUTO) 8.9 % (1.7-9.3); NEUTROPHILS # (AUTO) 1.3 K/uL (1.8-7.7); PLATELET COUNT (AUTO) 119 K/uL (140-450); RED CELL DISTRIBUTION WIDTH 17.4 % (11.6-13.7); WHITE BLOOD COUNT (AUTO) 2.3 K/uL (4.8-10.8)
--- NOTE | 2018-12-16 07:25 | NUR ---
RECEIVED BEDSIDE REPORT FROM DIRECTOR FINANCIAL SYSTEMS NURSE. PATIENT AWAKE AND RESTING ON BED AT THIS TIME. AROUSABLE TO VOICE. PATIENT IS AAOX4. RESPIRATION EVEN AND UNLABORED ON RA. LUNGS SOUND CLEAR. PATIENT DENIED PAIN AND SOB. NO SIGNS OF DISTRESS NOTED. IV ON LAC 22G, CLEAN AND INTACT, INFUSING PER MD ORDER. AND LAC 20, CLEAN AND DRY, SL. SKIN INTACT AND CLEAN. PATIENT IS CONTINENT AND ABLE TO AMBULATE. DISCUSSED PLAN OF CARE WITH PATIENT AND PATIENT VERBALIZED UNDERSTANDING. SAFETY MEASURES IN PLACE. BED IN LOW POSITION AND CALL LIGHT WITHIN REACH. INSTRUCTED PATIENT TO USE THE CALL LIGHT FOR ANY ASSISTANCE AND PATIENT WAS AWARE.
--- NOTE | 2018-12-16 07:35 | NUR ---
INFORMED PT THAT HE WILL BE DC TODAY AND HE WAS AWARE. ASKED FOR HIS MOM GALE'S PHONE TO FIND OUT IF SHE IS ABLE TO PICK PT FROM HOSPITAL. PT PROVIDED 2 INCORRECT PHONE NUMBER AND ATTEMPTED TO CALL TWICE ,UNABLE TO REACH GALE. CALLED GANG HEMSTITCHING MACHINE OPERATOR FOR BUS PASS. PATIENT AWAKE AND SITTING UP ON BED. NO SIGNS OF DISTRESS NOTED. SAFETY MEASURE IN PLACE. BED IN LOW POSITION.
[2018-12-16 08:00] VITALS: BP 144/90
--- NOTE | 2018-12-16 08:20 | NUR ---
PATIENT PULLED OUT ALL HIS IV. CHECKED IV CANNULAS, INTACT AND NO BLEEDING AT IV SITES. EDUCATION PROVIDED TO PATIENT NOT TO PULL OUT HIS IV AND ITS IMPORTANT TO HAVE IV ACCESS WHILE IN HOSPITAL. PATIENT SAID, " IT'S OK I KNOW HOW TO REMOVE THEM." NO SIGNS OF DISTRESS NOTED. SAFETY MEASURES IN PLACE.
--- NOTE | 2018-12-16 08:30 | NUR ---
UNABLE TO ACCESS TO DISCHARGE ASSESSMENT DUE DR HAMMONDS IS USING IT AT THIS TIME.
--- NOTE | 2018-12-16 08:45 | NUR ---
PATIENT IS SITTING UP ON CHAIR. DENIED PAIN AND SUICIDAL IDEATION. NO SIGNS OF DISTRESS NOTED. SAFETY MEASURES IN PLACE.
[2018-12-16] MEDS: GABAPENTIN 300 MG CAP PO SCH (09:15)
[2018-12-16] MEDS: busPIRone 5 MG TAB PO SCH (09:15)
[2018-12-16] MEDS: QUEtiapine FUMARATE 25 MG TAB PO SCH (09:15)
--- NOTE | 2018-12-16 09:16 | NUR ---
ADMINISTERED MEDS PER MD ORDER, PATIENT TOLERATED WELL. MEDS EDUCATION PROVIDED TO PATIENT AT BEDSIDE, PAT VERBALIZED UNDERSTANDING. PATIENT AWAKE AND SITTING UP ON CHAIR. PATIENT CHANGED INTO HIS OWN CLOTHES. NO SIGNS OF DISTRESS NOTED. SAFETY MEASURES IN PLACE.
--- NOTE | 2018-12-16 09:30 | NUR ---
DISCHARGE INSTRUCTION PROVIDED TO PATIENT AT BEDSIDE. EDUCATED PATIENT ON MD FOLLOW UP, SEEK MEDICAL HELP DURING MEDICAL EMERGENCY, DISEASE MANAGEMENT, MEDICATION EDUCATION, SIDE EFFECTS, AND DIET REGIMEN. ANSWERED ALL PATIENT'S QUESTIONS AND PATIENT VERBALIZED UNDERSTANDING. PATIENT IS AAOX4 TO NAME, PLACE, TIME AND DATE. HE IS ABLE TO COMMUNICATE APPROPRIATELY AND AMBULATE WITH STEADY GAIT INDEPENDENTLY. PROVIDED HOMELESS PACKET, BUS PASS AND ALCOHOL ABUSE HAND OUT. PER PATIENT, HE WILL UTILIZE THE HOMELESS PACKET TO ASSIST HIM TO GET BACK ON TRACK WITH HIS LIFE AND HE WILL GO TO ALCOHOL REHAB WELL. REMOVED ALL ARM BANDS. PATIENT CHANGED INTO HIS OWN CLOTHES. PATIENT TOOK ALL HIS BELONGINGS. ESCORTED PATIENT TO THE FRONT LOBBY. PATIENT IS GOING TO DC AT THIS TIME IN STABLE CONDITION.
[2018-12-17] MEDS ORDERED: GABA-638 PO (17:58)
[2018-12-17] MEDS ORDERED: BUS5 PO (17:59)
== END 2018-12-16 09:25 | disposition home or self-care (01) | DRG 775 ==
LOC: MED 19:00 → MTU 12-11 01:56 → MED 12-11 02:09 → MTU 12-11 12:39
PROVIDERS: ADMIT General Practice; ATTEND General Practice
DX: F10.129 Alcohol abuse with intoxication, unspecified (principal); N17.0 Acute kidney failure with tubular necrosis; R40.2124 Coma scale, eyes open, to pain, 24 hours or more after hospital admission; G92 Toxic encephalopathy; Y90.6 Blood alcohol level of 120-199 mg/100 ml; E66.9 Obesity, unspecified; E87.6 Hypokalemia; E83.42 Hypomagnesemia; F32.9 Major depressive disorder, single episode, unspecified; F41.9 Anxiety disorder, unspecified; I10 Essential (primary) hypertension; D64.9 Anemia, unspecified; F17.210 Nicotine dependence, cigarettes, uncomplicated; Z59.0 Homelessness; Z68.31 Body mass index [BMI] 31.0-31.9, adult; Z91.19 Patient's noncompliance with other medical treatment and regimen; R40.2314 Coma scale, best motor response, none, 24 hours or more after hospital admission; R40.2244 Coma scale, best verbal response, confused conversation, 24 hours or more after hospital admission
CPT/HCPCS: 36415; 70450; 71045; 80048; 80053; 82140; 82150; 82948; 83036; 83605; 83690; 83735; 83880; 84100; 84439; 84443; 84484; 85025; 85610; 85730; 87081; 93005; 96360; 96372; 99285; A9153; G0482; J2060; J3411; J3475; J3480; J3490; J7030

== ENCOUNTER 2018-12-17 14:04 | Inpatient (IN) | payer MEDICAID ==
[~2018-12-17] VITALS: Ht 175.3 cm; Wt 101.6 kg
[~2018-12-17 14:04] MED LIST changes: -AMOX500C25 PO; -BUS5 PO; -CLAR500T PO; -FERR-13 PO; -FOLI1TAB90 PO; -PANT40EC PO; +QUET25TA46 PO; -THIA-34 PO
--- NOTE | 2018-12-17 14:05 | NUR ---
PT BIBA BLS TO ER BED 10
--- NOTE | 2018-12-17 14:05 | NUR ---
Guillermo nassar in [facility] - 12/17/18 at 1414 by MEDWB PT BIBA BLS TO ER BED 10
[2018-12-17 14:06] VITALS: BP 128/75
--- NOTE | 2018-12-17 14:15 | NUR ---
DEBBIE Thornton C/O ALOC. FOUND IN SOMEONE'S YARD BY PD WITH EMPTY BOTTLE OF RUBBING ALCOHOL NEXT TO PT. PT MINIMALLY RESPONSIVE TO PAINFUL STIMULATION. GCS 3/15 (1,1,1) RHONCHI BILATERALLY, TACHYPNEIC WITH SHALLOW RESPIRATIONS. PT PLACED ON 10L VIA SIMPLE MASK, O2 SAT 98%. PT PLACED IN C COLLAR PER DR. DOWNING VERBAL ORDER. SIDE RAILS UP X2 FOR PT SAFETY. PT PLACED ON BEDSIDE STRAW HAT BRUSHER
--- NOTE | 2018-12-17 14:15 | NUR ---
# FR Hanson catheter with utilizing sterile technique. Immediate return of 250ml CLEAR YELLOW urine noted. Bedside drainage bag placed below level of bladder. Urine sample collected and sent to lab. Pt tolerated procedure WELL.
[2018-12-17 14:33] LABS: BASOPHILS % (AUTO) 0.6 % (0.0-2.0); EOSINOPHILS % (AUTO) 0.4 % (0.0-4.0); HEMATOCRIT 35.9 % (36-52); HEMOGLOBIN 11.3 g/dL (12.0-18.0); LYMPHOCYTES % (AUTO) 28.1 % (20.5-51.1); MEAN CORPUSCULAR HEMOGLOBIN 25 pg (27-31); MEAN CORPUSCULAR HGB CONC 32 g/dL (33-37); MEAN CORPUSCULAR VOLUME 80.4 fL (80-94); MONOCYTES # (AUTO) 0.5 K/uL (0.8-1.0); MONOCYTES % (AUTO) 7.9 % (1.7-9.3); NEUTROPHILS # (AUTO) 4.4 K/uL (1.8-7.7); PLATELET COUNT (AUTO) 143 K/uL (140-450); RED BLOOD CELL COUNT(AUTO) 4.46 MIL/uL (4.20-6.10); RED CELL DISTRIBUTION WIDTH 17.3 % (11.6-13.7)
[2018-12-17 14:39] LABS: APPEARANCE,URINE CLEAR (CLEAR); BILIRUBIN,URINE NEGATIVE (NEGATIVE); BLOOD, URINE NEGATIVE (NEGATIVE); COLOR,URINE YELLOW (YELLOW); LEUKOCYTE ESTERASE ,URINE NEGATIVE (NEGATIVE); NITRITE, URINE NEGATIVE (NEGATIVE); UGLUCOSE NEGATIVE (NEGATIVE)
--- NOTE | 2018-12-17 14:41 | NUR ---
Dr. Moncada evaluating patient at bedside.
[2018-12-17 14:52] LABS: BARBITURATE, URINE NEG. ng/ml (NEG <=200); BENZODIAZEPINE, URINE POS. ng/mL (NEG <=200); CANNABINOID, URINE NEG. ng/mL (NEG <=50); COCAINE, URINE NEG. ng/mL (NEG <=300); OPIATE, URINE NEG. ng/mL (NEG <=2000); PHENCYCLIDINE SCREEN,URINE NEG. ng/mL (NEG <=25)
--- NOTE | 2018-12-17 15:01 | NUR ---
Patient taken to CT scan via gurney by [employer].
[2018-12-17 15:11] LABS: PROTHROMBIN TIME 10.5 secs (10.8-13.4)
--- NOTE | 2018-12-17 15:20 | NUR ---
PT RETURNED FROM CT VIA [facility].
[2018-12-17 16:18] LABS: ANION GAP 17.2 (8-16); CARBON DIOXIDE 24.4 mmol/L (21-32); CREATININE 1.1 mg/dL (0.7-1.3); POTASSIUM 3.6 mmol/L (3.5-5.1)
[2018-12-17 16:24] LABS: ALBUMIN 3.2 g/dL (3.4-5.0); TOTAL BILIRUBIN 0.1 mg/dL (0.0-1.0)
[2018-12-17] MEDS ORDERED: DEXT 5% /NACL 0.9% 1,000 ML IV SCH (16:33)
[2018-12-17] MEDS ORDERED: HYDROcodone/APAP 5/325 MG 1 TAB TAB PO PRN (16:35)
[2018-12-17] MEDS ORDERED: DOCUSATE SODIUM 100 MG GELCAP PO PRN (16:35)
[2018-12-17] MEDS ORDERED: ZOLPIDEM 5 MG TAB PO PRN (16:35)
[2018-12-17] MEDS: chlordiazePOXIDE 25 MG CAP PO SCH ×2 (17:00→23:13)
[2018-12-17 17:30] LABS: MAGNESIUM 1.9 mg/dL (1.8-2.4); PHOSPHORUS 3.2 mg/dL (2.5-4.9); THYROID STIMULATING HORMONE 0.85 uIU/mL (0.34-3.74)
[2018-12-17 17:47] LABS: ACETAMINOPHEN < 0.5 ug/ml (10-30); SALICYLATE < 2.8 mg/dL (2.8-20.0)
[2018-12-17] MEDS ORDERED: GABA-638 PO (17:58)
[2018-12-17] MEDS ORDERED: BUS5 PO (17:59)
--- NOTE | 2018-12-17 18:10 | NUR ---
RECEIVED BEDSIDE REPORT FROM ER NURSE. PATIENT IS SLEEPING, UNABLE TO ANSWER ANY QUESTIONS AT THIS TIME. ON 4L SIMPLE MASK AT 93%. PATIENT HAS TWO WOUNDS, ON PERIANAL AREA. PATIENT HAS INCONTINENT DERMATITIS. PATIENT HAS FALL RISK PROTOCOL IN PLACE. 1:1 SITTER AT BEDSIDE. MRSA SWAB DONE. PATIENT NOT AMBULATORY AND INCONTINENT AT THIS TIME. IV ON R WRIST 22G SL. CLEAN, DRY AND INTACT. BED IN LOW POSITION. WILL CONTINUE TO MONITOR THE PATIENT.
--- NOTE | 2018-12-17 18:16 | NUR ---
Patient will be admitted to care of DR. RING. Admited to TELEMETRY. Will go to room 109A. Belongings list completed. Report to MINGO WORTHY.
[2018-12-17] MEDS ORDERED: ALBUTEROL SULFATE/IPRATROPIU 3 ML SOL IH PRN (18:20)
--- NOTE | 2018-12-17 18:22 | NUR ---
UNABLE TO GIVE PRESCRIBED LIBRIUM, PATIENT UNABLE TO WAKE UP AT THIS TIME. TOO DROWSY. AT RISK FOR ASPIRATION. DR CORRAL IS AWARE. PATIENTS O2SATS ARE IN THE HIGH 80'S DR CORRAL PUT AN RT ORDER. PATIENT CURRENTLY ON SIMPLE MASK AT 10L.
[2018-12-17 18:51] VITALS: BP 139/73
[2018-12-17] MEDS ORDERED: INTERDRY CLOTH TP SCH (19:15)
[2018-12-17] MEDS ORDERED: Z-GUARD PASTE TP PRN (19:15)
--- NOTE | 2018-12-17 19:16 | NUR ---
GAVE BEDSIDE REPORT TO YARDAGE CALLER NURSE. PATIENT ENDORSED IN STABLE CONDITION
--- NOTE | 2018-12-17 19:17 | NUR ---
RECEIVED PATIENT ON ROOM AIR, PULSE OX SAT 86-88%. PLACED ON 8L SIMPLE MASK, PULSE OX SAT 95%. HHN NOT INDICATED AT THIS TIME. PATIENT UNABLE TO PERFORM INCENTIVE SPIROMETRY AT THIS TIME. UNABLE TO OBTAIN SPUTUM SAMPLE AT THIS TIME. WILL CONTINUE TO ENCOURAGE. NO ACUTE DISTRESS NOTED AT THIS TIME. WILL CONTINUE TO MONITOR.
--- NOTE | 2018-12-17 19:17 | NUR ---
REPORT RECEIVED FROM AM NURSE AT BEDSIDE. PT IN STABLE CONDITION. AAOX0-1. FLACC 0. NO SOB ON 8L VIA VENTURI MASK. AFEBRILE. IV SITE R WRIST 22G RUNNING BANANA BAG@100ML/HR AND D5NS@100ML/HR WHEN BANANA BAG IS DONE. SKIN WARM, DRY, AND NOT INTACT DUE TO INCONTINENT DERMATITIS. BED LOCKED IN LOW POSITION. CALL PINEDA WITHIN REACH. SAFETY PRECAUTION IN PLACE. ALL NEEDS MET AT THIS TIME.
[2018-12-17] MEDS: MULTIVITAMIN-12 10 ML, THIAMINE 100 MG, MAGNESIUM SULFATE 50% 2,000 MG, FOLIC ACID 1 MG... IV SCH ×5 (19:41)
--- NOTE | 2018-12-17 19:44 | NUR ---
ADMINISTERED HOPE BANANA BAG. PATIENT TOLERATING WELL
--- NOTE | 2018-12-17 19:45 | NUR ---
CRITICAL LAB VALUE CALLED IN LACTIC ACID OF 3.0. MD NOTIFIED.
[2018-12-17 20:00] VITALS: BP 114/65
--- NOTE | 2018-12-17 20:38 | NUR ---
REEMA CAREY AND RUNNING.
[2018-12-17] MEDS: QUEtiapine FUMARATE 25 MG TAB PO SCH ×2 (20:47→23:13)
[2018-12-17] MEDS: busPIRone 5 MG TAB PO SCH (20:47)
[2018-12-17] MEDS: GABAPENTIN 300 MG CAP PO SCH (20:47)
[2018-12-17] MEDS: metroNIDAZOLE 500 MG/NS PREMIX 100 ML IV SCH (20:50)
--- NOTE | 2018-12-17 20:50 | NUR ---
INTERDRY CLOTH APPLIED TO GROIN AREA. FLAGYL HUNG AND RUNNING. HEPARIN GIVEN SUBQ. BUSPAR, NEURONTIN, AND SEROQUEL HELD DUE TO ALTERED MENTAL STATUS. MD NOTIFIED. PT TOLERATED WELL.
[2018-12-17] MEDS ORDERED: NON-FORMULARY ITEM (Quetiapine Fumarate 50 MG) PO SCH (21:00)
--- NOTE | 2018-12-17 21:00 | NUR ---
CRITICAL LAB VALUE CALLED IN LACTIC ACID OF 2.5. MD NOT NOTIFIED DUE TO DECREASE IN VALUE.
--- NOTE | 2018-12-17 21:20 | NUR ---
PLACED PATIENT ON 2L NASAL CANNULA, PULSE OX SAT 94%. RN NOTIFIED. NO ACUTE RESPIRATORY DISTRESS NOTED. WILL CONTINUE TO MONITOR.
--- NOTE | 2018-12-17 22:30 | NUR ---
PT AAOX1. PT WOKE UP A FEW TIMES BUT REMAINS ALTERED.
--- NOTE | 2018-12-17 23:00 | NUR ---
PT WOKE UP SCREAMING FOR WATER. PT IS NPO EXCEPT FOR MEDS. HE GOT UP AND DRANK WATER FROM THE SINK. NOTIFIED.
--- NOTE | 2018-12-17 23:13 | NUR ---
MD ORDERED TO GIVE PATIENT SEROQUEL AND LIBRIUM. PT TOLERATED WELL.
[2018-12-17] MEDS: ACETAMINOPHEN 325 MG TAB PO PRN (23:43)
--- NOTE | 2018-12-17 23:43 | NUR ---
TYL GIVEN FOR FEVER OF 102. PT TOLERATED WELL.
[2018-12-18] VITALS: BP 121/47
[2018-12-18] MEDS ORDERED: CHLORHEXADINE GLUC 2% CLOTH TP SCH (00:10)
[2018-12-18] MEDS ORDERED: MUPIROCIN CA NASAL 2% 1GM TUBE NS SCH (00:10)
--- NOTE | 2018-12-18 00:10 | NUR ---
BACITRACIN NOT AVAILABLE UNTIL PHARMACY COMES IN THE MORNING. WILL ENDORSE TO MORNING SHIFT.
[2018-12-18] MEDS: LORazepam 2 MG/ML VIAL IM/IVP PRN ×2 (00:35→13:51)
--- NOTE | 2018-12-18 00:35 | NUR ---
ATIVAN GIVEN FOR ANXIETY AND WITHDRAWAL. PT TOLERATED WELL.
[2018-12-18] MEDS: Z-GUARD PASTE TP SCH ×2 (00:42→14:21)
[2018-12-18] MEDS ORDERED: KETOROLAC 30 MG/ML VIAL IM PRN (01:45)
[2018-12-18] MEDS ORDERED: NACL 0.9% 1,000 ML IV ONE (01:45)
--- NOTE | 2018-12-18 01:45 | NUR ---
MD NOTIFIED OF PT INCREASED HR AND FEVER OF 101.2 EVEN AFTER TYL. AWAITING NEW ORDERS.
--- NOTE | 2018-12-18 02:10 | NUR ---
TORADOL GIVEN FOR FEVER. PT TO RECEIVE 1L NS BOLUS.
[2018-12-18 04:00] VITALS: BP 113/48
--- NOTE | 2018-12-18 04:05 | NUR ---
PT SLEEPING COMFORTABLY BUT AROUSABLE. NO S/S OF DISTRESS NOTED. NO COMPLAINTS OF PAIN. NO SOB. AFEBRILE. WILL CONTINUE TO MONITOR.
[2018-12-18] MEDS: DEXT 5% /NACL 0.9% 1,000 ML IV SCH ×2 (05:15→14:00)
[2018-12-18] MEDS: GABAPENTIN 300 MG CAP PO SCH ×2 (05:18→13:57)
[2018-12-18] MEDS: metroNIDAZOLE 500 MG/NS PREMIX 100 ML IV SCH ×2 (05:18→13:50)
--- NOTE | 2018-12-18 05:18 | NUR ---
JEFERSON CAREY AND EVELYN. NEURONTIN GIVEN PO. PT TOLERATED WELL.
--- NOTE | 2018-12-18 06:06 | NUR ---
PT REFUSED BLOOD DRAW.
[2018-12-18] MEDS: ALBUTEROL SULFATE/IPRATROPIU 3 ML SOL IH SCH ×2 (06:54→13:00)
[2018-12-18] MEDS ORDERED: ALBUTEROL SULFATE/IPRATROPIU 3 ML SOL IH PRN (07:25)
--- NOTE | 2018-12-18 07:25 | NUR ---
Received bedside change of shift report from PM nurse. Patient A/Ox4 and able to make needs known. Vitals are stable and No SOB or signs of distress noted. On O2 2LPM via nasal cannula with clear lung sounds throughout. ST on monitoring manager (122BPM). IV site on right wrist, 22 gauge with insertion site/dressing dry, patent, and intact; running IVF D5NS at 100 ml/h. Skin warm, dry, and intact on remainder of body with cap refill <3sec. Bowel sounds active with last BM yesterday today. Patient vomited a large amount of clear liquid on the floor. Bed cover changed, floor was cleaned/dried, lungs were reassessed for signs of aspiration/distress- none were noted, and patient was reminded that he cannot continue drinking water from the sink due to his NPO status (except for meds). Patient requested a cup of water, however was again reminded that he has to do a swallow eval today before his NPO status can be considered for discontinuation Bed in semi fowlers low position, call light within reach. Will continue to monitor throughout day shift.
[2018-12-18 08:00] VITALS: BP 123/62
[2018-12-18 08:35] LABS: T4 (THYROXINE) 7.3 ug/dL (4.5-12.0)
--- NOTE | 2018-12-18 08:36 | NUR ---
PATIENT HAS BEEN SCREENED AND CATEGORIZED HIGH NUTRITION RISK. PATIENT WILL BE SEEN WITHIN 1-2 DAYS OF ADMISSION. 12/18/18-12/19/[address]
[2018-12-18] MEDS ORDERED: LACTOBACILLUS RHAMNOSUS GG 1 EACH CAP PO SCH (09:00)
[2018-12-18] MEDS: busPIRone 5 MG TAB PO SCH (09:38)
[2018-12-18] MEDS: QUEtiapine FUMARATE 25 MG TAB PO SCH (09:39)
[2018-12-18] MEDS: chlordiazePOXIDE 25 MG CAP PO SCH ×2 (09:40→13:48)
--- NOTE | 2018-12-18 10:34 | NUR ---
LOW KENDRA SCALE AT RISK, PRESSURE INJURY PREVENTION INTERVENTIONS IN PLACE. CLARIFICATION: NO SKIN TEAR TO PERINEUM AREA, MOISTURE ASSOCIATED DERMATITIS TO B/L GROINS AND PERIEUM WITH MULTIPLE PIN POINTS SKIN EROSION , WOUND BEDS ARE PINK AND CLEAN, WILL CONTINUE Z-GUARD BID AND OPEN TO AIR. PT IS AAX4 , INSTRUCTION GIVEN TO PARTICIPATE ADL. -TURN AND REPOSITION PATIENT Q 2H -ASSESS AND MONITOR SKIN CONDITION DURING POSITION CHANGE -OFFLOAD BILATERAL HEELS BY PLACING PILLOWS UNDER CALVES AT ALL TIMES, UNLESS OTHERWISE CONTRAINDICATED -PRESSURE REDISTRIBUTION BY PLACING PILLOWS AND OFFLOADING SACRALCOCCYX -KEEP SKIN CLEAN AND DRY AT ALL TIMES.
--- NOTE | 2018-12-18 10:40 | NUR ---
GAVE SCHEDULED MEDS, VITALS ARE STABLE, AND NO SIGNS OF DISTRESS NOR SOB ARE NOTED AT THIS. HOWEVER, PATIENT VERBALIZED A PAIN RATING OF 6/10. WILL GIVE PRESCRIBED TORADOL AT THIS TIME. PATIENT DID NOT NEED ANYTHING ELSE AT THIS TIME. WILL CONTINUE TO MONITOR, AND REASSESS PAIN IN ONE HOUR.
[2018-12-18] MEDS: KETOROLAC 30 MG/ML VIAL IM/IVP PRN ×2 (10:42→17:05)
--- NOTE | 2018-12-18 10:59 | NUR ---
SW followed up with patient due to last hospitalization. GUS provided the following information: Per patient's request, SW sought information on how to assign [facility] to [facility]. GUS contacted [facility] and spoke to Bhupinder [phone]. Per Bhupinder, patient's current address reflects [facility]. Bhupinder stated that if patient wishes to be enrolled in [facility], patient would need to update address to [facility]. Bhupinder provided phone number to [facility] [phone] to update address. After address is updated, [facility] can be called to assign [facility] to [facility]. GUS informed patient of the process. GUS inquired how far along the patient was in this process. SW encouraged patient to begin the process now. GUS arranged for a phone to be lent to patient for patient to complete the phone calls. Patient stated that he is currently on hold to update his address with [facility] office. GUS will follow up.
[2018-12-18 12:00] VITALS: BP 135/75
[2018-12-18] MEDS ORDERED: ALBUTEROL SULFATE/IPRATROPIU 3 ML SOL IH SCH (12:00)
--- NOTE | 2018-12-18 13:02 | NUR ---
*S.T. BEDSIDE SWALLOW EVAL COMPLETED* See report. Pt presents with adequate oropharyngeal swallow function without overt s/s aspiration. Pt lethargic and therefore demonstrated a mildly delayed pharyngeal swallow response. Recommend: 1) Advance to regular diet, thin liquids ok. Straws ok. 2) P.O. meds whole as tolerated. 3) Encourage pt to self-feed. No further tx indicated at this time. DC to [facility]. Endorsed to MINGO Solis. Time [id number]
--- NOTE | 2018-12-18 13:40 | NUR ---
GAVE SCHEDULED MEDS, INCLUDING PRN ZOFRAN FOR NAUSEA. PATIENT CURRENTLY EATING LUNCH. VITALS ARE STABLE, AND NO SIGNS OF DISTRESS NOR SOB ARE NOTED AT THIS. PATIENT DID NOT NEED ANYTHING ELSE AT THIS TIME. WILL CONTINUE TO MONITOR.
[2018-12-18] MEDS: ONDANSETRON 4 MG/2 ML VIAL IM/IVP PRN ×2 (13:48→18:09)
[2018-12-18] MEDS: ACETAMINOPHEN 325 MG TAB PO PRN ×2 (13:48→19:50)
[2018-12-18 13:49] LABS: BASOPHILS % (AUTO) 0.2 % (0.0-2.0); HEMATOCRIT 30.1 % (36-52); HEMOGLOBIN 9.5 g/dL (12.0-18.0); LYMPHOCYTES # (AUTO) 1.1 K/uL (2.0-11.5); LYMPHOCYTES % (AUTO) 10.8 % (20.5-51.1); MEAN CORPUSCULAR HEMOGLOBIN 25 pg (27-31); MEAN CORPUSCULAR HGB CONC 32 g/dL (33-37); MEAN CORPUSCULAR VOLUME 79.9 fL (80-94); MONOCYTES # (AUTO) 0.3 K/uL (0.8-1.0); MONOCYTES % (AUTO) 2.7 % (1.7-9.3); NEUTROPHILS # (AUTO) 8.5 K/uL (1.8-7.7); NEUTROPHILS % (AUTO) 86.3 % (42.2-75.2); PLATELET COUNT (AUTO) 107 K/uL (140-450); RED BLOOD CELL COUNT(AUTO) 3.77 MIL/uL (4.20-6.10); RED CELL DISTRIBUTION WIDTH 17.7 % (11.6-13.7); WHITE BLOOD COUNT (AUTO) 9.9 K/uL (4.8-10.8)
--- NOTE | 2018-12-18 14:00 | NUR ---
PATIENT EATING LUNCH AT BEDSIDE. NO DISTRESS NOTED. PATIENT FEELS NAUSEATED. ZOFRAN GIVEN AT THIS TIME. SCHEDULED MEDICATIONS DUE GIVEN. WILL CONTINUE TO MONITOR.
[2018-12-18 14:03] LABS: ANION GAP 13.4 (8-16); CARBON DIOXIDE 25.7 mmol/L (21-32); CREATININE 2.1 mg/dL (0.7-1.3); POTASSIUM 3.1 mmol/L (3.5-5.1)
[2018-12-18 14:10] LABS: CHOL/HDL RATIO 2.1 (1-4.5); HDL CHOLESTEROL 70 mg/dL (40-60); LDL (CALC) 61 mg/dL (60-100); PHOSPHORUS 2.7 mg/dL (2.5-4.9); TRIGLYCERIDES 70 mg/dL (30-150)
[2018-12-18 16:00] VITALS: BP 125/81
[2018-12-18] MEDS ORDERED: POTASSIUM CHLORIDE 40 MEQ, LIDOCAINE MPF 1% - 5 mL VIAL 25 MG in NACL 0.9% 250 ML IV SCH (16:30)
--- NOTE | 2018-12-18 17:00 | NUR ---
GAVE SCHEDULED MEDS, VITALS ARE STABLE, AND NO SIGNS OF DISTRESS NOR SOB ARE NOTED AT THIS. PATIENT COMPLAINED OF PAIN RATED AT 6/10 AGAIN - WILL GIVE PRESCRIBED TORADOL AT THIS TIME. PATIENT DID NOT NEED ANYTHING ELSE AT THIS TIME. WILL CONTINUE TO MONITOR, AND REASSESS PAIN IN ONE HOUR.
[2018-12-18] MEDS: MULTIVITAMIN-12 10 ML, THIAMINE 100 MG, MAGNESIUM SULFATE 50% 2,000 MG, FOLIC ACID 1 MG... IV SCH ×5 (18:11)
--- NOTE | 2018-12-18 19:00 | NUR ---
GAVE CHANGE OF SHIFT BEDSIDE REPORT TO PM NURSE. PATIENT IS CURRENTLY RESTING, WITH VITAL SIGNS STABLE AND NO SIGNS OF DISTRESS NOTED AT THIS TIME.
--- NOTE | 2018-12-18 19:01 | NUR ---
Patient's Plan of Care was discussed and reviewed with GENARO: KAMLA. WILL CONTINUE TO MONITOR
--- NOTE | 2018-12-18 19:01 | NUR ---
RECD. SITTING ON CHAIR, EATING HIS DINNER. A/OX3, KNOWS HIS NAME, WHERE HE IS BUT DOES NOT KNOW THE DATE TODAY. RESPIRATION EVEN AND UNLABORED. K RIDER 40 MEQ INFUSING AT 68 ML/HR, BANANA BAG AT 100 ML/HR, RIGHT WRIST G22. PLAN OF CARE FOR THE SHIFT DISCUSSED. NOT INTERESTED. DENIES PAIN 0/10. ON 1:1 SITTER.
--- NOTE | 2018-12-18 19:05 | NUR ---
COMPLAINED THAT HE HAS NO TV IN HIS ROOM. STATED HE WILL GO HOME. INQUIRED ON CHARGE NURSE BUT NO TV IS AVAILABLE. Addendum: 12/18/18 at 2138 by Ashley Williamson LVN NO ROOM WITH TV IS AVAILABLE.
--- NOTE | 2018-12-18 19:06 | NUR ---
EXPLAINED TO THE PATIENT CHARGE NURSE SAID THAT PER HOSPITAL POLICY PATIENT THAT ARE DANGER TO SELF SHOULD STAY IN THAT KIND OF ROOM THAT HE HAS FOR SAFETY REASONS.
--- NOTE | 2018-12-18 19:10 | NUR ---
DR. OLSON COMES TO THE ROOM AND EXPLAINED TO THE PATIENT THE RISK AND DISADVANTAGE OF GOING AMA. HE NEEDS ANTIBIOTIC. BUT STILL PATIENT WANTS TO GO HOME.
--- NOTE | 2018-12-18 19:20 | NUR ---
INFORMED PATIENT AUNT ESTHER WHOSE NAME IS IS THE SBAR, THAT PATIENT IS PLANNING TO GO AMA, WILL CALL PATIENT MOTHER.
--- NOTE | 2018-12-18 19:30 | NUR ---
SECURITY CAME AND BRING HIS CLOTHES BUT REFUSED THEM BECAUSE HIS PANTS IS DIRTY AND HIS SHIRT SMALL.
--- NOTE | 2018-12-18 19:35 | NUR ---
DR. OLSON CAME AND GIVE PRESCRIPTION JUST BECAUSE PATIENT NEEDS BADLY ANTIBIOTICS.
--- NOTE | 2018-12-18 19:40 | NUR ---
PUT ON CLOTHES BROUGHT BY SECURITY AND TOOK OFF HIS TELEMETRY BOX.
--- NOTE | 2018-12-18 19:45 | NUR ---
MOTHER GALE CALLED AND SPOKE WITH PATIENT. WHEN ASKED WHAT DID HER MOM SAID, STATED "SHE DOES NOT KNOW ANYTHING ABOUT ME. MY GRANDPARENTS RAISED ME."
--- NOTE | 2018-12-18 19:50 | NUR ---
DISCONNECT PATIENT FROM IV PUMP, TAKE OFF G22 FROM RIGHT WRIST.
--- NOTE | 2018-12-18 19:55 | NUR ---
SECURITY CAME TO TAKE PATIENT OUT BUT PATIENT IS IN THE BR VOIDING.
[2018-12-18 20:00] VITALS: BP 124/65
--- NOTE | 2018-12-18 20:00 | NUR ---
REMINDED PATIENT HE HAS NOWHERE TO GO IF HE LEAVE THE HOSPITAL BESIDES HE STILL NEEDS MEDICATIONS, SIGNED AMA PAPERS.
--- NOTE | 2018-12-18 20:08 | NUR ---
LEAVE THE HOSPITAL AMA ACCOMPANIED BY JOINER OUT OF HIS ROOM TO OUTSIDE PREMISES. INFORMED LATEX FOAM WORKER GORDO TOLENTINO.
[2018-12-18] MEDS ORDERED: AZIT250T3 PO (21:31)
[2018-12-18] MEDS ORDERED: LORA-476 PO (21:31)
[2018-12-18] MEDS ORDERED: AMOX-1000 PO (21:31)
== END 2018-12-18 20:08 | disposition left against medical advice (07) | DRG 816 ==
LOC: MED 14:04 → MTU 16:33
PROVIDERS: ADMIT General Practice; ATTEND General Practice
DX: T51.2X1A Toxic effect of 2-Propanol, accidental (unintentional), initial encounter (principal); J69.0 Pneumonitis due to inhalation of food and vomit; A41.9 Sepsis, unspecified organism; E43 Unspecified severe protein-calorie malnutrition; G92 Toxic encephalopathy; Y90.6 Blood alcohol level of 120-199 mg/100 ml; E66.9 Obesity, unspecified; F41.9 Anxiety disorder, unspecified; I10 Essential (primary) hypertension; D64.9 Anemia, unspecified; F10.239 Alcohol dependence with withdrawal, unspecified; F19.10 Other psychoactive substance abuse, uncomplicated; Z68.33 Body mass index [BMI] 33.0-33.9, adult; Z91.19 Patient's noncompliance with other medical treatment and regimen; Z53.21 Procedure and treatment not carried out due to patient leaving prior to being seen by health care provider; Z59.0 Homelessness
CPT/HCPCS: 36415; 36600; 70450; 71045; 72040; 80048; 80053; 80305; 81003; 82140; 82150; 82803; 82948; 83605; 83690; 83735; 83880; 84100; 84134; 84436; 84443; 84484; 85025; 85610; 85730; 87040; 87081; 87086; 92610; 99291; A9153; G0480; G0482; J0696; J1644; J1885; J2001; J2060; J2405; J3411; J3475; J3480; J3490; J7030; J7042; J7060; J7620; Q0092

== ENCOUNTER 2018-12-19 11:43 | Emergency (ER) | payer MEDICAID ==
[~2018-12-19] VITALS: Ht 172.7 cm; Wt 108.4 kg
[~2018-12-19 11:43] MED LIST changes: +AMOX-1000 PO; +AZIT250T3 PO; +BUS5 PO; +DEXTROSE 50% 50 ML SYR IVP ONE; +EPINEPHrine PFS 0.1 MG/ML SYR IVP ONE; +GABA-638 PO; -LIB25 PO; +LORA-476 PO
--- NOTE | 2018-12-19 11:43 | NUR ---
PT BIBA FOUND DOWN IN APARTMENT COMPLEX, UNKNOWN DOWNTIME.
--- NOTE | 2018-12-19 12:25 | NUR ---
Spoke with Judie from [facility] [employer] office and a deputy will call back for a report.
--- NOTE | 2018-12-19 12:30 | NUR ---
Contacted [facility], spoke with Na. Case # [id number]
--- NOTE | 2018-12-19 12:54 | NUR ---
Mother Jannette contacted and was advised to come to hospital.
--- NOTE | 2018-12-19 13:04 | NUR ---
Spoke with Physical Security Engineer Alok Hwang . He will be enroute 15 mins ETA.
--- NOTE | 2018-12-19 13:34 | NUR ---
AOC DIRECTOR COMBAT OPERATIONS OFFICER AT BEDSIDE.
--- NOTE | 2018-12-19 14:32 | NUR ---
PT MOVED TO ROOM 118 BY EMT.
--- NOTE | 2018-12-19 14:52 | NUR ---
SPOKE WITH GEORGINA FROM [facility], PT ELIGIBLE FOR DONATION, UPDATED HER ON PT CASE, WILL CALL BACK IN 1 HOUR FOR UPDATE.
--- NOTE | 2018-12-19 18:00 | NUR ---
Spoke with patient's brother and they are waiting for another family member to arrive.
--- NOTE | 2018-12-19 19:02 | NUR ---
SPOKE WITH PATIENT'S BROTHER AND HE STATED THAT THEY WERE READY. CONTACTED APICULTURIST ROXANNE LIGHT AND MADE HIM AWARE THAT PATIENT'S FAMILY IS READY FOR HIM TO BE PICKED UP. ADVISED HIM THAT PATIENT WAS IN ROOM 118.
--- NOTE | 2018-12-19 19:16 | NUR ---
REPORT GIVEN TO ARNOLDO AGUILA. PATIENT WAITING FOR SOUND RECORDIST FROM CARDIAC CARE NURSE.
--- NOTE | 2018-12-19 19:35 | NUR ---
FIRE MANAGEMENT SPECIALIST ARRIVED TO DIVISION ORDER TECHNICIAN BODY. CASE# [id number]
--- NOTE | 2018-12-19 19:39 | NUR ---
INTEGRATED MARKETING MANAGER RETURNED AND REDIRECTED TO ROOM 118
== END 2018-12-19 12:02 | disposition expired ==
LOC: MED 11:43
DX: I46.9 Cardiac arrest, cause unspecified (principal); I10 Essential (primary) hypertension; Z86.69 Personal history of other diseases of the nervous system and sense organs; Z79.2 Long term (current) use of antibiotics; Z79.899 Other long term (current) drug therapy
CPT/HCPCS: 31500; 92950; 99285; J0171